=== PATIENT | male | born 1975 | race Caucasian/White ===

== ENCOUNTER 2017-07-25 11:54 | Emergency (ER) | payer MEDICARE, SELFPAY ==
[2017-07-25 11:56] VITALS: BP 111/82; PULSE 106; RESP 16; TEMP 36.5; O2SAT 95; BMI 45.1
--- NOTE | 2017-07-25 14:40 | RAD_ITS ---
STUDY: X-RAY - RIGHT SHOULDER REASON FOR EXAM: Male, 42 years old. Pain. History of recent fall. TECHNIQUE: 5 view(s) of the shoulder. COMPARISON: None. FINDINGS: Normal glenohumeral articulation. Normal acromioclavicular joint. Normal acromion. Normal humeral head and visualized proximal humerus. The soft tissue structures are unremarkable. Normal visualized pulmonary apex. RAD/Shoulder min 2 Views IMPRESSION: Normal x-ray examination of the shoulder. Electronically Signed: Parish Roberts MD at 15:10 EST Tel [phone], Service support ,
[2017-07-25] MEDS: Ibuprofen 400 MG Tablet 800 MG PO (15:19)
--- NOTE | 2017-07-25 15:28 | ED.DCSUM_ITS ---
- ER Visit Summary Date of Service: 07/25/17 Chief Complaint: Fall History of Present Illness: The patient is a [address] aiken. He is a poor informant. He reports that he fell approximately 3 weeks ago and has had left-sided lower back pain since that time. He fell again one week ago and the pain is gotten worse. He does states that as a sharp, aching pain that is 10 out of 10 with twisting and 9 out of 10 at rest. He is taking Flexeril and tramadol without relief. Patient also reports that his right shoulder pain following this fall 1 week ago. It is 6 out of 10 severity. It is increased with abduction. He denies any blow to the head, loss of consciousness, or other injuries. Physical Examination: Vitals: Stable. Afebrile. Neck: No vertebral tenderness. Full ROM without difficulty. Cleared by NEXUS criteria. Back: No vertebral tenderness. Mild tenderness palpation to the left side of his lower back just below the rib cage. General: A&O x 3. NAD. Cardiovascular exam: Regular rate and rhythm, no murmur, rub or gallop. Respiratory exam: Chest nontender. No crepitus. Clear to auscultation bilaterally. No wheezes or stridor. Abdominal exam: Soft, nontender, nondistended, normal bowel sounds. No pain in RUQ or LUQ specifically. No peritoneal signs. Extremity: He has moderate tenderness palpation of his right shoulder. However , he has good range of motion with minimal pain. He is unable to abduct past 90 ? without significant pain. There is no overlying erythema or warmth to suggest a septic joint. He has a 2+ radial pulse bilaterally. Test Results: Right shoulder x-ray is negative. Emergency Department Course and Treatment: She was treated with ibuprofen and is resting comfortably. Treatment Plan: He will be discharged on ibuprofen instructed to follow-up with Dr. aiken for further evaluation treatment. I suggested that he may require physical therapy and/or an MRI of his shoulder if it is not improving. He reports he is already scheduled for physical therapy. Disposition: To home in improved and stable condition. Impression: 1. Fall. 2. Right shoulder pain, acute. 3. Chronic back pain. This note was generated with [employer] software. It may contain incorrect words, spelling, and punctuation that were not noted in review of the chart prior to signing ED Disposition - Plan for ED Patient: Disposition: Home or Assisted Living Chief Complaint: Upper Extremity Injury Instructions: ED Neck Back Pain General, ED Shoulder Pain [facility] Prescriptions: Ibuprofen [Motrin] 800 mg PO TID PRN PRN #20 tablet PRN Reason: Pain Referrals: Kajal Aiken [Primary Care Provider] - 1 Week if not improving
[2017-07-25 15:34] VITALS: PULSE 72; RESP 22
--- NOTE | 2017-07-25 15:35 | ED.RN ---
THIS NURSE REVIEWED D/C INSTRUCTIONS WITH PT. PT VERBALIZED UNDERSTANDING OF INSTRUCTIONS. PT DENIES FURTHER NEEDS OR QUESTIONS AT THIS TIME. PT AMBULATES FROM DEPARTMENT ON OWN WITHOUT ASSISTANCE FROM STAFF
== END 2017-07-25 15:38 | disposition home or self-care (01) ==
PROVIDERS: Emergency Provider Emergency Medicine; Family Provider Family Medicine; PCP Family Medicine
DX: M25.511 Pain in right shoulder (principal); G89.29 Other chronic pain; M54.9 Dorsalgia, unspecified; F17.210 Nicotine dependence, cigarettes, uncomplicated; Z91.81 History of falling; F20.9 Schizophrenia, unspecified
CPT/HCPCS: 73030; 99283

== ENCOUNTER 2017-09-10 09:59 | Emergency (ER) | payer MEDICARE, SELFPAY ==
[2017-09-10 10:00] VITALS: BP 152/108; PULSE 75; RESP 18; TEMP 36.4; O2SAT 97; BMI 45.1
--- NOTE | 2017-09-10 10:11 | ED.DCSUM_ITS ---
- ER Visit Summary Date of Service: 09/10/17 Chief Complaint: Pain, shoulder pain History of Present Illness: The patient is a 42 M to the emergency department with multiple complaints. Patient has had pain in his right shoulder for 3 months. He was seen here about 7 weeks ago. At that time, the patient had a fall. He had negative x-rays. He was back to his primary care as he may need MRI and outpatient physical therapy. He states all they did was just give me ibuprofen. He has not had any referrals. He states he still having pain in the shoulder. It is worse when he moves. He is also having pain in his right lower jaw over the past 24 hours. He has widespread dental disease and states that he gets infections from time to time. He states that the ibuprofen was not helping. He denies any fevers or chills. He denies any trouble speaking or swallowing. Physical Examination: Is relatively unremarkable. Patient is widespread dental disease. There is minimal erythema base of tooth 30. There is no focal abscess. No Aurelio angina. Submental space soft. No trismus or stridor. Oropharynx is widely patent. Patient also has some pain with range of motion of the right shoulder, but no erythema or edema. Normal pulses. Axillary nerve is preserved. Test Results: [] Emergency Department Course and Treatment: The patient has early dental abscess. There is nothing that would benefit from incision and drainage. I did review [facility] reports which shows no prescription analgesic medication within the past 6 months. The patient will be given 1 day of analgesics, I also placed him on clindamycin. I did general counselor him that he needs to pursue more workup for his shoulder with his primary care as he may need orthopedic referral or MRI. Patient will be discharged home. Treatment Plan: [] Disposition: Discharge Impression: 1. Dental pain, periapical abscess 2. Exacerbation of chronic right shoulder pain This note was generated with [employer] dictation software. It may contain incorrect words, spelling, and punctuation that were not noted in review of the chart prior to signing ED Disposition - Plan for ED Patient: Chief Complaint: Dental Instructions: ED Abscess Dental Prescriptions: Hydrocodone Bitart/Apap 5-325 [[place] 5/325] 1 tab PO Q6H PRN PRN #5 tab PRN Reason: Pain Ibuprofen [Motrin] 800 mg PO TID PRN PRN #20 tab PRN Reason: Pain Clindamycin [Cleocin] 300 mg PO 4X/DAY #80 cap Referrals: Kajal Knutson [Primary Care Provider] -
[2017-09-10] MEDS: HYDROcodone Bitartrate/Apap 5/325 Tablet PO (10:21)
== END 2017-09-10 10:26 | disposition home or self-care (01) ==
PROVIDERS: Emergency Provider Emergency Medicine; Family Provider Family Medicine; PCP Family Medicine
DX: M25.511 Pain in right shoulder (principal); G89.29 Other chronic pain; K04.7 Periapical abscess without sinus; J44.9 Chronic obstructive pulmonary disease, unspecified; Z72.0 Tobacco use; Z79.899 Other long term (current) drug therapy
CPT/HCPCS: 99283

== ENCOUNTER 2017-12-19 11:03 | Emergency (ER) | payer MEDICARE, SELFPAY ==
[2017-12-19 11:04] VITALS: BP 143/90; PULSE 110; RESP 22; TEMP 36.7; O2SAT 96; BMI 46.9
--- NOTE | 2017-12-19 11:25 | ED.VISSUMM ---
- ER Visit Summary Date of Service: 12/19/17 Chief Complaint: [] Right upper extremity pain since July History of Present Illness: The patient is a 42 M [] schizophrenia and hypertension all those are stable he indicates in July 2017 he slipped on ice injuring his right upper extremity he has had extensive outpatient evaluation including with his own physicians x-rays physical therapy multiple times reports he still having pain he is on ibuprofen which he is allowed to take, he is also able to tolerate Toradol, he indicates he is explained his physicians is not improved he would like an MRI done and they are trying to have that approved through care source insurance he has had no change in his symptoms he presents because of the persistent problem of pain into the mid arm that has been there since he fell in July Physical Examination: [] No distress head neck chest unremarkable the upper extremity the shoulder is unremarkable he is able to forward elevate he can flex extend the elbow forearm wrist and hand are unremarkable 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 aiken as I cannot order an MRI through the emergency department given all the above, he does agree to Toradol therapy, ibuprofen as he is out of it and to follow-up with his physicians for further management of suggested he obtain a referral to orthopedics through the [facility] system since those are his physicians and he will do that and agrees this plan Treatment Plan: [] Disposition: [] Home stable Impression: [] Acute recurrent right mid humeral pain related to prior fall This note was generated with [employer] dictation software. It may contain incorrect words, spelling, and punctuation that were not noted in review of the chart prior to signing ED Disposition - Plan for ED Patient: Chief Complaint: Upper Extremity Injury Referrals: Kajal Aiken DO [Primary Care Provider] -
--- NOTE | 2017-12-19 11:28 | ED.DCSUM_ITS ---
- ER Visit Summary Date of Service: 12/19/17 Chief Complaint: [] Right upper extremity pain since July History of Present Illness: The patient is a 42 M [] schizophrenia and hypertension all those are stable he indicates in July 2017 he slipped on ice injuring his right upper extremity he has had extensive outpatient evaluation including with his own physicians x-rays physical therapy multiple times reports he still having pain he is on ibuprofen which he is allowed to take, he is also able to tolerate Toradol, he indicates he is explained his physicians is not improved he would like an MRI done and they are trying to have that approved through [employer] insurance he has had no change in his symptoms he presents because of the persistent problem of pain into the mid arm that has been there since he fell in July Physical Examination: [] No distress head neck chest unremarkable the upper extremity the shoulder is unremarkable he is able to forward elevate he can flex extend the elbow forearm wrist and hand are unremarkable 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 aiken as I cannot order an MRI through the emergency department given all the above, he does agree to Toradol therapy, ibuprofen as he is out of it and to follow-up with his physicians for further management of suggested he obtain a referral to orthopedics through the [facility] system since those are his physicians and he will do that and agrees this plan Treatment Plan: [] Disposition: [] Home stable Impression: [] Acute recurrent right mid humeral pain related to prior fall This note was generated with [employer] dictation software. It may contain incorrect words, spelling, and punctuation that were not noted in review of the chart prior to signing ED Disposition - Plan for ED Patient: Chief Complaint: Upper Extremity Injury Referrals: Kajal Aiken DO [Primary Care Provider] -
--- NOTE | 2017-12-19 11:28 | ED.DEP ---
ED Disposition - Plan for ED Patient: Chief Complaint: Upper Extremity Injury Instructions: ED Torn Rotator Cuff Prescriptions: Ibuprofen 600 mg PO TID #30 tab Referrals: Kajal Knutson DO [Primary Care Provider] -
[2017-12-19] MEDS: Ketorolac 60 MG/2 ML Vial IM (11:41)
[2017-12-19 12:03] VITALS: BP 143/84; PULSE 87; RESP 16
== END 2017-12-19 12:04 | disposition home or self-care (01) ==
PROVIDERS: Emergency Provider Emergency Medicine; Family Provider Family Medicine; PCP Family Medicine
DX: M79.621 Pain in right upper arm (principal); Z91.81 History of falling; I10 Essential (primary) hypertension
CPT/HCPCS: 99282

== ENCOUNTER 2017-12-23 12:26 | Emergency (ER) | payer MEDICARE, SELFPAY ==
[2017-12-23 12:27] VITALS: BP 149/97; PULSE 94; RESP 16; TEMP 36.6; O2SAT 98; BMI 47.0
--- NOTE | 2017-12-23 14:04 | ED.DEP ---
ED Disposition - Plan for ED Patient: Chief Complaint: Dental Instructions: ED Tooth Pain Prescriptions: Clindamycin [Cleocin] 300 mg PO 4X/DAY #80 capsule Referrals: Kajal Knutson DO [Primary Care Provider] -
--- NOTE | 2017-12-23 14:09 | ED.VISSUMM ---
- ER Visit Summary Date of Service: 12/23/17 Chief Complaint: Dental pain and right shoulder pain History of Present Illness: The patient is a 42 M presenting with dental pain and right shoulder pain. Patient states this has been ongoing for several days. He has pain in his left upper molar. He has an appointment with his dentist on January 12. He also complains of right shoulder pain which has been ongoing for several months. He is currently awaiting an MRI. He was previously taking Mobic and then started taking ibuprofen. He states this is not helping. He denies other complaints. Physical Examination: Vitals are stable. Patient is afebrile. Alert no acute distress. HEENT exam poor dentition, left upper molar tenderness, no fluctuance. No sublingual edema Neck is supple. Lungs are clear and equal bilaterally. Heart is regular rate and rhythm. Abdomen is soft nontender nondistended. Extremities right anterior shoulder tenderness, painful active full range of motion Skin is warm and dry. No focal neurologic deficit. Remainder of exam is unremarkable. Emergency Department Course and Treatment: Patient has an allergy to naproxen. He is given 1 Percocet in the emergency department. Advised to continue ibuprofen. Patient is given clindamycin. Advised to follow-up with his dentist and his primary care physician. Advised return to ED if worsening complaints. Disposition: Discharge home Impression: Odontalgia, chronic right shoulder pain This note was generated with [employer] dictation software. It may contain incorrect words, spelling, and punctuation that were not noted in review of the chart prior to signing ED Disposition - Plan for ED Patient: Chief Complaint: Dental Instructions: ED Tooth Pain Prescriptions: Clindamycin [Cleocin] 300 mg PO 4X/DAY #80 capsule Referrals: Kajal Knutson DO [Primary Care Provider] -
[2017-12-23] MEDS: oxyCODONE 5 MG Tablet PO (14:12)
[2017-12-23] MEDS: Clindamycin HCl 150 MG Capsule 300 MG PO (14:12)
[2017-12-23 14:19] VITALS: BP 138/87; PULSE 82; RESP 20; O2SAT 100
== END 2017-12-23 14:22 | disposition home or self-care (01) ==
PROVIDERS: Emergency Provider Emergency Medicine; Family Provider Family Medicine; PCP Family Medicine
DX: M25.511 Pain in right shoulder (principal); K08.89 Other specified disorders of teeth and supporting structures; G89.29 Other chronic pain; Z72.0 Tobacco use; F20.9 Schizophrenia, unspecified
CPT/HCPCS: 99283

== ENCOUNTER 2018-01-19 13:04 | Emergency (ER) | payer MEDICARE, SELFPAY ==
[2018-01-19 13:05] VITALS: BP 132/87; PULSE 108; RESP 17; TEMP 36.6; O2SAT 99; BMI 46.7
--- NOTE | 2018-01-19 13:53 | ED.VISSUMM ---
- ER Visit Summary Date of Service: 01/19/18 Chief Complaint: Dental pain and torn muscle History of Present Illness: The patient is a 42 M who presents with increasing dental pain for the past week. He states his dentist is located at [facility]. He denies fever, chills night sweats. Denies difficulty opening or closing his mouth. He denies any facial redness or swelling. He denies change in voice. He does report cold liquid makes the pain worse. There is no history rheumatic fever, murmur, SBE, IV drug use to be an immune suppressed. He states when he flexes his right elbow he complains of pain in the bicep muscle. There is no history of trauma. Physical Examination: Vital signs remarkable for an elevated blood pressure and heart rate of 132/87 and 108 respectively. Patient has marked dental caries. There is probable abscess of the left upper first bicuspid. The caries involve dentin and pulp numerous teeth. There is no fluctuance. There is no facial erythema, warmth. There may be slight swelling. Trach is midline. There is no cervical lymphadenopathy. There is no stridor. Heart is rapid and regular without murmur, gallop or rub. Lungs are clear to auscultation. Examination right upper extremity reveals pain palpation over the bicep tendon. He has full range of motion and no weakness. Axillary, median, radial and ulnar function intact. Radial pulses palpable. There is no evidence of trauma. Having him flex against resistance causes him pain. Test Results: None Emergency Department Course and Treatment: Because of his allergies he was treated with clindamycin 300 mg and one [place] tablet Treatment Plan: Follow-up at the [facility] Disposition: Prescription for clindamycin 300 mg and [place] No. 10 and outpatient follow-up Impression: 1. Dental abscess 2. Odontalgia 3. Multiple dental caries involving pulp and dentin multiple teeth 4. Bicep tendinitis This note was generated with [employer] dictation software. It may contain incorrect words, spelling, and punctuation that were not noted in review of the chart prior to signing ED Disposition - Plan for ED Patient: Disposition: Home or Assisted Living Chief Complaint: Dental Instructions: Dental Abscess, ED Cavity Dental, ED Strain Muscle Ext Prescriptions: Hydrocodone Bitart/Apap 5-325 [[place] 5MG-325MG] 1 tab PO Q6H PRN PRN 3 Days #10 tab PRN Reason: Pain Clindamycin HCl [Cleocin] 300 mg PO Q6H #28 cap Referrals: Kajal Knutson DO [Primary Care Provider] - Cecile Duran [NON-STAFF] - 5-7 Days
--- NOTE | 2018-01-19 14:00 | ED.DCSUM_ITS ---
- ER Visit Summary Date of Service: 01/19/18 Chief Complaint: Dental pain and torn muscle History of Present Illness: The patient is a 42 M who presents with increasing dental pain for the past week. He states his dentist is located at [facility]. He denies fever, chills night sweats. Denies difficulty opening or closing his mouth. He denies any facial redness or swelling. He denies change in voice. He does report cold liquid makes the pain worse. There is no history rheumatic fever, murmur, SBE, IV drug use to be an immune suppressed. He states when he flexes his right elbow he complains of pain in the bicep muscle. There is no history of trauma. Physical Examination: Vital signs remarkable for an elevated blood pressure and heart rate of 132/87 and 108 respectively. Patient has marked dental caries. There is probable abscess of the left upper first bicuspid. The caries involve dentin and pulp numerous teeth. There is no fluctuance. There is no facial erythema, warmth. There may be slight swelling. Trach is midline. There is no cervical lymphadenopathy. There is no stridor. Heart is rapid and regular without murmur, gallop or rub. Lungs are clear to auscultation. Examination right upper extremity reveals pain palpation over the bicep tendon. He has full range of motion and no weakness. Axillary, median, radial and ulnar function intact. Radial pulses palpable. There is no evidence of trauma. Having him flex against resistance causes him pain. Test Results: None Emergency Department Course and Treatment: Because of his allergies he was treated with clindamycin 300 mg and one [place] tablet Treatment Plan: Follow-up at the [facility] Disposition: Prescription for clindamycin 300 mg and [place] No. 10 and outpatient follow-up Impression: 1. Dental abscess 2. Odontalgia 3. Multiple dental caries involving pulp and dentin multiple teeth 4. Bicep tendinitis This note was generated with [employer] dictation software. It may contain incorrect words, spelling, and punctuation that were not noted in review of the chart prior to signing ED Disposition - Plan for ED Patient: Disposition: Home or Assisted Living Chief Complaint: Dental Instructions: Dental Abscess, ED Cavity Dental, ED Strain Muscle Ext Prescriptions: Hydrocodone Bitart/Apap 5-325 [[place] 5MG-325MG] 1 tab PO Q6H PRN PRN 3 Days #10 tab PRN Reason: Pain Clindamycin HCl [Cleocin] 300 mg PO Q6H #28 cap Referrals: Kajal Knutson DO [Primary Care Provider] - Cecile Duran [NON-STAFF] - 5-7 Days
[2018-01-19] MEDS: Clindamycin HCl 150 MG Capsule 300 MG PO (14:10)
[2018-01-19] MEDS: HYDROcodone Bitartrate/Apap 5/325 Tablet PO (14:11)
[2018-01-19 14:12] VITALS: BP 128/75; PULSE 82; RESP 16; O2SAT 96
== END 2018-01-19 14:14 | disposition home or self-care (01) ==
PROVIDERS: Emergency Provider Emergency Medicine; Family Provider Family Medicine; PCP Family Medicine
DX: K04.7 Periapical abscess without sinus (principal); K02.9 Dental caries, unspecified; M75.20 Bicipital tendinitis, unspecified shoulder; E66.9 Obesity, unspecified; J44.9 Chronic obstructive pulmonary disease, unspecified; J45.909 Unspecified asthma, uncomplicated; F32.9 Major depressive disorder, single episode, unspecified
CPT/HCPCS: 99283

== ENCOUNTER 2018-02-08 17:12 | Emergency (ER) | payer MEDICARE, SELFPAY ==
[2018-02-08 17:13] VITALS: BP 128/82; PULSE 96; RESP 16; TEMP 36.6; O2SAT 96; BMI 45.1
--- NOTE | 2018-02-08 17:31 | ED.DCSUM_ITS ---
- ER Visit Summary Date of Service: 02/08/18 Chief Complaint: Dental pain History of Present Illness: The patient is a 42 M presenting with dental pain ? 3 days. Patient has pain in the right lower teeth. He is scheduled to have his tooth extracted next week at [facility]. He states he is on clindamycin and [place]. He has run out of the [place] and is almost finished with clindamycin. He denies fever. He states he took ibuprofen today with no improvement. Physical Examination: Vitals are stable. Patient is afebrile. Alert no acute distress. HEENT exam right lower molar tenderness and decay, no surrounding fluctuance. No sublingual edema Lungs are clear and equal bilaterally. Heart is regular rate and rhythm. Extremities are unremarkable. Skin is warm and dry. Remainder of exam is unremarkable. Emergency Department Course and Treatment: Patient is given clindamycin, short course of [place]. Advised to follow-up with his dentist. Advised return ED if worsening complaints. Disposition: Discharge home Impression: Odontalgia This note was generated with [employer] dictation software. It may contain incorrect words, spelling, and punctuation that were not noted in review of the chart prior to signing ED Disposition - Plan for ED Patient: Chief Complaint: Dental Referrals: Kajal Knutson DO [Primary Care Provider] -
--- NOTE | 2018-02-08 17:32 | ED.DEP ---
ED Disposition - Plan for ED Patient: Chief Complaint: Dental Instructions: ED Tooth Pain Prescriptions: Hydrocodone Bitart/Apap 5-325 [[place] 5MG-325MG] 1 tablet PO Q6H PRN PRN 2 Days #8 tablet PRN Reason: Pain Clindamycin [Cleocin] 300 mg PO 4X/DAY #80 capsule Referrals: Kajal Knutson DO [Primary Care Provider] -
--- NOTE | 2018-02-08 17:33 | DCINST.ED_ITS ---
ED Disposition - Plan for ED Patient: Chief Complaint: Dental Instructions: ED Tooth Pain Prescriptions: Hydrocodone Bitart/Apap 5-325 [[place] 5MG-325MG] 1 tablet PO Q6H PRN PRN 2 Days # 8 tablet PRN Reason: Pain Clindamycin [Cleocin] 300 mg PO 4X/DAY #80 capsule Referrals: Kajal Knutson DO [Primary Care Provider] -
--- NOTE | 2018-02-08 17:46 | ED.RN ---
PT GIVEN WRITTEN AND VERBAL DISCHARGE INSTRUCTIONS. PT VERBALIZES UNDERSTANDING. EDUCATED NOT TO DRIVE WHEN TAKING [place].
== END 2018-02-08 17:47 | disposition home or self-care (01) ==
PROVIDERS: Emergency Provider Emergency Medicine; Family Provider Family Medicine; PCP Family Medicine
DX: K08.89 Other specified disorders of teeth and supporting structures (principal); Z72.0 Tobacco use
CPT/HCPCS: 99282

== ENCOUNTER 2018-02-16 13:03 | Emergency (ER) | payer MEDICARE, SELFPAY ==
[2018-02-16 13:07] VITALS: BP 155/78; PULSE 107; RESP 22; TEMP 36.4; BMI 47.7
--- NOTE | 2018-02-16 14:13 | ED.DEP ---
ED Disposition - Plan for ED Patient: Chief Complaint: Dental Instructions: ED Tooth Pain Prescriptions: Oxycodone HCl/Acetaminophen [Percocet 5/325] 1 tablet PO Q6H PRN PRN 3 Days #6 tablet PRN Reason: Pain Referrals: Kajal Knutson DO [Primary Care Provider] -
--- NOTE | 2018-02-16 14:21 | ED.DCSUM_ITS ---
- ER Visit Summary Date of Service: 02/16/18 Chief Complaint: Dental pain History of Present Illness: The patient is a 42 M presenting with dental pain. This has been ongoing for several days. He saw his dentist on and was given 2 day supply of Percocet. He states that he has now run out of this and is not able to see the dentist again until . At that time he plans to have dental extraction. He denies fever swelling or new complaints. Physical Examination: Vitals are stable. Patient is afebrile. Alert no acute distress. HEENT exam widespread dental decay, tenderness right upper molar, no surrounding fluctuance. No sublingual edema Neck is supple. Lungs are clear and equal bilaterally. Heart is regular rate and rhythm. Extremities are unremarkable. Skin is warm and dry. Remainder of exam is unremarkable. Emergency Department Course and Treatment: [facility] report was reviewed. He has allergies to NSAIDs. He was given Percocet #6. He is advised to follow-up with his dentist. Advised return to ED if worsening complaints. Disposition: Discharge home Impression: Odontalgia This note was generated with [employer] dictation software. It may contain incorrect words, spelling, and punctuation that were not noted in review of the chart prior to signing ED Disposition - Plan for ED Patient: Chief Complaint: Dental Instructions: ED Tooth Pain Prescriptions: Oxycodone HCl/Acetaminophen [Percocet 5/325] 1 tablet PO Q6H PRN PRN 3 Days #6 tablet PRN Reason: Pain Referrals: Kajal Knutson DO [Primary Care Provider] -
[2018-02-16 14:33] VITALS: PULSE 95; RESP 18; O2SAT 97
--- NOTE | 2018-02-16 14:34 | ED.RN ---
REVIEWED D/C INSTRUCTIONS, FOLLOW UP CARE, PRESCRIPTION, AND S/S THAT WOULD WARRANT A RETURN TO THE ED WITH PT. PT VERBALIZED AN UNDERSTANDING AND DENIES FURTHER QUESTIONS FOR THIS RN. PT SKIN P/W/D, RESP EVEN AND UNLABORED, PT A&O X 3, NO DISTRESS NOTED. PT AMBULATED OUT OF ED, GAIT STEADY.
== END 2018-02-16 14:37 | disposition home or self-care (01) ==
PROVIDERS: Emergency Provider Emergency Medicine; Family Provider Family Medicine; PCP Family Medicine
DX: K08.89 Other specified disorders of teeth and supporting structures (principal); K02.9 Dental caries, unspecified; F32.9 Major depressive disorder, single episode, unspecified; Z72.0 Tobacco use
CPT/HCPCS: 99282

== ENCOUNTER 2018-03-09 17:16 | Emergency (ER) | payer MEDICARE, SELFPAY ==
[2018-03-09 17:18] VITALS: BP 134/91; PULSE 98; RESP 18; TEMP 37.1; O2SAT 97; BMI 48.0
--- NOTE | 2018-03-09 17:37 | ED.VISSUMM ---
- ER Visit Summary Date of Service: 03/09/18 Chief Complaint: Dental pain History of Present Illness: The patient is a 42 M who presents with dental pain that became worse today. Patient states he had dental extractions performed days ago. Patient states the pain has been getting progressively worse. Patient states he has been unable keep his ibuprofen down. Patient denies any fevers or chills. Patient states he has been taking clindamycin. Patient states he has not vomited his clindamycin. Patient denies any chest pain or shortness of breath. Patient denies any difficulty swallowing. Physical Examination: Vital signs are stable. Patient is afebrile. Patient is in no acute distress. Oral mucosa is pink and moist. Gingiva is mildly tender over the upper gingiva. There is also some tenderness over the left lower gingiva and the area of the left lower canine. There is no fluctuance. There is no sublingual edema noted. There is no discharge or drainage noted. Oropharynx is clear. Neck is supple. Trachea is midline. There is no lymphadenopathy noted. The remaining physical exam is within normal limits. Emergency Department Course and Treatment: Patient was given a dose of meloxicam here. Patient was given a prescription for meloxicam. Patient was instructed to follow-up with his dentist in 5-7 days. Patient understood and was agreeable with the plan. All questions were answered. Disposition: Discharge home Impression: Odontalgia This note was generated with uSamp dictation software. It may contain incorrect words, spelling, and punctuation that were not noted in review of the chart prior to signing ED Disposition - Plan for ED Patient: Disposition: Home or Assisted Living Chief Complaint: Dental Diagnosis: Odontalgia Instructions: ED Tooth Pain Prescriptions: Meloxicam [Mobic] 15 mg PO DAILY #10 tab Referrals: Kajal Knutson DO [Primary Care Provider] -
[2018-03-09 18:18] VITALS: BP 121/83
[2018-03-09] MEDS: Meloxicam 15 MG Tablet PO (18:18)
== END 2018-03-09 18:20 | disposition home or self-care (01) ==
PROVIDERS: Emergency Provider Emergency Medicine; Family Provider Family Medicine; PCP Family Medicine
DX: K08.89 Other specified disorders of teeth and supporting structures (principal); Z98.818 Other dental procedure status; F17.200 Nicotine dependence, unspecified, uncomplicated
CPT/HCPCS: 99284

== ENCOUNTER 2020-03-17 02:17 | Emergency (ER) | payer MEDICARE, MEDICAID, SELFPAY ==
[2020-03-17] VITALS (9 sets, daily range): BP systolic 101–122; BP diastolic 73–100; PULSE 118–168; RESP 18–33; TEMP 37.2–37.7; O2SAT 95–96; BMI 37.3
--- NOTE | 2020-03-17 02:34 | CT_ITS ---
STUDY: CT ABDOMEN AND PELVIS WITH CONTRAST REASON FOR EXAM: Male, 44 years old. NOT FEELING WELL X 2 DAYS, KNOWN WOUND IN LEFT GROIN, PT DID NOT START ATB, HX HTN, COPD, DIAB RADIATION DOSAGE (If Supplied By Facility): CTDIvol = ( 14.28 ) mGy, DLP = ( 1394.93 ) mGycm TECHNIQUE: Transaxial images were obtained from the dome of the diaphragm to the symphysis pubis without oral contrast. IV 100mL Isovue-370 was administered. Sagittal and coronal images were reconstructed. Individualized dose optimization techniques were used for this CT. COMPARISON: None. FINDINGS: The visualized lung bases are unremarkable. The visualized portions of the heart are within normal limits. There is decreased attenuation of the liver consistent with steatosis. Normal gallbladder and extrahepatic biliary system. Normal spleen. Normal pancreas. Normal bilateral adrenal glands. Normal right kidney. Normal left kidney. Normal visualized stomach. Normal small intestine. Normal colon. The appendix is visualized and appears normal. Normal abdominal aorta. Normal inferior vena cava. Normal retroperitoneum. Normal urinary bladder. Normal abdominal wall. Normal osseous structures. Soft tissues demonstrate subcutaneous emphysema within the left inguinal region tracking along the subcutaneous soft tissues of the left anterior abdominal wall with adjacent subcutaneous fat fat stranding changes. CT/Abdomen/Pelvis W IV Cont ONLY IMPRESSION: Extensive Soft tissue emphysematous changes within the left anterior abdominal wall and inguinal region with adjacent fat stranding inflammatory changes. No organized fluid collections. 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 Hepatic steatosis. Electronically Signed: Luis Winter, at 4:40 EDT Tel , Service support ,
--- NOTE | 2020-03-17 02:34 | EKG12_ITS ---
Test Reason : AFIB RVR Blood Pressure : / mmHG Vent. Rate : 155 BPM Atrial Rate : 278 BPM P-R Int : 000 ms QRS Dur : 104 ms QT Int : 322 ms P-R-T Axes : 082 072 031 degrees QTc Int : 517 ms Atrial flutter with variable A-V block Junctional ST depression, probably normal Abnormal ECG Confirmed by EM RECINOS, NICK ([id number]), photograph editor RINKU CONNORS ([id number]) on 03/21/2020 1:29:53 PM Referred By: SUSIE Confirmed By:NICK STRICKLAND MD
--- NOTE | 2020-03-17 02:43 | ED.DCSUM_ITS ---
History of Present Illness Chief Complaint: General Illness Narrative: Patient is a 44-year-old male who presents with weakness and falls. On Saturday about 5 days ago he noticed redness pain and swelling at his left groin. He was seen at an outside emergency department and told that it was an infected hair follicle. He was prescribed antibiotics but was unable to get the pharmacy to have these filled. Over the past day and a half he has had generalized weakness and falls. A family member called EMS. He was noted to be hyperglycemic with a blood sugar greater than 500. He is not a known diabetic. He was also found to be in atrial fibrillation with RVR he does not have a history of atrial fibrillation. He also had a temperature of 100.3 Past Medical History - Allergies and Home Meds Allergies/Adverse Reactions: Allergies naproxen Allergy (Verified 02/08/18 17:15) Shortness of breath Penicillins Allergy (Verified 02/08/18 17:15) Swelling aspirin Adverse Reaction (Verified 02/08/18 17:15) HEART PALPITATIONS Primary Care Physician: Kajal Knutson DO [Primary Care Provider] - Past Medical History: - - Mental health patient is uncertain of his diagnoses. He also has a history of hyperlipidemia noncompliant with medication. He is not a known diabetic. He denies history of coronary disease. Surgical History: noncontributory Smoking Status: Current every day smoker - Family History Maternal Family History: Reports: No pertinent history Paternal Family History: Reports: No pertinent history Review of Systems All systems negative except as indicated General: Reports: Fever Eyes: Denies: Visual changes - bilaterally ENT: Denies: Bilateral ear pain Cardiovascular: Denies: Chest pain Respiratory: Denies: Dyspnea, Cough Gastrointestinal: Reports: Abdominal pain. Denies: Vomiting Musculoskeletal: Denies: Myalgias Skin: Reports: Rash Neurological: Denies: Headache Psych: Reports: Depression, Anxiety Hematologic: Denies: Easy bruising Allergy: Denies: Uticaria Physical Exam Vital Signs/Narrative: Vital Signs Temp Pulse Resp BP Pulse Ox 03/17/20 02:29 142 H 03/17/20 02:20 98.9 F 168 H 18 117/73 96 Inital Vital Signs reviewed: Yes General: Well nourished, Obese Head: Normocephalic Eyes: EOMI ENT: Moist mucous membranes Neck: Supple Cardiovascular: Irregular, Tachycardia Respiratory: Wheezing Abdomen: Soft, - - Patient does have lower abdominal tenderness he has erythema and induration beginning on the left side of the scrotum involving the groin pelvis and lower abdomen this is hot to the touch : - - There is an open wound on the left side of the scrotum with bassem purulent drainage Skin: Normal color Neurological: Alert Psychological: Normal affect Diagnostic/Tx/Re-eval Impressions Abdomen/Pelvis CT 03/17/20 02:34 IMPRESSION: Extensive Soft tissue emphysematous changes within the left anterior abdominal wall and inguinal region with adjacent fat stranding inflammatory changes. No organized fluid collections. 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 Hepatic steatosis. Electronically Signed: Luis Winter, at 4:40 EDT Tel , Service support , ADDENDUM: 03/17/20 0455 03/17/20 02:34 Abdomen/Pelvis W IV Cont ONLY [CT] Stat Laboratory Results 03/17/20 03/17/20 03/17/20 02:30 02:30 02:30 WBC 20.1 H RBC 5.11 Hgb 15.7 Hct 44.8 MCV 87.7 MCH 30.7 MCHC 35.0 RDW Std Deviation 38.8 RDW Coeff of Desiree 12.0 Plt Count 193 MPV 9.9 Immature Gran % (Auto) 1.300 H Neut % (Auto) 85.0 H Lymph % (Auto) 4.2 L [place] % (Auto) 8.4 Eos % (Auto) 0.8 Baso % (Auto) 0.3 Absolute Neuts (auto) 17.1 H Absolute Lymphs (auto) 0.85 Nucleated RBC % 0 Differential Comment SCANNED Diff Path Review May foll PT 16.0 H INR 1.3 APTT 28.4 Specimen Type VBG pH VBG pO2 VBG HCO3 VBG O2 Sat (Calc) VBG O2 Content VBG Base Excess POC Mix VBG pCO2 Pt Tmp Sodium 129 L Potassium 3.8 Chloride 93 L Carbon Dioxide 18.0 L Anion Gap 18 H BUN 19 H Creatinine 1.35 H Estim Creat Clear Calc 72.10 Est GFR (MDRD) Af Amer 74 Est GFR (MDRD) Non-Af 61 BUN/Creatinine Ratio 14.1 Glucose 470 H* Lactic Acid Calcium 8.8 Total Bilirubin 1.00 AST 7 L ALT 21 Alkaline Phosphatase 127 H Troponin I < 0.015 Total Protein 7.2 Albumin 2.7 L Globulin 4.5 H Albumin/Globulin Ratio 0.6 L Urine Color Urine Clarity Urine pH Ur Specific [place] Urine Protein Urine Glucose (UA) Urine Ketones Urine Occult Blood Urine Nitrite Urine Bilirubin Urine Urobilinogen Ur Leukocyte Esterase Urine RBC Urine WBC Ur Squamous Epith Cells Amorphous Sediment Urine Bacteria Urine Mucus Acetone Level 03/17/20 03/17/20 03/17/20 02:45 02:45 02:59 WBC RBC Hgb Hct MCV MCH MCHC RDW Std Deviation RDW Coeff of Desiree Plt Count MPV Immature Gran % (Auto) Neut % (Auto) Lymph % (Auto) [place] % (Auto) Eos % (Auto) Baso % (Auto) Absolute Neuts (auto) Absolute Lymphs (auto) Nucleated RBC % Differential Comment Diff Path Review PT INR APTT Specimen Type YESSENIA VBG pH 7.42 VBG pO2 45 H VBG HCO3 15 L VBG O2 Sat (Calc) 83 H VBG O2 Content 16 L VBG Base Excess -10 L POC Mix VBG pCO2 Pt Tmp 23.2 L Sodium Potassium Chloride Carbon Dioxide Anion Gap BUN Creatinine Estim Creat Clear Calc Est GFR (MDRD) Af Amer Est GFR (MDRD) Non-Af BUN/Creatinine Ratio Glucose Lactic Acid 2.0 Calcium Total Bilirubin AST ALT Alkaline Phosphatase Troponin I Total Protein Albumin Globulin Albumin/Globulin Ratio Urine Color Urine Clarity Urine pH Ur Specific [place] Urine Protein Urine Glucose (UA) Urine Ketones Urine Occult Blood Urine Nitrite Urine Bilirubin Urine Urobilinogen Ur Leukocyte Esterase Urine RBC Urine WBC Ur Squamous Epith Cells Amorphous Sediment Urine Bacteria Urine Mucus Acetone Level SMALL H 03/17/20 04:02 WBC RBC Hgb Hct MCV MCH MCHC RDW Std Deviation RDW Coeff of Desiree Plt Count MPV Immature Gran % (Auto) Neut % (Auto) Lymph % (Auto) [place] % (Auto) Eos % (Auto) Baso % (Auto) Absolute Neuts (auto) Absolute Lymphs (auto) Nucleated RBC % Differential Comment Diff Path Review PT INR APTT Specimen Type VBG pH VBG pO2 VBG HCO3 VBG O2 Sat (Calc) VBG O2 Content VBG Base Excess POC Mix VBG pCO2 Pt Tmp Sodium Potassium Chloride Carbon Dioxide Anion Gap BUN Creatinine Estim Creat Clear Calc Est GFR (MDRD) Af Amer Est GFR (MDRD) Non-Af BUN/Creatinine Ratio Glucose Lactic Acid Calcium Total Bilirubin AST ALT Alkaline Phosphatase Troponin I Total Protein Albumin Globulin Albumin/Globulin Ratio Urine Color Yellow Urine Clarity Clear Urine pH 5.0 Ur Specific [place] 1.015 Urine Protein 30 H Urine Glucose (UA) 1000 H Urine Ketones 150 H Urine Occult Blood 25 H Urine Nitrite Negative Urine Bilirubin Negative Urine Urobilinogen Normal Ur Leukocyte Esterase Negative Urine RBC 0-5 SEEN Urine WBC 0 SEEN Ur Squamous Epith Cells 0 SEEN Amorphous Sediment 1+ Urine Bacteria 0 SEEN Urine Mucus 0 SEEN Acetone Level - Medical Decision Making Patient was given IV fluids. For A. fib with RVR he was given an IV Cardizem bolus and started on a drip. Given that the patient does appear to have scrotal/pelvic abscess with induration erythema and pain extending to the lower abdomen I am concerned for process such as Toni's gangrene. Patient was given IV clindamycin and Cipro. Serum laboratory studies as above notable for white blood cell count of 20,000. Blood cultures were sent. CT imaging does show subcutaneous emphysema consistent with necrotizing fasciitis and Toni's gangrene. Patient remains tachycardic from 120-140 even maxed out on Cardizem drip. Given necrotizing fasciitis some degree of tachycardia is certainly expected. We will continue aggressive IV fluid resuscitation. Patient has maintained a stable blood pressure. I spoke to Dr. Kaur at [facility] who accepts the patient for transfer to the medical ICU with plan for surgical consultations as patient will require surgical intervention. He requested we also give a dose of IV vancomycin. Patient's blood sugar still greater than 400 after IV fluids and insulin. We will start an insulin infusion. - Critical Care Time Critical care time (excluding procedures): 30-74 minutes, Discussing w/Consultants, Arranging Admission or Transfer, Performing Direct Patient Care at Bedside ED Disposition - Plan for ED Patient: Disposition: [facility] Diagnosis: Fourniers gangrene, Atrial fibrillation with RVR, Hyperglycemia Referrals: Kajal Knutson DO [Primary Care Provider] -
[2020-03-17] MEDS: dilTIAZem 25 MG/5 ML Vial 20 MG IV BOLUS (02:47)
[2020-03-17] MEDS: 0.9% Normal Saline 1,000 ML 1000 ML IV (02:47)
[2020-03-17] MEDS: Ciprofloxacin 400 MG/200 ML BAG 200 MG IV (02:47)
[2020-03-17 02:57] LABS: Absolute Lymphocyte Count 0.85 X10^3/uL (0.83-4.51); Absolute Neutrophil Count 17.1 X10^3/uL (2.0-7.7); Basophil# 0.07 X10^3/uL; Basophil% 0.3 % (0-1); Eosinophil# 0.17 X10^3/uL; Eosinophils% 0.8 % (0-5); Hematocrit 44.8 % (40-54); Hemoglobin 15.7 g/dL (13.0-16.5); Lymphocyte # 0.85 X10^3/ul (4.0); Lymphocyte % 4.2 % (19-41); Mean Corpuscular Hgb 30.7 pg (27.0-32.0); Mean Corpuscular Volume 87.7 fL (80-94); Mean Platelet Vol. 9.9 fl (6.2-12.0); Monocyte# 1.69 X10^3/uL; Monocyte% 8.4 % (0-10); NRBC Flagged by Analyzer 0 % (0-5); POSITIVE DIFFERENTIAL YES; POSITIVE MORPHOLOGY YES; Platelet Count 193 K/mm3 (150-450); RBC Distribution Width SD 38.8 fl (35.1-43.9); Red Blood Count 5.11 M/mm3 (4.6-6.2); White Blood Count 20.1 K/mm3 (4.4-11.0)
[2020-03-17 03:02] LABS: Differential Indicated SCAN CRITERIA MET
[2020-03-17 03:06] LABS: Blood Gas Specimen Type VEN; VBG BASE EXCESS -10 mmol/L (-1.0-3.5); VBG Bicarbonate 15 mmol/L (22-26); VBG Oxygen Content 16 mmol/L (23-33); VBG PO2 45 mmHg (25-40); VBG SO2 83 % (50-70); VBG pCO2 23.2 mmHg (41-51); VBG pH 7.42 (7.32-7.42)
[2020-03-17 03:06] LABS: International Normalized Ratio 1.3; Partial Thromboplast Time 28.4 Seconds (24.1-36.2)
[2020-03-17 03:25] LABS: ALB/GLOB Ratio 0.6 RATIO (0.9-2.4); AST(SGOT) 7 U/L (15-37); Alanine Aminotransfer ALT/SGPT 21 U/L (16-61); Albumin, Serum 2.7 g/dL (3.2-5.0); Alkaline Phosphatase 127 U/L (45-117); Anion Gap 18 (5-15); BUN 19 mg/dL (7-18); BUN/Creat Ratio 14.1 RATIO (10-20); Calcium,Total 8.8 mg/dL (8.5-10.1); Chloride 93 mmol/L (98-107); Creatinine, Serum 1.35 mg/dL (0.70-1.30); EST Glomerular Filtration Rate 61 mL/min (>60); Est Glom Filt Rate - Afr Amer 74 mL/min (>60); Globulin 4.5 g/dL (2.2-4.2); Glucose 470 mg/dL (74-106); Potassium 3.8 mmol/L (3.5-5.1); Protein, Total 7.2 g/dL (6.4-8.2); Sodium Level 129 mmol/L (136-145)
[2020-03-17 03:42] LABS: Differential Comment SCANNED
[2020-03-17] MEDS: 0.9% Normal Saline 1,000 ML 999 ML IV ×2 (03:56→05:50)
[2020-03-17 04:06] LABS: Bacteria 0 SEEN /hpf (None Seen); Mucous, Urine 0 SEEN /hpf (<or=2+); Squamous Epithelial Cells - UA 0 SEEN /hpf (0-5); White Blood Cells 0 SEEN /hpf (0-5)
[2020-03-17 04:07] LABS: Color, Urine Yellow (Yellow); Glucose, Dipstick 1000 mg/dl (Normal); Ketone-Dipstick 150 mg/dl (Negative); Leukocyte Esterase-Dipstick Negative /ul (Negative); Nitrite-Dipstick Negative (Negative); Occult Blood-Urine 25 /ul (Negative); Protein-Dipstick 30 mg/dl (Negative); Specific Gravity, Urine 1.015 (1.002-1.030); Urine Bilirubin Dipstick Negative (Negative); Urine Clarity Clear (Clear); Urine Urobilinogen Normal (Normal)
[2020-03-17 04:12] LABS: Amorphous Sediment 1+; Red Blood Cells-Urine 0-5 SEEN /hpf (0-5)
[2020-03-17] MEDS: Insulin Lispro 100 UNIT/ML INSULN.PEN 12 UNIT SC (04:23)
[2020-03-17 05:16] LABS: Bedside Glucose 418 mg/dL (70-110)
[2020-03-17 06:50] LABS: Bedside Glucose 339 mg/dL (70-110)
[2020-03-17 06:51] LABS: Reflex Lactate? Y
[2020-03-17 12:35] LABS: Pathologist Review Reviewed
== END 2020-03-17 07:00 | disposition short-term general hospital (02) ==
PROVIDERS: Emergency Provider Emergency Medicine; PCP Family Medicine
DX: N49.3 Fournier gangrene (principal); I48.91 Unspecified atrial fibrillation; R73.9 Hyperglycemia, unspecified; E78.5 Hyperlipidemia, unspecified; F17.200 Nicotine dependence, unspecified, uncomplicated; K76.0 Fatty (change of) liver, not elsewhere classified; Z88.0 Allergy status to penicillin; Z88.6 Allergy status to analgesic agent; E66.9 Obesity, unspecified; I48.92 Unspecified atrial flutter; Z91.81 History of falling
CPT/HCPCS: 74177; 80053; 81001; 82009; 82803; 82962; 83605; 84484; 85025; 85610; 85730; 87040; 87070; 87086; 87205; 87635; 93005; 96361; 96365; 99285; C9803; J7030; J7040; J7050; Q9967; A4216; J0744; U0003

== ENCOUNTER → 2020-07-20 09:20 | Outpatient (CLI) | payer MEDICARE, MEDICAID, SELFPAY ==
[2020-03-17 02:20] VITALS: BMI 37.3
[2020-07-20 10:37] LABS: Hemoglobin A1c 6.1 % (3.8-5.6)
[2020-07-20 11:01] LABS: AST(SGOT) 15 U/L (15-37); Alanine Aminotransfer ALT/SGPT 29 U/L (16-61); Albumin, Serum 3.5 g/dL (3.2-5.0); Alkaline Phosphatase 108 U/L (45-117); Anion Gap 1 (5-15); BUN 15 mg/dL (7-18); BUN/Creat Ratio 13.5 RATIO (10-20); Calcium,Total 8.4 mg/dL (8.5-10.1); Chloride 114 mmol/L (98-107); Cholesterol 311 mg/dL (200); Creatinine, Serum 1.11 mg/dL (0.70-1.30); EST Glomerular Filtration Rate 76 mL/min (>60); Est Glom Filt Rate - Afr Amer 92 mL/min (>60); Globulin 3.5 g/dL (2.2-4.2); Glucose 119 mg/dL (74-106); High Density Lipoprotein 25 mg/dL; Potassium 4.4 mmol/L (3.5-5.1); Prolactin 9.4 ng/mL; Sodium Level 141 mmol/L (136-145); Thyroid Stim Hormone (TSH) 3.09 uIU/mL (0.358-3.74); Triglycerides 587 mg/dL
== END ==
PROVIDERS: PCP Family Medicine; Visit Provider Psychiatry & Neurology Psychiatry
DX: E11.65 Type 2 diabetes mellitus with hyperglycemia (principal); Z79.4 Long term (current) use of insulin; Z79.899 Other long term (current) drug therapy
CPT/HCPCS: 36415; 80053; 80061; 83036; 84146; 84443

== ENCOUNTER 2020-07-29 10:06 | Emergency (ER) | payer MEDICARE, MEDICAID, SELFPAY ==
[2020-03-17 02:20] VITALS: BMI 37.3
[2020-07-29 10:08] VITALS: BP 151/85; PULSE 85; RESP 17; TEMP 36.8; O2SAT 97; BMI 41.8
--- NOTE | 2020-07-29 10:18 | ED.RN ---
C/O OF PAIN AT SURGICAL SITE TO LT SIDE DOWN TO GROIN.
--- NOTE | 2020-07-29 10:26 | ED.DCSUM_ITS ---
History of Present Illness Chief Complaint: Other, Pain/Inj Informant: Patient Narrative: Patient is a 45-year-old male with a past medical history of bipolar disease who presents to the emergency department for multiple complaints. He has been complaining of right knee pain for the past 4 weeks. Denies any injury at that time. He has seen his doctor for this and had an x-ray done already. He was placed on a course of prednisone. He has been on anti-inflammatories but this has not been giving him much relief. He feels like the knee has been mildly swollen. Denies any loss of sensation going down the leg. No overlying skin changes with the knee. He does have an orthopedic surgeon he is supposed to follow-up with this for. The second complaint is left side pain. He had a history of gangrene in that area which required surgical excision. This was done in March of last year. He has had pain in that site since. No change in overlying skin of the area. Denies any change in bowel habits. No urinary symptoms. No fevers or chills. Denies any nausea or vomiting. He does not know aggravating or relieving factors for this pain. Patient's third complaint is dental pain of the left lower side. He does have poor dentition and follows with a dentist. He has been seen multiple times in the past for dental pain. He denies any issues with swallowing or sore throat. No facial swelling. Past Medical History - Allergies and Home Meds Allergies/Adverse Reactions: Allergies naproxen Allergy (Verified 07/29/20 10:08) Shortness of breath Penicillins Allergy (Verified 07/29/20 10:08) Swelling aspirin Adverse Reaction (Verified 07/29/20 10:08) HEART PALPITATIONS meloxicam [From Mobic] Adverse Reaction (Verified 07/29/20 10:08) HEADACHE Primary Care Physician: Kajal Knutson DO [Primary Care Provider] - 3-5 Days Prior records reviewed: Yes Past Medical History: - - COPD, A. fib, schizophrenia Surgical History: noncontributory Smoking Status: Current every day smoker - Family History Maternal Family History: Reports: No pertinent history Paternal Family History: Reports: No pertinent history Review of Systems All systems negative except as indicated General: Denies: Chills, Fever, Sweats Eyes: Denies: Visual changes - bilaterally, Diplopia ENT: Reports: - - Dental pain. Denies: Rhinorrhea, Sore throat Cardiovascular: Denies: Chest pain, Palpitations Respiratory: Denies: Dyspnea, Cough, Dyspnea on exertion Gastrointestinal: Reports: Abdominal pain - Left side abdominal wall. Denies: Nausea, Vomiting, Diarrhea, Melena, Hematochezia Genitourinary: Denies: Dysuria, Hematuria, Frequency Musculoskeletal: Reports: Extremity Pain - Right knee. Denies: Back pain Skin: Denies: Rash, Wounds Neurological: Denies: Headache, Weakness, Numbness Physical Exam Vital Signs/Narrative: Vital Signs Temp Pulse Resp BP Pulse Ox 07/29/20 10:08 98.2 F 85 17 151/85 H 97 Inital Vital Signs reviewed: Yes General: Well nourished, Well developed, No Acute Distress Head: Normocephalic, Atraumatic Eyes: Perrl, EOMI ENT: Moist mucous membranes, No rhinorrhea, - - Patient has poor dentition with multiple missing teeth and dental caries. No obvious appreciable abscess requiring drainage. No external facial swelling. Uvula midline. No Aurelio angina. Neck: Supple, Nontender Cardiovascular: Regular rate, Regular rhythm, No murmurs Respiratory: No distress, CTA bilaterally, Chest nontender Abdomen: Soft, Nontender, Nondistended, Normal bowel sounds, - - Previous incision of the left abdominal wall going down to the left groin is well-healed. No overlying skin changes. No pain out of proportion to exam. No crepitus. Back: Nontender, Normal Inspection Extremities: No edema, - - Tenderness to patella and inferior patella ligament. No significant swelling. No overlying skin changes. Full range of motion without significant pain. No calf swelling or leg tenderness. Skin: Normal color, No rash Neurological: Alert, Oriented x3, Cranial nerves II-XII grossly intact, Normal Strength, Normal Sensation Psychological: Normal affect, Normal Mood Diagnostic/Tx/Re-eval - Medical Decision Making Patient presents to the emergency department for multiple complaints including dental pain, left side abdominal wall pain and right knee pain. These are all subacute to chronic issues. Patient does not tolerate penicillin so we will place him on clindamycin for the dental pain. Is going to follow-up with his dentist. He already had x-rays of his knee and I do not feel that this is to be any benefit to repeat this now. He is going to follow-up with his orthopedic surgeon. Recommend symptomatic treatment in the meantime. I did have concern for septic arthritis at this time. As per the left abdominal wall pain this is likely chronic as well. I do not have concern for reinfection as he has no overlying skin changes without any significant pain around the area. Is likely all postoperative changes causing the pain. Recommend symptomatic treatment. Reviewing patient's PDMP he does get frequent narcotic prescriptions. I do not feel this is appropriate this time. Will recommend [id number] medications. Needs follow-up with his PCP for continued monitoring. Return precautions are reviewed with him including any significant swelling of the right knee or developing warmth, redness. If the abdominal pain continues to worsen or develops any overlying skin changes he needs to be reevaluated for t his as well. We will treat the dental infection with the antibiotic. He is to follow-up with his dentist. This time patient be discharged home in stable condition. All questions were answered. ED Disposition - Plan for ED Patient: Disposition: Home or Assisted Living Diagnosis: Pain, dental, Flank pain, Right knee pain Instructions: ED Chronic Pain, ED Dental Pain Prescriptions: Clindamycin [Cleocin] 450 mg PO TID 7 Days #63 cap Transmission Status: Received by [facility] Diclofenac Sodium [Voltaren] 2 gm TOPICAL DAILY 7 Days #150 gel..gram. Transmission Status: Received by [facility] Referrals: Kajal Knutson DO [Primary Care Provider] - 3-5 Days Additional Instructions: Please follow-up with your dentist and orthopedic surgeon.
[2020-07-29] MEDS: HYDROcodone Bitartrate/Apap 5/325 Tablet PO (11:08)
== END 2020-07-29 11:09 | disposition home or self-care (01) ==
PROVIDERS: Emergency Provider Emergency Medicine; PCP Family Medicine
DX: M25.561 Pain in right knee (principal); K08.89 Other specified disorders of teeth and supporting structures; R10.9 Unspecified abdominal pain; F17.200 Nicotine dependence, unspecified, uncomplicated; J44.9 Chronic obstructive pulmonary disease, unspecified; I48.91 Unspecified atrial fibrillation; F20.9 Schizophrenia, unspecified; F31.9 Bipolar disorder, unspecified; Z88.0 Allergy status to penicillin; Z88.6 Allergy status to analgesic agent; Z88.8 Allergy status to other drugs, medicaments and biological substances
CPT/HCPCS: 99284

== ENCOUNTER 2020-12-17 00:18 | Emergency (ER) | payer MEDICARE, MEDICAID, SELFPAY ==
[2020-12-17 00:19] VITALS: BP 104/71; PULSE 91; RESP 18; TEMP 37.1; O2SAT 100; BMI 45.6
--- NOTE | 2020-12-17 00:45 | EKG12_ITS ---
Test Reason : CHEST PAIN Blood Pressure : / mmHG Vent. Rate : 086 BPM Atrial Rate : 086 BPM P-R Int : 184 ms QRS Dur : 094 ms QT Int : 376 ms P-R-T Axes : 055 049 047 degrees QTc Int : 449 ms Normal sinus rhythm Normal ECG Confirmed by LEFTY RECINOS, NAHID ([id number]), editor publications RINKU CONNORS ([id number]) on 12/19/2020 11:09:53 A M Referred By: ZEESHAN Confirmed By:AYDEN OLEA MD
[2020-12-17 00:55] LABS: Bacteria 0 SEEN /hpf (None Seen); Mucous, Urine 0 SEEN /hpf (<or=2+); Red Blood Cells-Urine 0 SEEN /hpf (0-5); Squamous Epithelial Cells - UA 0 SEEN /hpf (0-5); White Blood Cells 0 SEEN /hpf (0-5)
[2020-12-17 00:55] LABS: Absolute Lymphocyte Count 5.12 X10^3/uL (0.83-4.51); Absolute Neutrophil Count 7.2 X10^3/uL (2.0-7.7); Basophil# 0.09 X10^3/uL; Basophil% 0.6 % (0-1); Eosinophil# 0.38 X10^3/uL; Eosinophils% 2.7 % (0-5); Hematocrit 45.2 % (40-54); Hemoglobin 15.9 g/dL (13.0-16.5); Lymphocyte # 5.12 X10^3/ul (0.83-4.51); Lymphocyte % 36.8 % (19-41); Mean Corp Hgb Conc 35.2 g/dL (32-36); Mean Corpuscular Hgb 30.6 pg (27.0-32.0); Mean Corpuscular Volume 86.9 fL (80-94); Mean Platelet Vol. 10.1 fl (6.2-12.0); Monocyte# 1.02 X10^3/uL; Monocyte% 7.3 % (0-10); NRBC Flagged by Analyzer 0 % (0-5); Neutrophil # 7.22 X10^3/uL (2.7-7.7); POSITIVE DIFFERENTIAL YES; POSITIVE MORPHOLOGY YES; Platelet Count 235 K/mm3 (150-450); RBC Distribution Width CV 12.6 % (11.6-14.6); RBC Distribution Width SD 39.5 fl (35.1-43.9); White Blood Count 13.9 K/mm3 (4.4-11.0)
[2020-12-17] MEDS: 0.9% Normal Saline 1,000 ML 1000 ML IV (00:55)
[2020-12-17 00:57] LABS: Glucose, Dipstick 1000 mg/dl (Normal); Ketone-Dipstick Negative (Negative); Leukocyte Esterase-Dipstick Negative /ul (Negative); Nitrite-Dipstick Negative (Negative); Occult Blood-Urine 10 /ul (Negative); Protein-Dipstick Negative (Negative); Specific Gravity, Urine 1.015 (1.002-1.030); Urine Bilirubin Dipstick Negative (Negative); Urine Urobilinogen Normal (Normal)
[2020-12-17 00:59] LABS: Differential Indicated SCAN CRITERIA MET
[2020-12-17 01:01] LABS: Color, Urine Yellow (Yellow); Urine Clarity Clear (Clear)
[2020-12-17 01:33] LABS: AST(SGOT) 28 U/L (15-37); Alanine Aminotransfer ALT/SGPT 45 U/L (16-61); Albumin, Serum 3.1 g/dL (3.2-5.0); Alkaline Phosphatase 182 U/L (45-117); Anion Gap 10 (5-15); BUN 17 mg/dL (7-18); Calcium,Total 8.5 mg/dL (8.5-10.1); Chloride 93 mmol/L (98-107); Creatinine, Serum 1.21 mg/dL (0.70-1.30); EST Glomerular Filtration Rate 69 mL/min (>60); Est Glom Filt Rate - Afr Amer 83 mL/min (>60); Estimated Creatinine Clearance 74.59 ml/min; Glucose 613 mg/dL (74-106); Lipase 860 U/L (73-393); Potassium 4.5 mmol/L (3.5-5.1); Protein, Total 6.1 g/dL (6.4-8.2); Sodium Level 129 mmol/L (136-145)
--- NOTE | 2020-12-17 01:39 | CT_ITS ---
STUDY: CTA CHEST REASON FOR EXAM: Male, 45 years old. chest and abdominal pain RADIATION DOSAGE (If Supplied By Facility): CTDIvol = ( 24.08 ) mGy, DLP = ( 1891.19 ) mGycm TECHNIQUE: The examination was performed with the intravenous administration of IV 100mL Isovue-370. Post-processing of the angiographic images was performed, with multiplanar reformation . Individualized dose optimization techniques were used for this CT. COMPARISON: None. FINDINGS: Normal enhancement of the main pulmonary artery and right and left pulmonary arteries. Normal enhancement of the bilateral peripheral pulmonary arteries. There is no demonstrated pulmonary embolism. Normal thoracic aorta and visualized great vessels. There is no demonstrated aortic dissection. Normal heart and pericardium. Normal mediastinum. Normal hilar regions. Normal visualized trachea and bronchi. The lungs are well expanded. Minimal left posterior dependent atelectasis otherwise normal pulmonary parenchyma. Normal pleura. Normal chest wall structures. Sequela of old fractures involving the right fourth rib. Nonspecific degenerative disease of the spine. Otherwise Osseous structures. Upper abdomen is described indeterminate comparison CT of the abdomen and pelvis report. IMPRESSION: Negative CTA chest examination, without a demonstrated pulmonary embolism or arterial dissection. Mild left posterior dependent atelectasis otherwise no acute cardiopulmonary disease STUDY: CTA OF THE ABDOMEN REASON FOR EXAM: Male, 45 years old. chest and abdominal pain RADIATION DOSAGE (If Supplied By Facility): CTDIvol = ( 24.08 ) mGy, DLP = ( 1891.19 ) mGycm TECHNIQUE: Axial CT angiography multi-detector data acquisition was obtained from the hemidiaphragm to the pubic symphysis following intravenous administration of IV 100mL Isovue-370. Axial images and MIP images were reconstructed from the axial data set. Post-processing of the angiographic images was performed, with multiplanar reformation and 3D reconstruction. Individualized dose optimization techniques were used for this CT. TECHNICAL QUALITY: Good COMPARISON: None. Descriptors of Narrowing: None (0%) Mild (< 50%) Moderate (50-70%) Severe (70-90%) Subtotal/Total Occlusion (90-100%) Non-Evaluable (technically non-diagnostic FINDINGS: Abdominal aorta: No demonstrated narrowing. Celiac and superior mesenteric arteries: No demonstrated narrowing. Inferior mesenteric artery: No demonstrated narrowing. Right renal artery(arteries): No demonstrated narrowing. Left renal artery(arteries): No demonstrated narrowing. Right common iliac artery: No demonstrated narrowing. Right external iliac artery: No demonstrated narrowing. Right internal iliac artery: No demonstrated narrowing. Left common iliac artery: No demonstrated narrowing. Left external iliac artery: No demonstrated narrowing. Left internal iliac artery: No demonstrated narrowing. RIGHT LOWER EXTREMITY Right common femoral artery: No demonstrated narrowing. Right profundus femoris: No demonstrated narrowing. Right proximal superficial femoral: No demonstrated narrowing. LEFT LOWER EXTREMITY Left common femoral artery: No demonstrated narrowing. Left profundus femoris: No demonstrated narrowing. Left proximal superficial femoral: No demonstrated narrowing. STUDY: CT ABDOMEN AND PELVIS WITH CONTRAST Diffuse fatty liver. The gallbladder is contracted. Normal spleen. Normal pancreas. Normal bilateral adrenal glands. Small right mid upper renal pole low attenuation structure measuring 1.5 x 1.0 cm with [place] units consistent with a simple cyst. Otherwise normal right kidney. Normal left kidney. Normal visualized stomach. Normal small intestine. Mild diverticulosis with no signs of diverticulitis. The appendix is visualized and appears normal. Normal abdominal aorta. Normal inferior vena cava. Normal retroperitoneum. Normal abdominal wall. Unremarkable lumbar spine. 2 adjacent tiny stones within the posterior aspect of the urinary bladder which may indicate previously passed stones, each measuring approximately 1.6 mm . Normal size of prostate gland. Questionable thickening of the skin through the left scrotum, with possible mild scarring, nonspecific. CT/CTA Chst, Abd, Pel W and/or WO IMPRESSION: Normal aorta with no dissection, aneurysm or stenosis. Questionable previously passed stone with tiny bladder calculi as described above. Diffuse fatty liver, remainder of abdominal viscera are unremarkable. No acute appendicitis or bowel obstruction. Electronically Signed: Britt Wilkes MD at 2:45 EDT , Service support ,
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
[2020-12-17 02:19] VITALS: BP 109/69; PULSE 83; RESP 16; O2SAT 98
[2020-12-17] MEDS: Ondansetron 4 MG/2 ML Vial IV (02:20)
[2020-12-17] MEDS: fentaNYL 100 MCG/2 ML Ampul 25 MCG IV (02:21)
[2020-12-17] MEDS: Insulin Lispro 100 UNIT/ML INSULN.PEN 20 UNIT SC (02:25)
--- NOTE | 2020-12-17 02:52 | US_ITS ---
STUDY: ABDOMINAL ULTRASOUND - RIGHT UPPER QUADRANT REASON FOR VISIT: Male, 45 years old RUQ pain TECHNIQUE: Ultrasound evaluation of the right upper quadrant was performed with real-time and static monroy-scale imaging. TECHNICAL QUALITY: Adequate. COMPARISON: CTA abdomen from 12/17/2020. FINDINGS: Liver: The liver measures 18.7 cm. There is increased echogenicity consistent with fatty infiltration. The bile ducts are within normal limits. There is hepatic color flow. The direction of portal flow is hepatopetal. There is no demonstrated mass lesion. Gallbladder: Normal distended gallbladder. The gallbladder wall measures 3 mm. There is a positive sonographic Mcrae''s sign. There is no pericholecystic fluid. There is a solitary echogenic gallstone within the gallbladder. Common Bile Duct (C.B.D.): The common bile duct measures 4.7 mm. Pancreas: Normal size of the head, body and tail of the pancreas. There is normal echogenicity of the pancreas. There is no demonstrated pancreatic mass or cyst. Right Kidney: Normal size of the right kidney. The right kidney measures 12.9 x 7.7 x 6.3 cm. Normal renal cortex. The right cortex measures 2.1 cm. There is no demonstrated renal mass or cyst. There is no right hydronephrosis. US/Liver IMPRESSION: Cholelithiasis with reported positive sonographic Mcrae''s sign however no gallbladder wall thickening or pericholecystic fluid to suggest cholecystitis. If clinical concern persists further evaluation with HIDA scan may be of value. Hepatic steatosis. Electronically Signed: Luis Winter MD at 5:18 EDT Tel , Service support ,
[2020-12-17 04:30] VITALS: PULSE 65; RESP 16; O2SAT 98
[2020-12-17 04:50] LABS: Bedside Glucose > 500 mg/dL (70-110)
[2020-12-17 06:15] VITALS: BP 119/68; PULSE 57; RESP 18; O2SAT 96
[2020-12-17] MEDS: oxyCODONE 5 MG Tablet PO (06:17)
[2020-12-17 06:20] VITALS: BP 119/68; PULSE 57; RESP 18; O2SAT 97
== END 2020-12-17 06:21 | disposition left against medical advice (07) ==
PROVIDERS: Emergency Provider Student in an Organized Health Care Education/Training Program; PCP Family Medicine
DX: R10.9 Unspecified abdominal pain (principal); K76.0 Fatty (change of) liver, not elsewhere classified; K80.20 Calculus of gallbladder without cholecystitis without obstruction; R73.9 Hyperglycemia, unspecified; R07.9 Chest pain, unspecified; I95.9 Hypotension, unspecified; E66.9 Obesity, unspecified; F17.210 Nicotine dependence, cigarettes, uncomplicated; J44.9 Chronic obstructive pulmonary disease, unspecified; F32.9 Major depressive disorder, single episode, unspecified; F20.9 Schizophrenia, unspecified; Z79.1 Long term (current) use of non-steroidal anti-inflammatories (NSAID); Z79.82 Long term (current) use of aspirin; Z87.442 Personal history of urinary calculi
CPT/HCPCS: 71275; 74174; 76705; 80053; 81001; 82962; 83690; 84484; 85025; 93005; 96361; 96374; 96375; 99285; Q9967; J2405

== ENCOUNTER 2020-12-19 12:34 | Inpatient (IN) | payer MEDICARE, MEDICAID, SELFPAY ==
[2020-12-19] VITALS (7 sets, daily range): BP systolic 114–139; BP diastolic 83–93; PULSE 78–109; RESP 16–18; TEMP 36.4–37; O2SAT 94–97; BMI 42.3; BMI 44.9
[2020-12-19 12:47] LABS: Bacteria 0 SEEN /hpf (None Seen); Mucous, Urine 0 SEEN /hpf (<or=2+); Red Blood Cells-Urine 0 SEEN /hpf (0-5); White Blood Cells 0 SEEN /hpf (0-5)
[2020-12-19 12:49] LABS: Color, Urine Yellow (Yellow); Glucose, Dipstick 1000 mg/dl (Normal); Ketone-Dipstick Negative (Negative); Leukocyte Esterase-Dipstick Negative /ul (Negative); Nitrite-Dipstick Negative (Negative); Occult Blood-Urine Negative /ul (Negative); Protein-Dipstick Negative (Negative); Specific Gravity, Urine 1.005 (1.002-1.030); Urine Bilirubin Dipstick Negative (Negative); Urine Clarity Sl. Cloudy (Clear); Urine Urobilinogen Normal (Normal)
[2020-12-19 13:06] LABS: Squamous Epithelial Cells - UA 0-5 SEEN /hpf (0-5)
[2020-12-19] MEDS: Morphine 4 MG/ML Syringe IV ×2 (15:01→17:27)
[2020-12-19] MEDS: Ondansetron 4 MG/2 ML Vial IV (15:01)
[2020-12-19] MEDS: 0.9% Normal Saline 1,000 ML 125 ML IV (15:02)
[2020-12-19 15:04] LABS: Absolute Lymphocyte Count 2.89 X10^3/uL (0.83-4.51); Basophil# 0.07 X10^3/uL; Basophil% 0.5 % (0-1); Eosinophil# 0.16 X10^3/uL; Eosinophils% 1.2 % (0-5); Hematocrit 47.3 % (40-54); Hemoglobin 16.8 g/dL (13.0-16.5); Lymphocyte # 2.89 X10^3/ul (0.83-4.51); Lymphocyte % 22.2 % (19-41); Mean Corp Hgb Conc 35.5 g/dL (32-36); Mean Corpuscular Hgb 30.7 pg (27.0-32.0); Mean Corpuscular Volume 86.5 fL (80-94); Mean Platelet Vol. 9.5 fl (6.2-12.0); Monocyte# 0.77 X10^3/uL; Monocyte% 5.9 % (0-10); NRBC Flagged by Analyzer 0 % (0-5); Neutrophil # 9.04 X10^3/uL (2.7-7.7); Neutrophil % 69.7 % (47-70); Platelet Count 224 K/mm3 (150-450); RBC Distribution Width CV 12.2 % (11.6-14.6); RBC Distribution Width SD 38.6 fl (35.1-43.9); Red Blood Count 5.47 M/mm3 (4.6-6.2)
--- NOTE | 2020-12-19 15:14 | ED.VIS.GI ---
HPI HPI - GI History of Present Illness Chief Complaint: Flank Pain Informant: patient Abdominal Pain/Flank Pain Onset: Days (2) Narrative Narrative: Persistent right upper quadrant abdominal pain for 2 days. Denies nausea vomiting diarrhea. Denies fevers. History of kidney stones. History of diabetes. Reports was seen in the ED 2 days ago diagnosed with gallstones. He states he went home with persistent pain. He is returning due to continued pain and promising his daughter that he would return. Reviewing his records, patient was found to have gallstones with a positive Mcrae sign on ultrasound. There is no thickening of the gallbladder or pericholecystic fluid. Common bile duct was 4 mm. He had a CTA chest abdomen pelvis that was negative. From records ED physician spoke with on-call surgeon Dr. Moulton who recommended a HIDA scan. This was ordered however the patient decided to go home at that time. He also had a lipase of 860. ALP elevated in the 100s. PFSH PFS Medical History Asthma COPD (chronic obstructive pulmonary disease) Depression Gangrene Schizophrenia Home Medications citalopram 40 mg PO DAILY 10/19/15 [History Last Taken 03/06/17 08:00] fluphenazine HCl 1 mg PO TID 10/19/15 [History Last Taken 03/06/17 08:00] oxcarbazepine [Trileptal] 1 tab PO BID 03/06/17 [History Last Taken 03/06/17 08:00] albuterol sulfate [Ventolin HFA] 1 puff INHALATION Q4H PRN PRN #1 inhaler 03/08/17 [Rx Last Taken Unknown] quetiapine [Seroquel] 25 mg PO QHS 09/10/17 [History Last Taken Unknown] hydroxyzine pamoate [Vistaril] 50 mg PO TID PRN PRN 12/19/17 [History Last Taken Unknown] oxycodone-acetaminophen 1 tab PO Q6H PRN PRN 3 Days #6 tablet 02/16/18 [Rx Last Taken Unknown] Allergy/AdvReac Type Severity Reaction Status Date / Time naproxen Allergy Shortness Verified 12/17/20 00:19 of breath Penicillins Allergy Swelling Verified 12/17/20 00:19 aspirin AdvReac HEART Verified 12/17/20 00:19 PALPITATIONS meloxicam [From Mobic] AdvReac HEADACHE Verified 12/17/20 00:19 Social History Smoking Status: Current every day smoker tobacco type: cigarettes Tobacco: How many years used: 30 second hand exposure: Yes alcohol intake: never substance use type: does not use caffeine: Yes (3/day) what type of physical activity do you participate in: none ROS ROS ED Constitutional Constitutional ED: Denies chills, fever(s) or sweats Eyes Eyes: Denies change in vision ENT ENT ED: Denies dysphagia or sore throat Cardiovascular Cardiovascular: Denies chest pain, leg edema, palpitations or racing heartbeat Respiratory/Chest Respiratory/Chest: Denies cough, dyspnea or dyspnea on exertion Gastrointestinal Gastrointestinal: Reports abdominal pain; Denies diarrhea, nausea or vomiting Genitourinary Genitourinary ED: Denies dysuria, hematuria or urinary frequency Musculoskeletal Musculoskeletal: Denies back pain, extremity pain or neck pain Integumentary Denies rash or wounds Neurologic Neurologic: Denies headache(s), paresthesias or weakness EXAM Physical Exam Const Vital Signs: 12/19/20 12:35 12/19/20 15:06 12/19/20 15:08 Temperature 97.5 F L 98.4 F Temperature Source Temporal Oral Pulse Rate 109 H 101 H Respiratory Rate 18 16 Respiratory Effort Normal Respiratory Pattern Normal Blood Pressure 139/85 H 114/93 H Blood Pressure Mean 103 100 Pulse Ox 94 96 Oxygen Delivery Method Room Air Room Air Positive well nourished and well developed General Appearance ED: well developed and NAD HEENT Reports moist mucous membranes normocephalic and atraumatic Eyes PERRL, EOMs intact bilaterally and conjunctivae normal General Eye ED: Yes normal appearance of both eyes Neck no lymphadenopathy and supple General: Negative for tenderness Chest Wall Chest: Negative for tenderness Resp normal respiratory effort and normal air movement Effort and Inspection: symmetric chest movement; Negative for respiratory distress Cardio regular rate, regular rhythm and no murmurs Peripheral Pulses: pulses 2+ throughout GI normal to inspection, nondistended, normoactive bowel sounds Inspection: other Other Details: Significant tenderness right upper quadrant, no rash Palpation: soft and guarding; Negative for rebound tenderness present Back/Spine no CVA tenderness and no thoracic nor lumbar tenderness Extremity normal to inspection General Extremety ED: Negative for edema or tenderness General Extremity: Negative for edema Neuro oriented x3 and no sensory deficits noted Sensorium / Orientation: awake and alert Skin no rashes or lesions noted and no wounds MDM MDM MDM Narrative Medical decision making narrative: Patient pretty tender right upper quadrant, repeat lab orders due to findings of gallstones with a normal common bile duct. Attempted to get a HIDA scan from the ED secondary to recommendations 2 days by surgery however they are currently not present at 3 PM. Labs returned white count of 13 down from 13.9, lipase 114 down from 860, ALP 169 down from 180. Urine negative for infection. He received couple doses of morphine for pain control. Continued on IV fluids. I discussed with on-call surgeon Dr. Zuñiga who evaluated the patient in the ED. Requested admit to medicine with his consult for HIDA scan in the morning. Patient updated and agrees with plan. I spoke with hospitalist Dr. Massey for admission. Lab Data Attestation: I reviewed the patient's lab results. Labs: Laboratory Results - last 24 hr 12/19/20 12/19/20 12/19/20 12:39 14:46 14:46 WBC 13.0 H RBC 5.47 Hgb 16.8 H Hct 47.3 MCV 86.5 MCH 30.7 MCHC 35.5 RDW Std Deviation 38.6 RDW Coeff of Desiree 12.2 Plt Count 224 MPV 9.5 Immature Gran % (Auto) 0.500 Neut % (Auto) 69.7 Lymph % (Auto) 22.2 [place] % (Auto) 5.9 Eos % (Auto) 1.2 Baso % (Auto) 0.5 Absolute Neuts (auto) 9.0 H Absolute Lymphs (auto) 2.89 Nucleated RBC % 0 Sodium Cancelled Potassium Cancelled Chloride Cancelled Carbon Dioxide Cancelled Anion Gap Cancelled BUN Cancelled Creatinine Cancelled Estim Creat Clear Calc Cancelled Est GFR (MDRD) Af Amer Cancelled Est GFR (MDRD) Non-Af Cancelled BUN/Creatinine Ratio Cancelled Glucose Cancelled Calcium Cancelled Total Bilirubin Cancelled Direct Bilirubin Cancelled AST Cancelled ALT Cancelled Alkaline Phosphatase Cancelled Total Protein Cancelled Albumin Cancelled Globulin Cancelled Lipase Cancelled Urine Color Yellow Urine Clarity Sl. Cloudy Urine pH 7.0 Ur Specific [place] 1.005 Urine Protein Negative Urine Glucose (UA) 1000 H Urine Ketones Negative Urine Occult Blood Negative Urine Nitrite Negative Urine Bilirubin Negative Urine Urobilinogen Normal Ur Leukocyte Esterase Negative Urine RBC 0 SEEN Urine WBC 0 SEEN Ur Squamous Epith Cells 0-5 SEEN Urine Bacteria 0 SEEN Urine Mucus 0 SEEN 12/19/20 15:39 WBC RBC Hgb Hct MCV MCH MCHC RDW Std Deviation RDW Coeff of Desiree Plt Count MPV Immature Gran % (Auto) Neut % (Auto) Lymph % (Auto) [place] % (Auto) Eos % (Auto) Baso % (Auto) Absolute Neuts (auto) Absolute Lymphs (auto) Nucleated RBC % Sodium 135 L Potassium 4.2 Chloride 98 Carbon Dioxide 25.0 Anion Gap 12 BUN 14 Creatinine 1.13 Estim Creat Clear Calc 85.24 Est GFR (MDRD) Af Amer 90 Est GFR (MDRD) Non-Af 74 BUN/Creatinine Ratio 12.4 Glucose 455 H* Calcium 8.8 Total Bilirubin 0.40 Direct Bilirubin 0.14 AST 16 ALT 46 Alkaline Phosphatase 169 H Total Protein 6.9 Albumin 3.4 Globulin 3.5 Lipase 114 Urine Color Urine Clarity Urine pH Ur Specific [place] Urine Protein Urine Glucose (UA) Urine Ketones Urine Occult Blood Urine Nitrite Urine Bilirubin Urine Urobilinogen Ur Leukocyte Esterase Urine RBC Urine WBC Ur Squamous Epith Cells Urine Bacteria Urine Mucus Discharge Plan Triage Chief Complaint: Flank Pain ED Provider: Chapin Mei Dx/Rx/DC Orders Clinical Impression: Abdominal pain, RUQ, Biliary colic, Cholelithiasis, Hyperglycemia Prescriptions: No Action citalopram 40 MG tablet 40 mg PO DAILY RF: 0 fluphenazine HCl 1 MG tablet 1 mg PO TID RF: 0 oxcarbazepine [Trileptal] 600 mg tablet 1 tab PO BID RF: 0 albuterol sulfate [Ventolin HFA] 1 INHALER inhaler 1 puff inhalation Q4H PRN PRN (Reason: Sob &/Or Wheezing) Qty: 1 RF: 0 quetiapine [Seroquel] 25 MG tablet 25 mg PO QHS RF: 0 hydroxyzine pamoate [Vistaril] 50 MG capsule 50 mg PO TID PRN PRN (Reason: Anxiety) RF: 0 oxycodone-acetaminophen 1 TABLET tablet 1 tab PO Q6H PRN PRN (Reason: Pain) 3 Days Qty: 6 RF: 0 Primary Care Provider: Kajal Knutson Referrals: Kajal Knutson DO [Primary Care Provider] - Disposition Disposition: Acute Care Hospital [facility]
[2020-12-19 16:10] LABS: AST(SGOT) 16 U/L (15-37); Alanine Aminotransfer ALT/SGPT 46 U/L (16-61); Albumin, Serum 3.4 g/dL (3.2-5.0); Alkaline Phosphatase 169 U/L (45-117); Anion Gap 12 (5-15); BUN 14 mg/dL (7-18); BUN/Creat Ratio 12.4 RATIO (10-20); Bilirubin, Direct 0.14 mg/dL (0.00-0.30); Calcium,Total 8.8 mg/dL (8.5-10.1); Chloride 98 mmol/L (98-107); Creatinine, Serum 1.13 mg/dL (0.70-1.30); EST Glomerular Filtration Rate 74 mL/min (>60); Est Glom Filt Rate - Afr Amer 90 mL/min (>60); Estimated Creatinine Clearance 85.24 ml/min; Globulin 3.5 g/dL (2.2-4.2); Glucose 455 mg/dL (74-106); Lipase 114 U/L (73-393); Potassium 4.2 mmol/L (3.5-5.1); Protein, Total 6.9 g/dL (6.4-8.2); Sodium Level 135 mmol/L (136-145)
--- NOTE | 2020-12-19 16:52 | EX.PCM.CON.S ---
Assessment & Plan Assessment/Plan (1) Cholelithiasis and cholecystitis without obstruction: QUALIFIERS: Cholelithiasis location: gallbladder Cholecystitis acuity: acute and chronic Qualified Code(s): K80.12 - Calculus of gallbladder with acute and chronic cholecystitis without obstruction (2) Abdominal pain, RUQ: PLAN: This point the patient is going to be admitted and obtain a HIDA scan in the morning. His pain appears to be musculoskeletal when I palpate along his costal margin and along down the right flank area. He has no bruising. This could be an atypical presentation with acute cholecystitis but it also may be just musculoskeletal in nature. The fact that he has had it for so long. HPI Consult Data Date of Consult: 12/19/20 HPI Narrative HPI Narrative: YVES STILL, is a 45 M who presents Persistent right upper quadrant abdominal pain for 2 days. Denies nausea vomiting diarrhea. Denies fevers. History of kidney stones. History of diabetes. Reports was seen in the ED 2 days ago diagnosed with gallstones. He states he went home with persistent pain. He is returning due to continued pain and promising his daughter that he would return. Reviewing his records, patient was found to have gallstones with a positive Mcrae sign on ultrasound. There is no thickening of the gallbladder or pericholecystic fluid. Common bile duct was 4 mm. He had a CTA chest abdomen pelvis that was negative. From records ED physician spoke with on-call surgeon Dr. Moulton who recommended a HIDA scan. This was ordered however the patient decided to go home at that time. He also had a lipase of 860. ALP elevated in the 100s. [facility] Medical History Asthma COPD (chronic obstructive pulmonary disease) Depression Gangrene Schizophrenia Home Medications citalopram 40 mg PO DAILY 10/19/15 [History Last Taken 03/06/17 08:00] fluphenazine HCl 1 mg PO TID 10/19/15 [History Last Taken 03/06/17 08:00] oxcarbazepine [Trileptal] 1 tab PO BID 03/06/17 [History Last Taken 03/06/17 08:00] albuterol sulfate [Ventolin HFA] 1 puff INHALATION Q4H PRN PRN #1 inhaler 03/08/17 [Rx Last Taken Unknown] quetiapine [Seroquel] 25 mg PO QHS 09/10/17 [History Last Taken Unknown] hydroxyzine pamoate [Vistaril] 50 mg PO TID PRN PRN 12/19/17 [History Last Taken Unknown] oxycodone-acetaminophen 1 tab PO Q6H PRN PRN 3 Days #6 tablet 02/16/18 [Rx Last Taken Unknown] Allergy/AdvReac Type Severity Reaction Status Date / Time naproxen Allergy Shortness Verified 12/17/20 00:19 of breath Penicillins Allergy Swelling Verified 12/17/20 00:19 aspirin AdvReac HEART Verified 12/17/20 00:19 PALPITATIONS meloxicam [From Mobic] AdvReac HEADACHE Verified 12/17/20 00:19 Social History Smoking Status: Current every day smoker tobacco type: cigarettes Tobacco: How many years used: 30 second hand exposure: Yes alcohol intake: never substance use type: does not use caffeine: Yes (3/day) what type of physical activity do you participate in: none ROS Cardiovascular Cardiovascular: Reports chest pain and chest pain with activity Respiratory/Chest Respiratory/Chest: Denies cough or dyspnea Gastrointestinal Gastrointestinal: Reports abdominal pain, coffee ground emesis, diarrhea, melena and rectal bleeding Physical Exam Const alert, oriented x3 and no apparent distress General Appearance: cooperative Eyes PERRL and EOMs intact bilaterally Resp normal respiratory effort and clear to auscultation bilaterally Cardio Rate: regular rate Rhythm: regular rhythm GI soft to palpation Auscultation: normoactive bowel sounds Palpation: tender RUQ; Negative for guarding Lab / Micro Data Result Diagrams: 12/19/20 14:46 12/19/20 15:39 Labs: Laboratory Results - last 24 hr 12/19/20 12/19/20 12/19/20 12:39 14:46 14:46 WBC 13.0 H RBC 5.47 Hgb 16.8 H Hct 47.3 MCV 86.5 MCH 30.7 MCHC 35.5 RDW Std Deviation 38.6 RDW Coeff of Desiree 12.2 Plt Count 224 MPV 9.5 Immature Gran % (Auto) 0.500 Neut % (Auto) 69.7 Lymph % (Auto) 22.2 [place] % (Auto) 5.9 Eos % (Auto) 1.2 Baso % (Auto) 0.5 Absolute Neuts (auto) 9.0 H Absolute Lymphs (auto) 2.89 Nucleated RBC % 0 Sodium Cancelled Potassium Cancelled Chloride Cancelled Carbon Dioxide Cancelled Anion Gap Cancelled BUN Cancelled Creatinine Cancelled Estim Creat Clear Calc Cancelled Est GFR (MDRD) Af Amer Cancelled Est GFR (MDRD) Non-Af Cancelled BUN/Creatinine Ratio Cancelled Glucose Cancelled Calcium Cancelled Total Bilirubin Cancelled Direct Bilirubin Cancelled AST Cancelled ALT Cancelled Alkaline Phosphatase Cancelled Total Protein Cancelled Albumin Cancelled Globulin Cancelled Lipase Cancelled Urine Color Yellow Urine Clarity Sl. Cloudy Urine pH 7.0 Ur Specific [place] 1.005 Urine Protein Negative Urine Glucose (UA) 1000 H Urine Ketones Negative Urine Occult Blood Negative Urine Nitrite Negative Urine Bilirubin Negative Urine Urobilinogen Normal Ur Leukocyte Esterase Negative Urine RBC 0 SEEN Urine WBC 0 SEEN Ur Squamous Epith Cells 0-5 SEEN Urine Bacteria 0 SEEN Urine Mucus 0 SEEN 12/19/20 15:39 WBC RBC Hgb Hct MCV MCH MCHC RDW Std Deviation RDW Coeff of Desiree Plt Count MPV Immature Gran % (Auto) Neut % (Auto) Lymph % (Auto) [place] % (Auto) Eos % (Auto) Baso % (Auto) Absolute Neuts (auto) Absolute Lymphs (auto) Nucleated RBC % Sodium 135 L Potassium 4.2 Chloride 98 Carbon Dioxide 25.0 Anion Gap 12 BUN 14 Creatinine 1.13 Estim Creat Clear Calc 85.24 Est GFR (MDRD) Af Amer 90 Est GFR (MDRD) Non-Af 74 BUN/Creatinine Ratio 12.4 Glucose 455 H* Calcium 8.8 Total Bilirubin 0.40 Direct Bilirubin 0.14 AST 16 ALT 46 Alkaline Phosphatase 169 H Total Protein 6.9 Albumin 3.4 Globulin 3.5 Lipase 114 Urine Color Urine Clarity Urine pH Ur Specific [place] Urine Protein Urine Glucose (UA) Urine Ketones Urine Occult Blood Urine Nitrite Urine Bilirubin Urine Urobilinogen Ur Leukocyte Esterase Urine RBC Urine WBC Ur Squamous Epith Cells Urine Bacteria Urine Mucus
--- NOTE | 2020-12-19 17:27 | HP.PCM.HOS_ITS ---
Documented by User: Fina Weiss NP, [facility] CHIEF-C 12/19/20 17:52 HPI - General General Date of Admission: 12/19/20 Chief Complaint: Right sided abdominal pain. HPI Narrative YVES STILL, is a 45 M who presents to the emergency room due to right- sided abdominal pain. Patient states this has been ongoing for the past few months. He states his right upper quadrant/right side area is tender to touch. He denies aggravating or alleviating factors. He denies worsening of pain following meals. Denies nausea, vomiting. Denies diarrhea, constipation. Denies urinary symptoms. Patient was seen in the emergency room 2 days ago and reported right flank pain and was concerned he had a kidney stone. CT of abdomen pelvis at that time was negative for acute findings with the exception of cholelithiasis, contracted gallbladder. Right upper quadrant ultrasound positive Mcrae sign, no dilation of common bile duct or wall thickening, pericholecystic fluid. Recommended HIDA scan at that time however patient refused and wanted to go home. He has a past medical history of type 2 diabetes mellitus, COPD, tobacco dependence, schizophrenia, anxiety, depression, hyperlipidemia. [facility] Medical History (Updated 12/19/20 @ 17:34 by Fina Weiss [facility]ORAT[facility] CHIEF, [facility] CHIEF-C) Asthma COPD (chronic obstructive pulmonary disease) Depression Schizophrenia Home Medications citalopram 40 mg PO DAILY 10/19/15 [History Last Taken 12/19/20] fluphenazine HCl 2 mg PO BID 10/19/15 [History Last Taken 12/19/20] oxcarbazepine [Trileptal] 1 tab PO BID 03/06/17 [History Last Taken 12/19/20] albuterol sulfate [Ventolin HFA] 1 puff INHALATION Q4H PRN PRN #1 inhaler 03/08/17 [Rx Last Taken 12/18/20] quetiapine [Seroquel] 25 mg PO QHS 09/10/17 [History Last Taken 12/18/20] hydroxyzine pamoate [Vistaril] 50 mg PO TID PRN PRN 12/19/17 [History Last Taken 12/19/20] oxycodone-acetaminophen 1 tab PO Q6H PRN PRN 3 Days #6 tablet 02/16/18 [Rx Last Taken 12/16/20] insulin glargine [Lantus Solostar U-100 Insulin] 28 unit SUBCUT DAILY 12/19/20 [History Last Taken 12/19/20] insulin lispro [Humalog KwikPen Insulin] 14 unit SUBCUT TID 12/19/20 [History Last Taken 12/19/20] mirtazapine 30 mg PO QHS 12/19/20 [History Last Taken 12/15/20] simvastatin 80 mg PO QHS 12/19/20 [History Last Taken 12/18/20] tizanidine 4 mg PO TID PRN PRN 12/19/20 [History Last Taken 12/18/20] Allergy/AdvReac Type Severity Reaction Status Date / Time naproxen Allergy Shortness Verified 12/17/20 00:19 of breath Penicillins Allergy Swelling Verified 12/17/20 00:19 aspirin AdvReac HEART Verified 12/17/20 00:19 PALPITATIONS meloxicam [From Mobic] AdvReac HEADACHE Verified 12/17/20 00:19 other (Patient denies known maternal or paternal medical history including cardiac history.) Surgical History (Updated 12/19/20 @ 17:34 by Fina Weiss [facility] [facility] CHIEF, [facility] [facility] CHIEF-C) Gangrene Social History Smoking Status: Current every day smoker tobacco type: cigarettes Tobacco: How many years used: 30 second hand exposure: Yes alcohol intake: never substance use type: does not use caffeine: Yes (3/day) what type of physical activity do you participate in: none ROS Constitutional Constitutional: Denies change in weight, chills, fatigue, fever(s) or weakness Cardiovascular Cardiovascular: Denies chest pain, edema, lightheadedness, palpitations or syncope Respiratory/Chest Respiratory/Chest: Denies cough, dyspnea, productive cough, shortness of breath at rest, shortness of breath with exertion or wheezing Gastrointestinal Gastrointestinal: Reports abdominal pain; Denies constipation, diarrhea, nausea or vomiting Genitourinary Genitourinary: Denies burning urination, difficulty urinating, dysuria, hematuria, urinary frequency, urinary incontinence or urinary urgency Musculoskeletal Musculoskeletal: Denies back pain, joint pain or muscle weakness Integumentary Integumentary: Denies erythema, lesions, rash or wounds Neurologic Neurologic: Denies abnormal speech, confusion, dizziness, focal weakness, numbness, paresthesias, seizure-like activity or syncope Psychiatric Psychiatric: Denies anxiety or depression Hematologic/Lymphatic Hematologic/Lymphatic: Denies anemia, easy bleeding or easy bruising Allergic/Immunologic Allergic/Immunologic: Denies hives or asthma Vital Signs Vital Signs Vital Signs: 12/19/20 12:35 12/19/20 15:06 12/19/20 15:08 Temperature 97.5 F L 98.4 F Temperature Source Temporal Oral Pulse Rate 109 H 101 H Respiratory Rate 18 16 Respiratory Effort Normal Respiratory Pattern Normal Blood Pressure 139/85 H 114/93 H Blood Pressure Mean 103 100 Pulse Ox 94 96 Oxygen Delivery Method Room Air Room Air Weight Weight: 294 lb 8.601 oz Body Mass Index (BMI) 42.3 Physical Exam Const alert, oriented x3 and no apparent distress Orientation / Consciousness: awake, oriented to person, oriented to place and oriented to time HEENT normocephalic and moist oral mucous membranes Eyes PERRL, EOMs intact bilaterally and conjunctivae normal Neck no lymphadenopathy Resp normal respiratory effort and clear to auscultation bilaterally Cardio regular rate, regular rhythm and no murmurs Peripheral Pulses: pulses 2+ throughout GI normal to inspection, nondistended, normoactive bowel sounds and non-distended Palpation: tender RUQ Extremity normal to inspection Skin no rashes or lesions noted Lesions: no lesions Rashes: no rashes Trauma: no lacerations or abrasions Neuro CN's II-XII intact bilaterally, no focal motor deficits, no sensory deficits noted and deep tendon reflexes 2+ bilaterally Psych mental status grossly normal and affect normal Results Lab / Micro Data Result Diagrams: 12/19/20 14:46 12/19/20 15:39 Labs: Laboratory Results - last 24 hr 12/19/20 12/19/20 12/19/20 12:39 14:46 14:46 WBC 13.0 H RBC 5.47 Hgb 16.8 H Hct 47.3 MCV 86.5 MCH 30.7 MCHC 35.5 RDW Std Deviation 38.6 RDW Coeff of Desiree 12.2 Plt Count 224 MPV 9.5 Immature Gran % (Auto) 0.500 Neut % (Auto) 69.7 Lymph % (Auto) 22.2 [place] % (Auto) 5.9 Eos % (Auto) 1.2 Baso % (Auto) 0.5 Absolute Neuts (auto) 9.0 H Absolute Lymphs (auto) 2.89 Nucleated RBC % 0 Sodium Cancelled Potassium Cancelled Chloride Cancelled Carbon Dioxide Cancelled Anion Gap Cancelled BUN Cancelled Creatinine Cancelled Estim Creat Clear Calc Cancelled Est GFR (MDRD) Af Amer Cancelled Est GFR (MDRD) Non-Af Cancelled BUN/Creatinine Ratio Cancelled Glucose Cancelled Calcium Cancelled Total Bilirubin Cancelled Direct Bilirubin Cancelled AST Cancelled ALT Cancelled Alkaline Phosphatase Cancelled Total Protein Cancelled Albumin Cancelled Globulin Cancelled Lipase Cancelled Urine Color Yellow Urine Clarity Sl. Cloudy Urine pH 7.0 Ur Specific [place] 1.005 Urine Protein Negative Urine Glucose (UA) 1000 H Urine Ketones Negative Urine Occult Blood Negative Urine Nitrite Negative Urine Bilirubin Negative Urine Urobilinogen Normal Ur Leukocyte Esterase Negative Urine RBC 0 SEEN Urine WBC 0 SEEN Ur Squamous Epith Cells 0-5 SEEN Urine Bacteria 0 SEEN Urine Mucus 0 SEEN 12/19/20 15:39 WBC RBC Hgb Hct MCV MCH MCHC RDW Std Deviation RDW Coeff of Desiree Plt Count MPV Immature Gran % (Auto) Neut % (Auto) Lymph % (Auto) [place] % (Auto) Eos % (Auto) Baso % (Auto) Absolute Neuts (auto) Absolute Lymphs (auto) Nucleated RBC % Sodium 135 L Potassium 4.2 Chloride 98 Carbon Dioxide 25.0 Anion Gap 12 BUN 14 Creatinine 1.13 Estim Creat Clear Calc 85.24 Est GFR (MDRD) Af Amer 90 Est GFR (MDRD) Non-Af 74 BUN/Creatinine Ratio 12.4 Glucose 455 H* Calcium 8.8 Total Bilirubin 0.40 Direct Bilirubin 0.14 AST 16 ALT 46 Alkaline Phosphatase 169 H Total Protein 6.9 Albumin 3.4 Globulin 3.5 Lipase 114 Urine Color Urine Clarity Urine pH Ur Specific [place] Urine Protein Urine Glucose (UA) Urine Ketones Urine Occult Blood Urine Nitrite Urine Bilirubin Urine Urobilinogen Ur Leukocyte Esterase Urine RBC Urine WBC Ur Squamous Epith Cells Urine Bacteria Urine Mucus Assessment & Plan Assessment/Plan (1) Cholelithiasis: (2) Biliary colic: PLAN: 1. Biliary colic, cholelithiasis- general surgery consult. HIDA scan. NPO. Fluids. PRN pain regimen. 2. Hyperglycemia in the context of type 2 diabetes [id number] with sliding scale insulin. Continue home insulin regimen. HA1c 07/20/20 6.1%. Repeat pending. 3. Chronic COPD-as needed albuterol aerosol. 4. Tobacco dependence-encouraged cessation. Nicotine replacement patch. 5. Schizophrenia/anxiety/depression- continue citalopram, fluphenazine, mirtazapine, seroquel. 6. Hyperlipidemia-on high-dose statin. DVT prophylaxis- SCDs This patient was seen by Fina Weiss NP-C under the supervision of Dr. Massey. Documented by User: Dr. Jayla Massey MD 12/19/20 18:00 HPI - General General Date of Admission: 12/19/20 [facility] Medical History (Updated 12/19/20 @ 17:34 by Fina Weiss NP, [facility] CHIEF-C) Asthma COPD (chronic obstructive pulmonary disease) Depression Schizophrenia Home Medications citalopram 40 mg PO DAILY 10/19/15 [History Last Taken 12/19/20] fluphenazine HCl 2 mg PO BID 10/19/15 [History Last Taken 12/19/20] oxcarbazepine [Trileptal] 1 tab PO BID 03/06/17 [History Last Taken 12/19/20] albuterol sulfate [Ventolin HFA] 1 puff INHALATION Q4H PRN PRN #1 inhaler 03/08/17 [Rx Last Taken 12/18/20] quetiapine [Seroquel] 25 mg PO QHS 09/10/17 [History Last Taken 12/18/20] hydroxyzine pamoate [Vistaril] 50 mg PO TID PRN PRN 12/19/17 [History Last Taken 12/19/20] oxycodone-acetaminophen 1 tab PO Q6H PRN PRN 3 Days #6 tablet 02/16/18 [Rx Last Taken 12/16/20] insulin glargine [Lantus Solostar U-100 Insulin] 28 unit SUBCUT DAILY 12/19/20 [History Last Taken 12/19/20] insulin lispro [Humalog KwikPen Insulin] 14 unit SUBCUT TID 12/19/20 [History Last Taken 12/19/20] mirtazapine 30 mg PO QHS 12/19/20 [History Last Taken 12/15/20] simvastatin 80 mg PO QHS 12/19/20 [History Last Taken 12/18/20] tizanidine 4 mg PO TID PRN PRN 12/19/20 [History Last Taken 12/18/20] Allergy/AdvReac Type Severity Reaction Status Date / Time naproxen Allergy Shortness Verified 12/17/20 00:19 of breath Penicillins Allergy Swelling Verified 12/17/20 00:19 aspirin AdvReac HEART Verified 12/17/20 00:19 PALPITATIONS meloxicam [From Mobic] AdvReac HEADACHE Verified 12/17/20 00:19 Surgical History (Updated 12/19/20 @ 17:34 by Fina Weiss [facility]ET[employer] LABORATORY CHIEF, CL[facility] LABORATORY CHIEF-C) Gangrene Social History (Reviewed 12/19/20 @ 17:34 by Fina Weiss CL[employer] GENETICS LABORATORY CHIEF, CL[facility]ETICS LABORATORY CHIEF-C) Smoking Status: Current every day smoker tobacco type: cigarettes Tobacco: How many years used: 30 second hand exposure: Yes alcohol intake: never substance use type: does not use caffeine: Yes (3/day) what type of physical activity do you participate in: none Results Lab / Micro Data Result Diagrams: 12/19/20 14:46 12/19/20 15:39 Charges/Coding Addendum Addendum: Hospitalist note: I am seeing this patient in conjunction with Fina Weiss. I independently seen and examined the patient. History and physical, laboratory data and imaging studies reviewed and I concur with the above admission and work-up plan. Patient presented to the emergency room because of right-sided abdominal pain, has been going on for several weeks, it is in the right upper quadrant and extends to the right flank region, constant pain, no associated symptoms and no aggravating or relieving factors. He denied urinary symptoms. He denied fever or chills. He came to the ER 2 days ago, he had CTA of the chest, abdomen and pelvis and he was advised to be admitted for further work-up but he left the hospital in his medical advice. He came back to the emergency room today because of persistent pain without improvement. In the emergency department, he was afebrile, slightly tachycardic, blood pressure stable, pulse ox was 96% on room air. Routine blood work was remarkable for mild leukocytosis, otherwise normal. LFT was unremarkable. Lipase was normal. Liver ultrasound that was done 2 days ago revealed cholelithiasis with positive Mcrae sign, no gal lbladder wall thickening or pericholecystic fluid. CTA of the chest was unremarkable. CTA of the abdomen pelvis revealed questionable previously passed stone with tiny bladder calculi, no other acute pathology identified. Patient was found to have blood glucose of 455, no evidence of DKA. Is being admitted for right upper quadrant/right flank pain could be due to biliary colic versus cholecystitis and hyperglycemia without DKA. - Physical Exam General: Alert, Oriented x3, Cooperative, No apparent distress. HEENT: Atraumatic, PERRLA, EOMI. Neck: Supple, No JVD, Negative Carotid Bruits, Trachea Midline, Thyroid Normal. Lungs: Clear to auscultation, Normal air movement, No rhonchi, No wheeze, No rales. Cardiovascular: Regular rate, Regular Rhythm, Normal S1, Normal S2, PMI Normal. Abdomen: Bowel Sounds Present, Soft, right upper pelvic tenderness, Non- Distended, No Hepato-splenomegaly, obese. Extremities: No clubbing, No cyanosis, No edema Skin: No rashes, No breakdown Neurological: Cranial nerves are intact, neuro grossly intact Vital Signs are stable. Assessment and plan: #1 right upper quadrant/right flank pain/biliary colic/questionable cholecystitis: CTA of the abdomen pelvis that was done 2 days ago reviewed as well as liver ultrasound. LFT was unremarkable. Lipase is back to normal. Possibly that patient may have a stone passed down to his small intestine. CBD diameter is normal on ultrasound liver. Plan: Admit to MedSurg floor, clear liquids, IV fluids, IV morphine as needed, IV antiemetics as needed, IV Pepcid twice daily, general surgery consult, HIDA scan, repeat CBC and CMP tomorrow morning. #2 hyperglycemia: With history of type 2 diabetes mellitus, no evidence of DKA. Plan: Accu-Cheks every 6 hours, sliding scale, continue home doses of Lantus and Humalog, check hemoglobin A1c. #3 other chronic medical problems: Stable, continue current medications as above. This note was generated with [email or web address] dictation software. It may contain incorrect words, spelling, and punctuation that were not noted in checking the note before signing. Visit Charges Inpatient E&M: 68947 Init Hosp L2
--- NOTE | 2020-12-19 18:08 | NM_ITS ---
CLINICAL: 45-year-old male with reported history of right upper quadrant abdominal pain and radiographically defined (ultrasound) cholelithiasis. RADIONUCLIDE HEPATOBILIARY SCINTIGRAPHY COMPARISON: Abdominal ultrasound report 12/17/2020 FINDINGS: Following the intravenous administration of 6.1 mCi of 99m Tc Mebrofenin, hepatobiliary images obtained for a total of 31 minutes reveal: 1. Relatively prompt and homogeneous radiopharmaceutical concentration is noted by a normal sized liver. No parenchymal defects are identified. 2. Gallbladder activity is identified at approximately 17 minutes post radiopharmaceutical administration. 3. Small intestinal tract is observed at 9 minutes post radiopharmaceutical administration. 4. Washout of the radiopharmaceutical by the hepatic parenchyma is not accurately assessed secondary to < 60 minutes of image acquisition. NM/Hepatobilliary Imaging IMPRESSION: 1. Visualization of the gallbladder within 60 minutes post radiopharmaceutical administration excludes acute cholecystitis with 97% certitude. (Telma et al, Nucl Med Ellie Melonie Press pg. 35, 1980). Electronically Signed: Franco Kinsey DO at 9:49 EDT Tel , Service support ,
[2020-12-19 18:12] LABS: Hemoglobin A1c 10.4 % (3.8-5.6)
[2020-12-19] MEDS: 0.9% Normal Saline 1,000 ML 100 ML IV (18:46)
[2020-12-19] MEDS: Insulin Lispro 100 UNIT/ML INSULN.PEN SC ×2 (18:57→23:38)
[2020-12-19] MEDS: Morphine 2 MG/ML Syringe IV ×2 (20:25→23:38)
[2020-12-19] MEDS: FLUPHENAZINE HCL 10 MG TABLET 5 MG PO (22:25)
[2020-12-19] MEDS: Mirtazapine 30 MG Tablet PO (22:26)
[2020-12-19] MEDS: Atorvastatin Calcium 40 MG Tablet PO (22:26)
[2020-12-19] MEDS: QUEtiapine 25 MG Tablet PO (22:26)
[2020-12-19] MEDS: Famotidine 200 MG/20 ML MDV 20 MG in 0.9% Normal Saline (Pres. free 8 ML 300 MG IV (22:27)
[2020-12-19] MEDS: OXcarbazepine 600 MG Tablet PO (22:27)
[2020-12-20 02:20] VITALS: BP 134/68; PULSE 67; RESP 16; TEMP 36.6; O2SAT 94
[2020-12-20 03:47] VITALS: PULSE 70
[2020-12-20] MEDS: 0.9% Normal Saline 1,000 ML 100 ML IV (04:25)
[2020-12-20] MEDS: Insulin Lispro 100 UNIT/ML INSULN.PEN SC ×2 (05:52→12:22)
[2020-12-20 06:14] LABS: Absolute Lymphocyte Count 3.48 X10^3/uL (0.83-4.51); Absolute Neutrophil Count 5.4 X10^3/uL (2.0-7.7); Basophil# 0.07 X10^3/uL; Basophil% 0.7 % (0-1); Eosinophil# 0.29 X10^3/uL; Eosinophils% 2.9 % (0-5); Hematocrit 43.7 % (40-54); Hemoglobin 15.2 g/dL (13.0-16.5); Lymphocyte # 3.48 X10^3/ul (0.83-4.51); Lymphocyte % 34.6 % (19-41); Mean Corp Hgb Conc 34.8 g/dL (32-36); Mean Corpuscular Hgb 30.8 pg (27.0-32.0); Mean Corpuscular Volume 88.5 fL (80-94); NRBC Flagged by Analyzer 0 % (0-5); Neutrophil # 5.36 X10^3/uL (2.7-7.7); Neutrophil % 53.2 % (47-70); Platelet Count 163 K/mm3 (150-450); RBC Distribution Width CV 12.3 % (11.6-14.6); Red Blood Count 4.94 M/mm3 (4.6-6.2); White Blood Count 10.1 K/mm3 (4.4-11.0)
[2020-12-20 06:41] LABS: AST(SGOT) 16 U/L (15-37); Alanine Aminotransfer ALT/SGPT 33 U/L (16-61); Alkaline Phosphatase 124 U/L (45-117); Anion Gap 6 (5-15); BUN 10 mg/dL (7-18); BUN/Creat Ratio 12.6 RATIO (10-20); Calcium,Total 7.9 mg/dL (8.5-10.1); Chloride 107 mmol/L (98-107); EST Glomerular Filtration Rate 112 mL/min (>60); Est Glom Filt Rate - Afr Amer 135 mL/min (>60); Estimated Creatinine Clearance 112.81 ml/min; Globulin 2.9 g/dL (2.2-4.2); Glucose 218 mg/dL (74-106); Potassium 3.9 mmol/L (3.5-5.1); Protein, Total 5.9 g/dL (6.4-8.2); Sodium Level 138 mmol/L (136-145)
[2020-12-20 07:44] VITALS: PULSE 76
[2020-12-20 08:20] VITALS: BP 123/83; PULSE 78; RESP 18; TEMP 36.4; O2SAT 96
[2020-12-20 08:38] LABS: Bedside Glucose 383 mg/dL (70-110)
[2020-12-20 08:38] LABS: Bedside Glucose 282 mg/dL (70-110)
[2020-12-20 08:38] LABS: Bedside Glucose 254 mg/dL (70-110)
[2020-12-20] MEDS: 0.9% Saline Lock 10 ML Syringe IV (09:07)
[2020-12-20] MEDS: Morphine 2 MG/ML Syringe IV (09:07)
[2020-12-20 09:14] VITALS: O2SAT 96
--- NOTE | 2020-12-20 09:29 | CASEMGMT ---
XAVIER WALDROP Assessment: Face to Face with pt for initial transition planning/care coordination assessment. XAVIER WALDROP introduced self and role at [facility], pt voices understanding and consents to assessment. Pt is A/O x4 and answers all questions appropriately at this time. Pt lying in bed in no distress. Care providers, pharmacy, and demographics verified/updated. Admitting Dx: RUQ Abdominal pain, biliary colic, gallstone PCP: [facility] Specialists: Pt denies specialists. Preferred Pharmacy: [facility] Retail Insurance: [employer], [employer] Prescription Benefit: yes LW/HPOA: Pt denies having LW/DPOA. LNOK: Belinda Lema, sig other; Dk Shah, brother in law; Alexa Suarez, dtr Living Arrangements: Pt lives in a ground level apartment with 3 steps to enter with rail with sig other and dtr. Pt reports being I in ADL's. Pt denies concerns at home. Transportation: Pt does not drive. He uses transportation through his insurance and denies issues with transportation. DME/HHC/SNF: Pt has a cane at home that he uses when in pain to ambulate. He has had previous HHC through [facility] and denies SNF stays. Pt states no concerns with going home at time of dc. Pt states no further concerns/needs. CM to follow. Advised pt to ask CM if any further question/concerns/needs arise, voices understanding. Pt Goal: Home Plan: Home with family support.
[2020-12-20] MEDS: Famotidine 200 MG/20 ML MDV 20 MG in 0.9% Normal Saline (Pres. free 8 ML 300 MG IV (10:13)
[2020-12-20] MEDS: OXcarbazepine 600 MG Tablet PO (10:16)
[2020-12-20 12:03] VITALS: BP 122/91; PULSE 78; RESP 16; TEMP 36.9; O2SAT 97
--- NOTE | 2020-12-20 12:18 | PCM.DC ---
Discharge Instructions Follow Up Care Test Results: Test results from this visit will be discussed in further detail at your follow-up appointment, if applicable. Discharge Plan Admission Admit Date/Time: 12/19/20 17:20 Primary Reason for Your Visit: Musculoskeletal pain Attending Provider: Charles Meredith Primary Care Provider: Kajal Knutson Consulting Providers: Keith Zuñiga Additional Instructions / Restrictions: You may use [id number] pain medicine of choice for right-sided musculoskeletal pain. Discharge Orders/Prescriptions Prescriptions: Continued citalopram 40 MG tablet 40 mg PO DAILY RF: 0 fluphenazine HCl 1 MG tablet 2 mg PO BID RF: 0 oxcarbazepine [Trileptal] 600 mg tablet 1 tab PO BID RF: 0 albuterol sulfate [Ventolin HFA] 1 INHALER inhaler 1 puff inhalation Q4H PRN PRN (Reason: Sob &/Or Wheezing) Qty: 1 RF: 0 quetiapine [Seroquel] 25 MG tablet 25 mg PO QHS RF: 0 hydroxyzine pamoate [Vistaril] 50 MG capsule 50 mg PO TID PRN PRN (Reason: Anxiety) RF: 0 oxycodone-acetaminophen 1 TABLET tablet 1 tab PO Q6H PRN PRN (Reason: Pain) 3 Days Qty: 6 RF: 0 tizanidine 4 mg tablet 4 mg PO TID PRN PRN (Reason: Spasms) RF: 0 simvastatin 80 mg tablet 80 mg PO QHS RF: 0 mirtazapine 30 mg tablet 30 mg PO QHS RF: 0 insulin lispro [Humalog KwikPen Insulin] 100 unit/mL insulin pen 14 unit SUBCUT TID RF: 0 Lantus Solostar U-100 Insulin 100 unit/mL (3 mL) insulin pen 28 unit SUBCUT DAILY RF: 0 Referrals / Follow Up: Kajal Knutson DO [Primary Care Provider] - In 1 Week Disposition Disposition (needs filled in before D/C Order can be placed): Home, Self Care
--- NOTE | 2020-12-20 12:23 | PCM.DC.SUM ---
Documented by User: Fina Weiss NP, [employer] ANALYST-C 12/20/20 13:49 Providers Date of Admission: 12/19/20 Date of Discharge: 12/20/20 Primary Care Physician: Dr. Kajal Knutson, Consultations 12/19/20 18:08 Consult: General Surgery Routine Consulting Provider: Keith Zuñiga Reason for Consult: Right upper quadrant pain, cholelithiasis EMERGENT Consult: No MD Notified: Yes Date Notified: 12/19/20 Time Notified: 17:26 Method of Notification: Text Comments:: notified in ED Reason For Visit: RUQ ABDOMINAL PAIN, BILIARY COLIC, GALLSTONE Diagnosis Discharge Diagnosis (1) Cholelithiasis: Status: Acute Code(s): K80.20 - Calculus of gallbladder without cholecystitis without obstruction (2) Biliary colic: Status: Acute Code(s): K80.50 - Calculus of bile duct without cholangitis or cholecystitis without obstruction Medications at Discharge Home Medications citalopram 40 mg PO DAILY 10/19/15 fluphenazine HCl 2 mg PO BID 10/19/15 oxcarbazepine [Trileptal] 1 tab PO BID 03/06/17 albuterol sulfate [Ventolin HFA] 1 puff INHALATION Q4H PRN PRN #1 inhaler 03/08/17 quetiapine [Seroquel] 25 mg PO QHS 09/10/17 hydroxyzine pamoate [Vistaril] 50 mg PO TID PRN PRN 12/19/17 oxycodone-acetaminophen 1 tab PO Q6H PRN PRN 3 Days #6 tablet 02/16/18 Lantus Solostar U-100 Insulin 28 unit SUBCUT DAILY 12/19/20 insulin lispro [Humalog KwikPen Insulin] 14 unit SUBCUT TID 12/19/20 mirtazapine 30 mg PO QHS 12/19/20 simvastatin 80 mg PO QHS 12/19/20 tizanidine 4 mg PO TID PRN PRN 12/19/20 Hospital Course Operations None Procedures - (HIDA scan) Summary of Care Provided Minutes Spent on Discharge: 35 Hospital Course: Patient is a 45-year-old male admitted 12/19/2020 due to right-sided abdominal pain. 1. Cholelithiasis, no acute cholecystitis- general surgery consulted during admission. HIDA scan excluded cholecystitis. Pain in the right side/rib area with palpation, suspect musculoskeletal in nature. Patient reports this has been ongoing for months. Patient appears to be resting comfortably in bed however states his pain is constantly 9/10. Requesting pain medication at discharge multiple times. Patient was given 30-day supply of Percocet 11/24/2020 by primary care provider. He may follow-up with PCP for further assessment regarding refill. Advised he may take [id number] pain medication for musculoskeletal pain. Follow-up with PCP within 1 week. 2. Hyperglycemia in the context of type 2 diabetes mellitus- Continue home insulin regimen. HA1c 07/20/20 6.1%. Repeat hemoglobin A1c 10.4%. Will need further outpatient follow-up for monitoring and medication adjustment. 3. Chronic COPD-as needed albuterol aerosol. 4. Tobacco dependence-encouraged cessation. 5. Schizophrenia/anxiety/depression- continue citalopram, fluphenazine, mirtazapine, seroquel. 6. Hyperlipidemia-on high-dose statin. Physical Exam Const alert, oriented x3 and no apparent distress Orientation / Consciousness: awake, oriented to person, oriented to place and oriented to time HEENT normocephalic and moist oral mucous membranes Eyes PERRL, EOMs intact bilaterally and conjunctivae normal Neck no lymphadenopathy Resp normal respiratory effort and clear to auscultation bilaterally Cardio regular rate, regular rhythm and no murmurs Peripheral Pulses: pulses 2+ throughout GI normal to inspection, nondistended, normoactive bowel sounds and non-distended Palpation: tender RUQ Extremity normal to inspection Skin no rashes or lesions noted Lesions: no lesions Rashes: no rashes Trauma: no lacerations or abrasions Neuro CN's II-XII intact bilaterally, no focal motor deficits, no sensory deficits noted and deep tendon reflexes 2+ bilaterally Psych mental status grossly normal and affect normal Patient seen and examined prior to discharge. Physical assessment as noted above. Patient is stable for discharge with follow up recommendations as noted above. This patient was seen by DIANNA Prince under the supervision of Dr. Meredith. Weight / BMI Weight Weight: 295 lb 10.238 oz Body Mass Index (BMI) 44.9 ABG / Lab / Microbiology Data Result Diagrams: 12/20/20 05:44 12/20/20 05:44 Laboratory: Laboratory Results - last 24 hr 12/19/20 12/19/20 12/19/20 12:39 14:46 14:46 WBC 13.0 H RBC 5.47 Hgb 16.8 H Hct 47.3 MCV 86.5 MCH 30.7 MCHC 35.5 RDW Std Deviation 38.6 RDW Coeff of Desiree 12.2 Plt Count 224 MPV 9.5 Immature Gran % (Auto) 0.500 Neut % (Auto) 69.7 Lymph % (Auto) 22.2 [place] % (Auto) 5.9 Eos % (Auto) 1.2 Baso % (Auto) 0.5 Absolute Neuts (auto) 9.0 H Absolute Lymphs (auto) 2.89 Nucleated RBC % 0 Sodium Cancelled Potassium Cancelled Chloride Cancelled Carbon Dioxide Cancelled Anion Gap Cancelled BUN Cancelled Creatinine Cancelled Estim Creat Clear Calc Cancelled Est GFR (MDRD) Af Amer Cancelled Est GFR (MDRD) Non-Af Cancelled BUN/Creatinine Ratio Cancelled Glucose Cancelled Hemoglobin A1c Calcium Cancelled Total Bilirubin Cancelled Direct Bilirubin Cancelled AST Cancelled ALT Cancelled Alkaline Phosphatase Cancelled Total Protein Cancelled Albumin Cancelled Globulin Cancelled Albumin/Globulin Ratio Lipase Cancelled Urine Color Yellow Urine Clarity Sl. Cloudy Urine pH 7.0 Ur Specific [place] 1.005 Urine Protein Negative Urine Glucose (UA) 1000 H Urine Ketones Negative Urine Occult Blood Negative Urine Nitrite Negative Urine Bilirubin Negative Urine Urobilinogen Normal Ur Leukocyte Esterase Negative Urine RBC 0 SEEN Urine WBC 0 SEEN Ur Squamous Epith Cells 0-5 SEEN Urine Bacteria 0 SEEN Urine Mucus 0 SEEN POC Glucose 12/19/20 12/19/20 12/19/20 14:46 15:39 18:50 WBC RBC Hgb Hct MCV MCH MCHC RDW Std Deviation RDW Coeff of Desiree Plt Count MPV Immature Gran % (Auto) Neut % (Auto) Lymph % (Auto) [place] % (Auto) Eos % (Auto) Baso % (Auto) Absolute Neuts (auto) Absolute Lymphs (auto) Nucleated RBC % Sodium 135 L Potassium 4.2 Chloride 98 Carbon Dioxide 25.0 Anion Gap 12 BUN 14 Creatinine 1.13 Estim Creat Clear Calc 85.24 Est GFR (MDRD) Af Amer 90 Est GFR (MDRD) Non-Af 74 BUN/Creatinine Ratio 12.4 Glucose 455 H* Hemoglobin A1c 10.4 H Calcium 8.8 Total Bilirubin 0.40 Direct Bilirubin 0.14 AST 16 ALT 46 Alkaline Phosphatase 169 H Total Protein 6.9 Albumin 3.4 Globulin 3.5 Albumin/Globulin Ratio Lipase 114 Urine Color Urine Clarity Urine pH Ur Specific [place] Urine Protein Urine Glucose (UA) Urine Ketones Urine Occult Blood Urine Nitrite Urine Bilirubin Urine Urobilinogen Ur Leukocyte Esterase Urine RBC Urine WBC Ur Squamous Epith Cells Urine Bacteria Urine Mucus POC Glucose 383 H 12/19/20 12/20/20 12/20/20 23:37 05:44 05:44 WBC 10.1 RBC 4.94 Hgb 15.2 Hct 43.7 MCV 88.5 MCH 30.8 MCHC 34.8 RDW Std Deviation 40.0 RDW Coeff of Desiree 12.3 Plt Count 163 MPV 9.0 Immature Gran % (Auto) 0.600 Neut % (Auto) 53.2 Lymph % (Auto) 34.6 [place] % (Auto) 8.0 Eos % (Auto) 2.9 Baso % (Auto) 0.7 Absolute Neuts (auto) 5.4 Absolute Lymphs (auto) 3.48 Nucleated RBC % 0 Sodium 138 Potassium 3.9 Chloride 107 Carbon Dioxide 25.0 Anion Gap 6 BUN 10 Creatinine 0.80 Estim Creat Clear Calc 112.81 Est GFR (MDRD) Af Amer 135 Est GFR (MDRD) Non-Af 112 BUN/Creatinine Ratio 12.6 Glucose 218 H Hemoglobin A1c Calcium 7.9 L Total Bilirubin 0.30 Direct Bilirubin AST 16 ALT 33 Alkaline Phosphatase 124 H Total Protein 5.9 L Albumin 3.0 L Globulin 2.9 Albumin/Globulin Ratio 1.0 Lipase Urine Color Urine Clarity Urine pH Ur Specific [place] Urine Protein Urine Glucose (UA) Urine Ketones Urine Occult Blood Urine Nitrite Urine Bilirubin Urine Urobilinogen Ur Leukocyte Esterase Urine RBC Urine WBC Ur Squamous Epith Cells Urine Bacteria Urine Mucus POC Glucose 282 H 12/20/20 05:51 WBC RBC Hgb Hct MCV MCH MCHC RDW Std Deviation RDW Coeff of Desiree Plt Count MPV Immature Gran % (Auto) Neut % (Auto) Lymph % (Auto) [place] % (Auto) Eos % (Auto) Baso % (Auto) Absolute Neuts (auto) Absolute Lymphs (auto) Nucleated RBC % Sodium Potassium Chloride Carbon Dioxide Anion Gap BUN Creatinine Estim Creat Clear Calc Est GFR (MDRD) Af Amer Est GFR (MDRD) Non-Af BUN/Creatinine Ratio Glucose Hemoglobin A1c Calcium Total Bilirubin Direct Bilirubin AST ALT Alkaline Phosphatase Total Protein Albumin Globulin Albumin/Globulin Ratio Lipase Urine Color Urine Clarity Urine pH Ur Specific [place] Urine Protein Urine Glucose (UA) Urine Ketones Urine Occult Blood Urine Nitrite Urine Bilirubin Urine Urobilinogen Ur Leukocyte Esterase Urine RBC Urine WBC Ur Squamous Epith Cells Urine Bacteria Urine Mucus POC Glucose 254 H Radiography Diagnostic Testing: Radiology Impression Hepatobiliary Scan Nuclear Medicine 12/19/20 18:08 IMPRESSION: 1. Visualization of the gallbladder within 60 minutes post radiopharmaceutical administration excludes acute cholecystitis with 97% certitude. (Telma et al, Nucl Med Ellie Melonie Press pg. 35, 1980). Electronically Signed: Franco Kinsey DO at 9:49 EDT Tel , Service support , Meaningful Use Info Meaningful Use Diagnoses (Choose all that apply): None applicable Discharge Plan Admission Admit Date/Time: 12/19/20 17:20 Primary Reason for Your Visit: Musculoskeletal pain Attending Provider: Charles Meredith Primary Care Provider: Kajal Knutson Consulting Providers: Keith Zuñiga Instructions Additional Instructions / Restrictions: You may use [id number] pain medicine of choice for right-sided musculoskeletal pain. Discharge Orders/Prescriptions Prescriptions: Continued citalopram 40 MG tablet 40 mg PO DAILY RF: 0 fluphenazine HCl 1 MG tablet 2 mg PO BID RF: 0 oxcarbazepine [Trileptal] 600 mg tablet 1 tab PO BID RF: 0 albuterol sulfate [Ventolin HFA] 1 INHALER inhaler 1 puff inhalation Q4H PRN PRN (Reason: Sob &/Or Wheezing) Qty: 1 RF: 0 quetiapine [Seroquel] 25 MG tablet 25 mg PO QHS RF: 0 hydroxyzine pamoate [Vistaril] 50 MG capsule 50 mg PO TID PRN PRN (Reason: Anxiety) RF: 0 oxycodone-acetaminophen 1 TABLET tablet 1 tab PO Q6H PRN PRN (Reason: Pain) 3 Days Qty: 6 RF: 0 tizanidine 4 mg tablet 4 mg PO TID PRN PRN (Reason: Spasms) RF: 0 simvastatin 80 mg tablet 80 mg PO QHS RF: 0 mirtazapine 30 mg tablet 30 mg PO QHS RF: 0 insulin lispro [Humalog KwikPen Insulin] 100 unit/mL insulin pen 14 unit SUBCUT TID RF: 0 Lantus Solostar U-100 Insulin 100 unit/mL (3 mL) insulin pen 28 unit SUBCUT DAILY RF: 0 Referrals / Follow Up: Kajal Knutson DO [Primary Care Provider] - In 1 Week Disposition Disposition (needs filled in before D/C Order can be placed): Home, Self Care Documented by User: Dr. Charles Meredith MD 12/20/20 17:27 Providers Date of Admission: 12/19/20 Reason For Visit: RUQ ABDOMINAL PAIN, BILIARY COLIC, GALLSTONE Medications at Discharge Home Medications citalopram 40 mg PO DAILY 10/19/15 fluphenazine HCl 2 mg PO BID 10/19/15 oxcarbazepine [Trileptal] 1 tab PO BID 03/06/17 albuterol sulfate [Ventolin HFA] 1 puff INHALATION Q4H PRN PRN #1 inhaler 03/08/17 quetiapine [Seroquel] 25 mg PO QHS 09/10/17 hydroxyzine pamoate [Vistaril] 50 mg PO TID PRN PRN 12/19/17 oxycodone-acetaminophen 1 tab PO Q6H PRN PRN 3 Days #6 tablet 02/16/18 Lantus Solostar U-100 Insulin 28 unit SUBCUT DAILY 12/19/20 insulin lispro [Humalog KwikPen Insulin] 14 unit SUBCUT TID 12/19/20 mirtazapine 30 mg PO QHS 12/19/20 simvastatin 80 mg PO QHS 12/19/20 tizanidine 4 mg PO TID PRN PRN 12/19/20 ABG / Lab / Microbiology Data Result Diagrams: 12/20/20 05:44 12/20/20 05:44 Discharge Plan Admission Admit Date/Time: 12/19/20 17:20 Primary Reason for Your Visit: Musculoskeletal pain Attending Provider: Charles Meredith Primary Care Provider: Kajal Knutson Consulting Providers: Keith Zuñiga Instructions Additional Instructions / Restrictions: You may use [id number] pain medicine of choice for right-sided musculoskeletal pain. Discharge Orders/Prescriptions Prescriptions: Continued citalopram 40 MG tablet 40 mg PO DAILY RF: 0 fluphenazine HCl 1 MG tablet 2 mg PO BID RF: 0 oxcarbazepine [Trileptal] 600 mg tablet 1 tab PO BID RF: 0 albuterol sulfate [Ventolin HFA] 1 INHALER inhaler 1 puff inhalation Q4H PRN PRN (Reason: Sob &/Or Wheezing) Qty: 1 RF: 0 quetiapine [Seroquel] 25 MG tablet 25 mg PO QHS RF: 0 hydroxyzine pamoate [Vistaril] 50 MG capsule 50 mg PO TID PRN PRN (Reason: Anxiety) RF: 0 oxycodone-acetaminophen 1 TABLET tablet 1 tab PO Q6H PRN PRN (Reason: Pain) 3 Days Qty: 6 RF: 0 tizanidine 4 mg tablet 4 mg PO TID PRN PRN (Reason: Spasms) RF: 0 simvastatin 80 mg tablet 80 mg PO QHS RF: 0 mirtazapine 30 mg tablet 30 mg PO QHS RF: 0 insulin lispro [Humalog KwikPen Insulin] 100 unit/mL insulin pen 14 unit SUBCUT TID RF: 0 Lantus Solostar U-100 Insulin 100 unit/mL (3 mL) insulin pen 28 unit SUBCUT DAILY RF: 0 Referrals / Follow Up: Kajal Knutson DO [Primary Care Provider] - In 1 Week Disposition Disposition (needs filled in before D/C Order can be placed): Home, Self Care Charges/Coding Addendum Addendum: Dr. Meredith: I personally reviewed the chart and examined the patient, and agree with the above findings. 45-year-old male presents to the hospital with abdominal pain. On exam it appeared to be more on his rib cage consistent with musculoskeletal pain. He says that he has been coughing a lot. There was concern for possible gallbladder source secondary to his leukocytosis to 13.9 which resolved today, as it is hyperglycemia to 613. His alk phos improved and his direct bilirubin was unremarkable as was his total bilirubin. Right upper quadrant ultrasound was negative for any wall thickening or common bile duct dilatation, there was a solitary gallstone. HIDA scan was unremarkable. He was discharged home today as he was tolerating a diet and felt better he did request narcotics however on evaluation of the PDMP it appeared that he had been given a month long prescription on 11/24/2020 therefore he was advised to follow-up with his PCP for further refills. Visit Charges Inpatient E&M: [id number] Disch Hosp
[2020-12-20] MEDS: Citalopram 40 MG TABLET PO (12:24)
--- NOTE | 2020-12-20 15:12 | CASEMGMT ---
Pt screened with [facility] Palliative Care Screening Tool due to strata 3, pt did not meet criteria.
[2020-12-20 21:40] LABS: Bedside Glucose 267 mg/dL (70-110)
--- NOTE | 2020-12-21 13:18 | CASEMGMT ---
XAVIER [facility]DR[facility] Discharge Follow-Up Phone Call. [place]: 11 Strata: 3 Discharge Date: 12/20/20 Adm Dx: RUQ abd pain, biliary colic, gallstone Call to pt to inquire about how he has been doing since being discharged from the hospital. Pt's daughter answered the phone. She stated pt is not there, stating, He went off somewhere. She was provided w/this RN PALMA's name/phone number for him to call back if he has any questions/concerns/needs. Rhonda AKINS RN, CM
== END 2020-12-20 13:18 | disposition home or self-care (01) | DRG 445 ==
LOC: ED 17:16 → MS3 17:29
PROVIDERS: Nurse Practitioner Family; Admitting Provider Hospitalist; Emergency Provider Emergency Medicine; PCP Family Medicine; Visit Provider Family Medicine
DX: K80.20 Calculus of gallbladder without cholecystitis without obstruction (principal); Z68.42 Body mass index [BMI] 45.0-49.9, adult; E11.65 Type 2 diabetes mellitus with hyperglycemia; J44.9 Chronic obstructive pulmonary disease, unspecified; E78.5 Hyperlipidemia, unspecified; F41.9 Anxiety disorder, unspecified; F20.9 Schizophrenia, unspecified; F32.9 Major depressive disorder, single episode, unspecified; E66.01 Morbid (severe) obesity due to excess calories; F17.210 Nicotine dependence, cigarettes, uncomplicated; Z79.4 Long term (current) use of insulin; Z87.442 Personal history of urinary calculi; Z88.0 Allergy status to penicillin; Z88.6 Allergy status to analgesic agent
CPT/HCPCS: 36415; 71275; 74174; 76705; 78226; 80048; 80053; 80076; 81001; 82962; 83036; 83690; 84484; 85025; 93005; 96361; 96374; 96375; 99283; 99285; 99406; A9537; J7030; Q9967; A4216; J2405; J3490

== ENCOUNTER 2021-05-20 15:48 | Emergency (ER) | payer MEDICARE, MEDICAID, SELFPAY ==
[2021-05-20] VITALS (7 sets, daily range): BP systolic 109–139; BP diastolic 82–95; PULSE 74–83; RESP 16–18; TEMP 36.6; O2SAT 97–98; BMI 42.0
--- NOTE | 2021-05-20 16:15 | EKG12_ITS ---
Test Reason : CP Blood Pressure : / mmHG Vent. Rate : 079 BPM Atrial Rate : 079 BPM P-R Int : 170 ms QRS Dur : 096 ms QT Int : 398 ms P-R-T Axes : 065 063 066 degrees QTc Int : 456 ms Sinus rhythm with occasional Premature ventricular complexes Otherwise normal ECG Confirmed by EM RECINOS, NICK ([id number]), society editor RINKU CONNOSR ([id number]) on 05/22/2021 1:25:13 PM Referred By: MARCOS Confirmed By:NICK STRICKLAND MD
--- NOTE | 2021-05-20 16:16 | EDS_ITS ---
HPI History of Present Illness Chief Complaint: Chest Pain Detail of Chief Complaint: Chest pain that started around 7 AM Informant: patient Onset/Context/Timing Maximum Severity: 10/08 Narrative Narrative: Patient presents to the emergency department complaint of chest pain is started around 7 AM this morning. Patient states he was up for about half an hour prior to the the pain starting. Patient describes a squeezing sensation in the center of his chest. He denies nausea or vomiting with it. Patient states it feels like his panic attacks with a twist and that the squeezing is getting harder and harder. Patient took Vistaril but did not get relief with that. Patient states the pain comes and goes and typically last about a half an hour or so. Patient presents via EMS. He denies recent travel or surgery. No history of PE or DVT. He has no heart history. Patient has history of diabetes and COPD. Patient continues to smoke. Patient states the pain really does not seem to radiate anywhere. He describes mild shortnes Of breath. No diaphoresis or nausea or vomiting. Prior Similar Symptoms: Yes PFSH PFS Medical History (Updated 05/20/21 @ 17:[address] Billy Reese, DO) Asthma COPD (chronic obstructive pulmonary disease) Depression Schizophrenia Home Medications citalopram 40 mg PO DAILY 10/19/15 [History Last Taken 12/19/20] fluphenazine HCl 2 mg PO BID 10/19/15 [History Last Taken 12/19/20] oxcarbazepine [Trileptal] 1 tab PO BID 03/06/17 [History Last Taken 12/19/20] albuterol sulfate [Ventolin HFA] 1 puff INHALATION Q4H PRN PRN #1 inhaler 03/08/17 [Rx Last Taken 12/18/20] quetiapine [Seroquel] 25 mg PO QHS 09/10/17 [History Last Taken 12/18/20] hydroxyzine pamoate [Vistaril] 50 mg PO TID PRN PRN 12/19/17 [History Last Taken 12/19/20] oxycodone-acetaminophen 1 tab PO Q6H PRN PRN 3 Days #6 tablet 02/16/18 [Rx Last Taken 12/16/20] Lantus Solostar U-100 Insulin 28 unit SUBCUT DAILY 12/19/20 [History Last Taken 12/19/20] insulin lispro [Humalog KwikPen Insulin] 14 unit SUBCUT TID 12/19/20 [History Last Taken 12/19/20] mirtazapine 30 mg PO QHS 12/19/20 [History Last Taken 12/15/20] simvastatin 80 mg PO QHS 12/19/20 [History Last Taken 12/18/20] tizanidine 4 mg PO TID PRN PRN 12/19/20 [History Last Taken 12/18/20] Allergy/AdvReac Type Severity Reaction Status Date / Time naproxen Allergy Shortness Verified 05/20/21 15:55 of breath Penicillins Allergy Swelling Verified 05/20/21 15:55 aspirin AdvReac HEART Verified 05/20/21 15:55 PALPITATIONS meloxicam [From Mobic] AdvReac HEADACHE Verified 05/20/21 15:55 Surgical History Gangrene Social History (Reviewed 12/19/20 @ 17:34 by Fina Weiss ELECTROPHYSIOLOGY NURSE PRACTITIONER, ELECTROPHYSIOLOGY NURSE PRACTITIONER-C) Smoking Status: Current every day smoker tobacco type: cigarettes Tobacco: How many years used: 30 second hand exposure: Yes alcohol intake: never substance use type: does not use caffeine: Yes (3/day) what type of physical activity do you participate in: none ROS ROS ED Review of Systems ROS Unobtainable: other Constitutional Constitutional ED: Reports lethargy; Denies chills, fever(s), sweats or weight loss Eyes Eyes: Denies blurry vision, change in vision or diplopia ENT ENT ED: Denies rhinorrhea or sore throat Cardiovascular Cardiovascular: Reports chest pain and racing heartbeat; Denies orthopnea Respiratory/Chest Respiratory/Chest: Reports dyspnea and dyspnea on exertion; Denies cough, orthopnea or sputum Gastrointestinal Gastrointestinal: Denies abdominal pain, diarrhea, nausea or vomiting Genitourinary Genitourinary ED: Denies dysuria, hematuria or urinary frequency Musculoskeletal Musculoskeletal: Denies arthralgias, back pain, myalgias or neck pain Integumentary Denies abscess, Abrasions or rash Neurologic Neurologic: Denies headache(s) or weakness Psychiatric Psychiatric: Denies anxiety, depression or suicidal thoughts Endocrine Endocrinology: Denies polydipsia, polyphagia or polyuria Hematologic/Lymphatic Hematologic/Lymphatic: Denies easy bleeding, easy bruising or lymphadenopathy Allergic/Immunologic Allergic/Immunologic ED: Denies mouth swelling, tongue swelling or urticaria EXAM Physical Exam Const Vital Signs: 05/20/21 15:49 05/20/21 15:55 05/20/21 16:47 Temperature 97.9 F 97.9 F Temperature Source Temporal Temporal Pulse Rate 83 83 81 Respiratory Rate 18 18 Blood Pressure 139/95 H 139/95 H 130/92 H Blood Pressure Mean 109 109 Pulse Ox 98 98 Oxygen Delivery Method Room Air Room Air 05/20/21 16:58 05/20/21 17:06 05/20/21 17:23 Temperature Temperature Source Pulse Rate 76 74 Respiratory Rate Blood Pressure 136/89 H 109/84 H Blood Pressure Mean Pulse Ox 97 Oxygen Delivery Method Room Air Positive well nourished and well developed General Appearance ED: well developed and NAD HEENT Reports TM's clear and moist mucous membranes normocephalic and atraumatic; Negative for trauma or tenderness Tympanic Membrane ED: Yes TM's clear Eyes PERRL and EOMs intact bilaterally General Eye ED: Negative for pale conjunctiva or scleral icterus Neck no lymphadenopathy, supple and no JVD General: Negative for tenderness Chest Wall inspection of chest normal and palpation of chest normal Chest: Negative for tenderness Resp normal respiratory effort and clear to auscultation bilaterally Effort and Inspection: Negative for respiratory distress or pain with movement Auscultation: Negative for rhonchi, wheezes or diminished lung sounds Cardio regular rate, regular rhythm, S1 normal heart sound, S2 normal heart sound and no murmurs Peripheral Pulses: pulses 2+ throughout GI normal to inspection, nondistended, normoactive bowel sounds, soft to palpation, non-tender, non-distended and no masses Back/Spine no CVA tenderness and no thoracic nor lumbar tenderness Extremity normal to inspection General Extremety ED: Negative for edema General Extremity: Negative for edema Neuro oriented x3, CN's II-XII intact bilaterally, no sensory deficits noted and gait normal Sensorium / Orientation: awake, alert, oriented to person, oriented to place and oriented to time Motor Exam: strength 5/5 throughout and strength abnormal Psych mental status grossly normal Skin no rashes or lesions noted and no wounds Heart Score History: Slightly/Non-Suspicious ECG: Normal Age: </= 45 years Risk Factors: 1 or 2 Risk Factors Troponin: </= Normal Limit Score: 1 MDM MDM MDM Narrative Medical decision making narrative: IV line established on arrival. Patient placed on a patient monitor. He was given a dose of Plavix. He was given sublingual nitro which did seem to mostly resolve his pain. His lab work-up is unremarkable and his high-sensitivity troponin is normal. His EKG was unremarkable. Patient has a heart score of 1. I feel patient is likely low risk. We discussed admission for stress testing versus outpatient stress testing and patient does not want to be admitted as he understands he would have to wait till Saturday as they do not do stress test on Saturday. Patient states that if his symptoms return or worsen he will return to the emergency department. Lab Data Attestation: I reviewed the patient's lab results. Labs: Laboratory Results - last 24 hr 05/20/21 05/20/21 17:01 17:01 WBC 11.7 H RBC 5.02 Hgb 15.1 Hct 43.5 MCV 86.7 MCH 30.1 MCHC 34.7 RDW Std Deviation 39.8 RDW Coeff of Desiree 12.7 Plt Count 214 MPV 9.3 Immature Gran % (Auto) 0.500 Neut % (Auto) 63.1 Lymph % (Auto) 28.3 [place] % (Auto) 5.6 Eos % (Auto) 1.9 Baso % (Auto) 0.6 Absolute Neuts (auto) 7.4 Absolute Lymphs (auto) 3.32 Nucleated RBC % 0 Sodium 133 L Potassium 4.1 Chloride 99 Carbon Dioxide 26.0 Anion Gap 8 BUN 11 Creatinine 1.04 Estim Creat Clear Calc 89.70 Est GFR (MDRD) Af Amer 99 Est GFR (MDRD) Non-Af 82 BUN/Creatinine Ratio 10.6 Glucose 413 H Calcium 9.0 Troponin I High Sens 12 Radiography Chest X-Ray - ED: 1 View Diagnostic Testing: Clinical Impression(s) from Imaging Studies Chest X-Ray 05/20/21 16:46 IMPRESSION: Nonacute portable x-ray examination of the chest. Electronically Signed: Jose Santana MD ([place]) at 17:10 EST , Service support , 1 view chest x-ray obtained showed no acute disease process as interpreted by myself. Radiology in agreement. EKG Initial EKG: Attestation: I personally reviewed and interpreted this EKG as follows: Comments: Sinus rhythm with a ventricular rate of 79 bpm with no acute ST segment changes. Occasional PVC noted. Discharge Plan Triage Chief Complaint: Chest Pain ED Provider: Billy Reese Dx/Rx/DC Orders Clinical Impression: Chest pain Instructions: ED Chest Pain, Uncertain Cause Prescriptions: No Action citalopram 40 MG tablet 40 mg PO DAILY RF: 0 fluphenazine HCl 1 MG tablet 2 mg PO BID RF: 0 oxcarbazepine [Trileptal] 600 mg tablet 1 tab PO BID RF: 0 albuterol sulfate [Ventolin HFA] 1 INHALER inhaler 1 puff inhalation Q4H PRN PRN (Reason: Sob &/Or Wheezing) Qty: 1 RF: 0 quetiapine [Seroquel] 25 MG tablet 25 mg PO QHS RF: 0 hydroxyzine pamoate [Vistaril] 50 MG capsule 50 mg PO TID PRN PRN (Reason: Anxiety) RF: 0 oxycodone-acetaminophen 1 TABLET tablet 1 tab PO Q6H PRN PRN (Reason: Pain) 3 Days Qty: 6 RF: 0 tizanidine 4 mg tablet 4 mg PO TID PRN PRN (Reason: Spasms) RF: 0 simvastatin 80 mg tablet 80 mg PO QHS RF: 0 mirtazapine 30 mg tablet 30 mg PO QHS RF: 0 insulin lispro [Humalog KwikPen Insulin] 100 unit/mL insulin pen 14 unit SUBCUT TID RF: 0 Lantus Solostar U-100 Insulin 100 unit/mL (3 mL) insulin pen 28 unit SUBCUT DAILY RF: 0 Primary Care Provider: Kajal Knutson Referrals: Kajal Knutson, [Primary Care Provider] - As soon as possible Disposition Disposition: Home, Self Care
--- NOTE | 2021-05-20 16:46 | RAD_ITS ---
STUDY: X-RAY CHEST REASON FOR EXAM: Male, 45 years old. chest pain TECHNIQUE: AP COMPARISON: None. FINDINGS: EKG leads project over the chest. The lungs are clear and expanded. There is no demonstrated pleural abnormality. Normal size heart. Normal mediastinum and nan. Normal visualized pulmonary arteries. Normal visualized aortic arch and descending thoracic aorta. Normal visualized thoracic spine. Normal visualized ribs, clavicles, and shoulders. There is no demonstrated abnormality of the visualized soft tissue structures of the upper abdomen. RAD/Chest 1 View (Portable) IMPRESSION: Nonacute portable x-ray examination of the chest. Electronically Signed: Jose Santana MD ([place]) at 17:10 EST , Service support ,
[2021-05-20] MEDS: Nitroglycerin SL (ED/IMG/CATH) 0.4 MG TABLET SL ×3 (16:47→17:23)
[2021-05-20] MEDS: 0.9% Normal Saline 1,000 ML 150 ML IV (16:52)
[2021-05-20 17:08] LABS: Absolute Lymphocyte Count 3.32 X10^3/uL (0.83-4.51); Absolute Neutrophil Count 7.4 X10^3/uL (2.0-7.7); Basophil# 0.07 X10^3/uL; Basophil% 0.6 % (0-1); Eosinophil# 0.22 X10^3/uL; Eosinophils% 1.9 % (0-5); Hematocrit 43.5 % (40-54); Hemoglobin 15.1 g/dL (13.0-16.5); Lymphocyte # 3.32 X10^3/ul (0.83-4.51); Lymphocyte % 28.3 % (19-41); Mean Corp Hgb Conc 34.7 g/dL (32-36); Mean Corpuscular Hgb 30.1 pg (27.0-32.0); Mean Corpuscular Volume 86.7 fL (80-94); Mean Platelet Vol. 9.3 fl (6.2-12.0); Monocyte# 0.66 X10^3/uL; Monocyte% 5.6 % (0-10); NRBC Flagged by Analyzer 0 % (0-5); Neutrophil % 63.1 % (47-70); Platelet Count 214 K/mm3 (150-450); RBC Distribution Width CV 12.7 % (11.6-14.6); RBC Distribution Width SD 39.8 fl (35.1-43.9); Red Blood Count 5.02 M/mm3 (4.6-6.2); White Blood Count 11.7 K/mm3 (4.4-11.0)
[2021-05-20 17:25] LABS: Anion Gap 8 (5-15); BUN 11 mg/dL (7-18); BUN/Creat Ratio 10.6 RATIO (10-20); Chloride 99 mmol/L (98-107); Creatinine, Serum 1.04 mg/dL (0.70-1.30); EST Glomerular Filtration Rate 82 mL/min (>60); Est Glom Filt Rate - Afr Amer 99 mL/min (>60); Glucose 413 mg/dL (74-106); Potassium 4.1 mmol/L (3.5-5.1); Sodium Level 133 mmol/L (136-145); Troponin-I HS 12 pg/mL (3.0-78.0)
[2021-05-20] MEDS: Clopidogrel Bisulfate 300 MG Tablet 75 MG PO (17:58)
== END 2021-05-20 18:11 | disposition home or self-care (01) ==
LOC: ED 17:58
PROVIDERS: Emergency Provider Emergency Medicine; PCP Family Medicine
DX: R07.9 Chest pain, unspecified (principal); E11.9 Type 2 diabetes mellitus without complications; J44.9 Chronic obstructive pulmonary disease, unspecified; F20.9 Schizophrenia, unspecified; F32.A Depression, unspecified; F17.210 Nicotine dependence, cigarettes, uncomplicated; Z79.1 Long term (current) use of non-steroidal anti-inflammatories (NSAID); Z79.4 Long term (current) use of insulin; Z79.82 Long term (current) use of aspirin
CPT/HCPCS: 71045; 80048; 84484; 85025; 93005; 99285

== ENCOUNTER 2021-11-27 18:32 | Emergency (ER) | payer MEDICARE, MEDICAID, SELFPAY ==
[2021-11-27 18:33] VITALS: BP 116/75; PULSE 89; RESP 16; TEMP 36.2; O2SAT 98; BMI 40.6
--- NOTE | 2021-11-27 18:48 | EDS_ITS ---
HPI History of Present Illness Chief Complaint: Upper Extremity Injury Informant: patient Occured/Mechanism Comment: Denies injury Onset/Context/Timing Onset: Days (4) Context: - (Awoke with symptoms while he was in the hospital after his VT, [facility]) Timing: Continuous Quality of Pain: Aching Location: Top of left shoulder/trapezius Current Severity: Severe Maximum Severity: Severe Worsened by: Turning head to the left Relieved by: Remaining still Associated Symptoms Associated Symptoms: Negative for Parasthesia, Weakness and Loss of Funtion Narrative Narrative: Patient complaining of pain just posterior to the left clavicle and his trapezius, not in the shoulder, hand, neck, he states he recently was discharged in the hospital [facility] after having chest pain and an MRI, and this pain started while he was there, he woke up with it. Is been there for 4 days. He has Percocet at home that he takes for other painful conditions and he has been taking that, it was helping, today it only helped very little and he is still in a lot of discomfort despite taking that, cyclobenzaprine, and Zanaflex. States he had this before years ago and he states it is just extremely uncomfortable. No radicular symptoms down the left upper extremity, no chest pain like he had with his angina, no shortness of breath, headache, near syncope, neurologic symptoms. [facility] Medical History (Updated 11/27/21 @ 18:[address] Alexandre Carey MD) Asthma CAD (coronary artery disease) COPD (chronic obstructive pulmonary disease) Depression Schizophrenia Home Medications citalopram 40 mg PO DAILY 10/19/15 [History Last Taken 12/19/20] fluphenazine HCl 2 mg PO BID 10/19/15 [History Last Taken 12/19/20] oxcarbazepine [Trileptal] 1 tab PO BID 03/06/17 [History Last Taken 12/19/20] albuterol sulfate [Ventolin HFA] 1 puff INHALATION Q4H PRN PRN #1 inhaler 03/08/17 [Rx Last Taken 12/18/20] quetiapine [Seroquel] 25 mg PO QHS 09/10/17 [History Last Taken 12/18/20] hydroxyzine pamoate [Vistaril] 50 mg PO TID PRN PRN 12/19/17 [History Last Taken 12/19/20] oxycodone-acetaminophen 1 tab PO Q6H PRN PRN 3 Days #6 tablet 02/16/18 [Rx Last Taken 12/16/20] Lantus Solostar U-100 Insulin 28 unit SUBCUT DAILY 12/19/20 [History Last Taken 12/19/20] insulin lispro [Humalog KwikPen Insulin] 14 unit SUBCUT TID 12/19/20 [History Last Taken 12/19/20] mirtazapine 30 mg PO QHS 12/19/20 [History Last Taken 12/15/20] simvastatin 80 mg PO QHS 12/19/20 [History Last Taken 12/18/20] tizanidine 4 mg PO TID PRN PRN 12/19/20 [History Last Taken 12/18/20] Allergy/AdvReac Type Severity Reaction Status Date / Time naproxen Allergy Shortness Verified 11/27/21 18:33 of breath Penicillins Allergy Swelling Verified 11/27/21 18:33 aspirin AdvReac HEART Verified 11/27/21 18:33 PALPITATIONS meloxicam [From Mobic] AdvReac HEADACHE Verified 11/27/21 18:33 Surgical History Gangrene Social History Smoking Status: Current every day smoker tobacco type: cigarettes Tobacco: How many years used: 30 second hand exposure: Yes alcohol intake: never substance use type: does not use caffeine: Yes (3/day) what type of physical activity do you participate in: none ROS ROS ED Constitutional Constitutional ED: Denies chills or fever(s) Musculoskeletal Musculoskeletal: Reports as per HPI and neck pain; Denies extremity pain Integumentary Denies Abrasions, rash or wounds Neurologic Neurologic: Denies paresthesias or weakness EXAM Physical Exam Const Vital Signs: 11/27/21 18:33 Temperature 97.2 F L Temperature Source Temporal Pulse Rate 89 Respiratory Rate 16 Blood Pressure 116/75 Blood Pressure Mean 88 Pulse Ox 98 Oxygen Delivery Method Room Air Positive well nourished and well developed General Appearance ED: well developed and NAD Neck full ROM and supple Chest Wall inspection of chest normal and palpation of chest normal Chest: Negative for tenderness Resp normal respiratory effort, normal air movement and clear to auscultation bilaterally Cardio regular rate, regular rhythm and no murmurs Rate: Negative for tachycardic Back/Spine normal ROM and normal to inspection Extremity normal to inspection, full ROM and no pedal edema Extremity Narrative: Tender in the right trapezius, just posterior and not including the bony clavicle. No acromioclavicular tenderness, no acromion tenderness, no cervical bony or soft tissue tenderness. Can abduct at the shoulder without any difficulty, however he limits himself when he turns his head ipsilaterally to the left, complaining of reproducing his pain. I am reproducing his pain by palpating the affected area. Neuro oriented x3, no focal motor deficits and no sensory deficits noted Sensorium / Orientation: alert Psych mental status grossly normal and thought process normal Skin no wounds Rashes: no rashes MDM MDM MDM Narrative Medical decision making narrative: Patient states he just ran out of his Percocet today, he was given a 30-day prescription on 10/30. Therefore I am not able to write him for another 1, he is amenable to getting injections of morphine and Norflex and being discharged home with his ride here today. I do not think this is cardiac, it clearly is musculoskeletal. Discharge Plan Triage Chief Complaint: Upper Extremity Injury ED Provider: Alexandre Carey Dx/Rx/DC Orders Clinical Impression: Strain of left trapezius muscle Instructions: ED Neck Sprain or Strain Prescriptions: No Action citalopram 40 MG tablet 40 mg PO DAILY RF: 0 fluphenazine HCl 1 MG tablet 2 mg PO BID RF: 0 oxcarbazepine [Trileptal] 600 mg tablet 1 tab PO BID RF: 0 albuterol sulfate [Ventolin HFA] 1 INHALER inhaler 1 puff inhalation Q4H PRN PRN (Reason: Sob &/Or Wheezing) Qty: 1 RF: 0 quetiapine [Seroquel] 25 MG tablet 25 mg PO QHS RF: 0 hydroxyzine pamoate [Vistaril] 50 MG capsule 50 mg PO TID PRN PRN (Reason: Anxiety) RF: 0 oxycodone-acetaminophen 1 TABLET tablet 1 tab PO Q6H PRN PRN (Reason: Pain) 3 Days Qty: 6 RF: 0 tizanidine 4 mg tablet 4 mg PO TID PRN PRN (Reason: Spasms) RF: 0 simvastatin 80 mg tablet 80 mg PO QHS RF: 0 mirtazapine 30 mg tablet 30 mg PO QHS RF: 0 insulin lispro [Humalog KwikPen Insulin] 100 unit/mL insulin pen 14 unit SUBCUT TID RF: 0 Lantus Solostar U-100 Insulin 100 unit/mL (3 mL) insulin pen 28 unit SUBCUT DAILY RF: 0 Primary Care Provider: Kajal Knutson Referrals: Kajal Knutson DO [Primary Care Provider] - 10-14 Days if not better Disposition Disposition: Home, Self Care
[2021-11-27] MEDS: Orphenadrine 60 MG/2 ML Ampul IM (18:57)
[2021-11-27] MEDS: Morphine 4 MG/ML Syringe IM (18:57)
== END 2021-11-27 19:00 | disposition home or self-care (01) ==
LOC: ED 18:56
PROVIDERS: Emergency Provider Emergency Medicine; PCP Family Medicine; Visit Provider Emergency Medicine
DX: S29.012A Strain of muscle and tendon of back wall of thorax, initial encounter (principal); F20.9 Schizophrenia, unspecified; J44.9 Chronic obstructive pulmonary disease, unspecified; I25.2 Old myocardial infarction; F17.210 Nicotine dependence, cigarettes, uncomplicated; S46.812A Strain of other muscles, fascia and tendons at shoulder and upper arm level, left arm, initial encounter; I25.10 Atherosclerotic heart disease of native coronary artery without angina pectoris; X58.XXXA Exposure to other specified factors, initial encounter
CPT/HCPCS: 96372; 99282

== ENCOUNTER 2022-01-11 16:46 | Emergency (ER) | payer MEDICARE, MEDICAID, SELFPAY ==
[2022-01-11 16:47] VITALS: BP 126/99; PULSE 91; RESP 18; TEMP 36.1; BMI 42.3
--- NOTE | 2022-01-11 17:38 | CT_ITS ---
EXAM: CT ABDOMEN AND PELVIS WITHOUT INTRAVENOUS CONTRAST CLINICAL INDICATION: right flank pain TECHNIQUE: Helically acquired images were obtained of the abdomen and pelvis without intravenous contrast. This CT exam was performed using one or more of the following dose reduction techniques: automated exposure control, adjustment of the mA and/or kV according to patient size, and/or use of iterative reconstruction technique. This report was created using [employer] report generation technology. RADIATION DOSE: CTDIvol = 21.32 mGy, DLP = 1204.13 mGy-cm. COMPARISON: 08/03/2014. FINDINGS: LOWER THORAX: Unremarkable. Lung bases are clear. No cardiomegaly. No significant pericardial effusion. ABDOMEN: LIVER: There is diffuse low-attenuation of the liver. GALLBLADDER AND BILE DUCTS: Unremarkable. No calcified gallstones. No gallbladder distention or wall edema. No intra- or extrahepatic biliary ductal dilation. PANCREAS: Unremarkable. No focal cystic mass. SPLEEN: Unremarkable. Normal size without focal cystic or solid mass. ADRENALS: Unremarkable. No nodules. KIDNEYS AND URETERS: Unremarkable. Normal renal size and position. No hydronephrosis. STOMACH AND BOWEL: Scattered diverticula without diverticulitis. No stomach or bowel distention. PELVIS: APPENDIX: Normal appendix. BLADDER: Stone measuring 4 mm in the central dependent portion of the urinary bladder. REPRODUCTIVE: Unremarkable as visualized. No mass. ABDOMEN and PELVIS: INTRAPERITONEAL SPACE: Unremarkable. No ascites or other fluid collection. No free air. BONES/JOINTS: Unremarkable. No suspicious lytic or blastic abnormality. SOFT TISSUES: Unremarkable. No discrete abdominal or pelvic wall hernia. VASCULATURE: Unremarkable. Abdominal aorta is non-dilated. LYMPH NODES: Unremarkable. No enlarged lymph nodes. CT/Abdomen/Pelvis without Cont IMPRESSION: 1. Fatty liver. 2. Scattered diverticula without diverticulitis. 3. Stone measuring 4 mm in the central dependent portion of the urinary bladder. No hydronephrosis or hydroureter at the present time. Electronically Signed: Storm Soares MD at 18:14 EDT ,
[2022-01-11] MEDS: 0.9% Normal Saline 1,000 ML 1000 ML IV (17:46)
[2022-01-11] MEDS: Ondansetron 4 MG/2 ML Vial IV (17:46)
[2022-01-11] MEDS: morphine 8 MG/ML Syringe IV (17:46)
--- NOTE | 2022-01-11 17:47 | EDS_ITS ---
HPI History of Present Illness Chief Complaint: Flank Pain Informant: patient Narrative Narrative: Patient is a 46-year-old male with history of remote alcohol abuse, schizophrenia, COPD, diabetes mellitus and depression presenting with right- sided flank pain. Patient does have a history of kidney stones. He states he is been having flank pain for the past few months but has been worsening to the point that he had to come to the emergency room today. He denies any radiation of pain. States is worse with movement. Had previously been receiving pain medication as primary care doctor but earlier this year tested positive for THC. Patient admits to using delta 10. He was taken off pain medications and told that he cannot even be seen to get back on pain medicine until January, next month. Patient notes that for the past few weeks he has been having numbness in his left foot which is new. He is also complained of some left shoulder pain. No other complaints at this time. Denies any urinary symptoms. Denies any nausea, vomiting or change in bowel habits. [facility] Medical History Asthma CAD (coronary artery disease) COPD (chronic obstructive pulmonary disease) Depression Schizophrenia Home Medications citalopram 40 mg tablet 40 mg PO DAILY DEPRESSION 10/19/15 [History Last Taken 12/19/20] fluphenazine HCl 1 mg tablet 2 mg PO BID ANTIPSYHCOTIC 10/19/15 [History Last Taken 12/19/20] oxcarbazepine 600 mg tablet (Trileptal) 1 tab PO BID SEIZURE 03/06/17 [History Last Taken 12/19/20] albuterol sulfate 90 mcg/actuation aerosol inhaler (Ventolin HFA) 1 puff inhalation Q4H PRN PRN Sob &/Or Wheezing ##1 03/08/17 [Rx Last Taken 12/18/20] quetiapine 25 mg tablet (Seroquel) 25 mg PO QHS MOOD 09/10/17 [History Last Taken 12/18/20] hydroxyzine pamoate 50 mg capsule (Vistaril) 50 mg PO TID PRN PRN Anxiety 12/19/17 [History Last Taken 12/19/20] oxycodone-acetaminophen 5 mg-325 mg tablet 1 tab PO Q6H PRN PRN Pain 3 days ##6 02/16/18 [Rx Last Taken 12/16/20] insulin glargine 100 unit/mL (3 mL) subcutaneous pen (Lantus Solostar U-100 Insulin) 28 unit subcut DAILY DM 12/19/20 [History Last Taken 12/19/20] insulin lispro 100 unit/mL subcutaneous pen (Humalog KwikPen (U-100) Insulin) 14 unit subcut TID DM 12/19/20 [History Last Taken 12/19/20] mirtazapine 30 mg tablet 30 mg PO QHS INSOMNIA 12/19/20 [History Last Taken 12/15/20] simvastatin 80 mg tablet 80 mg PO QHS CHOLESTEROL 12/19/20 [History Last Taken 12/18/20] tizanidine 4 mg tablet 4 mg PO TID PRN PRN Spasms 12/19/20 [History Last Taken 12/18/20] Allergy/AdvReac Type Severity Reaction Status Date / Time naproxen Allergy Shortness Verified 01/11/22 16:49 of breath Penicillins Allergy Swelling Verified 01/11/22 16:49 aspirin AdvReac HEART Verified 01/11/22 16:49 PALPITATIONS meloxicam [From Mobic] AdvReac HEADACHE Verified 01/11/22 16:49 Surgical History Gangrene Social History Smoking Status: Current every day smoker tobacco type: cigarettes Tobacco: How many years used: 30 second hand exposure: Yes alcohol intake: never substance use type: does not use caffeine: Yes (3/day) what type of physical activity do you participate in: none ROS ROS ED Constitutional Constitutional ED: Denies chills or fever(s) Eyes Eyes: Denies blurry vision ENT ENT ED: Denies sore throat Cardiovascular Cardiovascular: Denies chest pain Respiratory/Chest Respiratory/Chest: Denies cough Gastrointestinal Gastrointestinal: Reports abdominal pain; Denies diarrhea, nausea or vomiting Genitourinary Genitourinary ED: Denies dysuria or hematuria Musculoskeletal Musculoskeletal: Reports back pain and neck pain Integumentary Denies rash Neurologic Neurologic: Reports paresthesias; Denies headache(s) Psychiatric Psychiatric: Denies anxiety EXAM Physical Exam Const Vital Signs: 01/11/22 16:47 01/11/22 18:46 Temperature 97 F L Temperature Source Temporal Pulse Rate 91 Respiratory Rate 18 16 Blood Pressure 126/99 H Blood Pressure Mean 108 Oxygen Delivery Method Room Air Positive well nourished, well developed and obese General Appearance ED: well developed and NAD Nutritional Appearance: obese HEENT Reports moist mucous membranes Eyes PERRL Neck supple and no JVD Neck Narrative: No midline tenderness Resp normal respiratory effort Cardio regular rate, regular rhythm and no murmurs GI normal to inspection, nondistended, normoactive bowel sounds and no masses GI Narrative: Protuberant abdomen, right flank pain on palpation Back/Spine no CVA tenderness Neuro oriented x3 and no sensory deficits noted Motor Exam: strength 5/5 throughout; Negative for general weakness Psych mental status grossly normal Skin no wounds MDM MDM MDM Narrative Medical decision making narrative: Patient evaluated for months of continued right flank pain. He does feel he gets worsening. He does report a history of kidney stones sided given a dose of IV pain medication and obtain kidney stone work-up. Patient does have a mild leukocytosis of 14.2 with no obvious source.BMP shows a mild hyperglycemia with a normal anion gap. His bilirubin, AST and alkaline phosphatase are normal. ALT is mildly elevated which is nonspecific. Urinalysis does not show any blood and not consistent with infection. CT of the abdomen pelvis without contrast shows a stone in the dependent portion of the bladder however patient has had a stone of this area before. Given the longevity of his symptoms I I do not suspect that he just passed a stone. Patient is given a dose of IV morphine with improvement of his symptoms. Patient is given an additional dose of [place] but we will not be sent home with any pain medication as he does not have an acute verifiable cause of his pain and does have a chronic nature to his pain. Chart review shows that he has had of concern for biliary colic in the past however he had a negative HIDA scan last year. In addition his pain does seem to be more muscle skeletal. It is reproducible with direct palpation. Patient has a follow-up appointment with urology in January and will also follow-up with his primary care doctor. He is counseled return precautions. He is agreeable with this plan of care. Lab Data Attestation: I reviewed the patient's lab results. Labs: Laboratory Results - last 24 hr 07/01/11/22 01/11/22 17:22 17:22 17:45 WBC 14.2 H RBC 5.12 Hgb 16.1 Hct 45.5 MCV 88.9 MCH 31.4 MCHC 35.4 RDW Std Deviation 41.8 RDW Coeff of Desiree 12.8 Plt Count 267 MPV 8.9 Immature Gran % (Auto) 0.700 Neut % (Auto) 63.0 Lymph % (Auto) 26.8 Lares % (Auto) 7.3 Eos % (Auto) 1.7 Baso % (Auto) 0.5 Absolute Neuts (auto) 8.9 H Absolute Lymphs (auto) 3.80 Nucleated RBC % 0 Sodium 137 Potassium 4.5 Chloride 105 Carbon Dioxide 27.0 Anion Gap 5 BUN 19 H Creatinine 1.02 Estim Creat Clear Calc 90.49 Est GFR (MDRD) Af Amer 101 Est GFR (MDRD) Non-Af 83 BUN/Creatinine Ratio 18.6 Glucose 173 H Calcium 9.2 Total Bilirubin 0.40 AST 29 ALT 74 H Alkaline Phosphatase 98 Total Protein 7.0 Albumin 4.0 Globulin 3.0 Albumin/Globulin Ratio 1.3 Urine Color Yellow Urine Clarity Clear Urine pH 6.0 Ur Specific [place] 1.020 Urine Protein 15 H Urine Glucose (UA) 250 H Urine Ketones Negative Urine Occult Blood Negative Urine Nitrite Negative Urine Bilirubin Negative Urine Urobilinogen Normal Ur Leukocyte Esterase 25 H Urine RBC 0-5 SEEN Urine WBC 0-5 SEEN Ur Squamous Epith Cells 0-5 SEEN Urine Bacteria RARE Urine Mucus 0 SEEN Radiography Diagnostic Testing: Clinical Impression(s) from Imaging Studies Abdomen/Pelvis CT 01/11/22 17:38 IMPRESSION: 1. Fatty liver. 2. Scattered diverticula without diverticulitis. 3. Stone measuring 4 mm in the central dependent portion of the urinary bladder. No hydronephrosis or hydroureter at the present time. Electronically Signed: Storm Soares MD at 18:14 EDT , Discharge Plan Triage Chief Complaint: Flank Pain ED Provider: Kaycee Garcia Dx/Rx/DC Orders Clinical Impression: Right flank pain, Bladder calculi Instructions: ED Flank Pain, Uncertain Cause Prescriptions: No Action citalopram 40 MG tablet 40 mg PO DAILY Label Comments: depression fluphenazine HCl 1 MG tablet 2 mg PO BID Label Comments: mood oxcarbazepine [Trileptal] 600 mg tablet 1 tab PO BID Label Comments: Take 1 tablet by mouth twice a day after meals albuterol sulfate [Ventolin HFA] 1 INHALER inhaler 1 puff inhalation Q4H PRN PRN (Reason: Sob &/Or Wheezing) Qty: 1 0RF quetiapine [Seroquel] 25 MG tablet 25 mg PO QHS hydroxyzine pamoate [Vistaril] 50 MG capsule 50 mg PO TID PRN PRN (Reason: Anxiety) oxycodone-acetaminophen 1 TABLET tablet 1 tab PO Q6H PRN PRN (Reason: Pain) 3 Days Qty: 6 0RF tizanidine 4 mg tablet 4 mg PO TID PRN PRN (Reason: Spasms) simvastatin 80 mg tablet 80 mg PO QHS mirtazapine 30 mg tablet 30 mg PO QHS insulin lispro [Humalog KwikPen Insulin] 100 unit/mL insulin pen 14 unit SUBCUT TID Lantus Solostar U-100 Insulin 100 unit/mL (3 mL) insulin pen 28 unit SUBCUT DAILY Primary Care Provider: Kajal Knutson Referrals: Kajal Knutson DO [Primary Care Provider] - Activity Restrictions/Additional Instructions: No signs of a recently passed kidney stone. You continue to have a stone in your bladder. Follow-up with urology as previously scheduled. Your gallbladder was normal today. The exact cause of your symptoms is not clear however I think you are safe to continue outpatient follow-up. Disposition Disposition: Home, Self Care
[2022-01-11 17:52] LABS: Mucous, Urine 0 SEEN /hpf (<or=2+)
[2022-01-11 17:55] LABS: Color, Urine Yellow (Yellow); Glucose, Dipstick 250 mg/dl (Normal); Ketone-Dipstick Negative (Negative); Leukocyte Esterase-Dipstick 25 /ul (Negative); Nitrite-Dipstick Negative (Negative); Occult Blood-Urine Negative /ul (Negative); Protein-Dipstick 15 mg/dl (Negative); Urine Bilirubin Dipstick Negative (Negative); Urine Clarity Clear (Clear); Urine Urobilinogen Normal (Normal)
[2022-01-11 17:56] LABS: Absolute Neutrophil Count 8.9 X10^3/uL (2.0-7.7); Basophil# 0.07 X10^3/uL; Basophil% 0.5 % (0-1); Eosinophil# 0.24 X10^3/uL; Eosinophils% 1.7 % (0-5); Hematocrit 45.5 % (40-54); Hemoglobin 16.1 g/dL (13.0-16.5); Lymphocyte % 26.8 % (19-41); Mean Corp Hgb Conc 35.4 g/dL (32-36); Mean Corpuscular Hgb 31.4 pg (27.0-32.0); Mean Corpuscular Volume 88.9 fL (80-94); Mean Platelet Vol. 8.9 fl (6.2-12.0); Monocyte# 1.04 X10^3/uL; Monocyte% 7.3 % (0-10); NRBC Flagged by Analyzer 0 % (0-5); Neutrophil # 8.91 X10^3/uL (2.7-7.7); Platelet Count 267 K/mm3 (150-450); RBC Distribution Width CV 12.8 % (11.6-14.6); RBC Distribution Width SD 41.8 fl (35.1-43.9); Red Blood Count 5.12 M/mm3 (4.6-6.2); White Blood Count 14.2 K/mm3 (4.4-11.0)
[2022-01-11 18:14] LABS: Bacteria RARE /hpf (None Seen); Red Blood Cells-Urine 0-5 SEEN /hpf (0-5); Squamous Epithelial Cells - UA 0-5 SEEN /hpf (0-5); White Blood Cells 0-5 SEEN /hpf (0-5)
[2022-01-11 18:46] VITALS: RESP 16
[2022-01-11 18:57] LABS: ALB/GLOB Ratio 1.3 RATIO (0.9-2.4); AST(SGOT) 29 U/L (15-37); Alanine Aminotransfer ALT/SGPT 74 U/L (16-61); Alkaline Phosphatase 98 U/L (45-117); Anion Gap 5 (5-15); BUN 19 mg/dL (7-18); BUN/Creat Ratio 18.6 RATIO (10-20); Calcium,Total 9.2 mg/dL (8.5-10.1); Chloride 105 mmol/L (98-107); Creatinine, Serum 1.02 mg/dL (0.70-1.30); EST Glomerular Filtration Rate 83 mL/min (>60); Est Glom Filt Rate - Afr Amer 101 mL/min (>60); Estimated Creatinine Clearance 90.49 ml/min; Glucose 173 mg/dL (74-106); Potassium 4.5 mmol/L (3.5-5.1); Sodium Level 137 mmol/L (136-145)
[2022-01-11] MEDS: HYDROcodone Bitartrate/Apap 5/325 Tablet PO (20:03)
[2022-01-11 20:05] VITALS: BP 122/90; PULSE 74; RESP 15; TEMP 36.7
== END 2022-01-11 20:06 | disposition home or self-care (01) ==
PROVIDERS: Emergency Provider Emergency Medicine; PCP Family Medicine; Visit Provider Emergency Medicine
DX: R10.9 Unspecified abdominal pain (principal); F20.9 Schizophrenia, unspecified; J44.9 Chronic obstructive pulmonary disease, unspecified; E11.9 Type 2 diabetes mellitus without complications; I25.10 Atherosclerotic heart disease of native coronary artery without angina pectoris; F17.210 Nicotine dependence, cigarettes, uncomplicated; M25.512 Pain in left shoulder; N21.0 Calculus in bladder; Z87.442 Personal history of urinary calculi
CPT/HCPCS: 74176; 80053; 81001; 85025; 96361; 96374; 96375; 99284; J7030; A4216; J2405

== ENCOUNTER 2022-03-02 17:18 | Emergency (ER) | payer MEDICARE, MEDICAID, SELFPAY ==
[2022-03-02 17:19] VITALS: BP 130/95; PULSE 92; RESP 18; TEMP 36.7; O2SAT 97; BMI 41.8
[2022-03-02] MEDS: Morphine 4 MG/ML Syringe IM ×2 (18:26→19:59)
[2022-03-02] MEDS: Diphth,Pertuss(Acell),Tet Vac 0.5 ML Vial IM (18:27)
--- NOTE | 2022-03-02 18:34 | EDS_ITS ---
HPI History of Present Illness Chief Complaint: Laceration Detail of Chief Complaint: Puncture wound right foot Informant: patient Onset/Context/Timing Onset: Today Narrative Narrative: Patient states he was walking in his yard barefoot when he stepped on a nail. He has a puncture wound to the heel of his right foot. He is unsure of his last tetanus update. [facility] Medical History Asthma CAD (coronary artery disease) COPD (chronic obstructive pulmonary disease) Depression Diabetes Schizophrenia Home Medications citalopram 40 mg tablet 40 mg PO DAILY DEPRESSION 10/19/15 [History Last Taken 12/19/20] fluphenazine HCl 1 mg tablet 2 mg PO BID ANTIPSYHCOTIC 10/19/15 [History Last Taken 12/19/20] oxcarbazepine 600 mg tablet (Trileptal) 1 tab PO BID SEIZURE 03/06/17 [History Last Taken 12/19/20] albuterol sulfate 90 mcg/actuation aerosol inhaler (Ventolin HFA) 1 puff inhalation Q4H PRN PRN Sob &/Or Wheezing ##1 03/08/17 [Rx Last Taken 12/18/20] quetiapine 25 mg tablet (Seroquel) 25 mg PO QHS MOOD 09/10/17 [History Last Taken 12/18/20] hydroxyzine pamoate 50 mg capsule (Vistaril) 50 mg PO TID PRN PRN Anxiety 12/19/17 [History Last Taken 12/19/20] oxycodone-acetaminophen 5 mg-325 mg tablet 1 tab PO Q6H PRN PRN Pain 3 days ##6 02/16/18 [Rx Last Taken 12/16/20] insulin glargine 100 unit/mL (3 mL) subcutaneous pen (Lantus Solostar U-100 Insulin) 28 unit subcut DAILY DM 12/19/20 [History Last Taken 12/19/20] insulin lispro 100 unit/mL subcutaneous pen (Humalog KwikPen (U-100) Insulin) 14 unit subcut TID DM 12/19/20 [History Last Taken 12/19/20] mirtazapine 30 mg tablet 30 mg PO QHS INSOMNIA 12/19/20 [History Last Taken 12/15/20] simvastatin 80 mg tablet 80 mg PO QHS CHOLESTEROL 12/19/20 [History Last Taken 12/18/20] tizanidine 4 mg tablet 4 mg PO TID PRN PRN Spasms 12/19/20 [History Last Taken 12/18/20] sulfamethoxazole 800 mg-trimethoprim 160 mg tablet (Bactrim DS) 1 tab PO BID #20 tabs 03/02/22 [Rx Last Taken Unknown] Allergy/AdvReac Type Severity Reaction Status Date / Time naproxen Allergy Shortness Verified 01/11/22 16:49 of breath Penicillins Allergy Swelling Verified 01/11/22 16:49 aspirin AdvReac HEART Verified 01/11/22 16:49 PALPITATIONS meloxicam [From Mobic] AdvReac HEADACHE Verified 01/11/22 16:49 Surgical History Gangrene Social History Smoking Status: Current every day smoker tobacco type: cigarettes Tobacco: How many years used: 30 second hand exposure: Yes alcohol intake: never substance use type: does not use caffeine: Yes (3/day) what type of physical activity do you participate in: none ROS ROS ED Constitutional Constitutional ED: Denies chills or fever(s) Eyes Eyes: Denies change in vision or discharge from eye(s) ENT ENT ED: Denies discharge from eye(s), rhinorrhea or sore throat Cardiovascular Cardiovascular: Denies chest pain or palpitations Respiratory/Chest Respiratory/Chest: Denies cough or dyspnea Gastrointestinal Gastrointestinal: Denies abdominal pain, diarrhea, nausea or vomiting Genitourinary Genitourinary ED: Denies difficulty urinating or dysuria Musculoskeletal Musculoskeletal: Reports extremity pain; Denies back pain Integumentary Reports other Details: Puncture wound ; Denies Abrasions or rash Neurologic Neurologic: Denies headache(s) or weakness Psychiatric Psychiatric: Denies anxiety or depression Allergic/Immunologic Allergic/Immunologic ED: Denies lip swelling or urticaria EXAM Physical Exam Const Vital Signs: 03/02/22 17:19 Temperature 98.1 F Temperature Source Oral Pulse Rate 92 Respiratory Rate 18 Blood Pressure 130/95 H Blood Pressure Mean 106 Pulse Ox 97 Oxygen Delivery Method Room Air Positive well nourished and well developed General Appearance ED: well developed HEENT Reports normocephalic and head/scalp atraumatic Eyes PERRL and EOMs intact bilaterally Neck supple Chest Wall inspection of chest normal and palpation of chest normal Resp normal respiratory effort and clear to auscultation bilaterally Cardio regular rate and regular rhythm GI normal to inspection, nondistended, normoactive bowel sounds Palpation: soft Extremity Extremity Narrative: Small puncture wound to the calcaneus of the right foot. Mild surrounding tenderness. No drainage. Neuro oriented x3 and no sensory deficits noted Sensorium / Orientation: alert Motor Exam: strength 5/5 throughout Psych mental status grossly normal Skin Skin Narrative: Puncture wound as noted above. MDM MDM MDM Narrative Medical decision making narrative: Patient given IM morphine for pain along with a tetanus update. Right foot x- rays obtained. Radiography Diagnostic Testing: Clinical Impression(s) from Imaging Studies Foot X-Ray 03/02/22 18:38 IMPRESSION: Normal x-ray examination of the foot. Electronically Signed: Franco Carranza MD at 19:00 EDT , Treatment and Re-Evaluation Narrative: Right foot x-ray per my interpretation shows no acute abnormalities. Radiology interpretation is reviewed and agrees. Patient be given Bactrim to help prevent infection. Wound to be cleansed and dressed. Discharge Plan Triage Chief Complaint: Laceration ED Provider: Tanisha Mallory Dx/Rx/DC Orders Clinical Impression: Puncture wound Instructions: ED Puncture Wound (Foot) Prescriptions: New sulfamethoxazole-trimethoprim [Bactrim DS] 800-160 mg tablet 1 tab PO BID Qty: 20 0RF No Action citalopram 40 MG tablet 40 mg PO DAILY Label Comments: depression fluphenazine HCl 1 MG tablet 2 mg PO BID Label Comments: mood oxcarbazepine [Trileptal] 600 mg tablet 1 tab PO BID Label Comments: Take 1 tablet by mouth twice a day after meals albuterol sulfate [Ventolin HFA] 1 INHALER inhaler 1 puff inhalation Q4H PRN PRN (Reason: Sob &/Or Wheezing) Qty: 1 0RF quetiapine [Seroquel] 25 MG tablet 25 mg PO QHS hydroxyzine pamoate [Vistaril] 50 MG capsule 50 mg PO TID PRN PRN (Reason: Anxiety) oxycodone-acetaminophen 1 TABLET tablet 1 tab PO Q6H PRN PRN (Reason: Pain) 3 Days Qty: 6 0RF tizanidine 4 mg tablet 4 mg PO TID PRN PRN (Reason: Spasms) simvastatin 80 mg tablet 80 mg PO QHS mirtazapine 30 mg tablet 30 mg PO QHS insulin lispro [Humalog KwikPen Insulin] 100 unit/mL insulin pen 14 unit SUBCUT TID insulin glargine [Lantus Solostar U-100 Insulin] 100 unit/mL (3 mL) insulin pen 28 unit SUBCUT DAILY Primary Care Provider: Kajal Knutson Referrals: Kajal Knutson DO [Primary Care Provider] - 1-2 Weeks Disposition Disposition: Home, Self Care
--- NOTE | 2022-03-02 18:38 | RAD_ITS ---
STUDY: X-RAY - RIGHT FOOT CLINICAL: Male, 46 years old. injury TECHNIQUE: 3 view(s) of the foot. COMPARISON: None. FINDINGS: Normal talus, calcaneus, and tarsal bones. Normal visualized subtalar, talonavicular, calcaneocuboid, tarsal and tarsometatarsal articulations. Normal metatarsi. Normal metatarsophalangeal joint of the great toe. Normal tibial and fibular sesamoid bones. Normal interphalangeal joint of the great toe. Normal phalanges of the great toe. Normal second through fifth metatarsophalangeal joints. Normal interphalangeal joints and phalanges of the lesser toes. The soft tissue structures are unremarkable. RAD/Foot min 3 Views IMPRESSION: Normal x-ray examination of the foot. Electronically Signed: Franco Carranza MD at 19:00 EDT ,
[2022-03-02] MEDS: Smz/Tmp Ds Tablet 1 TABLET PO (19:58)
[2022-03-02 20:04] VITALS: BP 116/83; PULSE 94; RESP 18; O2SAT 97
== END 2022-03-02 20:15 | disposition home or self-care (01) ==
PROVIDERS: Emergency Provider Emergency Medicine; PCP Family Medicine; Visit Provider Emergency Medicine
DX: S91.331A Puncture wound without foreign body, right foot, initial encounter (principal); F20.9 Schizophrenia, unspecified; J44.9 Chronic obstructive pulmonary disease, unspecified; E11.9 Type 2 diabetes mellitus without complications; I25.10 Atherosclerotic heart disease of native coronary artery without angina pectoris; F17.210 Nicotine dependence, cigarettes, uncomplicated; W22.8XXA Striking against or struck by other objects, initial encounter
CPT/HCPCS: 73630; 90715; 99284

== ENCOUNTER 2022-04-15 12:25 | Emergency (ER) | payer MEDICARE, MEDICAID, SELFPAY ==
[2022-04-15 12:26] VITALS: BP 149/96; PULSE 77; RESP 24; TEMP 36.6; O2SAT 98; BMI 39.9
--- NOTE | 2022-04-15 12:52 | EDS_ITS ---
HPI History of Present Illness Chief Complaint: Back Narrative Narrative: Patient presenting with multiple complaints that have been going on for between 1 and 2 weeks depending on the complaint. Some of them are chronic, such as painful numbness in his left foot more so than the right, he is a diabetic. He states he felt like he has had a cold with some occasional yellow sputum production for the past 2 weeks, has been flaring up his COPD so using his rescue inhaler more which has been helping with his breathing and wheezing temporarily and partially. No fevers or chills. No myalgias. He is having bilateral flank abdominal pain and low back pain. He attributes the abdominal symptoms to his bladder stones, he states he has been on monthly oxycodone for that which we verified via oarrs. He states the back pain hurts him from time to time, worse with movement, does not radiate down his legs. The painful numbness in his feet has been present whether he has back pain or not. He is requesting something for the pain but not a prescription, as well as something for his chest. Chest feels like tightness. Nonpleuritic. Does hurt worse to move and cough. [facility] Medical History Asthma CAD (coronary artery disease) COPD (chronic obstructive pulmonary disease) Depression Diabetes Schizophrenia Home Medications citalopram 40 mg tablet 40 mg PO DAILY DEPRESSION 10/19/15 [History Last Taken 12/19/20] fluphenazine HCl 1 mg tablet 2 mg PO BID ANTIPSYHCOTIC 10/19/15 [History Last Ta jose antonio 12/19/20] oxcarbazepine 600 mg tablet (Trileptal) 1 tab PO BID SEIZURE 03/06/17 [History Last Taken 12/19/20] albuterol sulfate 90 mcg/actuation aerosol inhaler (Ventolin HFA) 1 puff inhalation Q4H PRN PRN Sob &/Or Wheezing ##1 03/08/17 [Rx Last Taken 12/18/20] quetiapine 25 mg tablet (Seroquel) 25 mg PO QHS MOOD 09/10/17 [History Last Taken 12/18/20] hydroxyzine pamoate 50 mg capsule (Vistaril) 50 mg PO TID PRN PRN Anxiety 06/21/18 [History Last Taken 12/19/20] oxycodone-acetaminophen 5 mg-325 mg tablet 1 tab PO Q6H PRN PRN Pain 3 days ##6 02/16/18 [Rx Last Taken 12/16/20] insulin glargine 100 unit/mL (3 mL) subcutaneous pen (Lantus Solostar U-100 Insulin) 26 unit subcut DAILY DM 12/19/20 [History Last Taken 12/19/20] mirtazapine 30 mg tablet 30 mg PO QHS INSOMNIA 12/19/20 [History Last Taken 12/15/20] simvastatin 80 mg tablet 80 mg PO QHS CHOLESTEROL 12/19/20 [History Last Taken 12/18/20] tizanidine 4 mg tablet 4 mg PO TID PRN PRN Spasms 12/19/20 [History Last Taken 12/18/20] sulfamethoxazole 800 mg-trimethoprim 160 mg tablet (Bactrim DS) 1 tab PO BID #20 tabs 03/02/22 [Rx Last Taken Unknown] doxycycline monohydrate 100 mg capsule 100 mg PO BID #20 CAPSULES 04/15/22 [Rx Last Taken Unknown] metformin 1,000 mg tablet 2,000 mg PO DAILY 04/15/22 [History Last Taken Unknown] prednisone 10 mg tablet 10 mg PO UD #33 tabs 04/15/22 [Rx Last Taken Unknown] Allergy/AdvReac Type Severity Reaction Status Date / Time naproxen Allergy Shortness Verified 04/15/22 12:26 of breath Penicillins Allergy Swelling Verified 04/15/22 12:26 meloxicam [From Mobic] AdvReac HEADACHE Verified 04/15/22 12:26 Surgical History Gangrene Social History Smoking Status: Current every day smoker tobacco type: cigarettes Tobacco: How many years used: 30 second hand exposure: Yes alcohol intake: never substance use type: does not use caffeine: Yes (3/day) what type of physical activity do you participate in: none ROS ROS ED Constitutional Constitutional ED: Denies chills or fever(s) Eyes Eyes: Denies change in vision or diplopia ENT ENT ED: Reports nasal congestion; Denies sore throat Cardiovascular Cardiovascular: Denies leg edema or palpitations Respiratory/Chest Respiratory/Chest: Reports cough, dyspnea, sputum and wheezing Gastrointestinal Gastrointestinal: Reports as per HPI and abdominal pain; Denies constipation, fecal incontinence, nausea or vomiting Genitourinary Genitourinary ED: Reports abdominal discomfort and other Details: no urinary retention ; Denies urinary incontinence Musculoskeletal Musculoskeletal: Reports as per HPI, back pain and extremity pain; Denies neck pain Integumentary Denies rash or wounds Neurologic Neurologic: Reports paresthesias; Denies headache(s) or weakness Psychiatric Psychiatric: Denies anxiety or suicidal thoughts EXAM Physical Exam Const Vital Signs: 04/15/22 12:26 04/15/22 12:29 04/15/22 13:54 Temperature 97.9 F Temperature Source Oral Pulse Rate 77 89 Respiratory Rate 24 H 16 Respiratory Effort Non-Labored Respiratory Pattern Tachypnea Blood Pressure 149/96 H 138/64 H Blood Pressure Mean 113 Pulse Ox 98 96 Oxygen Delivery Method Room Air 04/15/22 14:00 04/15/22 14:00 Temperature Temperature Source Pulse Rate 75 Respiratory Rate 18 Respiratory Effort Respiratory Pattern Blood Pressure Blood Pressure Mean Pulse Ox 99 Oxygen Delivery Method Room Air Positive well nourished and well developed General Appearance ED: well developed and NAD HEENT Reports moist mucous membranes Negative for trauma or tenderness Eyes PERRL and EOMs intact bilaterally Neck full ROM and supple Chest Wall inspection of chest normal Chest Narrative: Mild diffuse chest tenderness without crepitance, flail, subcutaneous emphysema. Resp normal respiratory effort Resp Narrative: Diffuse expiratory wheezes, symmetric bilaterally. Prolonged expiratory phase. No distress. Effort and Inspection: able to speak in complete sentences Auscultation: wheezes; Negative for crackles, rales or rhonchi Cardio regular rate, regular rhythm and no murmurs GI normal to inspection, nondistended, normoactive bowel sounds and soft to palpation GI Narrative: Mildly tender suprapubic area otherwise abdomen benign. Auscultation: normoactive bowel sounds Palpation: soft Back/Spine normal to inspection; Negative for no CVA tenderness General Back: other FROM, with some pain in low back where he is diffusely tender Lumbar Spine / Lower Back: paraspinal muscle tenderness and straight leg raise negative bilaterally Extremity normal to inspection, full ROM and no pedal edema General Extremety ED: Negative for edema, pulses abnormal or tenderness General Extremity: Negative for edema or pulses abnormal Neuro oriented x3 Neuro Narrative: Subjective decrease sensation left foot without complete sensory loss Sensorium / Orientation: alert Motor Exam: strength 5/5 throughout and clonus absent Deep Tendon Reflexes: Rt Patellar (L4): 2+, Lt Patellar (L4): 2+, Rt Ankle (S1): 2+ and Lt Ankle (S1): 2+ Deep Tendon Reflexes Back: Rt Patellar (L4): 2+, Lt Patellar (L4): 2+, Rt Ankle (S1): 2+ and Lt Ankle (S1): 2+ Plantar Reflex: Downgoing: bilateral Psych mental status grossly normal and thought process normal Skin no rashes or lesions noted and no wounds MDM MDM MDM Narrative Medical decision making narrative: 2 view chest x-ray my interpretation shows no acute infiltrates, radiology in agreement. He was given nebulizer treatment which helped, nurses place an IV on so we gave him morphine and Norflex in the IV for his chronic symptoms. He was asking for more pain medication, he has oxycodone at home, this pain is chronic and I do not think we need to treat him until he is pain-free here. He will be started on steroids and antibiotics for his COPD exacerbation, since he has been ill for over a week I do not think we need to do COVID and influenza swabs which he has not done since the beginning of this illness, given appropriate discharge instructions for follow-up. At discharge, he was able to get out of bed and walk to the exit without any apparent difficulty. Radiography Diagnostic Testing: Clinical Impression(s) from Imaging Studies Chest X-Ray 04/15/22 12:57 IMPRESSION: Hyperinflation suggesting emphysema. Electronically Signed: Long Maddox MD at 13:34 EDT , Discharge Plan Triage Chief Complaint: Back Other Complaint: Abd Pain Cold Sx ED Provider: Alexandre Carey Dx/Rx/DC Orders Clinical Impression: Acute exacerbation of chronic obstructive pulmonary disease, Acute bronchitis, Acute exacerbation of chronic low back pain, Chronic bilateral lower abdominal pain, Diabetic autonomic neuropathy Instructions: ED Chronic Pain, ED COPD Flare Prescriptions: New prednisone 10 MG tablet 10 mg PO UD Qty: 33 0RF Rx Instructions: Take 4 tablets daily for 3 days, then 3 daily for 3 days, then 2 daily for 3 days, then 1 a day for 3 days then 1 QOD for 3 doses. doxycycline monohydrate 100 MG capsule 100 mg PO BID Qty: 20 0RF No Action citalopram 40 MG tablet 40 mg PO DAILY Label Comments: depression fluphenazine HCl 1 MG tablet 2 mg PO BID Label Comments: mood oxcarbazepine [Trileptal] 600 mg tablet 1 tab PO BID Label Comments: Take 1 tablet by mouth twice a day after meals albuterol sulfate [Ventolin HFA] 1 INHALER inhaler 1 puff inhalation Q4H PRN PRN (Reason: Sob &/Or Wheezing) Qty: 1 0RF quetiapine [Seroquel] 25 MG tablet 25 mg PO QHS hydroxyzine pamoate [Vistaril] 50 MG capsule 50 mg PO TID PRN PRN (Reason: Anxiety) oxycodone-acetaminophen 1 TABLET tablet 1 tab PO Q6H PRN PRN (Reason: Pain) 3 Days Qty: 6 0RF tizanidine 4 mg tablet 4 mg PO TID PRN PRN (Reason: Spasms) simvastatin 80 mg tablet 80 mg PO QHS mirtazapine 30 mg tablet 30 mg PO QHS insulin glargine [Lantus Solostar U-100 Insulin] 100 unit/mL (3 mL) insulin pen 26 unit SUBCUT DAILY sulfamethoxazole-trimethoprim [Bactrim DS] 800-160 mg tablet 1 tab PO BID Qty: 20 0RF metformin 1,000 mg tablet 2,000 mg PO DAILY Label Comments: TAKE 1 TABLET BY MOUTH TWICE A DAY WITH MEALS Primary Care Provider: Kajal Knutson Referrals: Kajal Knutson DO [Primary Care Provider] - 3-5 Days if not improving Disposition Disposition: Home, Self Care Discharge Date/Time: 04/15/22 13:55
--- NOTE | 2022-04-15 12:57 | RAD_ITS ---
EXAM: XR CHEST, 2 VIEWS CLINICAL INDICATION: cough, sob, copd TECHNIQUE: Frontal and lateral views of the chest. This report was created using [employer] report generation technology. COMPARISON: XR Chest dated 05/20/2021 FINDINGS: LUNGS AND PLEURAL SPACES: Hyperinflation suggesting emphysema. No pneumothorax. No effusion. HEART: Normal heart size. MEDIASTINUM: No mediastinal or hilar mass. BONES/JOINTS: No acute abnormality. SOFT TISSUES: Normal. RAD/Chest PA and Lateral IMPRESSION: Hyperinflation suggesting emphysema. Electronically Signed: Long Maddox MD at 13:34 EDT ,
[2022-04-15] MEDS: MethylPREDNISolone 125 MG/2 ML Vial IV (13:04)
[2022-04-15] MEDS: Orphenadrine 60 MG/2 ML Ampul IV (13:04)
[2022-04-15] MEDS: Morphine 4 MG/ML Syringe IV (13:04)
[2022-04-15] MEDS: Albuterol 2.5 MG/3 ML VIAL.NEB. INHALATION (13:10)
[2022-04-15] MEDS: Ipratropium/Albuterol Sulfate 3 ML AMPUL.NEB INHALATION (13:10)
--- NOTE | 2022-04-15 13:40 | ED.RN ---
PATIENT REQUESTING MORE PAIN MEDICATION AT 1330, DR. HAM AWARE.
[2022-04-15 13:54] VITALS: BP 138/64; PULSE 89; RESP 16; O2SAT 96
[2022-04-15 14:00] VITALS: PULSE 75; RESP 18; O2SAT 99
== END 2022-04-15 13:55 | disposition home or self-care (01) ==
PROVIDERS: Emergency Provider Emergency Medicine; PCP Family Medicine; Visit Provider Emergency Medicine
DX: J20.9 Acute bronchitis, unspecified (principal); F20.9 Schizophrenia, unspecified; J44.1 Chronic obstructive pulmonary disease with (acute) exacerbation; E11.9 Type 2 diabetes mellitus without complications; R10.31 Right lower quadrant pain; M54.50 Low back pain, unspecified; F17.210 Nicotine dependence, cigarettes, uncomplicated; I25.10 Atherosclerotic heart disease of native coronary artery without angina pectoris; G89.29 Other chronic pain; G90.9 Disorder of the autonomic nervous system, unspecified; F32.A Depression, unspecified
CPT/HCPCS: 71046; 94640; 96374; 96375; 99285; A4216

== ENCOUNTER 2022-05-26 14:52 | Emergency (ER) | payer MEDICARE, MEDICAID, SELFPAY ==
[2022-05-26 14:53] VITALS: BP 124/77; PULSE 84; RESP 17; TEMP 37.1; O2SAT 100; BMI 40.7
--- NOTE | 2022-05-26 15:42 | EKG12_ITS ---
Test Reason : CP Blood Pressure : / mmHG Vent. Rate : 083 BPM Atrial Rate : 083 BPM P-R Int : 180 ms QRS Dur : 088 ms QT Int : 392 ms P-R-T Axes : 056 062 051 degrees QTc Int : 460 ms Normal sinus rhythm Low voltage QRS Cannot rule out Anteroseptal infarct , age undetermined Abnormal ECG Confirmed by EM RECINOS, NICK ([id number]), film and video editor RINKU CONNORS ([id number]) on 05/28/2022 11:59:28 AM Referred By: RENO/ABEL Confirmed By:NICK STRICKLAND MD
--- NOTE | 2022-05-26 15:50 | RAD_ITS ---
EXAM: XR CHEST, 1 VIEW CLINICAL INDICATION: chest pain TECHNIQUE: Frontal view of the chest. This report was created using [employer] report generation technology. COMPARISON: XR Chest dated 04/15/2022 FINDINGS: LUNGS AND PLEURAL SPACES: Normal. No consolidation or edema. No pneumothorax. No effusion. HEART: Normal heart size. MEDIASTINUM: No mediastinal or hilar mass. BONES/JOINTS: No acute abnormality. SOFT TISSUES: Normal. RAD/Chest 1 View (Portable) IMPRESSION: No acute cardiopulmonary abnormality. No interval change Electronically Signed: Long Maddox MD at 16:01 EST ,
[2022-05-26 15:52] LABS: Absolute Lymphocyte Count 3.72 X10^3/uL (0.83-4.51); Absolute Neutrophil Count 9.4 X10^3/uL (2.0-7.7); Basophil# 0.09 X10^3/uL; Basophil% 0.6 % (0-1); Eosinophil# 0.18 X10^3/uL; Eosinophils% 1.3 % (0-5); Hematocrit 46.6 % (40-54); Hemoglobin 16.4 g/dL (13.0-16.5); Lymphocyte # 3.72 X10^3/ul (0.83-4.51); Lymphocyte % 26.1 % (19-41); Mean Corp Hgb Conc 35.2 g/dL (32-36); Mean Corpuscular Hgb 31.4 pg (27.0-32.0); Mean Corpuscular Volume 89.3 fL (80-94); Monocyte# 0.73 X10^3/uL; Monocyte% 5.1 % (0-10); NRBC Flagged by Analyzer 0 % (0-5); Neutrophil # 9.44 X10^3/uL (2.7-7.7); Neutrophil % 66.2 % (47-70); Platelet Count 286 K/mm3 (150-450); RBC Distribution Width CV 12.5 % (11.6-14.6); RBC Distribution Width SD 40.8 fl (35.1-43.9); Red Blood Count 5.22 M/mm3 (4.6-6.2); White Blood Count 14.3 K/mm3 (4.4-11.0)
[2022-05-26 16:00] LABS: International Normalized Ratio 1.2; Prothrombin Time (Protime)PT. 14.7 SECONDS (11.7-14.9)
[2022-05-26 16:10] LABS: Anion Gap 7 (5-15); BUN 14 mg/dL (7-18); BUN/Creat Ratio 14.6 RATIO (10-20); Chloride 101 mmol/L (98-107); Creatinine, Serum 0.96 mg/dL (0.70-1.30); EST Glomerular Filtration Rate 89 mL/min (>60); Est Glom Filt Rate - Afr Amer 108 mL/min (>60); Estimated Creatinine Clearance 98.22 ml/min; Glucose 294 mg/dL (74-106); Potassium 3.9 mmol/L (3.5-5.1); Sodium Level 134 mmol/L (136-145); Troponin-I HS 7 pg/mL (3.0-78.0)
[2022-05-26 16:27] VITALS: BP 110/74; PULSE 77; RESP 13; O2SAT 99
--- NOTE | 2022-05-26 16:27 | CT_ITS ---
INDICATION: Bilateral flank pain EXAMINATION: CT ABDOMEN AND PELVIS WITHOUT CONTRAST - CT Abdomen And Pelvis w/o contrast injection. TECHNIQUE: Helically acquired images were obtained of the abdomen and pelvis without oral or IV contrast. A radiation dose optimization technique was used for this scan. IV Contrast dosage and agent: None. Oral contrast: None. COMPARISON: CT of the abdomen and pelvis dated January 11, 2022. FINDINGS: LOWER CHEST: Lung bases are clear. No cardiomegaly or pericardial effusion. There is decreased attenuation of the liver consistent with steatosis. The liver is enlarged measuring approximately 25.8 cm in greatest dimension. The gallbladder is contracted. Normal spleen. Normal pancreas. Normal bilateral adrenal glands. There is a small exophytic cyst arising from the upper pole of the right kidney that measures approximately 2.2 cm in greatest dimension. This appears similar to previous CT. There is no evidence for hydronephrosis, hydroureter or radiopaque ureteral calculus. Normal left kidney. Normal visualized stomach. There is no obvious dilated bowel, ascites or pneumoperitoneum. There is some fluid filled proximal small bowel suggesting possible sequelae of acute infectious or inflammatory enteritis. Small bowel has a grossly normal appearance, otherwise. There is stool visible throughout most of the colon with scattered diverticula. The appendix is visualized and appears normal. Normal abdominal aorta. Normal inferior vena cava. Normal retroperitoneum. There is a left-sided inguinal hernia containing adipose tissue. There are diffuse degenerative changes of the visualized spine. The bladder has multiple calcifications within it. There is no thickening of the urinary bladder wall which measures approximately 10 mm in thickness possibly secondary to chronic cystitis. There is no pelvic fluid. There is no pelvic lymphadenopathy or mass lesion. There are prostatic calcifications. There is mild atherosclerotic calcification of the pelvic arteries. Normal abdominal wall. Normal osseous structures. CT/Abdomen/Pelvis without Cont IMPRESSION: 1. Hepatomegaly and hepatic steatosis. 2. Findings suggest possible acute infectious or inflammatory enteritis. 3. Urinary bladder calculi may be secondary to recently passed ureteral calculi. Electronically Signed: Gema Austin MD at 17:15 EST Reading Location ID and State: [facility] / [place] , Service support ,
--- NOTE | 2022-05-26 16:28 | ED.VIS.CHEST ---
HPI History of Present Illness Chief Complaint: Chest Pain Informant: patient Onset/Context/Timing Onset: Today Activity at onset: sudden Timing: Continuous Quality: Positive for Sharp Location: Right Chest and - (Right flank) Worsened By: Movement of Torso Relieved By: Nothing Associated Symptoms: Negative for Nausea, Vomiting, Diaphoresis, Dyspnea, Cough, Fever, Lightheadedness, Acid Reflux or Palpitations Narrative Narrative: Patient presents with right-sided chest pain and flank pain that began today. Patient states it began suddenly. Patient states it started around 5 AM today. Patient states it has been constant. Patient states it is sharp. Patient states it is over the right side of his chest and right flank area. Patient states it radiates across to his left flank area. Patient states it is worse with movement of his torso. Patient denies any nausea or vomiting. Patient denies any shortness of breath or cough. Patient denies any diaphoresis. Patient denies any dysuria or hematuria. CVD Risk Factors: Positive for Diabetes and Smoking; Negative for Hypertension, Hypercholesterolemia or Family History 1' </=55 PE Risk Factors: Negative for Recent Travel/Surgery, Recent Immobilization, Prior DVT or PE, Cancer or OCP + Smoking + >/=35 PFSH PFSH Medical History Asthma CAD (coronary artery disease) COPD (chronic obstructive pulmonary disease) Depression Diabetes Schizophrenia Home Medications citalopram 40 mg tablet 40 mg PO DAILY DEPRESSION 10/19/15 [History Last Taken 12/19/20] fluphenazine HCl 1 mg tablet 2 mg PO BID ANTIPSYHCOTIC 10/19/15 [History Last Taken 12/19/20] oxcarbazepine 600 mg tablet (Trileptal) 1 tab PO BID SEIZURE 03/06/17 [History Last Taken 12/19/20] albuterol sulfate 90 mcg/actuation aerosol inhaler (Ventolin HFA) 1 puff inhalation Q4H PRN PRN Sob &/Or Wheezing ##1 03/08/17 [Rx Last Taken 12/18/20] quetiapine 25 mg tablet (Seroquel) 25 mg PO QHS MOOD 09/10/17 [History Last Taken 12/18/20] hydroxyzine pamoate 50 mg capsule (Vistaril) 50 mg PO TID PRN PRN Anxiety 12/19/17 [History Last Taken 12/19/20] oxycodone-acetaminophen 5 mg-325 mg tablet 1 tab PO Q6H PRN PRN Pain 3 days ##6 02/16/18 [Rx Last Taken 12/16/20] insulin glargine 100 unit/mL (3 mL) subcutaneous pen (Lantus Solostar U-100 Insulin) 26 unit subcut DAILY DM 12/19/20 [History Last Taken 12/19/20] mirtazapine 30 mg tablet 30 mg PO QHS INSOMNIA 12/19/20 [History Last Taken 12/15/20] simvastatin 80 mg tablet 80 mg PO QHS CHOLESTEROL 12/19/20 [History Last Taken 12/18/20] tizanidine 4 mg tablet 4 mg PO TID PRN PRN Spasms 12/19/20 [History Last Taken 12/18/20] sulfamethoxazole 800 mg-trimethoprim 160 mg tablet (Bactrim DS) 1 tab PO BID #20 tabs 03/02/22 [Rx Last Taken Unknown] doxycycline monohydrate 100 mg capsule 100 mg PO BID #20 CAPSULES 04/15/22 [Rx Last Taken Unknown] metformin 1,000 mg tablet 2,000 mg PO DAILY 04/15/22 [History Last Taken Unknown] prednisone 10 mg tablet 10 mg PO UD #33 tabs 04/15/22 [Rx Last Taken Unknown] famotidine 20 mg tablet 20 mg PO BID #28 TABLETS 05/26/22 [Rx Last Taken Unknown] Allergy/AdvReac Type Severity Reaction Status Date / Time naproxen Allergy Shortness Verified 05/26/22 14:52 of breath Penicillins Allergy Swelling Verified 05/26/22 14:52 meloxicam [From Mob] AdvReac HEADACHE Verified 05/26/22 14:52 Surgical History Gangrene Social History Smoking Status: Current every day smoker tobacco type: cigarettes Tobacco: How many years used: 30 second hand exposure: Yes alcohol intake: never substance use type: does not use caffeine: Yes (3/day) what type of physical activity do you participate in: none ROS ROS ED Constitutional Constitutional ED: Denies chills or fever(s) Eyes Eyes: Denies blurry vision or change in vision ENT ENT ED: Denies rhinorrhea or sore throat Cardiovascular Cardiovascular: Reports chest pain; Denies palpitations Respiratory/Chest Respiratory/Chest: Denies cough or dyspnea Gastrointestinal Gastrointestinal: Denies abdominal pain, nausea or vomiting Genitourinary Genitourinary ED: Denies dysuria or hematuria Musculoskeletal Musculoskeletal: Reports back pain; Denies neck pain Integumentary Denies abscess or rash Neurologic Neurologic: Denies headache(s) or weakness Allergic/Immunologic Allergic/Immunologic ED: Denies mouth swelling or urticaria EXAM Physical Exam Const Vital Signs: 05/26/22 14:53 05/26/22 16:27 05/26/22 16:27 Temperature 98.7 F Temperature Source Temporal Pulse Rate 84 77 Respiratory Rate 17 13 Respiratory Effort Blood Pressure 124/77 H 110/74 Blood Pressure Mean 92 86 Pulse Ox 100 99 Oxygen Delivery Method Room Air Room Air Room Air 05/26/22 16:27 05/26/22 17:08 05/26/22 18:01 Temperature Temperature Source Pulse Rate 74 81 Respiratory Rate 10 L 15 Respiratory Effort Normal Blood Pressure 102/80 111/81 H Blood Pressure Mean 87 91 Pulse Ox 98 98 Oxygen Delivery Method Room Air Room Air Positive well nourished, well developed and obese General Appearance ED: well developed and NAD Nutritional Appearance: obese HEENT normocephalic and atraumatic Eyes PERRL and EOMs intact bilaterally Neck supple and no JVD Chest Wall palpation of chest normal Resp normal respiratory effort and clear to auscultation bilaterally Effort and Inspection: Negative for respiratory distress Cardio regular rate, regular rhythm and no murmurs GI normal to inspection, nondistended, normoactive bowel sounds, soft to palpation, non-tender and non-distended Back/Spine General Back: CVA tenderness right Extremity normal to inspection General Extremety ED: Negative for edema or tenderness General Extremity: Negative for edema Neuro oriented x3, CN's II-XII intact bilaterally and no sensory deficits noted Sensorium / Orientation: awake and alert Motor Exam: strength 5/5 throughout Psych mental status grossly normal Heart Score History: Slightly/Non-Suspicious ECG: Nonspecific Repolarization Age: >45 - <65 years Risk Factors: 1 or 2 Risk Factors Troponin: </= Normal Limit Score: 3 MDM MDM MDM Narrative Medical decision making narrative: EKG was obtained. On my interpretation, it showed a normal sinus rhythm with a rate of 83. IA interval, QRS interval, and QTc intervals were all normal. [place] was normal. There are no acute ST or T wave changes. Portable 1 view chest x-ray was obtained. On my interpretation, lung [place] are clear. There is normal cardiac silhouette. Bony thorax is normal. There is no acute process noted. Radiologist also interpreted the x-ray and agrees. CBC shows a mild leukocytosis of 14.3. PT was INR were within normal limits. Basic metabolic profile was within normal limits. High-sensitivity troponin was normal. Because of the flank pain, CT scan of the abdomen pelvis was obtained. There are calculi noted in the bladder. There is no hydronephrosis or hydroureter. There are findings that are suspicious for acute enteritis in the proximal small bowel. There is no evidence of bowel obstruction. This was interpreted by the radiologist and reviewed by myself. Patient was advised of his findings. Patient was given a prescription for omeprazole. Patient has a HEART score of 3. Patient was advised that this is low risk for acute cardiac event. Patient was instructed to follow-up with his primary care physician in 5 to 7 days. Patient understood and was agreeable with the plan. All questions were answered. Lab Data Attestation: I reviewed the patient's lab results. Labs: Laboratory Results - last 24 hr 05/26/22 05/26/22 05/26/22 15:42 15:42 15:42 WBC 14.3 H RBC 5.22 Hgb 16.4 Hct 46.6 MCV 89.3 MCH 31.4 MCHC 35.2 RDW Std Deviation 40.8 RDW Coeff of Desiree 12.5 Plt Count 286 MPV 9.0 Immature Gran % (Auto) 0.700 Neut % (Auto) 66.2 Lymph % (Auto) 26.1 [place] % (Auto) 5.1 Eos % (Auto) 1.3 Baso % (Auto) 0.6 Absolute Neuts (auto) 9.4 H Absolute Lymphs (auto) 3.72 Nucleated RBC % 0 PT 14.7 INR 1.2 Sodium 134 L Potassium 3.9 Chloride 101 Carbon Dioxide 26.0 Anion Gap 7 BUN 14 Creatinine 0.96 Estim Creat Clear Calc 98.22 Est GFR (MDRD) Af Amer 108 Est GFR (MDRD) Non-Af 89 BUN/Creatinine Ratio 14.6 Glucose 294 H Calcium 9.0 Troponin I High Sens 7 Radiography Diagnostic Testing: Clinical Impression(s) from Imaging Studies Chest X-Ray 05/26/22 15:50 IMPRESSION: No acute cardiopulmonary abnormality. No interval change Electronically Signed: Long Maddox MD at 16:01 EST , Abdomen/Pelvis CT 05/26/22 16:27 IMPRESSION: 1. Hepatomegaly and hepatic steatosis. 2. Findings suggest possible acute infectious or inflammatory enteritis. 3. Urinary bladder calculi may be secondary to recently passed ureteral calculi. Electronically Signed: Gema Austin MD at 17:15 EST , EKG Initial EKG: Attestation: I personally reviewed and interpreted this EKG as follows: Interpretation: Sinus Rhythm (83) and No Acute Injury Pattern Prior EKG tracings: available for review Prior: Unchanged (05/20/2021) Discharge Plan Triage Chief Complaint: Chest Pain ED Provider: Aníbal Michelle Dx/Rx/DC Orders Clinical Impression: Abdominal pain, RUQ, Right-sided chest pain Instructions: ED Chest Pain, Uncertain Cause, ED Pain, Acute, Uncertain Cause Prescriptions: New famotidine [famotidine] 20 MG tablet 20 mg PO BID Qty: 28 0RF No Action citalopram 40 MG tablet 40 mg PO DAILY Label Comments: depression fluphenazine HCl 1 MG tablet 2 mg PO BID Label Comments: mood oxcarbazepine [Trileptal] 600 mg tablet 1 tab PO BID Label Comments: Take 1 tablet by mouth twice a day after meals albuterol sulfate [Ventolin HFA] 1 INHALER inhaler 1 puff inhalation Q4H PRN PRN (Reason: Sob &/Or Wheezing) Qty: 1 0RF quetiapine [Seroquel] 25 MG tablet 25 mg PO QHS hydroxyzine pamoate [Vistaril] 50 MG capsule 50 mg PO TID PRN PRN (Reason: Anxiety) oxycodone-acetaminophen 1 TABLET tablet 1 tab PO Q6H PRN PRN (Reason: Pain) 3 Days Qty: 6 0RF tizanidine 4 mg tablet 4 mg PO TID PRN PRN (Reason: Spasms) simvastatin 80 mg tablet 80 mg PO QHS mirtazapine 30 mg tablet 30 mg PO QHS insulin glargine [Lantus Solostar U-100 Insulin] 100 unit/mL (3 mL) insulin pen 26 unit SUBCUT DAILY sulfamethoxazole-trimethoprim [Bactrim DS] 800-160 mg tablet 1 tab PO BID Qty: 20 0RF metformin 1,000 mg tablet 2,000 mg PO DAILY Label Comments: TAKE 1 TABLET BY MOUTH TWICE A DAY WITH MEALS prednisone 10 MG tablet 10 mg PO UD Qty: 33 0RF Rx Instructions: Take 4 tablets daily for 3 days, then 3 daily for 3 days, then 2 daily for 3 days, then 1 a day for 3 days then 1 QOD for 3 doses. doxycycline monohydrate 100 MG capsule 100 mg PO BID Qty: 20 0RF Primary Care Provider: Kajal Knutson Referrals: Kajal Knuston DO [Primary Care Provider] - 3-5 Days Disposition Disposition: Home, Self Care
[2022-05-26] MEDS: Morphine 4 MG/ML Syringe IV ×2 (16:42→17:58)
[2022-05-26 17:08] VITALS: BP 102/80; PULSE 74; RESP 10; O2SAT 98
[2022-05-26 18:01] VITALS: BP 111/81; PULSE 81; RESP 15; O2SAT 98
[2022-05-26 18:48] VITALS: BP 103/73; PULSE 76; RESP 15; O2SAT 98
== END 2022-05-26 18:49 | disposition home or self-care (01) ==
PROVIDERS: Emergency Provider Emergency Medicine; PCP Family Medicine; Visit Provider Emergency Medicine
DX: R10.11 Right upper quadrant pain (principal); R07.9 Chest pain, unspecified; I25.10 Atherosclerotic heart disease of native coronary artery without angina pectoris; F17.210 Nicotine dependence, cigarettes, uncomplicated; E66.9 Obesity, unspecified
CPT/HCPCS: 71045; 74176; 80048; 84484; 85025; 85610; 93005; 96374; 96376; 99285; A4216

== ENCOUNTER 2022-06-16 20:54 | Emergency (ER) | payer MEDICARE, MEDICAID, SELFPAY ==
[2022-06-16 21:16] VITALS: BP 116/79; PULSE 81; RESP 16; TEMP 36.3; O2SAT 99; BMI 38.7
[2022-06-16 21:20] VITALS: BP 116/79; PULSE 81; RESP 16; TEMP 36.3; O2SAT 99
--- NOTE | 2022-06-16 22:29 | CT_ITS ---
INDICATION: abd pain, concern for kidney stones EXAMINATION: CT Abdomen And Pelvis W/O Contrast Injection TECHNIQUE: Helically acquired images were obtained of the abdomen and pelvis without the use of IV contrast. A radiation dose optimization technique was used for this scan. Oral contrast: None. COMPARISON: None FINDINGS: Evaluation of the solid organs and vascular structures is limited without intravenous contrast. Visualized lung bases: Unremarkable Liver: Unremarkable Gallbladder: Unremarkable Spleen: Unremarkable Pancreas: Unremarkable Adrenal Glands: Unremarkable Kidneys: Scattered too small to characterize subcentimeter hypodensities bilaterally. Vasculature: Mild scattered aortoiliac atherosclerotic calcifications. GI Tract: Scattered diverticula throughout the colon without evidence of inflammation. Lymphadenopathy: None Peritoneum: No ascites. Bladder: Few small stones in the dependent portion of the bladder. Reproductive organs: Unremarkable Bones/Soft tissues: No suspicious osseous or soft tissue lesions CT/Abdomen/Pelvis without Cont IMPRESSION: No hydronephrosis or evidence of obstructing renal/ureteral stone. Few small dependent bladder stones. Electronically Signed: Luis Cohen MD at 23:56 EST ,
[2022-06-16] MEDS: Morphine 4 MG/ML Syringe IV (23:02)
[2022-06-16] MEDS: Ondansetron 4 MG/2 ML Vial IV (23:02)
[2022-06-16] MEDS: 0.9% Normal Saline 1,000 ML 1000 ML IV (23:03)
[2022-06-16 23:24] LABS: Absolute Lymphocyte Count 4.94 X10^3/uL (0.83-4.51); Basophil# 0.11 X10^3/uL; Basophil% 0.8 % (0-1); Eosinophil# 0.37 X10^3/uL; Eosinophils% 2.7 % (0-5); Hematocrit 46.8 % (40-54); Hemoglobin 16.3 g/dL (13.0-16.5); Lymphocyte # 4.94 X10^3/ul (0.83-4.51); Lymphocyte % 36.6 % (19-41); Mean Corp Hgb Conc 34.8 g/dL (32-36); Mean Corpuscular Hgb 31.8 pg (27.0-32.0); Mean Corpuscular Volume 91.2 fL (80-94); Mean Platelet Vol. 9.5 fl (6.2-12.0); Monocyte# 0.86 X10^3/uL; Monocyte% 6.4 % (0-10); NRBC Flagged by Analyzer 0.3 % (0-5); Neutrophil % 51.9 % (47-70); POSITIVE MORPHOLOGY YES; Platelet Count 262 K/mm3 (150-450); RBC Distribution Width CV 12.8 % (11.6-14.6); RBC Distribution Width SD 43.2 fl (35.1-43.9); Red Blood Count 5.13 M/mm3 (4.6-6.2); White Blood Count 13.5 K/mm3 (4.4-11.0)
[2022-06-16 23:34] LABS: ALB/GLOB Ratio 1.1 RATIO (0.9-2.4); AST(SGOT) 8 U/L (15-37); Alanine Aminotransfer ALT/SGPT 43 U/L (16-61); Albumin, Serum 3.8 g/dL (3.2-5.0); Alkaline Phosphatase 117 U/L (45-117); Anion Gap 9 (5-15); BUN 13 mg/dL (7-18); BUN/Creat Ratio 12.7 RATIO (10-20); Calcium,Total 9.4 mg/dL (8.5-10.1); Chloride 97 mmol/L (98-107); Creatinine, Serum 1.02 mg/dL (0.70-1.30); EST Glomerular Filtration Rate 83 mL/min (>60); Est Glom Filt Rate - Afr Amer 101 mL/min (>60); Estimated Creatinine Clearance 92.44 ml/min; Globulin 3.6 g/dL (2.2-4.2); Glucose 277 mg/dL (74-106); Lipase 125 U/L (73-393); Potassium 4.1 mmol/L (3.5-5.1); Protein, Total 7.4 g/dL (6.4-8.2); Sodium Level 133 mmol/L (136-145)
[2022-06-16 23:38] LABS: Differential Indicated SCAN CRITERIA MET
[2022-06-17 00:09] VITALS: BP 126/74; PULSE 81; RESP 15; O2SAT 98
[2022-06-17 00:16] LABS: Differential Comment SCANNED
--- NOTE | 2022-06-17 01:01 | EX.ED.DYSGE1 ---
HPI History of Present Illness Chief Complaint: Abd Pain Informant: patient Narrative Narrative: 47-year-old male presenting with abdominal pain. Patient states this has been going on for awhile. Patient states that this started at least 2 months ago. He is scheduled to see urology at the end of the month due to history of kidney stones. He complains of diffuse lower abdominal pain. Denies testicular pain. Denies urinary complaints. Denies vomiting or diarrhea. Prior similar symptoms: Yes Recent Illness/Hospitalization: No PFSH PFSH Medical History Asthma CAD (coronary artery disease) COPD (chronic obstructive pulmonary disease) Depression Diabetes Schizophrenia Home Medications citalopram 40 mg tablet 40 mg PO DAILY DEPRESSION 10/19/15 [History Last Taken 12/19/20] fluphenazine HCl 1 mg tablet 2 mg PO BID ANTIPSYHCOTIC 10/19/15 [History Last Taken 12/19/20] oxcarbazepine 600 mg tablet (Trileptal) 1 tab PO BID SEIZURE 03/06/17 [History Last Taken 12/19/20] albuterol sulfate 90 mcg/actuation aerosol inhaler (Ventolin HFA) 1 puff inhalation Q4H PRN PRN Sob &/Or Wheezing ##1 03/08/17 [Rx Last Taken 12/18/20] quetiapine 25 mg tablet (Seroquel) 25 mg PO QHS MOOD 09/10/17 [History Last Taken 12/18/20] hydroxyzine pamoate 50 mg capsule (Vistaril) 50 mg PO TID PRN PRN Anxiety 12/19/17 [History Last Taken 12/19/20] oxycodone-acetaminophen 5 mg-325 mg tablet 1 tab PO Q6H PRN PRN Pain 3 days ##6 02/16/18 [Rx Last Taken 12/16/20] insulin glargine 100 unit/mL (3 mL) subcutaneous pen (Lantus Solostar U-100 Insulin) 26 unit subcut DAILY DM 12/19/20 [History Last Taken 12/19/20] mirtazapine 30 mg tablet 30 mg PO QHS INSOMNIA 12/19/20 [History Last Taken 12/15/20] simvastatin 80 mg tablet 80 mg PO QHS CHOLESTEROL 12/19/20 [History Last Taken 12/18/20] tizanidine 4 mg tablet 4 mg PO TID PRN PRN Spasms 12/19/20 [History Last Taken 12/18/20] sulfamethoxazole 800 mg-trimethoprim 160 mg tablet (Bactrim DS) 1 tab PO BID #20 tabs 03/02/22 [Rx Last Taken Unknown] doxycycline monohydrate 100 mg capsule 100 mg PO BID #20 CAPSULES 04/15/22 [Rx Last Taken Unknown] metformin 1,000 mg tablet 2,000 mg PO DAILY 04/15/22 [History Last Taken Unknown] prednisone 10 mg tablet 10 mg PO UD #33 tabs 04/15/22 [Rx Last Taken Unknown] famotidine 20 mg tablet 20 mg PO BID #28 TABLETS 05/26/22 [Rx Last Taken Unknown] sulfamethoxazole 800 mg-trimethoprim 160 mg tablet (Bactrim DS) 1 tab PO BID 7 days #14 tabs 06/17/22 [Rx Last Taken Unknown] Allergy/AdvReac Type Severity Reaction Status Date / Time naproxen Allergy Shortness Verified 05/26/22 14:52 of breath Penicillins Allergy Swelling Verified 05/26/22 14:52 meloxicam [From Mobic] AdvReac HEADACHE Verified 05/26/22 14:52 Surgical History Gangrene Social History Smoking Status: Current every day smoker tobacco type: cigarettes Tobacco: How many years used: 30 second hand exposure: Yes alcohol intake: never substance use type: does not use caffeine: Yes (3/day) what type of physical activity do you participate in: none ROS ROS ED Constitutional Constitutional ED: Denies fever(s) Eyes Eyes: Denies change in vision ENT ENT ED: Denies rhinorrhea or sore throat Cardiovascular Cardiovascular: Denies chest pain or palpitations Respiratory/Chest Respiratory/Chest: Denies cough or dyspnea Gastrointestinal Gastrointestinal: Reports abdominal pain; Denies diarrhea, nausea or vomiting Genitourinary Genitourinary ED: Denies dysuria Musculoskeletal Musculoskeletal: Denies myalgias Integumentary Denies rash Neurologic Neurologic: Denies headache(s) Psychiatric Psychiatric: Denies suicidal thoughts EXAM Physical Exam Const Vital Signs: 06/16/22 21:16 06/16/22 21:20 06/17/22 00:09 Temperature 97.3 F L 97.3 F L Temperature Source Temporal Temporal Pulse Rate 81 81 81 Respiratory Rate 16 16 15 Blood Pressure 116/79 116/79 126/74 H Blood Pressure Mean 91 91 91 Pulse Ox 99 99 98 Oxygen Delivery Method Room Air Room Air Room Air Positive well nourished and well developed General Appearance ED: well developed HEENT Reports normocephalic and head/scalp atraumatic Eyes PERRL and EOMs intact bilaterally Neck supple General: Negative for tenderness Chest Wall inspection of chest normal Resp normal respiratory effort and clear to auscultation bilaterally Cardio regular rate and regular rhythm GI non-distended GI Narrative: Mild diffuse tenderness with no rebound or guarding. Palpation: soft and tender; Negative for guarding or rebound tenderness present no CVA tenderness Narrative: exam is unremarkable. No testicular tenderness. Extremity normal to inspection Neuro oriented x3 Sensorium / Orientation: alert Psych mental status grossly normal MDM MDM MDM Narrative Medical decision making narrative: Patient is given morphine, Zofran, IV fluids. CBC shows white count 13.5. Chemistries unremarkable other than sodium 133, glucose 277. Liver enzymes are normal. Lipase is normal. CT abdomen pelvis shows no hydronephrosis or evidence of obstructing renal/ureteral stone. Few small dependent bladder stones. Urinalysis shows 50-100 white blood cells, 5-10 red blood cells, 1+ bacteria. Patient will be started on Bactrim. Urine culture was sent. Patient is resting comfortably on evaluation. Advised follow-up as scheduled. Advised return to ED for worsening complaints. Lab Data Attestation: I reviewed the patient's lab results. Labs: Laboratory Results - last 24 hr 06/16/22 06/16/22 06/17/22 23:05 23:05 01:02 WBC 13.5 H RBC 5.13 Hgb 16.3 Hct 46.8 MCV 91.2 MCH 31.8 MCHC 34.8 RDW Std Deviation 43.2 RDW Coeff of Desiree 12.8 Plt Count 262 MPV 9.5 Immature Gran % (Auto) 1.600 H Neut % (Auto) 51.9 Lymph % (Auto) 36.6 [place] % (Auto) 6.4 Eos % (Auto) 2.7 Baso % (Auto) 0.8 Absolute Neuts (auto) 7.0 Absolute Lymphs (auto) 4.94 H Nucleated RBC % 0.3 Differential Comment SCANNED Sodium 133 L Potassium 4.1 Chloride 97 L Carbon Dioxide 27.0 Anion Gap 9 BUN 13 Creatinine 1.02 Estim Creat Clear Calc 92.44 Est GFR (MDRD) Af Amer 101 Est GFR (MDRD) Non-Af 83 BUN/Creatinine Ratio 12.7 Glucose 277 H Calcium 9.4 Total Bilirubin 0.30 AST 8 L ALT 43 Alkaline Phosphatase 117 Total Protein 7.4 Albumin 3.8 Globulin 3.6 Albumin/Globulin Ratio 1.1 Lipase 125 Urine Color Yellow Urine Clarity Sl. Cloudy Urine pH 5.0 Ur Specific [place] 1.025 Urine Protein 30 H Urine Glucose (UA) 1000 H Urine Ketones 5 H Urine Occult Blood 10 H Urine Nitrite Negative Urine Bilirubin Negative Urine Urobilinogen 1 H Ur Leukocyte Esterase 500 H Urine RBC 5-10 SEEN Urine WBC 50-100 SEEN Ur Squamous Epith Cells 0-5 SEEN Urine Bacteria 1+ Urine Mucus 0 SEEN Radiography Diagnostic Testing: Clinical Impression(s) from Imaging Studies Abdomen/Pelvis CT 06/16/22 22:29 IMPRESSION: No hydronephrosis or evidence of obstructing renal/ureteral stone. Few small dependent bladder stones. Electronically Signed: Luis Cohen MD at 23:56 EST , Discharge Plan Triage Chief Complaint: Abd Pain ED Provider: Angie Casiano Dx/Rx/DC Orders Clinical Impression: Abdominal pain, UTI (urinary tract infection) Instructions: Abdominal Pain Prescriptions: New sulfamethoxazole-trimethoprim [Bactrim DS] 800-160 mg tablet 1 tab PO BID 7 Days Qty: 14 0RF No Action citalopram 40 MG tablet 40 mg PO DAILY Label Comments: depression fluphenazine HCl 1 MG tablet 2 mg PO BID Label Comments: mood oxcarbazepine [Trileptal] 600 mg tablet 1 tab PO BID Label Comments: Take 1 tablet by mouth twice a day after meals albuterol sulfate [Ventolin HFA] 1 INHALER inhaler 1 puff inhalation Q4H PRN PRN (Reason: Sob &/Or Wheezing) Qty: 1 0RF quetiapine [Seroquel] 25 MG tablet 25 mg PO QHS hydroxyzine pamoate [Vistaril] 50 MG capsule 50 mg PO TID PRN PRN (Reason: Anxiety) oxycodone-acetaminophen 1 TABLET tablet 1 tab PO Q6H PRN PRN (Reason: Pain) 3 Days Qty: 6 0RF tizanidine 4 mg tablet 4 mg PO TID PRN PRN (Reason: Spasms) simvastatin 80 mg tablet 80 mg PO QHS mirtazapine 30 mg tablet 30 mg PO QHS insulin glargine [Lantus Solostar U-100 Insulin] 100 unit/mL (3 mL) insulin pen 26 unit SUBCUT DAILY sulfamethoxazole-trimethoprim [Bactrim DS] 800-160 mg tablet 1 tab PO BID Qty: 20 0RF metformin 1,000 mg tablet 2,000 mg PO DAILY Label Comments: TAKE 1 TABLET BY MOUTH TWICE A DAY WITH MEALS prednisone 10 MG tablet 10 mg PO UD Qty: 33 0RF Rx Instructions: Take 4 tablets daily for 3 days, then 3 daily for 3 days, then 2 daily for 3 days, then 1 a day for 3 days then 1 QOD for 3 doses. doxycycline monohydrate 100 MG capsule 100 mg PO BID Qty: 20 0RF famotidine [famotidine] 20 MG tablet 20 mg PO BID Qty: 28 0RF Primary Care Provider: Kajal Knutson Referrals: Kajal Knutson DO [Primary Care Provider] - Disposition Disposition: Home, Self Care
[2022-06-17 01:14] LABS: Mucous, Urine 0 SEEN /hpf (<or=2+)
[2022-06-17 01:15] LABS: Color, Urine Yellow (Yellow); Glucose, Dipstick 1000 mg/dl (Normal); Ketone-Dipstick 5 mg/dl (Negative); Leukocyte Esterase-Dipstick 500 /ul (Negative); Nitrite-Dipstick Negative (Negative); Occult Blood-Urine 10 /ul (Negative); Protein-Dipstick 30 mg/dl (Negative); Specific Gravity, Urine 1.025 (1.002-1.030); Urine Bilirubin Dipstick Negative (Negative); Urine Clarity Sl. Cloudy (Clear); Urine Urobilinogen 1 mg/dl (Normal)
[2022-06-17] MEDS: Morphine 4 MG/ML Syringe IV (01:18)
[2022-06-17 01:21] LABS: Bacteria 1+ /hpf (None Seen); Red Blood Cells-Urine 5-10 SEEN /hpf (0-5); Squamous Epithelial Cells - UA 0-5 SEEN /hpf (0-5); White Blood Cells 50-100 SEEN /hpf (0-5)
[2022-06-17] MEDS: Smz/Tmp Ds Tablet 1 TABLET PO (01:36)
== END 2022-06-17 01:44 | disposition home or self-care (01) ==
PROVIDERS: Emergency Provider Emergency Medicine; PCP Family Medicine; Visit Provider Emergency Medicine
DX: R10.30 Lower abdominal pain, unspecified (principal); N39.0 Urinary tract infection, site not specified; F20.9 Schizophrenia, unspecified; J44.9 Chronic obstructive pulmonary disease, unspecified; E11.9 Type 2 diabetes mellitus without complications; I25.10 Atherosclerotic heart disease of native coronary artery without angina pectoris; F32.A Depression, unspecified; F17.210 Nicotine dependence, cigarettes, uncomplicated; Z79.4 Long term (current) use of insulin; Z79.899 Other long term (current) drug therapy; Z87.442 Personal history of urinary calculi
CPT/HCPCS: 74176; 80053; 81001; 83690; 85025; 87077; 87086; 87088; 87186; 99285; J7030; A4216; J2405

== ENCOUNTER 2022-09-11 12:22 | Emergency (ER) | payer MEDICARE, MEDICAID, SELFPAY ==
[2022-09-11 12:22] VITALS: BP 152/91; PULSE 68; RESP 16; TEMP 36.6; O2SAT 98; BMI 42.9
[2022-09-11 14:56] VITALS: BP 130/87; PULSE 76; RESP 18; O2SAT 96
[2022-09-11 15:33] VITALS: BP 123/99
--- NOTE | 2022-09-11 15:35 | ED.VIS.BACK ---
HPI History of Present Illness Chief Complaint: Back Onset/Context/Timing Onset: Days (4) Context: Gradual Onset Timing: Continuous Quality: - (Stabbing) Location: Thoracic and Lumbar Worsened by: improves with Nothing Relieved by: Nothing Associated Symptoms Associated Symptoms: Radiation to Right Leg; Negative for Numbness, Tingling, Radiation to Left Leg, Fever, Abdominal Pain, Dysuria, Unable to Ambulate, Unable to Transfer, Urinary Retention, Urinary Incontinence, Constipation or Fecal Incontinence Narrative Narrative: Patient presents with back pain that has been getting progressively worse over the past 4 days. Patient states the pain is over his thoracic area. Patient states the pain radiates into his lumbar area and down into his right lower extremity. Patient states nothing makes it better nothing makes it worse. Patient describes his pain as stabbing. Patient denies any paresthesias or weakness. Patient denies any abdominal pain. Patient denies any bowel or bladder changes. Patient denies any saddle anesthesia. Patient states he was taking Percocet at home with no improvement of his pain. [facility] Medical History Asthma CAD (coronary artery disease) COPD (chronic obstructive pulmonary disease) Depression Diabetes Schizophrenia Home Medications citalopram 40 mg tablet 40 mg PO DAILY DEPRESSION 10/19/15 [History Last Taken 12/19/20] fluphenazine HCl 1 mg tablet 2 mg PO BID ANTIPSYHCOTIC 10/19/15 [History Last Taken 12/19/20] oxcarbazepine 600 mg tablet (Trileptal) 1 tab PO BID SEIZURE 03/06/17 [History Last Taken 12/19/20] albuterol sulfate 90 mcg/actuation aerosol inhaler (Ventolin HFA) 1 puff inhalation Q4H PRN PRN Sob &/Or Wheezing ##1 03/08/17 [Rx Last Taken 12/18/20] quetiapine 25 mg tablet (Seroquel) 25 mg PO QHS MOOD 09/10/17 [History Last Taken 12/18/20] hydroxyzine pamoate 50 mg capsule (Vistaril) 50 mg PO TID PRN PRN Anxiety 12/19/17 [History Last Taken 12/19/20] oxycodone-acetaminophen 5 mg-325 mg tablet 1 tab PO Q6H PRN PRN Pain 3 days ##6 08/19/18 [Rx Last Taken 12/16/20] insulin glargine 100 unit/mL (3 mL) subcutaneous pen (Lantus Solostar U-100 Insulin) 26 unit subcut DAILY DM 12/19/20 [History Last Taken 12/19/20] mirtazapine 30 mg tablet 30 mg PO QHS INSOMNIA 12/19/20 [History Last Taken 12/15/20] simvastatin 80 mg tablet 80 mg PO QHS CHOLESTEROL 12/19/20 [History Last Taken 12/18/20] tizanidine 4 mg tablet 4 mg PO TID PRN PRN Spasms 12/19/20 [History Last Taken 12/18/20] sulfamethoxazole 800 mg-trimethoprim 160 mg tablet (Bactrim DS) 1 tab PO BID #20 tabs 03/02/22 [Rx Last Taken Unknown] doxycycline monohydrate 100 mg capsule 100 mg PO BID #20 CAPSULES 04/15/22 [Rx Last Taken Unknown] metformin 1,000 mg tablet 2,000 mg PO DAILY 04/15/22 [History Last Taken Unknown] prednisone 10 mg tablet 10 mg PO UD #33 tabs 04/15/22 [Rx Last Taken Unknown] famotidine 20 mg tablet 20 mg PO BID #28 TABLETS 05/26/22 [Rx Last Taken Unknown] sulfamethoxazole 800 mg-trimethoprim 160 mg tablet (Bactrim DS) 1 tab PO BID 7 days #14 tabs 06/17/22 [Rx Last Taken Unknown] Allergy/AdvReac Type Severity Reaction Status Date / Time naproxen Allergy Shortness Verified 09/11/22 12:25 of breath Penicillins Allergy Swelling Verified 09/11/22 12:25 meloxicam [From Mobic] AdvReac HEADACHE Verified 09/11/22 12:25 Surgical History Gangrene Social History Smoking Status: Current every day smoker tobacco type: cigarettes Tobacco: How many years used: 30 second hand exposure: Yes alcohol intake: never substance use type: does not use caffeine: Yes (3/day) what type of physical activity do you participate in: none ROS ROS ED Constitutional Constitutional ED: Denies chills or fever(s) Eyes Eyes: Denies blurry vision or change in vision ENT ENT ED: Denies rhinorrhea or sore throat Cardiovascular Cardiovascular: Denies chest pain or palpitations Respiratory/Chest Respiratory/Chest: Denies cough or dyspnea Gastrointestinal Gastrointestinal: Denies nausea or vomiting Genitourinary Genitourinary ED: Denies dysuria or hematuria Musculoskeletal Musculoskeletal: Reports back pain; Denies neck pain Integumentary Denies abscess or rash Neurologic Neurologic: Denies headache(s) or weakness Allergic/Immunologic Allergic/Immunologic ED: Denies mouth swelling or urticaria EXAM Physical Exam Const Vital Signs: 09/11/22 12:22 09/11/22 14:56 09/11/22 15:33 Temperature 97.8 F Temperature Source Temporal Pulse Rate 68 76 Respiratory Rate 16 18 Blood Pressure 152/91 H 130/87 H 123/99 H Blood Pressure Mean 111 101 107 Pulse Ox 98 96 Oxygen Delivery Method Room Air Room Air Positive well nourished, well developed and obese General Appearance ED: well developed and NAD Nutritional Appearance: obese HEENT Reports moist mucous membranes Neck supple and no JVD Resp normal respiratory effort and clear to auscultation bilaterally Cardio regular rate, regular rhythm and no murmurs GI normal to inspection, nondistended, normoactive bowel sounds and non-tender Palpation: soft Extremity normal to inspection General Extremety ED: Negative for edema or tenderness General Extremity: Negative for edema Neuro oriented x3, CN's II-XII intact bilaterally and no sensory deficits noted Sensorium / Orientation: alert Motor Exam: strength 5/5 throughout Deep Tendon Reflexes: Rt Patellar (L4): 2+, Lt Patellar (L4): 2+, Rt Ankle (S1): 2+ and Lt Ankle (S1): 2+ Deep Tendon Reflexes Back: Rt Patellar (L4): 2+, Lt Patellar (L4): 2+, Rt Ankle (S1): 2+ and Lt Ankle (S1): 2+ Psych mental status grossly normal Skin no rashes or lesions noted MDM MDM MDM Narrative Medical decision making narrative: Differential diagnosis includes muscular strain, aortic dissection, pneumonia, and pneumothorax. Patient is also concerned that this could be from his heart. EKG will be obtained to assess for dysrhythmia and cardiac ischemia. CBC will be obtained to assess for leukocytosis and anemia. Basic metabolic profile will be obtained to assess for renal function and electrolyte abnormality. High-sensitivity troponin will be obtained to assess for cardiac ischemia. CTA of the chest will be obtained to rule out aortic dissection. Lab Data Attestation: I reviewed the patient's lab results. Lab results narrative: CBC was reviewed and shows a slight leukocytosis of 12.8. The remainder was within normal limits. Basic metabolic profile was reviewed and was within normal limits with the exception of an elevated glucose of 268. High-sensitivity troponin was reviewed and was normal at 8. Labs: Laboratory Results - last 24 hr 09/11/22 09/11/22 15:52 15:52 WBC 12.8 H RBC 5.01 Hgb 16.0 Hct 45.6 MCV 91.0 MCH 31.9 MCHC 35.1 RDW Std Deviation 43.1 RDW Coeff of Desiree 13.0 Plt Count 257 MPV 9.1 Immature Gran % (Auto) 0.500 Neut % (Auto) 65.2 Lymph % (Auto) 24.6 [place] % (Auto) 7.0 Eos % (Auto) 2.1 Baso % (Auto) 0.6 Absolute Neuts (auto) 8.3 H Absolute Lymphs (auto) 3.14 Nucleated RBC % 0 Sodium 138 Potassium 3.9 Chloride 102 Carbon Dioxide 28.0 Anion Gap 8 BUN 19 H Creatinine 1.03 Estim Creat Clear Calc 88.66 Est GFR (MDRD) Af Amer 99 Est GFR (MDRD) Non-Af 82 BUN/Creatinine Ratio 18.4 Glucose 268 H Calcium 8.8 Troponin I High Sens 8 Radiography Diagnostic Testing: Clinical Impression(s) from Imaging Studies Chest CTA 09/11/22 15:39 IMPRESSION: Coronary artery disease.. No acute cardiopulmonary pathology. No evidence for pulmonary embolus, aortic aneurysm periaortic leak or dissection Electronically Signed: Amauri Silver MD at 17:21 EDT , CTA of the chest was obtained. There is no evidence of pulmonary embolism or aortic dissection. This was interpreted by the radiologist and was also independently reviewed by myself. EKG Initial EKG: Attestation: I personally reviewed and interpreted this EKG as follows: Interpretation: Sinus Rhythm (74) and No Acute Injury Pattern Comments: EKG was obtained. On my independent interpretation, it showed a normal sinus rhythm with a rate of 74. HI interval, QRS interval, and QTc intervals were all normal. [place] was normal. There are no acute ST or T wave changes. Prior EKG tracings: available for review Prior: Unchanged (05/26/2022) Treatment and Re-Evaluation Narrative: Patient was advised of his findings. Patient was advised that this is most likely a muscular strain. Patient was instructed to continue his pain medication as previously prescribed. Patient was instructed use ice to the area. Patient was instructed to take ibuprofen for additional pain control. Patient was instructed return if worse in any way. Patient understood and was agreeable with the plan. All questions were answered. Discharge Plan Triage Chief Complaint: Back ED Provider: Aníbal Michelle Dx/Rx/DC Orders Clinical Impression: Acute thoracic myofascial strain, Acute lumbosacral myofascial strain Instructions: ED Back Sprain/Strain Prescriptions: No Action citalopram 40 MG tablet 40 mg PO DAILY Label Comments: depression fluphenazine HCl 1 MG tablet 2 mg PO BID Label Comments: mood oxcarbazepine [Trileptal] 600 mg tablet 1 tab PO BID Label Comments: Take 1 tablet by mouth twice a day after meals albuterol sulfate [Ventolin HFA] 1 INHALER inhaler 1 puff inhalation Q4H PRN PRN (Reason: Sob &/Or Wheezing) Qty: 1 0RF quetiapine [Seroquel] 25 MG tablet 25 mg PO QHS hydroxyzine pamoate [Vistaril] 50 MG capsule 50 mg PO TID PRN PRN (Reason: Anxiety) oxycodone-acetaminophen 1 TABLET tablet 1 tab PO Q6H PRN PRN (Reason: Pain) 3 Days Qty: 6 0RF tizanidine 4 mg tablet 4 mg PO TID PRN PRN (Reason: Spasms) simvastatin 80 mg tablet 80 mg PO QHS mirtazapine 30 mg tablet 30 mg PO QHS insulin glargine [Lantus Solostar U-100 Insulin] 100 unit/mL (3 mL) insulin pen 26 unit SUBCUT DAILY sulfamethoxazole-trimethoprim [Bactrim DS] 800-160 mg tablet 1 tab PO BID Qty: 20 0RF metformin 1,000 mg tablet 2,000 mg PO DAILY Label Comments: TAKE 1 TABLET BY MOUTH TWICE A DAY WITH MEALS prednisone 10 MG tablet 10 mg PO UD Qty: 33 0RF Rx Instructions: Take 4 tablets daily for 3 days, then 3 daily for 3 days, then 2 daily for 3 days, then 1 a day for 3 days then 1 QOD for 3 doses. doxycycline monohydrate 100 MG capsule 100 mg PO BID Qty: 20 0RF famotidine [famotidine] 20 MG tablet 20 mg PO BID Qty: 28 0RF sulfamethoxazole-trimethoprim [Bactrim DS] 800-160 mg tablet 1 tab PO BID 7 Days Qty: 14 0RF Primary Care Provider: Kajal Knutson Referrals: Kajal Knutson DO [Primary Care Provider] - 5-7 Days Disposition Disposition: Home, Self Care
--- NOTE | 2022-09-11 15:39 | CT_ITS ---
STUDY: CTA CHEST REASON FOR EXAM: Male, 47 years old. Aortic dissection RADIATION DOSAGE (If Supplied By Facility): CTDIvol = ( 15.64 ) mGy, DLP = ( 504.47 ) mGycm TECHNIQUE: The examination was performed with the intravenous administration of IV 100mL Isovue-370. Post-processing of the angiographic images was performed, with multiplanar reformation and 3D reconstruction. Individualized dose optimization techniques were used for this CT. COMPARISON: December 17, 2009 1 report only FINDINGS: Normal enhancement of the main pulmonary artery and right and left pulmonary arteries. Normal enhancement of the bilateral peripheral pulmonary arteries. There is no demonstrated pulmonary embolism. Normal thoracic aorta and visualized great vessels. There is no demonstrated aortic dissection. Heart size is normal. There is a coronary artery stent present.. Normal mediastinum. Normal hilar regions. Normal visualized trachea and bronchi. The lungs are well expanded. Normal pulmonary parenchyma. Normal pleura. Normal chest wall structures. Dorsal spine demonstrates degenerative changes. Old right fourth rib fracture Nonspecific fatty infiltration of the liver.. CT/CTA Chest W/WO Contrast IMPRESSION: Coronary artery disease.. No acute cardiopulmonary pathology. No evidence for pulmonary embolus, aortic aneurysm periaortic leak or dissection Electronically Signed: Amauri Silver MD at 17:21 EDT ,
[2022-09-11] MEDS: Morphine 4 MG/ML Syringe IV (15:54)
[2022-09-11 16:19] LABS: Absolute Lymphocyte Count 3.14 X10^3/uL (0.83-4.51); Absolute Neutrophil Count 8.3 X10^3/uL (2.0-7.7); Basophil# 0.08 X10^3/uL; Basophil% 0.6 % (0-1); Eosinophil# 0.27 X10^3/uL; Eosinophils% 2.1 % (0-5); Hematocrit 45.6 % (40-54); Lymphocyte # 3.14 X10^3/ul (0.83-4.51); Lymphocyte % 24.6 % (19-41); Mean Corp Hgb Conc 35.1 g/dL (32-36); Mean Corpuscular Hgb 31.9 pg (27.0-32.0); Mean Platelet Vol. 9.1 fl (6.2-12.0); Monocyte# 0.89 X10^3/uL; NRBC Flagged by Analyzer 0 % (0-5); Neutrophil # 8.34 X10^3/uL (2.7-7.7); Neutrophil % 65.2 % (47-70); Platelet Count 257 K/mm3 (150-450); RBC Distribution Width SD 43.1 fl (35.1-43.9); Red Blood Count 5.01 M/mm3 (4.6-6.2); White Blood Count 12.8 K/mm3 (4.4-11.0)
[2022-09-11 16:25] LABS: Anion Gap 8 (5-15); BUN 19 mg/dL (7-18); BUN/Creat Ratio 18.4 RATIO (10-20); Calcium,Total 8.8 mg/dL (8.5-10.1); Chloride 102 mmol/L (98-107); Creatinine, Serum 1.03 mg/dL (0.70-1.30); EST Glomerular Filtration Rate 82 mL/min (>60); Est Glom Filt Rate - Afr Amer 99 mL/min (>60); Estimated Creatinine Clearance 88.66 ml/min; Glucose 268 mg/dL (74-106); Potassium 3.9 mmol/L (3.5-5.1); Sodium Level 138 mmol/L (136-145); Troponin-I HS 8 pg/mL (3.0-78.0)
--- NOTE | 2022-09-11 17:03 | EKG12_ITS ---
Test Reason : BACK PAIN Blood Pressure : / mmHG Vent. Rate : 074 BPM Atrial Rate : 074 BPM P-R Int : 200 ms QRS Dur : 088 ms QT Int : 418 ms P-R-T Axes : 066 060 073 degrees QTc Int : 463 ms Normal sinus rhythm Low voltage QRS Septal infarct , age undetermined, cannot be excluded Abnormal ECG Confirmed by BIBIANA RECINOS, EEMLINA ([id number]), editor managing director RINKU CONNORS ([id number]) on 09/13/2022 9:31:49 AM Referred By: Confirmed By:EMELINA MCCARTY MD
[2022-09-11] MEDS: Morphine 2 MG/ML Syringe IV (17:46)
== END 2022-09-11 17:55 | disposition home or self-care (01) ==
PROVIDERS: Emergency Provider Emergency Medicine; PCP Family Medicine; Visit Provider Emergency Medicine
DX: S39.012A Strain of muscle, fascia and tendon of lower back, initial encounter (principal); F20.9 Schizophrenia, unspecified; J44.9 Chronic obstructive pulmonary disease, unspecified; E11.9 Type 2 diabetes mellitus without complications; S29.019A Strain of muscle and tendon of unspecified wall of thorax, initial encounter; I25.10 Atherosclerotic heart disease of native coronary artery without angina pectoris; F17.210 Nicotine dependence, cigarettes, uncomplicated; F32.A Depression, unspecified
CPT/HCPCS: 71275; 80048; 84484; 85025; 93005; 96374; 96375; 99285; J7030; Q9967; A4216

== ENCOUNTER 2022-10-08 17:50 | Emergency (ER) | payer MEDICARE, MEDICAID, SELFPAY ==
[2022-10-08] VITALS (7 sets, daily range): BP systolic 115–156; BP diastolic 84–102; PULSE 70–79; RESP 16–22; TEMP 37; O2SAT 96–99; BMI 39.5
--- NOTE | 2022-10-08 18:30 | RAD_ITS ---
INDICATION: Chest pain EXAMINATION/TECHNIQUE: X-RAY - XR Chest 1 View COMPARISON: 05/26/2022 FINDINGS: LINES/DEVICES: None. LUNGS: No consolidation, edema or effusion. No pneumothorax. MEDIASTINUM AND CARDIOVASCULAR STRUCTURES: Cardiac silhouette not enlarged. Central airways and mediastinal contour are unremarkable. RAD/Chest 1 View (Portable) IMPRESSION: No radiographic evidence of acute cardiopulmonary disease. Electronically Signed: Etienne Victor MD at 18:58 EDT ,
[2022-10-08 18:33] LABS: Absolute Lymphocyte Count 3.21 X10^3/uL (0.83-4.51); Absolute Neutrophil Count 4.1 X10^3/uL (2.0-7.7); Basophil# 0.09 X10^3/uL; Eosinophil# 0.31 X10^3/uL; Eosinophils% 3.5 % (0-5); Hemoglobin 15.3 g/dL (13.0-16.5); Lymphocyte # 3.21 X10^3/ul (0.83-4.51); Lymphocyte % 36.4 % (19-41); Mean Corp Hgb Conc 34.8 g/dL (32-36); Mean Corpuscular Hgb 31.6 pg (27.0-32.0); Mean Corpuscular Volume 90.9 fL (80-94); Mean Platelet Vol. 8.7 fl (6.2-12.0); Monocyte# 1.06 X10^3/uL; NRBC Flagged by Analyzer 0 % (0-5); Neutrophil % 46.5 % (47-70); Platelet Count 217 K/mm3 (150-450); RBC Distribution Width CV 12.4 % (11.6-14.6); RBC Distribution Width SD 41.1 fl (35.1-43.9); Red Blood Count 4.84 M/mm3 (4.6-6.2); White Blood Count 8.8 K/mm3 (4.4-11.0)
[2022-10-08 18:51] LABS: Anion Gap 1 (5-15); BUN 11 mg/dL (7-18); Calcium,Total 9.1 mg/dL (8.5-10.1); Chloride 102 mmol/L (98-107); EST Glomerular Filtration Rate 85 mL/min (>60); Est Glom Filt Rate - Afr Amer 103 mL/min (>60); Glucose 160 mg/dL (74-106); Potassium 3.8 mmol/L (3.5-5.1); Sodium Level 134 mmol/L (136-145); Troponin-I HS (w/2H Reflex) 6 pg/mL (3.0-78.0)
--- NOTE | 2022-10-08 19:49 | EDS_ITS ---
HPI History of Present Illness Chief Complaint: Chest Pain Narrative Narrative: 47-year-old male presenting with chest pain. He states it goes across his entire chest and radiates into his arms. He states this is a chronic issue when he had it for over a year. His primary care physician gives him Percocet 5 mg p.o. twice daily. He states he took it today and it did not help. Patient states he recently had a cold. He has some cough and congestion. No fever currently but states he had a fever 3 days ago. He did measure a temperature. No nausea or vomiting. [facility] Medical History Asthma CAD (coronary artery disease) COPD (chronic obstructive pulmonary disease) Depression Diabetes Schizophrenia Home Medications citalopram 40 mg tablet 40 mg PO DAILY DEPRESSION 10/19/15 [History Last Taken 12/19/20] fluphenazine HCl 1 mg tablet 2 mg PO BID ANTIPSYHCOTIC 10/19/15 [History Last Taken 12/19/20] oxcarbazepine 600 mg tablet (Trileptal) 1 tab PO BID SEIZURE 03/06/17 [History Last Taken 12/19/20] albuterol sulfate 90 mcg/actuation aerosol inhaler (Ventolin HFA) 1 puff inhalation Q4H PRN PRN Sob &/Or Wheezing ##1 03/08/17 [Rx Last Taken 12/18/20] quetiapine 25 mg tablet (Seroquel) 25 mg PO QHS MOOD 09/10/17 [History Last Taken 12/18/20] hydroxyzine pamoate 50 mg capsule (Vistaril) 50 mg PO TID PRN PRN Anxiety 12/19/17 [History Last Taken 12/19/20] oxycodone-acetaminophen 5 mg-325 mg tablet 1 tab PO Q6H PRN PRN Pain 3 days ##6 02/16/18 [Rx Last Taken 12/16/20] insulin glargine 100 unit/mL (3 mL) subcutaneous pen (Lantus Solostar U-100 Insulin) 26 unit subcut DAILY DM 12/19/20 [History Last Taken 12/19/20] mirtazapine 30 mg tablet 30 mg PO QHS INSOMNIA 12/19/20 [History Last Taken 12/15/20] simvastatin 80 mg tablet 80 mg PO QHS CHOLESTEROL 12/19/20 [History Last Taken 12/18/20] tizanidine 4 mg tablet 4 mg PO TID PRN PRN Spasms 12/19/20 [History Last Taken 12/18/20] sulfamethoxazole 800 mg-trimethoprim 160 mg tablet (Bactrim DS) 1 tab PO BID #20 tabs 03/02/22 [Rx Last Taken Unknown] doxycycline monohydrate 100 mg capsule 100 mg PO BID #20 CAPSULES 04/15/22 [Rx Last Taken Unknown] metformin 1,000 mg tablet 2,000 mg PO DAILY 04/15/22 [History Last Taken Unknown] prednisone 10 mg tablet 10 mg PO UD #33 tabs 04/15/22 [Rx Last Taken Unknown] famotidine 20 mg tablet 20 mg PO BID #28 TABLETS 05/26/22 [Rx Last Taken Unknown] sulfamethoxazole 800 mg-trimethoprim 160 mg tablet (Bactrim DS) 1 tab PO BID 7 days #14 tabs 06/17/22 [Rx Last Taken Unknown] prednisone 50 mg tablet 50 mg PO QODAY 5 days #3 tabs 10/08/22 [Rx Last Taken Unknown] Allergy/AdvReac Type Severity Reaction Status Date / Time naproxen Allergy Shortness Verified 10/08/22 17:52 of breath Penicillins Allergy Swelling Verified 10/08/22 17:52 ibuprofen AdvReac Other Verified 10/08/22 17:52 meloxicam [From Mobic] AdvReac HEADACHE Verified 10/08/22 17:52 Surgical History Gangrene Social History Smoking Status: Current every day smoker tobacco type: cigarettes Tobacco: How many years used: 30 second hand exposure: Yes alcohol intake: never substance use type: does not use caffeine: Yes (3/day) what type of physical activity do you participate in: none ROS ROS ED Constitutional Constitutional ED: Reports fever(s); Denies sweats Eyes Eyes: Denies blurry vision or change in vision ENT ENT ED: Denies ear pain or sore throat Cardiovascular Cardiovascular: Reports chest pain; Denies palpitations or racing heartbeat Respiratory/Chest Respiratory/Chest: Reports cough; Denies dyspnea or sputum Gastrointestinal Gastrointestinal: Denies abdominal pain, constipation, diarrhea, nausea or vomiting Genitourinary Genitourinary ED: Denies dysuria, hematuria or urinary frequency Musculoskeletal Musculoskeletal: Denies arthralgias, myalgias or neck pain Integumentary Denies abscess, Abrasions or rash Neurologic Neurologic: Denies headache(s), paresthesias or weakness Psychiatric Psychiatric: Denies anxiety, depression, suicidal ideation or suicidal thoughts Endocrine Endocrinology: Denies polydipsia or polyuria EXAM Physical Exam Const Vital Signs: 10/08/22 17:50 10/08/22 18:40 10/08/22 18:41 Temperature 98.6 F Temperature Source Temporal Pulse Rate 74 79 Respiratory Rate 18 20 H Blood Pressure 131/85 H 156/102 H Blood Pressure Mean 100 120 Pulse Ox 97 99 99 Oxygen Delivery Method Room Air Room Air Room Air 10/08/22 19:08 10/08/22 20:06 10/08/22 20:15 Temperature Temperature Source Pulse Rate 70 71 72 Respiratory Rate 19 H 16 22 H Blood Pressure 144/98 H 144/98 H Blood Pressure Mean 113 113 Pulse Ox 97 96 Oxygen Delivery Method Room Air Room Air 10/08/22 21:33 10/08/22 21:33 Temperature Temperature Source Pulse Rate Respiratory Rate Blood Pressure 115/84 H 115/84 H Blood Pressure Mean 94 Pulse Ox Oxygen Delivery Method Positive well nourished General Appearance ED: NAD HEENT Reports moist mucous membranes normocephalic Chest Wall inspection of chest normal Resp normal respiratory effort Auscultation: wheezes scattered wheezes Cardio regular rate Rhythm: abnormal rhythm Neuro oriented x3 and CN's II-XII intact bilaterally Sensorium / Orientation: awake and alert Motor Exam: strength 5/5 throughout Psych mental status grossly normal Skin no rashes or lesions noted Heart Score History: Slightly/Non-Suspicious ECG: Normal Age: >45 - <65 years Risk Factors: >/= 3 Risk Factors or History of CAD Troponin: </= Normal Limit Score: 3 MDM MDM MDM Narrative Medical decision making narrative: Patient presenting with chest pain which has had all day. He does also tell me now that he is short of breath and feels like he is wheezing and has a history of COPD. He was wheezing on exam. He was given breathing treatments and Solu- Medrol 125 differential includes but is not limited to ACS, PE,pneumonia, pneumothorax, muscle strain, costochondritis, COPD exacerbation he also states that it is chronic and he has received pain medication for this. He states today it was not working. Denies any new injury. He does state there is nothing new about his chest pain. EKG was obtained which shows a sinus rhythm with a ventricular of 68 bpm without sign of ischemic change or dysrhythmia. Chest x-ray on my interpretation is no acute cardiopulmonary process. Radiologist services and agrees. CBC and BMP unremarkable. High-sensitivity troponin 6 after pain chronically as well as all day. No believe this is cardiac in nature. He is PERC negative. He feels better after breathing treatments and Solu-Medrol. I will give him a prednisone burst for home. Given patient's normal work-up I think he stable for discharge home. He is counseled to follow-up with his PCP. I did guidance counselor him I cannot manage his chronic pain. Patient amenable to safe discharge home in stable condition. Impression: 1. Chest pain 2. COPD exacerbation Lab Data Labs: Laboratory Results - last 24 hr 10/08/22 10/08/22 18:20 18:20 WBC 8.8 RBC 4.84 Hgb 15.3 Hct 44.0 MCV 90.9 MCH 31.6 MCHC 34.8 RDW Std Deviation 41.1 RDW Coeff of Desiree 12.4 Plt Count 217 MPV 8.7 Immature Gran % (Auto) 0.600 Neut % (Auto) 46.5 L Lymph % (Auto) 36.4 [place] % (Auto) 12.0 H Eos % (Auto) 3.5 Baso % (Auto) 1.0 Absolute Neuts (auto) 4.1 Absolute Lymphs (auto) 3.21 Nucleated RBC % 0 Sodium 134 L Potassium 3.8 Chloride 102 Carbon Dioxide 31.0 Anion Gap 1 L BUN 11 Creatinine 1.00 Est GFR (MDRD) Af Amer 103 Est GFR (MDRD) Non-Af 85 BUN/Creatinine Ratio 11.0 Glucose 160 H Calcium 9.1 Troponin I High Sens 6 Radiography Diagnostic Testing: Clinical Impression(s) from Imaging Studies Chest X-Ray 10/08/22 18:30 IMPRESSION: No radiographic evidence of acute cardiopulmonary disease. Electronically Signed: Etienne Victor MD at 18:58 EDT , Discharge Plan Triage Chief Complaint: Chest Pain ED Provider: Mykel Nicholas Dx/Rx/DC Orders Instructions: ED Chest Pain, Noncardiac, ED COPD Flare Prescriptions: New prednisone 50 mg tablet 50 mg PO QODAY 5 Days Qty: 3 0RF No Action citalopram 40 MG tablet 40 mg PO DAILY Label Comments: depression fluphenazine HCl 1 MG tablet 2 mg PO BID Label Comments: mood oxcarbazepine [Trileptal] 600 mg tablet 1 tab PO BID Label Comments: Take 1 tablet by mouth twice a day after meals albuterol sulfate [Ventolin HFA] 1 INHALER inhaler 1 puff inhalation Q4H PRN PRN (Reason: Sob &/Or Wheezing) Qty: 1 0RF quetiapine [Seroquel] 25 MG tablet 25 mg PO QHS hydroxyzine pamoate [Vistaril] 50 MG capsule 50 mg PO TID PRN PRN (Reason: Anxiety) oxycodone-acetaminophen 1 TABLET tablet 1 tab PO Q6H PRN PRN (Reason: Pain) 3 Days Qty: 6 0RF tizanidine 4 mg tablet 4 mg PO TID PRN PRN (Reason: Spasms) simvastatin 80 mg tablet 80 mg PO QHS mirtazapine 30 mg tablet 30 mg PO QHS insulin glargine [Lantus Solostar U-100 Insulin] 100 unit/mL (3 mL) insulin pen 26 unit SUBCUT DAILY sulfamethoxazole-trimethoprim [Bactrim DS] 800-160 mg tablet 1 tab PO BID Qty: 20 0RF metformin 1,000 mg tablet 2,000 mg PO DAILY Label Comments: TAKE 1 TABLET BY MOUTH TWICE A DAY WITH MEALS prednisone 10 MG tablet 10 mg PO UD Qty: 33 0RF Rx Instructions: Take 4 tablets daily for 3 days, then 3 daily for 3 days, then 2 daily for 3 days, then 1 a day for 3 days then 1 QOD for 3 doses. doxycycline monohydrate 100 MG capsule 100 mg PO BID Qty: 20 0RF famotidine [famotidine] 20 MG tablet 20 mg PO BID Qty: 28 0RF sulfamethoxazole-trimethoprim [Bactrim DS] 800-160 mg tablet 1 tab PO BID 7 Days Qty: 14 0RF Primary Care Provider: Kajal Knutson Referrals: Kajal Knutson DO [Primary Care Provider] - Disposition Disposition: Home, Self Care Discharge Date/Time: 10/08/22 21:34
[2022-10-08] MEDS: MethylPREDNISolone 125 MG/2 ML Vial IV (20:03)
[2022-10-08] MEDS: Ondansetron 4 MG/2 ML Vial IV (20:03)
[2022-10-08] MEDS: Morphine 4 MG/ML Syringe IV (20:03)
[2022-10-08] MEDS: Ipratropium/Albuterol Sulfate 3 ML AMPUL.NEB INHALATION (20:16)
== END 2022-10-08 21:34 | disposition home or self-care (01) ==
PROVIDERS: Emergency Provider Student in an Organized Health Care Education/Training Program; PCP Family Medicine; Visit Provider Student in an Organized Health Care Education/Training Program
DX: R07.9 Chest pain, unspecified (principal); F20.9 Schizophrenia, unspecified; J44.1 Chronic obstructive pulmonary disease with (acute) exacerbation; E11.9 Type 2 diabetes mellitus without complications; Z79.4 Long term (current) use of insulin; F17.210 Nicotine dependence, cigarettes, uncomplicated; I25.10 Atherosclerotic heart disease of native coronary artery without angina pectoris
CPT/HCPCS: 71045; 80048; 84484; 85025; 93005; 94640; 96374; 96375; 99285; A4216; J2405

== ENCOUNTER 2023-01-17 14:45 | Emergency (ER) | payer MEDICARE, MEDICAID, SELFPAY ==
[2023-01-17 14:45] VITALS: BP 141/93; PULSE 74; RESP 16; TEMP 36.7; O2SAT 98; BMI 39.9
--- NOTE | 2023-01-17 15:15 | EDS_ITS ---
HPI History of Present Illness Chief Complaint: Back Narrative Narrative: Patient is here with back pain. He has chronic recurrent back pain, he was helping push his girlfriend around in the wheelchair and was doing a lot of yard work yesterday and developed back spasms. He has a history of back pain, he used to be on Percocets although he has not had any since September. He has no fevers chills cough or congestion he has no radicular symptoms weakness bowel or bladder compromise or urinary retention symptoms. [facility] Medical History Asthma CAD (coronary artery disease) COPD (chronic obstructive pulmonary disease) Depression Diabetes Schizophrenia Home Medications citalopram 40 mg tablet 40 mg PO DAILY DEPRESSION 10/19/15 [History Last Taken 12/19/20] fluphenazine HCl 1 mg tablet 2 mg PO BID ANTIPSYHCOTIC 10/19/15 [History Last Taken 12/19/20] oxcarbazepine 600 mg tablet (Trileptal) 1 tab PO BID SEIZURE 03/06/17 [History Last Taken 12/19/20] albuterol sulfate 90 mcg/actuation aerosol inhaler (Ventolin HFA) 1 puff inhalation Q4H PRN PRN Sob &/Or Wheezing ##1 03/08/17 [Rx Last Taken 12/18/20] quetiapine 25 mg tablet (Seroquel) 25 mg PO QHS MOOD 09/10/17 [History Last Taken 12/18/20] hydroxyzine pamoate 50 mg capsule (Vistaril) 50 mg PO TID PRN PRN Anxiety 12/19/17 [History Last Taken 12/19/20] oxycodone-acetaminophen 5 mg-325 mg tablet 1 tab PO Q6H PRN PRN Pain 3 days ##6 02/16/18 [Rx Last Taken 12/16/20] insulin glargine 100 unit/mL (3 mL) subcutaneous pen (Lantus Solostar U-100 Insulin) 26 unit subcut DAILY DM 12/19/20 [History Last Taken 12/19/20] mirtazapine 30 mg tablet 30 mg PO QHS INSOMNIA 12/19/20 [History Last Taken 12/15/20] simvastatin 80 mg tablet 80 mg PO QHS CHOLESTEROL 12/19/20 [History Last Taken 12/18/20] tizanidine 4 mg tablet 4 mg PO TID PRN PRN Spasms 12/19/20 [History Last Taken 12/18/20] sulfamethoxazole 800 mg-trimethoprim 160 mg tablet (Bactrim DS) 1 tab PO BID #20 tabs 03/02/22 [Rx Last Taken Unknown] doxycycline monohydrate 100 mg capsule 100 mg PO BID #20 CAPSULES 04/15/22 [Rx Last Taken Unknown] metformin 1,000 mg tablet 2,000 mg PO DAILY 04/15/22 [History Last Taken Unknown] prednisone 10 mg tablet 10 mg PO UD #33 tabs 04/15/22 [Rx Last Taken Unknown] famotidine 20 mg tablet 20 mg PO BID #28 TABLETS 05/26/22 [Rx Last Taken Unknown] sulfamethoxazole 800 mg-trimethoprim 160 mg tablet (Bactrim DS) 1 tab PO BID 7 days #14 tabs 06/17/22 [Rx Last Taken Unknown] prednisone 50 mg tablet 50 mg PO QODAY 5 days #3 tabs 10/08/22 [Rx Last Taken Unknown] oxycodone-acetaminophen 5 mg-325 mg tablet (Percocet) 1 tab PO TID PRN pain 3 days #7 tabs 01/17/23 [Rx Last Taken Unknown] tizanidine 4 mg tablet 4 mg PO Q8H PRN muscle spasticity #14 tabs 01/17/23 [Rx Last Taken Unknown] Allergy/AdvReac Type Severity Reaction Status Date / Time naproxen Allergy Shortness Verified 01/17/23 14:47 of breath Penicillins Allergy Swelling Verified 01/17/23 14:47 ibuprofen AdvReac Other Verified 01/17/23 14:47 meloxicam [From Mobic] AdvReac HEADACHE Verified 01/17/23 14:47 Surgical History Gangrene Social History Smoking Status: Current every day smoker tobacco type: cigarettes Tobacco: How many years used: 30 second hand exposure: Yes alcohol intake: never substance use type: does not use caffeine: Yes (3/day) what type of physical activity do you participate in: none ROS ROS ED ROS Narrative Past medical history: Reviewed Medications: Reviewed Social history: Noncontributory Review of systems: General: No fever Eyes: No visual changes ENT: No upper airway congestion, normal voice Neck: No neck pain Cardiovascular: No chest pain Respiratory: No shortness of breath or cough Gastrointestinal: No abdominal pain, nausea vomiting or diarrhea Genitourinary: No dysuria Musculoskeletal: Back pain as in HPI Skin: No rash EXAM Physical Exam Narrative Exam Narrative: Vitals reviewed General: Patient appears in some discomfort HEENT: Moist mucous membranes Neck: Nontender Cardiovascular normal heart rate Respiratory: No respiratory difficulty speaking in full sentences Abdomen: Soft and nontender, there is no suprapubic mass or pain Back: There is some tenderness over the lumbar region, pain is spinal and paraspinal both. Extremities: Moves all extremities without joint pain or signs of trauma Neurological: There is normal plantar flexion and dorsiflexion of both feet and great toes. Patellar and Achilles reflexes are normal. Normal strength and sensation. Negative straight leg test. Skin: No rash Psychiatric: Slightly anxious. Const Vital Signs: 01/17/23 14:45 Temperature 98.0 F Temperature Source Temporal Pulse Rate 74 Respiratory Rate 16 Blood Pressure 141/93 H Blood Pressure Mean 109 Pulse Ox 98 Oxygen Delivery Method Room Air MDM MDM MDM Narrative Medical decision making narrative: Patient has chronic recurrent back pain, this is likely due to a strain he had yesterday he has no radicular symptoms or any signs of cauda equina. He has normal temperature and no history of a fever and not suspicious of a spinal epidural abscess or discitis. He has no neurological symptoms to indicate any other nerve impingement. He appears well. I do not believe he meets criteria for stat MRI. He has no trauma therefore x-ray or CT are not warranted. Blood work is not warranted. He appears well. I will discharge him in stable condition with analgesia. He used to have monthly prescription of Percocet however that stopped and he has not had any since September, he is having acute exacerbation of pain therefore I believe just a few Percocets are probably reasonable at this time along with muscle relaxants especially that he is in quite a bit of pain. Otherwise I will discharge in stable condition Discharge Plan Triage Chief Complaint: Back ED Provider: Etienne Schneider Dx/Rx/DC Orders Clinical Impression: Back pain, Acute lumbar myofascial strain Instructions: Back Basics: A Healthy Spine Prescriptions: New tizanidine 4 mg tablet 4 mg PO Q8H PRN (Reason: muscle spasticity) Qty: 14 0RF oxycodone-acetaminophen [Percocet] 5-325 mg tablet 1 tab PO TID PRN (Reason: pain) 3 Days Qty: 7 0RF No Action citalopram 40 MG tablet 40 mg PO DAILY Patient Comments: depression fluphenazine HCl 1 MG tablet 2 mg PO BID Patient Comments: mood oxcarbazepine [Trileptal] 600 mg tablet 1 tab PO BID Patient Comments: Take 1 tablet by mouth twice a day after meals albuterol sulfate [Ventolin HFA] 1 INHALER inhaler 1 puff inhalation Q4H PRN PRN (Reason: Sob &/Or Wheezing) Qty: 1 0RF quetiapine [Seroquel] 25 MG tablet 25 mg PO QHS hydroxyzine pamoate [Vistaril] 50 MG capsule 50 mg PO TID PRN PRN (Reason: Anxiety) oxycodone-acetaminophen 1 TABLET tablet 1 tab PO Q6H PRN PRN (Reason: Pain) 3 Days Qty: 6 0RF tizanidine 4 mg tablet 4 mg PO TID PRN PRN (Reason: Spasms) simvastatin 80 mg tablet 80 mg PO QHS mirtazapine 30 mg tablet 30 mg PO QHS insulin glargine [Lantus Solostar U-100 Insulin] 100 unit/mL (3 mL) insulin pen 26 unit SUBCUT DAILY sulfamethoxazole-trimethoprim [Bactrim DS] 800-160 mg tablet 1 tab PO BID Qty: 20 0RF metformin 1,000 mg tablet 2,000 mg PO DAILY Patient Comments: TAKE 1 TABLET BY MOUTH TWICE A DAY WITH MEALS prednisone 10 MG tablet 10 mg PO UD Qty: 33 0RF Rx Instructions: Take 4 tablets daily for 3 days, then 3 daily for 3 days, then 2 daily for 3 days, then 1 a day for 3 days then 1 QOD for 3 doses. doxycycline monohydrate 100 MG capsule 100 mg PO BID Qty: 20 0RF famotidine [famotidine] 20 MG tablet 20 mg PO BID Qty: 28 0RF sulfamethoxazole-trimethoprim [Bactrim DS] 800-160 mg tablet 1 tab PO BID 7 Days Qty: 14 0RF prednisone 50 mg tablet 50 mg PO QODAY 5 Days Qty: 3 0RF Primary Care Provider: Kajal Knutson Referrals: Kajal Knutson DO [Primary Care Provider] - 3-5 Days Disposition Disposition: Home, Self Care
[2023-01-17] MEDS: morphine 10 MG/ML Syringe IM (15:19)
[2023-01-17] MEDS: Orphenadrine 60 MG/2 ML Ampul IM (15:19)
[2023-01-17 15:44] VITALS: BP 152/94; PULSE 78; RESP 16; O2SAT 98
== END 2023-01-17 15:44 | disposition home or self-care (01) ==
PROVIDERS: Emergency Provider Emergency Medicine; PCP Family Medicine; Visit Provider Emergency Medicine
DX: S39.012A Strain of muscle, fascia and tendon of lower back, initial encounter (principal); F20.9 Schizophrenia, unspecified; J44.9 Chronic obstructive pulmonary disease, unspecified; E11.9 Type 2 diabetes mellitus without complications; I25.10 Atherosclerotic heart disease of native coronary artery without angina pectoris; F17.210 Nicotine dependence, cigarettes, uncomplicated; J45.909 Unspecified asthma, uncomplicated; X50.0XXA Overexertion from strenuous movement or load, initial encounter
CPT/HCPCS: 96372; 99283

== ENCOUNTER 2023-01-20 19:22 | Emergency (ER) | payer MEDICARE, MEDICAID, SELFPAY ==
[2023-01-20 19:23] VITALS: BP 156/110; PULSE 78; RESP 16; TEMP 36.8; O2SAT 98; BMI 37.7
--- NOTE | 2023-01-20 19:37 | ED.VIS.BACK ---
HPI <EMORY Hernandez - Last Filed: 01/20/23 20:54> History of Present Illness Chief Complaint: Back Narrative Narrative: Patient presenting with lower back pain that he has had for the past several days. He reports a history of chronic lower back pain that has been exacerbated because he has been rearranging the furniture in his house to make it wheelchair accessible as his girlfriend is getting home from the hospital soon. He was here on for similar symptoms and was given pain control for home which did seem to help his symptoms but then today he was rearranging furniture again and seems to have re-aggravated the pain. He denies any fever, chills, bowel/bladder incontinence, saddle paresthesia, urinary symptoms. PFSH <EMORY Hernandez - Last Filed: 01/20/23 20:54> [facility] Medical History Asthma CAD (coronary artery disease) COPD (chronic obstructive pulmonary disease) Depression Diabetes Schizophrenia Home Medications citalopram 40 mg tablet 40 mg PO DAILY DEPRESSION 10/19/15 [History Last Taken 12/19/20] fluphenazine HCl 1 mg tablet 2 mg PO BID ANTIPSYHCOTIC 10/19/15 [History Last Taken 12/19/20] oxcarbazepine 600 mg tablet (Trileptal) 1 tab PO BID SEIZURE 03/06/17 [History Last Taken 12/19/20] albuterol sulfate 90 mcg/actuation aerosol inhaler (Ventolin HFA) 1 puff inhalation Q4H PRN PRN Sob &/Or Wheezing ##1 03/08/17 [Rx Last Taken 12/18/20] quetiapine 25 mg tablet (Seroquel) 25 mg PO QHS MOOD 09/10/17 [History Last Taken 12/18/20] hydroxyzine pamoate 50 mg capsule (Vistaril) 50 mg PO TID PRN PRN Anxiety 12/19/17 [History Last Taken 12/19/20] oxycodone-acetaminophen 5 mg-325 mg tablet 1 tab PO Q6H PRN PRN Pain 3 days ##6 02/16/18 [Rx Last Taken 12/16/20] insulin glargine 100 unit/mL (3 mL) subcutaneous pen (Lantus Solostar U-100 Insulin) 26 unit subcut DAILY DM 12/19/20 [History Last Taken 12/19/20] mirtazapine 30 mg tablet 30 mg PO QHS INSOMNIA 12/19/20 [History Last Taken 12/15/20] simvastatin 80 mg tablet 80 mg PO QHS CHOLESTEROL 12/19/20 [History Last Taken 12/18/20] tizanidine 4 mg tablet 4 mg PO TID PRN PRN Spasms 12/19/20 [History Last Taken 12/18/20] sulfamethoxazole 800 mg-trimethoprim 160 mg tablet (Bactrim DS) 1 tab PO BID #20 tabs 03/02/22 [Rx Last Taken Unknown] doxycycline monohydrate 100 mg capsule 100 mg PO BID #20 CAPSULES 04/15/22 [Rx Last Taken Unknown] metformin 1,000 mg tablet 2,000 mg PO DAILY 04/15/22 [History Last Taken Unknown] prednisone 10 mg tablet 10 mg PO UD #33 tabs 04/15/22 [Rx Last Taken Unknown] famotidine 20 mg tablet 20 mg PO BID #28 TABLETS 05/26/22 [Rx Last Taken Unknown] sulfamethoxazole 800 mg-trimethoprim 160 mg tablet (Bactrim DS) 1 tab PO BID 7 days #14 tabs 06/17/22 [Rx Last Taken Unknown] prednisone 50 mg tablet 50 mg PO QODAY 5 days #3 tabs 10/08/22 [Rx Last Taken Unknown] oxycodone-acetaminophen 5 mg-325 mg tablet (Percocet) 1 tab PO TID PRN pain 3 days #7 tabs 01/17/23 [Rx Last Taken Unknown] tizanidine 4 mg tablet 4 mg PO Q8H PRN muscle spasticity #14 tabs 01/17/23 [Rx Last Taken Unknown] Allergy/AdvReac Type Severity Reaction Status Date / Time naproxen Allergy Shortness Verified 01/20/23 19:23 of breath Penicillins Allergy Swelling Verified 01/20/23 19:23 ibuprofen AdvReac Other Verified 01/20/23 19:23 meloxicam [From Mobic] AdvReac HEADACHE Verified 01/20/23 19:23 Surgical History Gangrene Social History Smoking Status: Current every day smoker tobacco type: cigarettes Tobacco: How many years used: 30 second hand exposure: Yes alcohol intake: never substance use type: does not use caffeine: Yes (3/day) what type of physical activity do you participate in: none ROS <EMORY Hernandez - Last Filed: 01/20/23 20:54> ROS ED Constitutional Constitutional ED: Denies chills or fever(s) Cardiovascular Cardiovascular: Denies chest pain Respiratory/Chest Respiratory/Chest: Denies cough or dyspnea Gastrointestinal Gastrointestinal: Denies abdominal pain, nausea or vomiting Genitourinary Genitourinary ED: Denies dysuria, hematuria or urinary urgency Musculoskeletal Musculoskeletal: Reports back pain Integumentary Denies rash Neurologic Neurologic: Denies paresthesias or weakness EXAM <EMORY Hernandez - Last Filed: 01/20/23 20:54> Physical Exam Const Vital Signs: 01/20/23 19:23 Temperature 98.2 F Temperature Source Temporal Pulse Rate 78 Respiratory Rate 16 Blood Pressure 156/110 H Blood Pressure Mean 125 Pulse Ox 98 Positive well nourished, well developed and no apparent distress General Appearance ED: well developed HEENT Reports normocephalic and head/scalp atraumatic Mouth ED: Yes moist mucous membranes normal Eyes PERRL and EOMs intact bilaterally Neck full ROM and supple Chest Wall inspection of chest normal Resp normal respiratory effort and clear to auscultation bilaterally Cardio regular rate and regular rhythm GI soft to palpation, non-tender, non-distended and no masses Back/Spine normal ROM and normal to inspection Back/Spine Narrative: Right and left paraspinal tenderness to the thoracic and lumbar spine. Minimal midline tenderness. Extremity normal to inspection and full ROM Neuro oriented x3, CN's II-XII intact bilaterally, moves all extremities, no focal motor deficits and no sensory deficits noted Sensorium / Orientation: awake and alert Motor Exam: strength 5/5 throughout Psych mental status grossly normal and thought process normal Skin no rashes or lesions noted and no wounds <Dr. James Ramon MD - Last Filed: 01/20/23 20:01> Physical Exam Const Vital Signs: 01/20/23 19:23 Temperature 98.2 F Temperature Source Temporal Pulse Rate 78 Respiratory Rate 16 Blood Pressure 156/110 H Blood Pressure Mean 125 Pulse Ox 98 MDM <EMORY Hernandez - Last Filed: 01/20/23 20:54> [facility] Narrative Medical decision making narrative: Patient presenting today due to lower back pain that he has had for the past few days due to rearranging furniture in his home. He was seen here on and was given Percocet and tizanidine and is requesting additional pain medications. He has had several times, I am not drug-seeking. EMS did report that he told them that he wanted to come to the emergency department for good pain killers and to be quickly discharged home. He has asked the nurse 3 times when he is going to be getting pain medicine. I do have some concerns for drug-seeking behavior. I do not think that narcotics are indicated for his back pain. He was given Tylenol here for pain and is to take Tylenol at home. He should have muscle relaxers left over from his previous visit. I do not feel that any imaging is indicated. No concerning signs or symptoms for cauda equina syndrome or spinal abscess. He will be discharged home in stable condition and is comfortable with plan. I have personally performed a face to face assessment of the patient and have reviewed the ERIK Note. I performed a substantive portion of the visit including all aspects of the following. My patiño findings include: History is 47-year-old male with acute on chronic back pain. Seen the other day and treated with narcotic pain meds and muscle relaxant. Requesting more pain meds. Denies any fall or injury. No fever. Has never had back surgery. Exam is 47-year-old well-appearing middle-aged male. Vital signs stable afebrile. He does not look septic or toxic is in no distress. He is lying upright in bed. He is repeatedly asked the nurses for pain medication. H EENT exam unremarkable. Neck nontender. Lungs clear to auscultation. Heart regular rhythm no murmur. Chest were nontender. Abdomen soft nontender. Moving all 4 extremities. Neurovascular intact. Normal dorsi plantarflexion. No cauda equina. No radiculopathy. Back he really does not have any reproducible tenderness. No signs of trauma. No redness or warmth. Exam benign. No focal motor or sensory deficits.] Medical Decision Making [middle-aged male with acute on chronic musculoskeletal back pain. I am concerned that he is displaying drug-seeking behavior he would not be given narcotics. He should have plenty of muscle relaxers left from his prior visit. He will be offered Tylenol for pain and discharge. He does not need any labs or imaging.] Other additions or changes: [None] <Dr. James Ramon MD - Last Filed: 01/20/23 20:01> [facility] Narrative Medical decision making narrative: I have personally performed a face to face assessment of the patient and have reviewed the ERIK Note. I performed a substantive portion of the visit including all aspects of the following. My patiño findings include: History is 47-year-old male with acute on chronic back pain. Seen the other day and treated with narcotic pain meds and muscle relaxant. Requesting more pain meds. Denies any fall or injury. No fever. Has never had back surgery. Exam is 47-year-old well-appearing middle-aged male. Vital signs stable afebrile. He does not look septic or toxic is in no distress. He is lying upright in bed. He is repeatedly asked the nurses for pain medication. H EENT exam unremarkable. Neck nontender. Lungs clear to auscultation. Heart regular rhythm no murmur. Chest were nontender. Abdomen soft nontender. Moving all 4 extremities. Neurovascular intact. Normal dorsi plantarflexion. No cauda equina. No radiculopathy. Back he really does not have any reproducible tenderness. No signs of trauma. No redness or warmth. Exam benign. No focal motor or sensory deficits.] Medical Decision Making [middle-aged male with acute on chronic musculoskeletal back pain. I am concerned that he is displaying drug-seeking behavior he would not be given narcotics. He should have plenty of muscle relaxers left from his prior visit. He will be offered Tylenol for pain and discharge. He does not need any labs or imaging.] Other additions or changes: [None] Discharge Plan Triage Chief Complaint: Back ED Midlevel Provider: Sophia Martinez ED Provider: James Ramon Dx/Rx/DC Orders Clinical Impression: Back pain Instructions: ED Back Care Tips Prescriptions: No Action citalopram 40 MG tablet 40 mg PO DAILY Patient Comments: depression fluphenazine HCl 1 MG tablet 2 mg PO BID Patient Comments: mood oxcarbazepine [Trileptal] 600 mg tablet 1 tab PO BID Patient Comments: Take 1 tablet by mouth twice a day after meals albuterol sulfate [Ventolin HFA] 1 INHALER inhaler 1 puff inhalation Q4H PRN PRN (Reason: Sob &/Or Wheezing) Qty: 1 0RF quetiapine [Seroquel] 25 MG tablet 25 mg PO QHS hydroxyzine pamoate [Vistaril] 50 MG capsule 50 mg PO TID PRN PRN (Reason: Anxiety) oxycodone-acetaminophen 1 TABLET tablet 1 tab PO Q6H PRN PRN (Reason: Pain) 3 Days Qty: 6 0RF tizanidine 4 mg tablet 4 mg PO TID PRN PRN (Reason: Spasms) simvastatin 80 mg tablet 80 mg PO QHS mirtazapine 30 mg tablet 30 mg PO QHS insulin glargine [Lantus Solostar U-100 Insulin] 100 unit/mL (3 mL) insulin pen 26 unit SUBCUT DAILY sulfamethoxazole-trimethoprim [Bactrim DS] 800-160 mg tablet 1 tab PO BID Qty: 20 0RF metformin 1,000 mg tablet 2,000 mg PO DAILY Patient Comments: TAKE 1 TABLET BY MOUTH TWICE A DAY WITH MEALS prednisone 10 MG tablet 10 mg PO UD Qty: 33 0RF Rx Instructions: Take 4 tablets daily for 3 days, then 3 daily for 3 days, then 2 daily for 3 days, then 1 a day for 3 days then 1 QOD for 3 doses. doxycycline monohydrate 100 MG capsule 100 mg PO BID Qty: 20 0RF famotidine [famotidine] 20 MG tablet 20 mg PO BID Qty: 28 0RF sulfamethoxazole-trimethoprim [Bactrim DS] 800-160 mg tablet 1 tab PO BID 7 Days Qty: 14 0RF prednisone 50 mg tablet 50 mg PO QODAY 5 Days Qty: 3 0RF tizanidine 4 mg tablet 4 mg PO Q8H PRN (Reason: muscle spasticity) Qty: 14 0RF oxycodone-acetaminophen [Percocet] 5-325 mg tablet 1 tab PO TID PRN (Reason: pain) 3 Days Qty: 7 0RF Primary Care Provider: Kajal Knutson Referrals: Kajal Knutson DO [Primary Care Provider] - 3-5 Days Activity Restrictions/Additional Instructions: You can take Tylenol for your back pain, please follow-up with your PCP. Disposition Disposition: Home, Self Care Discharge Date/Time: 01/20/23 20:09
[2023-01-20] MEDS: Acetaminophen 325 MG Tablet 650 MG PO (20:07)
== END 2023-01-20 20:09 | disposition home or self-care (01) ==
PROVIDERS: Emergency Provider Emergency Medicine; PCP Family Medicine; Visit Provider Emergency Medicine
DX: M54.9 Dorsalgia, unspecified (principal); F20.9 Schizophrenia, unspecified; J44.9 Chronic obstructive pulmonary disease, unspecified; E11.9 Type 2 diabetes mellitus without complications; Z79.4 Long term (current) use of insulin; F17.210 Nicotine dependence, cigarettes, uncomplicated; I25.10 Atherosclerotic heart disease of native coronary artery without angina pectoris; F32.A Depression, unspecified; J45.909 Unspecified asthma, uncomplicated; Z79.899 Other long term (current) drug therapy; Z79.84 Long term (current) use of oral hypoglycemic drugs

== ENCOUNTER 2023-01-20 21:29 | Emergency (ER) | payer MEDICARE, MEDICAID, SELFPAY ==
[2023-01-20 21:30] VITALS: BP 150/90; PULSE 70; RESP 16; TEMP 36.1; O2SAT 99; BMI 37.7
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
[2023-01-20] MEDS: Ketorolac 60 MG/2 ML Vial IM (22:06)
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
[2023-01-20 23:20] VITALS: BP 156/98; PULSE 87; RESP 18; O2SAT 96
== END 2023-01-20 23:21 | disposition home or self-care (01) ==
PROVIDERS: Emergency Provider Emergency Medicine; PCP Family Medicine; Visit Provider Emergency Medicine
DX: S39.012A Strain of muscle, fascia and tendon of lower back, initial encounter (principal); F20.9 Schizophrenia, unspecified; J44.9 Chronic obstructive pulmonary disease, unspecified; E11.9 Type 2 diabetes mellitus without complications; Z79.4 Long term (current) use of insulin; S16.1XXA Strain of muscle, fascia and tendon at neck level, initial encounter; Y92.410 Unspecified street and highway as the place of occurrence of the external cause; I25.10 Atherosclerotic heart disease of native coronary artery without angina pectoris; F17.210 Nicotine dependence, cigarettes, uncomplicated; F32.A Depression, unspecified; Z79.899 Other long term (current) drug therapy; Z79.84 Long term (current) use of oral hypoglycemic drugs; V48.1XXA Car passenger injured in noncollision transport accident in nontraffic accident, initial encounter; S80.811A Abrasion, right lower leg, initial encounter
CPT/HCPCS: 72040; 72072; 72100; 72170; 73110; 73552; 73590; 73630; 96372; 99284

== ENCOUNTER 2023-02-09 13:59 | Emergency (ER) | payer MEDICARE, MEDICAID, SELFPAY ==
[2023-02-09 14:00] VITALS: BP 116/97; PULSE 81; RESP 14; TEMP 36.4; O2SAT 96; BMI 39.2
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
[2023-02-09] MEDS: Orphenadrine 60 MG/2 ML Ampul IM (14:16)
[2023-02-09] MEDS: Ketorolac 60 MG/2 ML Vial IM (14:16)
== END 2023-02-09 14:35 | disposition home or self-care (01) ==
LOC: ED 14:31
PROVIDERS: Emergency Provider Emergency Medicine; PCP Family Medicine; Visit Provider Emergency Medicine
DX: G89.29 Other chronic pain (principal); F20.9 Schizophrenia, unspecified; J44.9 Chronic obstructive pulmonary disease, unspecified; E11.9 Type 2 diabetes mellitus without complications; Z79.4 Long term (current) use of insulin; M54.50 Low back pain, unspecified; I25.10 Atherosclerotic heart disease of native coronary artery without angina pectoris; F17.210 Nicotine dependence, cigarettes, uncomplicated; F32.A Depression, unspecified; J45.909 Unspecified asthma, uncomplicated; Z79.899 Other long term (current) drug therapy; Z79.84 Long term (current) use of oral hypoglycemic drugs
CPT/HCPCS: 96372; 99284

== ENCOUNTER 2023-03-11 19:41 | Emergency (ER) | payer MEDICARE, MEDICAID, SELFPAY ==
[2023-03-11 19:42] VITALS: BP 149/101; PULSE 56; RESP 14; TEMP 36.3; O2SAT 98; BMI 40.4
--- NOTE | 2023-03-11 19:54 | EKG12_ITS ---
Test Reason : CP Blood Pressure : / mmHG Vent. Rate : 058 BPM Atrial Rate : 058 BPM P-R Int : 182 ms QRS Dur : 086 ms QT Int : 464 ms P-R-T Axes : 068 039 074 degrees QTc Int : 455 ms Sinus bradycardia Possible Left atrial enlargement Low voltage QRS Borderline ECG Confirmed by EM RECINOS, NICK ([id number]), field map editor ROSALEE COHN ([id number]) on 03/14/2023 1:58:48 PM Referred By: Confirmed By:NICK STRICKLAND MD
--- NOTE | 2023-03-11 19:55 | ED.VIS.CHEST ---
HPI History of Present Illness Chief Complaint: Chest Pain Informant: patient Onset/Context/Timing Onset: Today Narrative Narrative: Patient presents secondary to chest pain as well as back pain and leg pain. He states the pain has been ongoing all day. He describes his chest pain as squeezing. He reportedly did take Zanaflex, Tylenol, and aspirin prior to arrival without any improvement. He states he is been trying to get his house cleaned up as his significant other is coming home from the [facility]. He thinks his been doing more activity than normal. [facility] Medical History Asthma CAD (coronary artery disease) COPD (chronic obstructive pulmonary disease) Depression Diabetes Schizophrenia Home Medications citalopram 40 mg tablet 40 mg PO DAILY DEPRESSION 10/19/15 [History Last Taken 12/19/20] fluphenazine HCl 1 mg tablet 2 mg PO BID ANTIPSYHCOTIC 10/19/15 [History Last Taken 12/19/20] oxcarbazepine 600 mg tablet (Trileptal) 1 tab PO BID SEIZURE 03/06/17 [History Last Taken 12/19/20] albuterol sulfate 90 mcg/actuation aerosol inhaler (Ventolin HFA) 1 puff inhalation Q4H PRN PRN Sob &/Or Wheezing ##1 03/08/17 [Rx Last Taken 12/18/20] quetiapine 25 mg tablet (Seroquel) 25 mg PO QHS MOOD 09/10/17 [History Last Taken 12/18/20] hydroxyzine pamoate 50 mg capsule (Vistaril) 50 mg PO TID PRN PRN Anxiety 12/19/17 [History Last Taken 12/19/20] oxycodone-acetaminophen 5 mg-325 mg tablet 1 tab PO Q6H PRN PRN Pain 3 days ##6 02/16/18 [Rx Last Taken 12/16/20] insulin glargine 100 unit/mL (3 mL) subcutaneous pen (Lantus Solostar U-100 Insulin) 36 unit subcut DAILY DM 12/19/20 [History Last Taken 03/11/23] mirtazapine 30 mg tablet 30 mg PO QHS INSOMNIA 12/19/20 [History Last Taken 12/15/20] simvastatin 80 mg tablet 80 mg PO QHS CHOLESTEROL 12/19/20 [History Last Taken 12/18/20] tizanidine 4 mg tablet 4 mg PO TID PRN PRN Spasms 12/19/20 [History Last Taken 12/18/20] sulfamethoxazole 800 mg-trimethoprim 160 mg tablet (Bactrim DS) 1 tab PO BID #20 tabs 03/02/22 [Rx Last Taken Unknown] doxycycline monohydrate 100 mg capsule 100 mg PO BID #20 CAPSULES 04/15/22 [Rx Last Taken Unknown] metformin 1,000 mg tablet 2,000 mg PO DAILY 04/15/22 [History Last Taken Unknown] prednisone 10 mg tablet 10 mg PO UD #33 tabs 04/15/22 [Rx Last Taken Unknown] famotidine 20 mg tablet 20 mg PO BID #28 TABLETS 05/26/22 [Rx Last Taken Unknown] sulfamethoxazole 800 mg-trimethoprim 160 mg tablet (Bactrim DS) 1 tab PO BID 7 days #14 tabs 06/17/22 [Rx Last Taken Unknown] prednisone 50 mg tablet 50 mg PO QODAY 5 days #3 tabs 10/08/22 [Rx Last Taken Unknown] oxycodone-acetaminophen 5 mg-325 mg tablet (Percocet) 1 tab PO TID PRN pain 3 days #7 tabs 01/17/23 [Rx Last Taken Unknown] tizanidine 4 mg tablet 4 mg PO Q8H PRN muscle spasticity #14 tabs 01/17/23 [Rx Last Taken Unknown] Allergy/AdvReac Type Severity Reaction Status Date / Time naproxen Allergy Shortness Verified 01/20/23 21:30 of breath Penicillins Allergy Swelling Verified 01/20/23 21:30 ibuprofen AdvReac Other Verified 01/20/23 21:30 meloxicam [From Mobic] AdvReac HEADACHE Verified 01/20/23 21:30 Surgical History Gangrene Social History Smoking Status: Current every day smoker tobacco type: cigarettes Tobacco: How many years used: 30 second hand exposure: Yes alcohol intake: never substance use type: does not use caffeine: Yes (3/day) what type of physical activity do you participate in: none ROS ROS ED Constitutional Constitutional ED: Denies chills or fever(s) Eyes Eyes: Denies discharge from eye(s) ENT ENT ED: Denies discharge from eye(s), rhinorrhea or sore throat Cardiovascular Cardiovascular: Reports chest pain; Denies palpitations Respiratory/Chest Respiratory/Chest: Denies cough or dyspnea Gastrointestinal Gastrointestinal: Denies abdominal pain, diarrhea, nausea or vomiting Genitourinary Genitourinary ED: Denies dysuria Musculoskeletal Musculoskeletal: Reports back pain, extremity pain and myalgias Integumentary Denies Abrasions or rash Neurologic Neurologic: Denies headache(s) or weakness Psychiatric Psychiatric: Reports anxiety; Denies depression Allergic/Immunologic Allergic/Immunologic ED: Denies lip swelling or urticaria EXAM Physical Exam Const Vital Signs: 03/11/23 19:42 03/11/23 19:45 03/11/23 20:42 Temperature 97.3 F L Temperature Source Temporal Pulse Rate 56 L 52 L Respiratory Rate 14 14 Respiratory Effort Normal Non-Labored Blood Pressure 149/101 H 148/89 H Blood Pressure Mean 117 108 Pulse Ox 98 98 Oxygen Delivery Method Room Air Room Air Positive well nourished, well developed and obese General Appearance ED: well developed Nutritional Appearance: obese HEENT Reports moist mucous membranes Eyes EOMs intact bilaterally Chest Wall inspection of chest normal and palpation of chest normal Resp normal respiratory effort and clear to auscultation bilaterally Cardio regular rhythm Rate: bradycardia GI normal to inspection, nondistended, normoactive bowel sounds Extremity normal to inspection Extremity Narrative: No focal muscular tenderness on palpation. No significant edema. Neuro oriented x3 and no sensory deficits noted Motor Exam: strength 5/5 throughout Psych Mood & Affect: anxious Skin no rashes or lesions noted Heart Score History: Slightly/Non-Suspicious ECG: Normal Age: >45 - <65 years Risk Factors: >/= 3 Risk Factors or History of CAD Troponin: </= Normal Limit Score: 3 MDM MDM MDM Narrative Medical decision making narrative: Patient is placed on property assessment monitor. EKG obtained to evaluate for cardiac arrhythmia/ischemia. Chest x-ray obtained to evaluate for acute lung pathology, cardiac size, or mediastinal abnormality. Labwork obtained to evaluate for leukocytosis, anemia, and electrolyte derangement. Patient be given a single dose of morphine, Zofran, and Valium here for muscular pain while undergoing work-up. History & Record Review Discussion w/independent historian: EMS personnel and Patient Additional record(s) reviewed:: Prior ED visit and Prior labs Lab Data Attestation: I reviewed the patient's lab results. Labs: Laboratory Results - last 24 hr 03/11/23 19:45 WBC 12.7 H RBC 4.67 Hgb 14.7 Hct 42.7 MCV 91.4 MCH 31.5 MCHC 34.4 RDW Std Deviation 42.5 RDW Coeff of Desiree 12.9 Plt Count 242 MPV 9.2 Immature Gran % (Auto) 0.500 Neut % (Auto) 50.0 Lymph % (Auto) 39.1 [place] % (Auto) 6.9 Eos % (Auto) 2.8 Baso % (Auto) 0.7 Absolute Neuts (auto) 6.3 Absolute Lymphs (auto) 4.95 H Nucleated RBC % 0 Sodium 140 Potassium 3.8 Chloride 106 Carbon Dioxide 26.0 Anion Gap 8 BUN 13 Creatinine 1.09 Estim Creat Clear Calc 83.78 Est GFR (MDRD) Af Amer 93 Est GFR (MDRD) Non-Af 77 BUN/Creatinine Ratio 11.9 Glucose 145 H Calcium 8.8 Total Creatine Kinase 70 Troponin I High Sens 8 Radiography Chest X-Ray - ED: 1 View, Read by ED Physician, Chronic Changes and No Infiltrates Diagnostic Testing: Clinical Impression(s) from Imaging Studies Chest X-Ray 03/11/23 20:20 IMPRESSION: No radiographic evidence of acute cardiopulmonary disease. Electronically Signed: Edin Hastings MD at 20:48 EDT , EKG Initial EKG: Attestation: I personally reviewed and interpreted this EKG as follows: Interpretation: Sinus Bradycardia (Sinus bradycardia 58 bpm. No acute ischemia.) Treatment and Re-Evaluation :: CBC was a white count of 12.7 with hemoglobin of 14.7. Differential is unremarkable. Chemistry studies are unremarkable. CK is normal at 70 and troponin is normal at 8. Patient reports having pain all day. Portable chest x-ray per my interpretation reveals no acute changes with chronic findings noted. Radiology interpretation reviewed and agrees. EKG is sinus bradycardia with no acute ischemia. On repeat evaluation patient is continuing to complain of pain. I advised him I would give him a one-time dose of oxycodone here for pain but would not send him home with narcotics. Discharge Plan Triage Chief Complaint: Chest Pain ED Provider: Tanisha Mallory Dx/Rx/DC Orders Clinical Impression: Myalgia, Chest pain Instructions: ED Chest Pain, Uncertain Cause, ED Myalgias Prescriptions: No Action citalopram 40 MG tablet 40 mg PO DAILY Patient Comments: depression fluphenazine HCl 1 MG tablet 2 mg PO BID Patient Comments: mood oxcarbazepine [Trileptal] 600 mg tablet 1 tab PO BID Patient Comments: Take 1 tablet by mouth twice a day after meals albuterol sulfate [Ventolin HFA] 1 INHALER inhaler 1 puff inhalation Q4H PRN PRN (Reason: Sob &/Or Wheezing) Qty: 1 0RF quetiapine [Seroquel] 25 MG tablet 25 mg PO QHS hydroxyzine pamoate [Vistaril] 50 MG capsule 50 mg PO TID PRN PRN (Reason: Anxiety) oxycodone-acetaminophen 1 TABLET tablet 1 tab PO Q6H PRN PRN (Reason: Pain) 3 Days Qty: 6 0RF tizanidine 4 mg tablet 4 mg PO TID PRN PRN (Reason: Spasms) simvastatin 80 mg tablet 80 mg PO QHS mirtazapine 30 mg tablet 30 mg PO QHS insulin glargine [Lantus Solostar U-100 Insulin] 100 unit/mL (3 mL) insulin pen 36 unit SUBCUT DAILY sulfamethoxazole-trimethoprim [Bactrim DS] 800-160 mg tablet 1 tab PO BID Qty: 20 0RF metformin 1,000 mg tablet 2,000 mg PO DAILY Patient Comments: TAKE 1 TABLET BY MOUTH TWICE A DAY WITH MEALS prednisone 10 MG tablet 10 mg PO UD Qty: 33 0RF Rx Instructions: Take 4 tablets daily for 3 days, then 3 daily for 3 days, then 2 daily for 3 days, then 1 a day for 3 days then 1 QOD for 3 doses. doxycycline monohydrate 100 MG capsule 100 mg PO BID Qty: 20 0RF famotidine [famotidine] 20 MG tablet 20 mg PO BID Qty: 28 0RF sulfamethoxazole-trimethoprim [Bactrim DS] 800-160 mg tablet 1 tab PO BID 7 Days Qty: 14 0RF prednisone 50 mg tablet 50 mg PO QODAY 5 Days Qty: 3 0RF tizanidine 4 mg tablet 4 mg PO Q8H PRN (Reason: muscle spasticity) Qty: 14 0RF oxycodone-acetaminophen [Percocet] 5-325 mg tablet 1 tab PO TID PRN (Reason: pain) 3 Days Qty: 7 0RF Primary Care Provider: Kajal Knutson Referrals: Kajal Knutson DO [Primary Care Provider] - 1 Week if not improving Disposition Disposition: Home, Self Care
[2023-03-11] MEDS: Morphine 4 MG/ML Syringe IV (20:09)
[2023-03-11] MEDS: Ondansetron 4 MG/2 ML Vial IV (20:09)
[2023-03-11] MEDS: diazePAM 5 MG Tablet 2.5 MG PO (20:09)
[2023-03-11 20:14] LABS: Absolute Lymphocyte Count 4.95 X10^3/uL (0.83-4.51); Absolute Neutrophil Count 6.3 X10^3/uL (2.0-7.7); Basophil# 0.09 X10^3/uL; Basophil% 0.7 % (0-1); Eosinophil# 0.36 X10^3/uL; Eosinophils% 2.8 % (0-5); Hematocrit 42.7 % (40-54); Hemoglobin 14.7 g/dL (13.0-16.5); Lymphocyte # 4.95 X10^3/ul (0.83-4.51); Lymphocyte % 39.1 % (19-41); Mean Corp Hgb Conc 34.4 g/dL (32-36); Mean Corpuscular Hgb 31.5 pg (27.0-32.0); Mean Corpuscular Volume 91.4 fL (80-94); Mean Platelet Vol. 9.2 fl (6.2-12.0); Monocyte# 0.87 X10^3/uL; Monocyte% 6.9 % (0-10); NRBC Flagged by Analyzer 0 % (0-5); Neutrophil # 6.34 X10^3/uL (2.7-7.7); Platelet Count 242 K/mm3 (150-450); RBC Distribution Width CV 12.9 % (11.6-14.6); RBC Distribution Width SD 42.5 fl (35.1-43.9); Red Blood Count 4.67 M/mm3 (4.6-6.2); White Blood Count 12.7 K/mm3 (4.4-11.0)
[2023-03-11] MEDS: 0.9% Normal Saline (1000mL) 1,000 ML 1000 ML IV (20:15)
--- NOTE | 2023-03-11 20:20 | RAD_ITS ---
EXAM: XR CHEST, 1 VIEW CLINICAL INDICATION: cp TECHNIQUE: Frontal view of the chest. COMPARISON: 10/08/2022 FINDINGS: LUNGS AND PLEURAL SPACES: Unremarkable. No consolidation or edema. No pneumothorax. No effusion. HEART: Unremarkable. Cardiac silhouette not enlarged. MEDIASTINUM: Central airways and mediastinal contour are unremarkable. BONES/JOINTS: Unremarkable. SOFT TISSUES: Unremarkable. RAD/Chest 1 View (Portable) IMPRESSION: No radiographic evidence of acute cardiopulmonary disease. Electronically Signed: Edin Hastings MD at 20:48 EDT ,
[2023-03-11 20:34] LABS: Anion Gap 8 (5-15); BUN 13 mg/dL (7-18); BUN/Creat Ratio 11.9 RATIO (10-20); CPK Total, Creatine Kinase 70 U/L (39-308); Calcium,Total 8.8 mg/dL (8.5-10.1); Chloride 106 mmol/L (98-107); Creatinine, Serum 1.09 mg/dL (0.70-1.30); EST Glomerular Filtration Rate 77 mL/min (>60); Est Glom Filt Rate - Afr Amer 93 mL/min (>60); Estimated Creatinine Clearance 83.78 ml/min; Glucose 145 mg/dL (74-106); Potassium 3.8 mmol/L (3.5-5.1); Sodium Level 140 mmol/L (136-145); Troponin-I HS 8 pg/mL (3.0-78.0)
[2023-03-11 20:42] VITALS: BP 148/89; PULSE 52; RESP 14; O2SAT 98
[2023-03-11 21:00] VITALS: PULSE 58; RESP 18; O2SAT 96
[2023-03-11 21:53] VITALS: BP 126/86; PULSE 54; RESP 18; O2SAT 98
[2023-03-11] MEDS: oxyCODONE 5 MG Tablet PO (22:07)
== END 2023-03-11 22:14 | disposition home or self-care (01) ==
PROVIDERS: Emergency Provider Emergency Medicine; PCP Family Medicine; Visit Provider Emergency Medicine
DX: R07.9 Chest pain, unspecified (principal); F20.9 Schizophrenia, unspecified; J44.9 Chronic obstructive pulmonary disease, unspecified; E11.9 Type 2 diabetes mellitus without complications; Z79.4 Long term (current) use of insulin; I25.10 Atherosclerotic heart disease of native coronary artery without angina pectoris; F17.210 Nicotine dependence, cigarettes, uncomplicated; M79.10 Myalgia, unspecified site; F32.A Depression, unspecified; J45.909 Unspecified asthma, uncomplicated; Z79.84 Long term (current) use of oral hypoglycemic drugs
CPT/HCPCS: 71045; 80048; 82550; 84484; 85025; 93005; 96361; 96374; 96375; 99285; A4216; J2405

== ENCOUNTER 2023-03-17 15:11 | Emergency (ER) | payer MEDICARE, MEDICAID, SELFPAY ==
[2023-03-17 15:12] VITALS: BP 87/56; PULSE 55; RESP 16; TEMP 36.6; O2SAT 100; BMI 40.1
[2023-03-17 16:06] VITALS: BP 139/85; PULSE 57; RESP 16; O2SAT 100
--- NOTE | 2023-03-17 16:15 | CT_ITS ---
STUDY: CT LUMBAR SPINE WITHOUT CONTRAST REASON FOR EXAM: Male, 47 years old. pain RADIATION DOSAGE (If Supplied By Facility): CTDIvol = ( 48.85 ) mGy, DLP = ( 1260.75 ) mGycm TECHNIQUE: The patient was scanned in a multi detector CT scanner. High resolution transaxial imaging was performed. Images were obtained from T12 to S1. Sagittal and coronal images were reconstructed. Individualized dose optimization techniques were used for this CT. COMPARISON: None FINDINGS: Normal lumbar lordosis. Mild levoscoliosis centered at L3. Normal vertebrae of the lumbar spine. Sacralization of the left side of L5. L1-2: Normal endplates. Normal disc height and morphology. Normal bilateral facet joints. Normal central canal and bilateral lateral recesses. Normal bilateral intervertebral neural foramina. L2-3: Normal endplates. Normal disc height and morphology. Normal bilateral facet joints. Normal central canal and bilateral lateral recesses. Normal bilateral intervertebral neural foramina. L3-4: Mild bilateral facet hypertrophy and ligament flavum hypertrophy. Mild broad disc protrusion produces mild spinal stenosis and mild bilateral neural foraminal stenosis. L4-5: Mild broad disc protrusion produces mild spinal stenosis and mild bilateral neural foraminal stenosis. L5-S1: Mild peripherally calcified broad disc protrusion produces mild spinal stenosis but no neural foraminal stenosis. Normal visualized paraspinous soft tissue structures. CT/Spine Lumbar without Contrast IMPRESSION: Multilevel degenerative changes, as described above. Electronically Signed: Franco Carranza MD at 17:18 EDT ,
--- NOTE | 2023-03-17 16:17 | EDS_ITS ---
HPI History of Present Illness Chief Complaint: Back Narrative Narrative: 47-year-old male presents with exacerbation of his chronic back pain. He presents via EMS. He relates history that his girlfriend is coming home from the [facility] either tomorrow or Saturday and he has been trying to clean up. He has been bending and lifting various objects because he states no one would help him. He took 2 muscle relaxers today without relief of his symptoms. He states when he comes to the emergency department he usually gets a shot for pain which helps relieve his symptoms. He is currently on the waiting list to get into pain management with Dr. Acosta. He denies any fevers or chills. No nausea or vomiting, no saddle anesthesia, no loss of bowel or bladder, no red l flag symptoms for cauda equina. This is exacerbation of his chronic pain. [facility] Medical History Asthma CAD (coronary artery disease) COPD (chronic obstructive pulmonary disease) Depression Diabetes Schizophrenia Home Medications citalopram 40 mg tablet 40 mg PO DAILY DEPRESSION 10/19/15 [History Last Taken 12/19/20] fluphenazine HCl 1 mg tablet 2 mg PO BID ANTIPSYHCOTIC 10/19/15 [History Last Taken 12/19/20] oxcarbazepine 600 mg tablet (Trileptal) 1 tab PO BID SEIZURE 03/06/17 [History Last Taken 12/19/20] albuterol sulfate 90 mcg/actuation aerosol inhaler (Ventolin HFA) 1 puff inhalation Q4H PRN PRN Sob &/Or Wheezing ##1 03/08/17 [Rx Last Taken 12/18/20] quetiapine 25 mg tablet (Seroquel) 25 mg PO QHS MOOD 09/10/17 [History Last Taken 12/18/20] hydroxyzine pamoate 50 mg capsule (Vistaril) 50 mg PO TID PRN PRN Anxiety 12/19/17 [History Last Taken 12/19/20] oxycodone-acetaminophen 5 mg-325 mg tablet 1 tab PO Q6H PRN PRN Pain 3 days ##6 02/16/18 [Rx Last Taken 12/16/20] insulin glargine 100 unit/mL (3 mL) subcutaneous pen (Lantus Solostar U-100 Insulin) 36 unit subcut DAILY DM 12/19/20 [History Last Taken 03/11/23] mirtazapine 30 mg tablet 30 mg PO QHS INSOMNIA 12/19/20 [History Last Taken 12/15/20] simvastatin 80 mg tablet 80 mg PO QHS CHOLESTEROL 12/19/20 [History Last Taken 12/18/20] tizanidine 4 mg tablet 4 mg PO TID PRN PRN Spasms 12/19/20 [History Last Taken 12/18/20] sulfamethoxazole 800 mg-trimethoprim 160 mg tablet (Bactrim DS) 1 tab PO BID #20 tabs 03/02/22 [Rx Last Taken Unknown] doxycycline monohydrate 100 mg capsule 100 mg PO BID #20 CAPSULES 04/15/22 [Rx Last Taken Unknown] metformin 1,000 mg tablet 2,000 mg PO DAILY 04/15/22 [History Last Taken Unknown] prednisone 10 mg tablet 10 mg PO UD #33 tabs 04/15/22 [Rx Last Taken Unknown] famotidine 20 mg tablet 20 mg PO BID #28 TABLETS 05/26/22 [Rx Last Taken Unknown] sulfamethoxazole 800 mg-trimethoprim 160 mg tablet (Bactrim DS) 1 tab PO BID 7 days #14 tabs 06/17/22 [Rx Last Taken Unknown] prednisone 50 mg tablet 50 mg PO QODAY 5 days #3 tabs 10/08/22 [Rx Last Taken Unknown] oxycodone-acetaminophen 5 mg-325 mg tablet (Percocet) 1 tab PO TID PRN pain 3 days #7 tabs 01/17/23 [Rx Last Taken Unknown] tizanidine 4 mg tablet 4 mg PO Q8H PRN muscle spasticity #14 tabs 01/17/23 [Rx Last Taken Unknown] Allergy/AdvReac Type Severity Reaction Status Date / Time naproxen Allergy Shortness Verified 03/17/23 15:16 of breath Penicillins Allergy Swelling Verified 03/17/23 15:16 ibuprofen AdvReac Other Verified 03/17/23 15:16 meloxicam [From Mobic] AdvReac HEADACHE Verified 03/17/23 15:16 Surgical History Gangrene Social History Smoking Status: Current every day smoker tobacco type: cigarettes Tobacco: How many years used: 30 second hand exposure: Yes alcohol intake: never substance use type: does not use caffeine: Yes (3/day) what type of physical activity do you participate in: none ROS ROS ED ROS Narrative Constitutional: No fever, no chills. HEENT: No sore throat. No neck pain. No loss of vision. No rhinorrhea. Cardiovascular: No chest pain. No palpitations. No pedal edema. Respiratory: No cough, no shortness of breath. Abdominal: No abdominal pain. No nausea. No vomiting. Genitourinary: No dysuria. No hematuria. Musculoskeletal: No myalgias. No arthralgias. Midline to diffuse low back pain. Neurologic: No headaches. No dizziness. No lightheadedness. Saddle anesthesia. No loss of bowel or bladder. Skin: No rash. No change in color. Psychiatric: No depression. No anxiety. EXAM Physical Exam Narrative Exam Narrative: Afebrile. Vital signs noted. HEENT: Normocephalic. Atraumatic. PERRL, EOMI. Neck soft and supple. No point tenderness or step off. Cardiovascular: Regular rate and rhythm. No murmurs, rubs, or gallops appreciated. Respiratory: No tachypnea. Lungs clear to auscultation bilaterally. Gastrointestinal: Abdomen soft, nontender, with normoactive bowel sounds. No rebound or guarding. Neurological: Awake. Alert. Nonfocal, nonlateralizing. Flexion and extension of hip and knees bilaterally intact. EHL intact bilaterally. Skin: No rash. Normal color. No pallor. Musculoskeletal: No pedal edema. Full range of motion extremities. Const Vital Signs: 03/17/23 15:12 03/17/23 16:06 Temperature 97.8 F Temperature Source Temporal Pulse Rate 55 L 57 L Respiratory Rate 16 16 Blood Pressure 87/56 L 139/85 H Blood Pressure Mean 66 103 Pulse Ox 100 100 Oxygen Delivery Method Room Air Room Air MDM MDM MDM Narrative Medical decision making narrative: I reviewed the patient's prior records. He was seen last week, 6 days ago for chest pain and mention back pain, in the same history that he is trying to clean up his apartment for his girlfriend's return. He had been given oxycodone at that time. On his visit last month, it was exacerbation of his chronic back pain, once again no red flag signs, but he was given Toradol and Norflex as it was stated that he had problems with opiate addiction in the past. As he has not had recent imaging, will obtain CT of the lumbar spine to rule out any traumatic fracture or compression fracture. There are no signs of cauda equina and I do not feel emergent MRI is indicated. May be more exacerbation of his chronic pain. As I reviewed his medications in the past although he has allergies to ibuprofen and naproxen and Mobic, he did tolerate intramuscular Toradol injection. He will be given 1 oxycodone tablet here in the emergency department, but I do not feel comfortable writing him prescription for narcotic pain medication. I do not feel that laboratory testing is indicated. His hypotension was transient. I reviewed the CT report on his lumbar spine, and he has multilevel degenerative changes but no evidence of an acute fracture. He was told once again that he would not be receiving a prescription for narcotic pain medication and that it should come from pain management or his primary care provider. He had asked for a couple pills. When he was refused this, he proceeded to ask for another dose of oxycodone. I do not feel this is indicated. At this point in time, I feel he can be discharged safely home with follow-up. Disposition is discharged home in stable condition. History & Record Review Discussion w/independent historian: Patient Additional record(s) reviewed:: Prior ED visit and Prior labs Radiography Diagnostic Testing: Clinical Impression(s) from Imaging Studies Lumbar Spine CT 03/17/23 16:15 IMPRESSION: Multilevel degenerative changes, as described above. Electronically Signed: Franco Carranza MD at 17:18 EDT , Discharge Plan Triage Chief Complaint: Back ED Provider: Oscar Layton Dx/Rx/DC Orders Clinical Impression: Schizophrenia, Chronic back pain Instructions: ED Back Pain (Acute or Chronic), ED Chronic Pain Prescriptions: No Action citalopram 40 MG tablet 40 mg PO DAILY Patient Comments: depression fluphenazine HCl 1 MG tablet 2 mg PO BID Patient Comments: mood oxcarbazepine [Trileptal] 600 mg tablet 1 tab PO BID Patient Comments: Take 1 tablet by mouth twice a day after meals albuterol sulfate [Ventolin HFA] 1 INHALER inhaler 1 puff inhalation Q4H PRN PRN (Reason: Sob &/Or Wheezing) Qty: 1 0RF quetiapine [Seroquel] 25 MG tablet 25 mg PO QHS hydroxyzine pamoate [Vistaril] 50 MG capsule 50 mg PO TID PRN PRN (Reason: Anxiety) oxycodone-acetaminophen 1 TABLET tablet 1 tab PO Q6H PRN PRN (Reason: Pain) 3 Days Qty: 6 0RF tizanidine 4 mg tablet 4 mg PO TID PRN PRN (Reason: Spasms) simvastatin 80 mg tablet 80 mg PO QHS mirtazapine 30 mg tablet 30 mg PO QHS insulin glargine [Lantus Solostar U-100 Insulin] 100 unit/mL (3 mL) insulin pen 36 unit SUBCUT DAILY sulfamethoxazole-trimethoprim [Bactrim DS] 800-160 mg tablet 1 tab PO BID Qty: 20 0RF metformin 1,000 mg tablet 2,000 mg PO DAILY Patient Comments: TAKE 1 TABLET BY MOUTH TWICE A DAY WITH MEALS prednisone 10 MG tablet 10 mg PO UD Qty: 33 0RF Rx Instructions: Take 4 tablets daily for 3 days, then 3 daily for 3 days, then 2 daily for 3 days, then 1 a day for 3 days then 1 QOD for 3 doses. doxycycline monohydrate 100 MG capsule 100 mg PO BID Qty: 20 0RF famotidine [famotidine] 20 MG tablet 20 mg PO BID Qty: 28 0RF sulfamethoxazole-trimethoprim [Bactrim DS] 800-160 mg tablet 1 tab PO BID 7 Days Qty: 14 0RF prednisone 50 mg tablet 50 mg PO QODAY 5 Days Qty: 3 0RF tizanidine 4 mg tablet 4 mg PO Q8H PRN (Reason: muscle spasticity) Qty: 14 0RF oxycodone-acetaminophen [Percocet] 5-325 mg tablet 1 tab PO TID PRN (Reason: pain) 3 Days Qty: 7 0RF Primary Care Provider: Kajal Knutson Referrals: Kajal Knutson, [Primary Care Provider] - 1 Day
[2023-03-17] MEDS: oxyCODONE 5 MG Tablet PO (16:25)
[2023-03-17] MEDS: Ketorolac 60 MG/2 ML Vial IM (16:25)
== END 2023-03-17 17:45 | disposition home or self-care (01) ==
PROVIDERS: Emergency Provider Emergency Medicine; PCP Family Medicine; Visit Provider Emergency Medicine
DX: M54.9 Dorsalgia, unspecified (principal); F20.9 Schizophrenia, unspecified; J44.9 Chronic obstructive pulmonary disease, unspecified; E11.9 Type 2 diabetes mellitus without complications; M47.819 Spondylosis without myelopathy or radiculopathy, site unspecified; F17.210 Nicotine dependence, cigarettes, uncomplicated; I25.10 Atherosclerotic heart disease of native coronary artery without angina pectoris; R07.9 Chest pain, unspecified; R03.1 Nonspecific low blood-pressure reading; G89.29 Other chronic pain; J45.909 Unspecified asthma, uncomplicated
CPT/HCPCS: 72131; 96372; 99284

== ENCOUNTER 2023-03-25 15:37 | Emergency (ER) | payer MEDICARE, MEDICAID, SELFPAY ==
[2023-03-25 15:38] VITALS: BP 137/89; PULSE 63; RESP 18; TEMP 36.4; O2SAT 99; BMI 37.2
--- NOTE | 2023-03-25 17:31 | ED.RN ---
VIVIAN STOVER LEAVES ROOM. IMMEDIATELY PT. CALLS OUT ASKING WHEN WOULD BE AROUND BECAUSE HE WANTS PAIN MEDS.
--- NOTE | 2023-03-25 17:32 | EX.ED.DYSGE1 ---
HPI <EMORY Hernandez - Last Filed: 03/25/23 19:32> History of Present Illness Chief Complaint: Back Narrative Narrative: Patient presenting due to an exacerbation of his chronic back pain. He presents via EMS. He reports that his girlfriend is coming home from the correction soon and he has been trying to rearrange furniture in his home to get ready for her. He has been taking muscle relaxers and Tylenol without any relief of his symptoms. He reports that he is on the waiting list to get in with pain management, Dr. Powers. He denies any fever, chills, bowel/bladder incontinence, saddle paresthesia, and urinary symptoms. He denies any injury to his back. PFS <EMORY Hernandez - Last Filed: 03/25/23 19:32> [facility] Medical History Asthma CAD (coronary artery disease) COPD (chronic obstructive pulmonary disease) Depression Diabetes Schizophrenia Home Medications citalopram 40 mg tablet 40 mg PO DAILY DEPRESSION 10/19/15 [History Last Taken 12/19/20] fluphenazine HCl 1 mg tablet 2 mg PO BID ANTIPSYHCOTIC 10/19/15 [History Last Taken 12/19/20] oxcarbazepine 600 mg tablet (Trileptal) 1 tab PO BID SEIZURE 03/06/17 [History Last Taken 12/19/20] albuterol sulfate 90 mcg/actuation aerosol inhaler (Ventolin HFA) 1 puff inhalation Q4H PRN PRN Sob &/Or Wheezing ##1 03/08/17 [Rx Last Taken 12/18/20] quetiapine 25 mg tablet (Seroquel) 25 mg PO QHS MOOD 09/10/17 [History Last Taken 12/18/20] hydroxyzine pamoate 50 mg capsule (Vistaril) 50 mg PO TID PRN PRN Anxiety 12/19/17 [History Last Taken 12/19/20] oxycodone-acetaminophen 5 mg-325 mg tablet 1 tab PO Q6H PRN PRN Pain 3 days ##6 02/16/18 [Rx Last Taken 12/16/20] insulin glargine 100 unit/mL (3 mL) subcutaneous pen (Lantus Solostar U-100 Insulin) 36 unit subcut DAILY DM 12/19/20 [History Last Taken 03/11/23] mirtazapine 30 mg tablet 30 mg PO QHS INSOMNIA 12/19/20 [History Last Taken 12/15/20] simvastatin 80 mg tablet 80 mg PO QHS CHOLESTEROL 12/19/20 [History Last Taken 12/18/20] tizanidine 4 mg tablet 4 mg PO TID PRN PRN Spasms 12/19/20 [History Last Taken 12/18/20] sulfamethoxazole 800 mg-trimethoprim 160 mg tablet (Bactrim DS) 1 tab PO BID #20 tabs 03/02/22 [Rx Last Taken Unknown] doxycycline monohydrate 100 mg capsule 100 mg PO BID #20 CAPSULES 04/15/22 [Rx Last Taken Unknown] metformin 1,000 mg tablet 2,000 mg PO DAILY 04/15/22 [History Last Taken Unknown] prednisone 10 mg tablet 10 mg PO UD #33 tabs 04/15/22 [Rx Last Taken Unknown] famotidine 20 mg tablet 20 mg PO BID #28 TABLETS 05/26/22 [Rx Last Taken Unknown] sulfamethoxazole 800 mg-trimethoprim 160 mg tablet (Bactrim DS) 1 tab PO BID 7 days #14 tabs 06/17/22 [Rx Last Taken Unknown] prednisone 50 mg tablet 50 mg PO QODAY 5 days #3 tabs 10/08/22 [Rx Last Taken Unknown] oxycodone-acetaminophen 5 mg-325 mg tablet (Percocet) 1 tab PO TID PRN pain 3 days #7 tabs 01/17/23 [Rx Last Taken Unknown] tizanidine 4 mg tablet 4 mg PO Q8H PRN muscle spasticity #14 tabs 01/17/23 [Rx Last Taken Unknown] Allergy/AdvReac Type Severity Reaction Status Date / Time naproxen Allergy Shortness Verified 03/25/23 15:38 of breath Penicillins Allergy Swelling Verified 03/25/23 15:38 ibuprofen AdvReac Other Verified 03/25/23 15:38 meloxicam [From Mobic] AdvReac HEADACHE Verified 03/25/23 15:38 Surgical History Gangrene Social History Smoking Status: Current every day smoker tobacco type: cigarettes Tobacco: How many years used: 30 second hand exposure: Yes alcohol intake: never substance use type: does not use caffeine: Yes (3/day) what type of physical activity do you participate in: none ROS <EMORY Hernandez - Last Filed: 03/25/23 19:32> ROS ED Constitutional Constitutional ED: Denies chills or fever(s) Cardiovascular Cardiovascular: Denies chest pain Respiratory/Chest Respiratory/Chest: Denies cough or dyspnea Gastrointestinal Gastrointestinal: Denies abdominal pain, constipation or vomiting Genitourinary Genitourinary ED: Denies dysuria, hematuria or urinary urgency Musculoskeletal Musculoskeletal: Reports back pain Neurologic Neurologic: Denies paresthesias or weakness EXAM <EMORY Hernandez - Last Filed: 03/25/23 19:32> Physical Exam Const Vital Signs: 03/25/23 15:38 Temperature 97.6 F L Temperature Source Temporal Pulse Rate 63 Respiratory Rate 18 Blood Pressure 137/89 H Blood Pressure Mean 105 Pulse Ox 99 Oxygen Delivery Method Room Air Positive well nourished, well developed and no apparent distress General Appearance ED: well developed HEENT Reports normocephalic and head/scalp atraumatic Mouth ED: Yes moist mucous membranes normal Eyes PERRL and EOMs intact bilaterally Neck full ROM and supple Chest Wall inspection of chest normal Resp normal respiratory effort and clear to auscultation bilaterally Cardio regular rate and regular rhythm GI soft to palpation, non-tender, non-distended and no masses Back/Spine normal ROM and normal to inspection Back/Spine Narrative: Right-sided paraspinal tenderness to the thoracic and lumbar spine. No step-offs, no midline tenderness. Cervical Spine: Negative for cervical spine tenderness Thoracic Spine / Upper Back: Negative for thoracic spinal tenderness Lumbar Spine / Lower Back: Negative for lumbar spinal tenderness Extremity normal to inspection and full ROM Neuro oriented x3, CN's II-XII intact bilaterally, moves all extremities, no focal motor deficits and no sensory deficits noted Sensorium / Orientation: awake and alert Motor Exam: strength 5/5 throughout Psych mental status grossly normal and thought process normal Skin no rashes or lesions noted and no wounds <Dr. Will Gonzalez DO - Last Filed: 03/26/23 00:05> Physical Exam Const Vital Signs: 03/25/23 15:38 Temperature 97.6 F L Temperature Source Temporal Pulse Rate 63 Respiratory Rate 18 Blood Pressure 137/89 H Blood Pressure Mean 105 Pulse Ox 99 Oxygen Delivery Method Room Air [facility] <EMORY Hernandez - Last Filed: 03/25/23 19:32> [facility] Narrative Medical decision making narrative: Patient presenting due to right-sided lower back pain. He has been seen here multiple times in the ED since December due to chronic back pain. He is nontoxic-appearing, vitals are unremarkable. Neuro examination is unremarkable, all of his pain is paraspinal, he does not have any midline tenderness. During his last visit he did have a lumbar CT performed that did not show any evidence of fracture. He does have a referral for pain management he is just waiting to get into see them. Examination is not concerning for cauda equina syndrome or spinal abscess. I did review previous notes that reports that patient has displayed drug-seeking behavior. He asked the attending if he would give him a prescription for narcotic pain medication to go home with, I do not feel that that is appropriate at this time. He has muscle relaxers at home that he can use. He was given a dose of Toradol here as he tolerated it in the past. He was given Ativan for a muscle relaxer. <Dr. Will Gonzalez, - Last Filed: 03/26/23 00:05> [facility] Treatment and Re-Evaluation :: ED attending note: I evaluated the patient in conjunction with the ERIK. I agree with his/her statements and above findings. I have personally performed a face to face assessment of the patient and have reviewed the ERIK Note. I performed a substantive portion of the visit including all aspects of the following. I personally saw the patient performed chart review, physical exam, reviewed labs, imaging (if obtained), and formulated a treatment and management plan. Brief history: 47-year-old male here with right latissimus dorsi pain. States has been working on the house more has had exacerbation of chronic pain. Patient denies any saddle anesthesia, urinary retension, bowel or bladder incontinence, lower extremity weakness, fever or IV drug use, no recent spinal manipulation or surgery, no recent urinary catheterization. Exam: TTP over right latissimus dorsi. No midline step-offs deformities. Intact 5/5 strength with ok sign (median), intact finger abduction (ulnar) intact wrist extension (radial n). Intact sensation in the radial, ulnar, and median nerve distributions. Intact pulses. No rashes. Nursing triage notes reviewed, Vital signs reviewed MDM/plan: Chief Complaint: Back pain External records reviewed: Frequent ED utilizer, imaging reviewed: CT scan of the lumbar spine from 03/17/2023 shows multilevel degenerative change Factors affecting care: Chronic back pain, schizophrenia, type 2 diabetes Social determinants of health: History of mental health disorder History obtained from others: EMS MDM narrative: Patient was hemodynamically stable, afebrile, nontoxic-appearing. No focal neurologic deficits noted on my exam. No bony step-offs or deformities noted. TTP and hypertonicity noted over latissimus dorsi muscle. I considered the following differential diagnosis: Fracture dislocation, muscle skeletal injury I considered bony injury of the spine however patient no midline tenderness and no reported trauma to suggest a fracture dislocation. I suspect he is having latissimus dorsi strain. Did give a small dose of Ativan here for muscle relaxation. Do not give narcotics to go home with. Gave pain management follow-up. Consults: None Shared decision making: I will have a discussion with the patient and or visitors regarding risk/benefits of further testing or admission. They will be made aware of of the risk/benefits inherent in this decision they will be given the opportunity to voice understanding. Discharge Plan Triage Chief Complaint: Back ED Midlevel Provider: Sophia Martinez ED Provider: Will Gonzalez Dx/Rx/DC Orders Clinical Impression: Chronic back pain Instructions: ED Back Care Tips Prescriptions: No Action citalopram 40 MG tablet 40 mg PO DAILY Patient Comments: depression fluphenazine HCl 1 MG tablet 2 mg PO BID Patient Comments: mood oxcarbazepine [Trileptal] 600 mg tablet 1 tab PO BID Patient Comments: Take 1 tablet by mouth twice a day after meals albuterol sulfate [Ventolin HFA] 1 INHALER inhaler 1 puff inhalation Q4H PRN PRN (Reason: Sob &/Or Wheezing) Qty: 1 0RF quetiapine [Seroquel] 25 MG tablet 25 mg PO QHS hydroxyzine pamoate [Vistaril] 50 MG capsule 50 mg PO TID PRN PRN (Reason: Anxiety) oxycodone-acetaminophen 1 TABLET tablet 1 tab PO Q6H PRN PRN (Reason: Pain) 3 Days Qty: 6 0RF tizanidine 4 mg tablet 4 mg PO TID PRN PRN (Reason: Spasms) simvastatin 80 mg tablet 80 mg PO QHS mirtazapine 30 mg tablet 30 mg PO QHS insulin glargine [Lantus Solostar U-100 Insulin] 100 unit/mL (3 mL) insulin pen 36 unit SUBCUT DAILY sulfamethoxazole-trimethoprim [Bactrim DS] 800-160 mg tablet 1 tab PO BID Qty: 20 0RF metformin 1,000 mg tablet 2,000 mg PO DAILY Patient Comments: TAKE 1 TABLET BY MOUTH TWICE A DAY WITH MEALS prednisone 10 MG tablet 10 mg PO UD Qty: 33 0RF Rx Instructions: Take 4 tablets daily for 3 days, then 3 daily for 3 days, then 2 daily for 3 days, then 1 a day for 3 days then 1 QOD for 3 doses. doxycycline monohydrate 100 MG capsule 100 mg PO BID Qty: 20 0RF famotidine [famotidine] 20 MG tablet 20 mg PO BID Qty: 28 0RF sulfamethoxazole-trimethoprim [Bactrim DS] 800-160 mg tablet 1 tab PO BID 7 Days Qty: 14 0RF prednisone 50 mg tablet 50 mg PO QODAY 5 Days Qty: 3 0RF tizanidine 4 mg tablet 4 mg PO Q8H PRN (Reason: muscle spasticity) Qty: 14 0RF oxycodone-acetaminophen [Percocet] 5-325 mg tablet 1 tab PO TID PRN (Reason: pain) 3 Days Qty: 7 0RF Primary Care Provider: Kajal Knutson Referrals: Kajal Knutson DO [Primary Care Provider] - 3-5 Days Activity Restrictions/Additional Instructions: Follow-up with your PCP and pain management. Disposition Disposition: Home, Self Care Discharge Date/Time: 03/25/23 18:26
[2023-03-25] MEDS: Ketorolac 15 MG/ML Vial IM (17:58)
== END 2023-03-25 18:26 | disposition home or self-care (01) ==
PROVIDERS: Emergency Provider Emergency Medicine; PCP Family Medicine; Visit Provider Emergency Medicine
DX: G89.29 Other chronic pain (principal); F20.9 Schizophrenia, unspecified; J44.9 Chronic obstructive pulmonary disease, unspecified; E11.9 Type 2 diabetes mellitus without complications; Z79.4 Long term (current) use of insulin; M54.9 Dorsalgia, unspecified; F17.210 Nicotine dependence, cigarettes, uncomplicated; I25.10 Atherosclerotic heart disease of native coronary artery without angina pectoris; F32.A Depression, unspecified; J45.909 Unspecified asthma, uncomplicated; Z79.899 Other long term (current) drug therapy; Z79.84 Long term (current) use of oral hypoglycemic drugs
CPT/HCPCS: 96372; 99284

== ENCOUNTER 2023-04-09 12:47 | Emergency (ER) | payer MEDICARE, MEDICAID, SELFPAY ==
[2023-04-09 12:48] VITALS: BP 153/89; PULSE 62; RESP 18; TEMP 35.9; O2SAT 99; BMI 39.4
--- NOTE | 2023-04-09 14:30 | ED.VIS.BACK ---
HPI History of Present Illness Chief Complaint: Back Informant: patient Narrative Narrative: Presents with worsened chronic back pain. He denies any new injury to his back but states he has been trying to get his house cleaned up. He complains of pain from his neck down through the lower back. He does have some radiation of pain to both legs. No fever or chills. Patient's recent visits were reviewed. He did recently have imaging that revealed chronic changes only. [facility] Medical History Asthma CAD (coronary artery disease) COPD (chronic obstructive pulmonary disease) Depression Diabetes Schizophrenia Home Medications citalopram 40 mg tablet 40 mg PO DAILY DEPRESSION 10/19/15 [History Last Taken 12/19/20] fluphenazine HCl 1 mg tablet 2 mg PO BID ANTIPSYHCOTIC 10/19/15 [History Last Taken 12/19/20] oxcarbazepine 600 mg tablet (Trileptal) 1 tab PO BID SEIZURE 03/06/17 [History Last Taken 12/19/20] albuterol sulfate 90 mcg/actuation aerosol inhaler (Ventolin HFA) 1 puff inhalation Q4H PRN PRN Sob &/Or Wheezing ##1 03/08/17 [Rx Last Taken 12/18/20] quetiapine 25 mg tablet (Seroquel) 25 mg PO QHS MOOD 09/10/17 [History Last Taken 12/18/20] hydroxyzine pamoate 50 mg capsule (Vistaril) 50 mg PO TID PRN PRN Anxiety 12/19/17 [History Last Taken 12/19/20] oxycodone-acetaminophen 5 mg-325 mg tablet 1 tab PO Q6H PRN PRN Pain 3 days ##6 02/16/18 [Rx Last Taken 12/16/20] insulin glargine 100 unit/mL (3 mL) subcutaneous pen (Lantus Solostar U-100 Insulin) 36 unit subcut DAILY DM 12/19/20 [History Last Taken 03/11/23] mirtazapine 30 mg tablet 30 mg PO QHS INSOMNIA 12/19/20 [History Last Taken 12/15/20] simvastatin 80 mg tablet 80 mg PO QHS CHOLESTEROL 12/19/20 [History Last Taken 12/18/20] tizanidine 4 mg tablet 4 mg PO TID PRN PRN Spasms 12/19/20 [History Last Taken 12/18/20] sulfamethoxazole 800 mg-trimethoprim 160 mg tablet (Bactrim DS) 1 tab PO BID #20 tabs 03/02/22 [Rx Last Taken Unknown] doxycycline monohydrate 100 mg capsule 100 mg PO BID #20 CAPSULES 04/15/22 [Rx Last Taken Unknown] metformin 1,000 mg tablet 2,000 mg PO DAILY 04/15/22 [History Last Taken Unknown] prednisone 10 mg tablet 10 mg PO UD #33 tabs 04/15/22 [Rx Last Taken Unknown] famotidine 20 mg tablet 20 mg PO BID #28 TABLETS 05/26/22 [Rx Last Taken Unknown] sulfamethoxazole 800 mg-trimethoprim 160 mg tablet (Bactrim DS) 1 tab PO BID 7 days #14 tabs 06/17/22 [Rx Last Taken Unknown] prednisone 50 mg tablet 50 mg PO QODAY 5 days #3 tabs 10/08/22 [Rx Last Taken Unknown] oxycodone-acetaminophen 5 mg-325 mg tablet (Percocet) 1 tab PO TID PRN pain 3 days #7 tabs 01/17/23 [Rx Last Taken Unknown] tizanidine 4 mg tablet 4 mg PO Q8H PRN muscle spasticity #14 tabs 01/17/23 [Rx Last Taken Unknown] Allergy/AdvReac Type Severity Reaction Status Date / Time naproxen Allergy Shortness Verified 04/09/23 12:48 of breath Penicillins Allergy Swelling Verified 04/09/23 12:48 ibuprofen AdvReac Other Verified 04/09/23 12:48 meloxicam [From Mobic] AdvReac HEADACHE Verified 04/09/23 12:48 Surgical History Gangrene Social History Smoking Status: Current every day smoker tobacco type: cigarettes Tobacco: How many years used: 30 second hand exposure: Yes alcohol intake: never substance use type: does not use caffeine: Yes (3/day) what type of physical activity do you participate in: none ROS ROS ED Constitutional Constitutional ED: Denies chills or fever(s) Eyes Eyes: Denies change in vision or discharge from eye(s) ENT ENT ED: Denies discharge from eye(s), rhinorrhea or sore throat Cardiovascular Cardiovascular: Denies chest pain Respiratory/Chest Respiratory/Chest: Denies cough or dyspnea Gastrointestinal Gastrointestinal: Denies abdominal pain, nausea or vomiting Musculoskeletal Musculoskeletal: Reports back pain; Denies extremity pain Integumentary Denies Abrasions or rash Neurologic Neurologic: Denies headache(s) or weakness Psychiatric Psychiatric: Denies anxiety or depression Allergic/Immunologic Allergic/Immunologic ED: Denies lip swelling or urticaria EXAM Physical Exam Const Vital Signs: 04/09/23 12:48 Temperature 96.6 F L Temperature Source Temporal Pulse Rate 62 Respiratory Rate 18 Blood Pressure 153/89 H Blood Pressure Mean 110 Pulse Ox 99 Oxygen Delivery Method Room Air Positive well nourished and well developed General Appearance ED: well developed HEENT Reports normocephalic and head/scalp atraumatic Eyes PERRL and EOMs intact bilaterally Neck supple Chest Wall inspection of chest normal and palpation of chest normal Resp normal respiratory effort and clear to auscultation bilaterally Cardio regular rate and regular rhythm GI soft to palpation Back/Spine Back/Spine Narrative: Paraspinal muscular tenderness throughout the thoracic and lumbar spine. No midline tenderness. Extremity normal to inspection Neuro oriented x3 Neuro Narrative: No focal neurologic deficits. Sensorium / Orientation: alert Psych mental status grossly normal Skin no rashes or lesions noted MDM MDM MDM Narrative Medical decision making narrative: Patient will be given an IM dose of Toradol here as he has tolerated this well in the past. He will also be given a 5 mg dose of p.o. oxycodone. He was advised that I would not write him a prescription for narcotics given that this is a chronic pain issue. He is given the information for pain management again. Discharge Plan Triage Chief Complaint: Back ED Provider: Tanisha Mallory Dx/Rx/DC Orders Clinical Impression: Chronic back pain Instructions: ED Back Pain (Acute or Chronic) Prescriptions: No Action citalopram 40 MG tablet 40 mg PO DAILY Patient Comments: depression fluphenazine HCl 1 MG tablet 2 mg PO BID Patient Comments: mood oxcarbazepine [Trileptal] 600 mg tablet 1 tab PO BID Patient Comments: Take 1 tablet by mouth twice a day after meals albuterol sulfate [Ventolin HFA] 1 INHALER inhaler 1 puff inhalation Q4H PRN PRN (Reason: Sob &/Or Wheezing) Qty: 1 0RF quetiapine [Seroquel] 25 MG tablet 25 mg PO QHS hydroxyzine pamoate [Vistaril] 50 MG capsule 50 mg PO TID PRN PRN (Reason: Anxiety) oxycodone-acetaminophen 1 TABLET tablet 1 tab PO Q6H PRN PRN (Reason: Pain) 3 Days Qty: 6 0RF tizanidine 4 mg tablet 4 mg PO TID PRN PRN (Reason: Spasms) simvastatin 80 mg tablet 80 mg PO QHS mirtazapine 30 mg tablet 30 mg PO QHS insulin glargine [Lantus Solostar U-100 Insulin] 100 unit/mL (3 mL) insulin pen 36 unit SUBCUT DAILY sulfamethoxazole-trimethoprim [Bactrim DS] 800-160 mg tablet 1 tab PO BID Qty: 20 0RF metformin 1,000 mg tablet 2,000 mg PO DAILY Patient Comments: TAKE 1 TABLET BY MOUTH TWICE A DAY WITH MEALS prednisone 10 MG tablet 10 mg PO UD Qty: 33 0RF Rx Instructions: Take 4 tablets daily for 3 days, then 3 daily for 3 days, then 2 daily for 3 days, then 1 a day for 3 days then 1 QOD for 3 doses. doxycycline monohydrate 100 MG capsule 100 mg PO BID Qty: 20 0RF famotidine [famotidine] 20 MG tablet 20 mg PO BID Qty: 28 0RF sulfamethoxazole-trimethoprim [Bactrim DS] 800-160 mg tablet 1 tab PO BID 7 Days Qty: 14 0RF prednisone 50 mg tablet 50 mg PO QODAY 5 Days Qty: 3 0RF tizanidine 4 mg tablet 4 mg PO Q8H PRN (Reason: muscle spasticity) Qty: 14 0RF oxycodone-acetaminophen [Percocet] 5-325 mg tablet 1 tab PO TID PRN (Reason: pain) 3 Days Qty: 7 0RF Primary Care Provider: Kajal Knutson Referrals: Katey Powers MD [Med Staff - Active Staff] - As soon as possible Kajal Knutson DO [Primary Care Provider] - Disposition Disposition: Home, Self Care
[2023-04-09] MEDS: oxyCODONE 5 MG Tablet PO (14:45)
[2023-04-09] MEDS: Ketorolac 15 MG/ML Vial IM (14:46)
== END 2023-04-09 14:55 | disposition home or self-care (01) ==
PROVIDERS: Emergency Provider Emergency Medicine; PCP Family Medicine; Visit Provider Emergency Medicine
DX: G89.29 Other chronic pain (principal); F20.9 Schizophrenia, unspecified; J44.9 Chronic obstructive pulmonary disease, unspecified; E11.9 Type 2 diabetes mellitus without complications; Z79.4 Long term (current) use of insulin; M54.9 Dorsalgia, unspecified; I25.10 Atherosclerotic heart disease of native coronary artery without angina pectoris; F17.210 Nicotine dependence, cigarettes, uncomplicated; F32.A Depression, unspecified; J45.909 Unspecified asthma, uncomplicated; Z79.899 Other long term (current) drug therapy; Z79.84 Long term (current) use of oral hypoglycemic drugs
CPT/HCPCS: 96372; 99282

== ENCOUNTER 2023-04-20 13:40 | Emergency (ER) | payer MEDICARE, MEDICAID, SELFPAY ==
[2023-04-20 13:48] VITALS: BP 160/97; PULSE 88; RESP 16; TEMP 36.6; O2SAT 99
--- NOTE | 2023-04-20 14:01 | ED.VIS.BACK ---
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 His pain got worse today he was at [employer] helping in a soup kitchen he is also rearranging his apartment so his girlfriend can move then after she leaves the detention. Patient has no red flags or radicular symptoms he has no fevers or chills. No new trauma. No fall. [facility] Medical History Asthma CAD (coronary artery disease) COPD (chronic obstructive pulmonary disease) Depression Diabetes Schizophrenia Home Medications citalopram 40 mg tablet 40 mg PO DAILY DEPRESSION 10/19/15 [History Last Taken 12/19/20] fluphenazine HCl 1 mg tablet 2 mg PO BID ANTIPSYHCOTIC 10/19/15 [History Last Taken 12/19/20] oxcarbazepine 600 mg tablet (Trileptal) 1 tab PO BID SEIZURE 03/06/17 [History Last Taken 12/19/20] albuterol sulfate 90 mcg/actuation aerosol inhaler (Ventolin HFA) 1 puff inhalation Q4H PRN PRN Sob &/Or Wheezing ##1 03/08/17 [Rx Last Taken 12/18/20] quetiapine 25 mg tablet (Seroquel) 25 mg PO QHS MOOD 09/10/17 [History Last Taken 12/18/20] hydroxyzine pamoate 50 mg capsule (Vistaril) 50 mg PO TID PRN PRN Anxiety 12/19/17 [History Last Taken 12/19/20] oxycodone-acetaminophen 5 mg-325 mg tablet 1 tab PO Q6H PRN PRN Pain 3 days ##6 02/16/18 [Rx Last Taken 12/16/20] insulin glargine 100 unit/mL (3 mL) subcutaneous pen (Lantus Solostar U-100 Insulin) 36 unit subcut DAILY DM 12/19/20 [History Last Taken 03/11/23] mirtazapine 30 mg tablet 30 mg PO QHS INSOMNIA 12/19/20 [History Last Taken 12/15/20] simvastatin 80 mg tablet 80 mg PO QHS CHOLESTEROL 12/19/20 [History Last Taken 12/18/20] tizanidine 4 mg tablet 4 mg PO TID PRN PRN Spasms 12/19/20 [History Last Taken 12/18/20] sulfamethoxazole 800 mg-trimethoprim 160 mg tablet (Bactrim DS) 1 tab PO BID #20 tabs 03/02/22 [Rx Last Taken Unknown] doxycycline monohydrate 100 mg capsule 100 mg PO BID #20 CAPSULES 04/15/22 [Rx Last Taken Unknown] metformin 1,000 mg tablet 2,000 mg PO DAILY 04/15/22 [History Last Taken Unknown] prednisone 10 mg tablet 10 mg PO UD #33 tabs 04/15/22 [Rx Last Taken Unknown] famotidine 20 mg tablet 20 mg PO BID #28 TABLETS 05/26/22 [Rx Last Taken Unknown] sulfamethoxazole 800 mg-trimethoprim 160 mg tablet (Bactrim DS) 1 tab PO BID 7 days #14 tabs 06/17/22 [Rx Last Taken Unknown] prednisone 50 mg tablet 50 mg PO QODAY 5 days #3 tabs 10/08/22 [Rx Last Taken Unknown] oxycodone-acetaminophen 5 mg-325 mg tablet (Percocet) 1 tab PO TID PRN pain 3 days #7 tabs 01/17/23 [Rx Last Taken Unknown] tizanidine 4 mg tablet 4 mg PO Q8H PRN muscle spasticity #14 tabs 01/17/23 [Rx Last Taken Unknown] cyclobenzaprine 10 mg tablet 10 mg PO TID PRN Muscle Spasm #20 TABLETS 04/20/23 [Rx Last Taken Unknown] Allergy/AdvReac Type Severity Reaction Status Date / Time naproxen Allergy Shortness Verified 04/20/23 13:50 of breath Penicillins Allergy Swelling Verified 04/20/23 13:50 ibuprofen AdvReac Other Verified 04/20/23 13:50 meloxicam [From Mobic] AdvReac HEADACHE Verified 04/20/23 13:50 Surgical History Gangrene Social History Smoking Status: Current every day smoker tobacco type: cigarettes Tobacco: How many years used: 30 second hand exposure: Yes alcohol intake: never substance use type: does not use caffeine: Yes (3/day) what type of physical activity do you participate in: none ROS ROS ED ROS Narrative Past medical history: Reviewed Medications: Reviewed Social history: Noncontributory Review of systems: General: No fever Eyes: No visual changes ENT: No upper airway congestion, normal voice Neck: No neck pain Cardiovascular: No chest pain Respiratory: No shortness of breath or cough Gastrointestinal: No abdominal pain, nausea vomiting or diarrhea Genitourinary: No dysuria Musculoskeletal: Back pain as in HPI Skin: No rash EXAM Physical Exam Narrative Exam Narrative: Vitals reviewed General: Patient appears in some discomfort. I saw him ambulate to the room without any difficulty. HEENT: Moist mucous membranes Neck: Nontender Cardiovascular normal heart rate Respiratory: No respiratory difficulty speaking in full sentences Abdomen: Soft and nontender, there is no suprapubic mass or pain Back: There is some tenderness over the lumbar region, pain is spinal and paraspinal both. Extremities: Moves all extremities without joint pain or signs of trauma Neurological: There is normal plantar flexion and dorsiflexion of both feet and great toes. Patellar and Achilles reflexes are normal. Normal strength and sensation. Negative straight leg test. Skin: No rash Psychiatric: Slightly anxious. Const Vital Signs: 04/20/23 13:48 Temperature 98 F Temperature Source Temporal Pulse Rate 88 Respiratory Rate 16 Blood Pressure 160/97 H Blood Pressure Mean 118 Pulse Ox 99 Oxygen Delivery Method Room Air MDM MDM MDM Narrative Medical decision making narrative: Patient has chronic recurrent back pain without any red flags. I am not worried about cauda equina, he has no fevers or chills therefore I am not worried about discitis or osteomyelitis. No recent weight loss and not worried about any kind of cancer or tumor. I do not believe an x-ray is needed. I do not believe an MRI is needed emergently. I will treat him with analgesia in the ED. He will be given muscle relaxants for home. Otherwise he is due to start pain management soon.I do not believe outpatient opiates are warranted at this time. Discharge Plan Triage Chief Complaint: Back ED Provider: Etienne Schneider Dx/Rx/DC Orders Clinical Impression: Back pain Instructions: ED Back Pain (Acute or Chronic) Prescriptions: New cyclobenzaprine 10 mg tablet 10 mg PO TID PRN (Reason: Muscle Spasm) Qty: 20 0RF No Action citalopram 40 MG tablet 40 mg PO DAILY Patient Comments: depression fluphenazine HCl 1 MG tablet 2 mg PO BID Patient Comments: mood oxcarbazepine [Trileptal] 600 mg tablet 1 tab PO BID Patient Comments: Take 1 tablet by mouth twice a day after meals albuterol sulfate [Ventolin HFA] 1 INHALER inhaler 1 puff inhalation Q4H PRN PRN (Reason: Sob &/Or Wheezing) Qty: 1 0RF quetiapine [Seroquel] 25 MG tablet 25 mg PO QHS hydroxyzine pamoate [Vistaril] 50 MG capsule 50 mg PO TID PRN PRN (Reason: Anxiety) oxycodone-acetaminophen 1 TABLET tablet 1 tab PO Q6H PRN PRN (Reason: Pain) 3 Days Qty: 6 0RF tizanidine 4 mg tablet 4 mg PO TID PRN PRN (Reason: Spasms) simvastatin 80 mg tablet 80 mg PO QHS mirtazapine 30 mg tablet 30 mg PO QHS insulin glargine [Lantus Solostar U-100 Insulin] 100 unit/mL (3 mL) insulin pen 36 unit SUBCUT DAILY sulfamethoxazole-trimethoprim [Bactrim DS] 800-160 mg tablet 1 tab PO BID Qty: 20 0RF metformin 1,000 mg tablet 2,000 mg PO DAILY Patient Comments: TAKE 1 TABLET BY MOUTH TWICE A DAY WITH MEALS prednisone 10 MG tablet 10 mg PO UD Qty: 33 0RF Rx Instructions: Take 4 tablets daily for 3 days, then 3 daily for 3 days, then 2 daily for 3 days, then 1 a day for 3 days then 1 QOD for 3 doses. doxycycline monohydrate 100 MG capsule 100 mg PO BID Qty: 20 0RF famotidine [famotidine] 20 MG tablet 20 mg PO BID Qty: 28 0RF sulfamethoxazole-trimethoprim [Bactrim DS] 800-160 mg tablet 1 tab PO BID 7 Days Qty: 14 0RF prednisone 50 mg tablet 50 mg PO QODAY 5 Days Qty: 3 0RF tizanidine 4 mg tablet 4 mg PO Q8H PRN (Reason: muscle spasticity) Qty: 14 0RF oxycodone-acetaminophen [Percocet] 5-325 mg tablet 1 tab PO TID PRN (Reason: pain) 3 Days Qty: 7 0RF Primary Care Provider: Kajal Knutson Referrals: Kjaal Knutson DO [Primary Care Provider] - 3-5 Days Disposition Disposition: Home, Self Care
[2023-04-20] MEDS: cycloBENZAPRine HCl 10 MG Tablet PO (14:11)
[2023-04-20] MEDS: Oxycodone/Apap 5/325 Tablet PO (14:11)
[2023-04-20 14:22] VITALS: BMI 56.6
== END 2023-04-20 14:27 | disposition home or self-care (01) ==
LOC: ED 14:13
PROVIDERS: Emergency Provider Emergency Medicine; PCP Family Medicine; Visit Provider Emergency Medicine
DX: M54.9 Dorsalgia, unspecified (principal); F20.9 Schizophrenia, unspecified; J44.9 Chronic obstructive pulmonary disease, unspecified; E11.9 Type 2 diabetes mellitus without complications; G89.29 Other chronic pain; I25.10 Atherosclerotic heart disease of native coronary artery without angina pectoris; F17.210 Nicotine dependence, cigarettes, uncomplicated
CPT/HCPCS: 99284

== ENCOUNTER 2023-05-10 15:39 | Emergency (ER) | payer MEDICARE, MEDICAID, SELFPAY ==
[2023-05-10 15:40] VITALS: BP 161/98; PULSE 94; RESP 14; TEMP 36.8; O2SAT 100; BMI 40.4
--- NOTE | 2023-05-10 20:34 | EKG12_ITS ---
Test Reason : DYSRHYTHMIA Blood Pressure : / mmHG Vent. Rate : 078 BPM Atrial Rate : 078 BPM P-R Int : 172 ms QRS Dur : 084 ms QT Int : 422 ms P-R-T Axes : 067 024 063 degrees QTc Int : 481 ms Normal sinus rhythm Low voltage QRS Cannot rule out Anterior infarct , age undetermined Abnormal ECG Confirmed by LEFTY RECINOS, NAHID ([id number]), assistant editor ROSALEE COHN ([id number]) on 05/13/2023 8:31:32 AM Referred By: LENNIE Confirmed By:AYDEN OLEA MD
[2023-05-10] MEDS: Orphenadrine 60 MG/2 ML Ampul IV (20:56)
[2023-05-10] MEDS: Ketorolac 15 MG/ML Vial IV (20:56)
[2023-05-10 20:59] LABS: Absolute Lymphocyte Count 5.01 X10^3/uL (0.83-4.51); Absolute Neutrophil Count 9.2 X10^3/uL (2.0-7.7); Basophil# 0.12 X10^3/uL; Basophil% 0.8 % (0-1); Eosinophil# 0.38 X10^3/uL; Eosinophils% 2.4 % (0-5); Hematocrit 46.8 % (40-54); Lymphocyte # 5.01 X10^3/ul (0.83-4.51); Lymphocyte % 32.1 % (19-41); Mean Corp Hgb Conc 34.2 g/dL (32-36); Mean Corpuscular Hgb 31.4 pg (27.0-32.0); Mean Corpuscular Volume 91.9 fL (80-94); Mean Platelet Vol. 9.2 fl (6.2-12.0); Monocyte# 0.87 X10^3/uL; Monocyte% 5.6 % (0-10); NRBC Flagged by Analyzer 0 % (0-5); Neutrophil # 9.15 X10^3/uL (2.7-7.7); Neutrophil % 58.5 % (47-70); POSITIVE DIFFERENTIAL YES; POSITIVE MORPHOLOGY YES; Platelet Count 252 K/mm3 (150-450); RBC Distribution Width CV 12.6 % (11.6-14.6); RBC Distribution Width SD 42.6 fl (35.1-43.9); Red Blood Count 5.09 M/mm3 (4.6-6.2); White Blood Count 15.6 K/mm3 (4.4-11.0)
[2023-05-10 21:00] VITALS: O2SAT 95
--- NOTE | 2023-05-10 21:00 | RAD_ITS ---
INDICATION: chest pain EXAMINATION/TECHNIQUE: X-RAY - XR Chest 2 Views COMPARISON: 03/11/2023 FINDINGS: LINES/DEVICES: None. LUNGS: Left basilar subsegmental atelectasis without consolidation, vascular congestion or pleural effusion. MEDIASTINUM AND CARDIOVASCULAR STRUCTURES: Cardiac silhouette stable within normal limits. BONES AND SOFT TISSUES: Unremarkable. RAD/Chest PA and Lateral IMPRESSION: No radiographic evidence of acute cardiopulmonary disease. Electronically Signed: Peng Dan MD at 21:20 EST ,
[2023-05-10 21:04] LABS: Differential Indicated SCAN CRITERIA MET
[2023-05-10 21:22] LABS: Differential Comment SCANNED
[2023-05-10 21:29] LABS: Anion Gap 4 (5-15); BUN 15 mg/dL (7-18); BUN/Creat Ratio 13.9 RATIO (10-20); Calcium,Total 9.6 mg/dL (8.5-10.1); Chloride 104 mmol/L (98-107); Creatinine, Serum 1.08 mg/dL (0.70-1.30); EST Glomerular Filtration Rate 78 mL/min (>60); Est Glom Filt Rate - Afr Amer 94 mL/min (>60); Estimated Creatinine Clearance 84.56 ml/min; Glucose 139 mg/dL (74-106); Potassium 3.7 mmol/L (3.5-5.1); Sodium Level 136 mmol/L (136-145); Troponin-I HS 25 pg/mL (3.0-78.0)
[2023-05-10 22:02] LABS: Mucous, Urine 0 SEEN /hpf (<or=2+); Red Blood Cells-Urine 0 SEEN /hpf (0-5); Squamous Epithelial Cells - UA 0 SEEN /hpf (0-5)
[2023-05-10 22:05] LABS: Color, Urine Yellow (Yellow); Glucose, Dipstick Normal (Normal); Ketone-Dipstick Negative (Negative); Leukocyte Esterase-Dipstick 100 /ul (Negative); Nitrite-Dipstick Positive (Negative); Occult Blood-Urine Negative /ul (Negative); Protein-Dipstick 15 mg/dl (Negative); Urine Bilirubin Dipstick Negative (Negative); Urine Clarity Sl. Cloudy (Clear); Urine Urobilinogen Normal (Normal)
[2023-05-10 22:13] LABS: Bacteria 2+ /hpf (None Seen); White Blood Cells 10-25 SEEN /hpf (0-5)
[2023-05-10 22:15] VITALS: BP 145/93; PULSE 95; RESP 16; O2SAT 95
[2023-05-10 22:17] LABS: AST(SGOT) 24 U/L (15-37); Alanine Aminotransfer ALT/SGPT 86 U/L (16-61); Albumin, Serum 3.9 g/dL (3.2-5.0); Alkaline Phosphatase 131 U/L (45-117); Bilirubin, Direct 0.13 mg/dL (0.00-0.30); Globulin 3.4 g/dL (2.2-4.2); Lipase 30 U/L (13-75); Protein, Total 7.3 g/dL (6.4-8.2)
--- NOTE | 2023-05-10 23:06 | EDS_ITS ---
HPI History of Present Illness Chief Complaint: Back Informant: patient Narrative Narrative: Patient is a 47-year-old male with history of biliary colic, COPD, asthma and schizophrenia as well as heart problems presenting with back and chest pain. Patient states he has chronic low back pain however he has had worsening pain in his upper back for the past 2 days. He states he was cleaning his house doing laundry and this exacerbated it. He is not sure if this feels like his prior cardiac pain. He also notes that he has had increased urinary frequency and odor to his urine. He states that he was treated for a UTI about 2 weeks ago at [facility] with a course of keflex. he states his symptoms had improved and he took his whole course of antibiotics. He notes he has has back pain in this area before. He denies any fever or chills. Denies any GI symptoms. Patient states that he is planning on going to pain management but has to get an ID first and has not been able to afford this yet. He states he was prescribed a course of oral Toradol about a week ago but he could not afford it because it even with insurance it was $20 for 18 pills. [facility] Medical History Asthma CAD (coronary artery disease) COPD (chronic obstructive pulmonary disease) Depression Diabetes Schizophrenia Home Medications citalopram 40 mg tablet 40 mg PO DAILY DEPRESSION 10/19/15 [History Last Taken 12/19/20] fluphenazine HCl 1 mg tablet 2 mg PO BID ANTIPSYHCOTIC 10/19/15 [History Last Taken 12/19/20] oxcarbazepine 600 mg tablet (Trileptal) 1 tab PO BID SEIZURE 03/06/17 [History Last Taken 12/19/20] albuterol sulfate 90 mcg/actuation aerosol inhaler (Ventolin HFA) 1 puff in halation Q4H PRN PRN Sob &/Or Wheezing ##1 03/08/17 [Rx Last Taken 12/18/20] quetiapine 25 mg tablet (Seroquel) 25 mg PO QHS MOOD 09/10/17 [History Last Taken 12/18/20] hydroxyzine pamoate 50 mg capsule (Vistaril) 50 mg PO TID PRN PRN Anxiety 12/19/17 [History Last Taken 12/19/20] oxycodone-acetaminophen 5 mg-325 mg tablet 1 tab PO Q6H PRN PRN Pain 3 days ##6 02/16/18 [Rx Last Taken 12/16/20] insulin glargine 100 unit/mL (3 mL) subcutaneous pen (Lantus Solostar U-100 Insulin) 36 unit subcut DAILY DM 12/19/20 [History Last Taken 03/11/23] mirtazapine 30 mg tablet 30 mg PO QHS INSOMNIA 12/19/20 [History Last Taken 12/15/20] simvastatin 80 mg tablet 80 mg PO QHS CHOLESTEROL 12/19/20 [History Last Taken 12/18/20] tizanidine 4 mg tablet 4 mg PO TID PRN PRN Spasms 12/19/20 [History Last Taken 12/18/20] sulfamethoxazole 800 mg-trimethoprim 160 mg tablet (Bactrim DS) 1 tab PO BID #20 tabs 03/02/22 [Rx Last Taken Unknown] doxycycline monohydrate 100 mg capsule 100 mg PO BID #20 CAPSULES 04/15/22 [Rx Last Taken Unknown] metformin 1,000 mg tablet 2,000 mg PO DAILY 04/15/22 [History Last Taken Unknown] prednisone 10 mg tablet 10 mg PO UD #33 tabs 04/15/22 [Rx Last Taken Unknown] famotidine 20 mg tablet 20 mg PO BID #28 TABLETS 05/26/22 [Rx Last Taken Unknown] sulfamethoxazole 800 mg-trimethoprim 160 mg tablet (Bactrim DS) 1 tab PO BID 7 days #14 tabs 06/17/22 [Rx Last Taken Unknown] prednisone 50 mg tablet 50 mg PO QODAY 5 days #3 tabs 10/08/22 [Rx Last Taken Unknown] oxycodone-acetaminophen 5 mg-325 mg tablet (Percocet) 1 tab PO TID PRN pain 3 days #7 tabs 01/17/23 [Rx Last Taken Unknown] tizanidine 4 mg tablet 4 mg PO Q8H PRN muscle spasticity #14 tabs 01/17/23 [Rx Last Taken Unknown] cyclobenzaprine 10 mg tablet 10 mg PO TID PRN Muscle Spasm #20 TABLETS 04/20/23 [Rx Last Taken Unknown] cyclobenzaprine 10 mg tablet 10 mg PO TID PRN Muscle Spasm #20 TABLETS 05/10/23 [Rx Last Taken Unknown] sulfamethoxazole 800 mg-trimethoprim 160 mg tablet (Bactrim DS) 1 tab PO BID #14 tabs 05/10/23 [Rx Last Taken Unknown] Allergy/AdvReac Type Severity Reaction Status Date / Time naproxen Allergy Shortness Verified 05/10/23 15:40 of breath Penicillins Allergy Swelling Verified 05/10/23 15:40 ibuprofen AdvReac Other Verified 05/10/23 15:40 meloxicam [From Mobic] AdvReac HEADACHE Verified 05/10/23 15:40 Surgical History Gangrene Social History Smoking Status: Current every day smoker tobacco type: cigarettes Tobacco: How many years used: 30 second hand exposure: Yes alcohol intake: never substance use type: does not use caffeine: Yes (3/day) what type of physical activity do you participate in: none ROS ROS ED Constitutional Constitutional ED: Denies chills or fever(s) Cardiovascular Cardiovascular: Reports chest pain Respiratory/Chest Respiratory/Chest: Reports cough; Denies dyspnea or sputum Gastrointestinal Gastrointestinal: Denies abdominal pain, nausea or vomiting Genitourinary Genitourinary ED: Reports urinary frequency; Denies dysuria Musculoskeletal Musculoskeletal: Reports back pain; Denies arthralgias or neck pain Integumentary Denies rash Neurologic Neurologic: Denies headache(s) EXAM Physical Exam Const Vital Signs: 05/10/23 15:40 05/10/23 21:00 05/10/23 22:15 Temperature 98.3 F Temperature Source Temporal Pulse Rate 94 95 Respiratory Rate 14 16 Blood Pressure 161/98 H 145/93 H Blood Pressure Mean 119 110 Pulse Ox 100 95 95 Oxygen Delivery Method Room Air Room Air Room Air 05/10/23 23:34 Temperature Temperature Source Pulse Rate 68 Respiratory Rate 16 Blood Pressure 145/93 H Blood Pressure Mean 110 Pulse Ox 98 Oxygen Delivery Method Positive well nourished, well developed and obese General Appearance ED: well developed and NAD Nutritional Appearance: obese HEENT Reports dry mucous membranes Mouth ED: Yes dry mucous membranes Mouth: dry mucous membranes Eyes PERRL and EOMs intact bilaterally Neck supple and no JVD Chest Wall inspection of chest normal and palpation of chest normal Resp normal respiratory effort Resp Narrative: Scattered and expiratory wheezing present Auscultation: Negative for diminished lung sounds Cardio regular rate, regular rhythm and no murmurs GI normal to inspection, nondistended, normoactive bowel sounds Back/Spine Cervical Spine: Negative for cervical spine tenderness Thoracic Spine / Upper Back: paraspinal muscle tenderness bilateral; Negative for thoracic spinal tenderness Lumbar Spine / Lower Back: Negative for lumbar spinal tenderness Extremity normal to inspection General Extremety ED: Negative for edema General Extremity: Negative for edema Neuro oriented x3 Sensorium / Orientation: alert Motor Exam: Negative for general weakness Psych mental status grossly normal Skin no rashes or lesions noted and no wounds MDM MDM MDM Narrative Medical decision making narrative: Patient is evaluated for back pain. States been present for the past 2 days. He also states he has chest pain. These pains do not seem to radiate. In addition he tells me he has had some urinary frequency and was recently treated for urinary tract infection. I suspect his pain is more muscle skeletal is so diffuse in his back. He is PE RC negative I have a low suspicion for pulmonary emboli. His affect is odd however he does have a history of schizophrenia and I suspect this is likely his baseline. Initially he is given IV Toradol and Flexeril for pain control. He does seem more comfortable on repeat evaluation. He is found to have a significant leukocytosis of 15.6. Chart review shows that he also has a history of biliary colic and I did add on a lipase as well as liver panel in case this is referred biliary pain however I have a low suspicion given how diffuse his thoracic pain is. Chest x-ray viewed by myself as well as radiology does not show any acute process. His hemoglobin, BMP in liver panel are at his baseline with no acute abnormalities. Urinalysis is consistent with UTI with 2+ bacteria and 10-25 white blood cells. He started on Bactrim as he states he previously had Keflex. Urine culture sent. He does not have any CVA tenderness and I do not suspect pyelonephritis. He does not have suprapubic tenderness. Patient is given 1 dose of oxycodone but counseled that he would not receive any prescription for opioids. Counseled the importance of completing the course of antibiotics and outpatient follow-up with his primary care doctor. He is given a prescription for Flexeril further for his back pain. Given return precautions and counseled that if his urinary tract infection is not improve/resolve or if he develops fever he might require admission for IV antibiotics. Lab Data Attestation: I reviewed the patient's lab results. Labs: Laboratory Results - last 24 hr 05/10/23 05/10/23 20:52 21:52 WBC 15.6 H RBC 5.09 Hgb 16.0 Hct 46.8 MCV 91.9 MCH 31.4 MCHC 34.2 RDW Std Deviation 42.6 RDW Coeff of Desiree 12.6 Plt Count 252 MPV 9.2 Immature Gran % (Auto) 0.600 Neut % (Auto) 58.5 Lymph % (Auto) 32.1 Mcpherson % (Auto) 5.6 Eos % (Auto) 2.4 Baso % (Auto) 0.8 Absolute Neuts (auto) 9.2 H Absolute Lymphs (auto) 5.01 H Nucleated RBC % 0 Differential Comment SCANNED Sodium 136 Potassium 3.7 Chloride 104 Carbon Dioxide 28.0 Anion Gap 4 L BUN 15 Creatinine 1.08 Estim Creat Clear Calc 84.56 Est GFR (MDRD) Af Amer 94 Est GFR (MDRD) Non-Af 78 BUN/Creatinine Ratio 13.9 Glucose 139 H Calcium 9.6 Total Bilirubin 0.40 Direct Bilirubin 0.13 AST 24 ALT 86 H Alkaline Phosphatase 131 H Troponin I High Sens 25 Total Protein 7.3 Albumin 3.9 Globulin 3.4 Lipase 30 Urine Color Yellow Urine Clarity Sl. Cloudy Urine pH 6.0 Ur Specific [place] 1.020 Urine Protein 15 H Urine Glucose (UA) Normal Urine Ketones Negative Urine Occult Blood Negative Urine Nitrite Positive H Urine Bilirubin Negative Urine Urobilinogen Normal Ur Leukocyte Esterase 100 H Urine RBC 0 SEEN Urine WBC 10-25 SEEN Ur Squamous Epith Cells 0 SEEN Urine Bacteria 2+ Urine Mucus 0 SEEN Radiography Chest X-Ray - ED: 2 View, Read by ED Physician, Read by Radiologist and No Acute Disease Diagnostic Testing: Clinical Impression(s) from Imaging Studies Chest X-Ray 05/10/23 21:00 IMPRESSION: No radiographic evidence of acute cardiopulmonary disease. Electronically Signed: Peng Dan MD at 21:20 EST , Rhythm Strip Rhythm Strip: Sinus Rhythm Rate: 78 Ectopy: None EKG Initial EKG: Attestation: I personally reviewed and interpreted this EKG as follows: Interpretation: Sinus Rhythm Comments: Normal sinus rhythm at a rate of 78 bpm Low voltage QRS Normal axis Normal intervals Normal ST segments Compared to prior EKG on 03/11/2023 patient is no longer bradycardic but no other acute changes Discharge Plan Triage Chief Complaint: Back ED Provider: Kaycee Garcia Dx/Rx/DC Orders Clinical Impression: Acute UTI, Chest pain Instructions: ED Chest Pain, Noncardiac, ED Bladder Infection, Male (Adult) Prescriptions: New sulfamethoxazole-trimethoprim [Bactrim DS] 800-160 mg tablet 1 tab PO BID Qty: 14 0RF cyclobenzaprine 10 mg tablet 10 mg PO TID PRN (Reason: Muscle Spasm) Qty: 20 0RF No Action citalopram 40 MG tablet 40 mg PO DAILY Patient Comments: depression fluphenazine HCl 1 MG tablet 2 mg PO BID Patient Comments: mood oxcarbazepine [Trileptal] 600 mg tablet 1 tab PO BID Patient Comments: Take 1 tablet by mouth twice a day after meals albuterol sulfate [Ventolin HFA] 1 INHALER inhaler 1 puff inhalation Q4H PRN PRN (Reason: Sob &/Or Wheezing) Qty: 1 0RF quetiapine [Seroquel] 25 MG tablet 25 mg PO QHS hydroxyzine pamoate [Vistaril] 50 MG capsule 50 mg PO TID PRN PRN (Reason: Anxiety) oxycodone-acetaminophen 1 TABLET tablet 1 tab PO Q6H PRN PRN (Reason: Pain) 3 Days Qty: 6 0RF tizanidine 4 mg tablet 4 mg PO TID PRN PRN (Reason: Spasms) simvastatin 80 mg tablet 80 mg PO QHS mirtazapine 30 mg tablet 30 mg PO QHS insulin glargine [Lantus Solostar U-100 Insulin] 100 unit/mL (3 mL) insulin pen 36 unit SUBCUT DAILY sulfamethoxazole-trimethoprim [Bactrim DS] 800-160 mg tablet 1 tab PO BID Qty: 20 0RF metformin 1,000 mg tablet 2,000 mg PO DAILY Patient Comments: TAKE 1 TABLET BY MOUTH TWICE A DAY WITH MEALS prednisone 10 MG tablet 10 mg PO UD Qty: 33 0RF Rx Instructions: Take 4 tablets daily for 3 days, then 3 daily for 3 days, then 2 daily for 3 days, then 1 a day for 3 days then 1 QOD for 3 doses. doxycycline monohydrate 100 MG capsule 100 mg PO BID Qty: 20 0RF famotidine [famotidine] 20 MG tablet 20 mg PO BID Qty: 28 0RF sulfamethoxazole-trimethoprim [Bactrim DS] 800-160 mg tablet 1 tab PO BID 7 Days Qty: 14 0RF prednisone 50 mg tablet 50 mg PO QODAY 5 Days Qty: 3 0RF tizanidine 4 mg tablet 4 mg PO Q8H PRN (Reason: muscle spasticity) Qty: 14 0RF oxycodone-acetaminophen [Percocet] 5-325 mg tablet 1 tab PO TID PRN (Reason: pain) 3 Days Qty: 7 0RF cyclobenzaprine 10 mg tablet 10 mg PO TID PRN (Reason: Muscle Spasm) Qty: 20 0RF Primary Care Provider: Kajal Knutson Referrals: Kajal Knutson DO [Primary Care Provider] - Activity Restrictions/Additional Instructions: No signs of pneumonia or heart problems. Take entire course of antibiotics as prescribed. Take over the counter tylenol as well for pain. Disposition Disposition: Home, Self Care Discharge Date/Time: 05/10/23 23:36
[2023-05-10] MEDS: Smz/Tmp Ds Tablet 1 TABLET PO (23:29)
[2023-05-10] MEDS: oxyCODONE 5 MG Tablet PO (23:29)
[2023-05-10 23:34] VITALS: BP 145/93; PULSE 68; RESP 16; O2SAT 98
== END 2023-05-10 23:36 | disposition home or self-care (01) ==
PROVIDERS: Emergency Provider Emergency Medicine; PCP Family Medicine; Visit Provider Emergency Medicine
DX: R07.9 Chest pain, unspecified (principal); F20.9 Schizophrenia, unspecified; J44.9 Chronic obstructive pulmonary disease, unspecified; E11.9 Type 2 diabetes mellitus without complications; Z79.4 Long term (current) use of insulin; N39.0 Urinary tract infection, site not specified; I25.10 Atherosclerotic heart disease of native coronary artery without angina pectoris; F17.210 Nicotine dependence, cigarettes, uncomplicated; F32.A Depression, unspecified; Z79.899 Other long term (current) drug therapy; Z79.84 Long term (current) use of oral hypoglycemic drugs
CPT/HCPCS: 71046; 80048; 80076; 81001; 83690; 84484; 85025; 87077; 87086; 87088; 87186; 93005; 96374; 96375; 99285; A4216

== ENCOUNTER 2023-05-13 14:33 | Emergency (ER) | payer MEDICARE, MEDICAID, SELFPAY ==
[2023-05-13 14:35] VITALS: BP 155/109; PULSE 96; RESP 20; TEMP 36.3; O2SAT 99; BMI 40.6
--- NOTE | 2023-05-13 15:46 | CT_ITS ---
STUDY: CT ABDOMEN AND PELVIS WITHOUT CONTRAST REASON FOR EXAM: Male, 47 years old. flank pain RADIATION DOSAGE (If Supplied By Facility): CTDIvol = ( 21.58 ) mGy, DLP = ( 1049.59 ) mGycm TECHNIQUE: Transaxial images were obtained from the dome of the diaphragm to the symphysis pubis without oral contrast, and without intravenous contrast. Sagittal and coronal images were reconstructed. Individualized dose optimization techniques were used for this CT. COMPARISON: 06/16/2022 FINDINGS: The visualized lung bases are unremarkable. The visualized portions of the heart are within normal limits. There is decreased attenuation of the liver consistent with steatosis. Normal gallbladder and extrahepatic biliary system. Normal spleen. Normal pancreas. Normal bilateral adrenal glands. Normal right kidney. Normal left kidney. Normal visualized stomach. Normal small intestine. Normal colon. The appendix is visualized and appears normal. Normal abdominal aorta. Normal inferior vena cava. Normal retroperitoneum. 5 mm stone in the dependent portion the bladder. There are prostatic calcifications. Normal abdominal wall. Normal osseous structures. CT/Abdomen/Pelvis without Cont IMPRESSION: 1. No renal or ureteral stone. 2. 5 mm bladder stone. 3. Fatty infiltration of liver. Electronically Signed: Franco Carranza MD at 17:57 EST ,
--- NOTE | 2023-05-13 15:47 | EX.ED.DYSGE1 ---
HPI History of Present Illness Chief Complaint: Flank Pain Detail of Chief Complaint: Back pain Informant: patient Narrative Narrative: Patient presents to the emergency department complaint of upper back pain that started this morning. Patient states he is starting the get his home together for when his girlfriend comes back home from the residential and has been doing some lifting around the house. Patient started having discomfort in the upper back which Tylenol and cyclobenzaprine has not helped. Patient also has history of chronic back pain. Patient currently being treated for UTI and is currently on Bactrim. He denies fevers or chills or sweats. He denies nausea or vomiting. Patient states starting last evening he started having dysuria again. [facility] Medical History Asthma CAD (coronary artery disease) COPD (chronic obstructive pulmonary disease) Depression Diabetes Schizophrenia Home Medications citalopram 40 mg tablet 40 mg PO DAILY DEPRESSION 10/19/15 [History Last Taken 05/13/23] fluphenazine HCl 1 mg tablet 2 mg PO BID ANTIPSYHCOTIC 10/19/15 [History Last Taken 05/13/23] oxcarbazepine 600 mg tablet (Trileptal) 1 tab PO BID SEIZURE 03/06/17 [History Last Taken 05/13/23] albuterol sulfate 90 mcg/actuation aerosol inhaler (Ventolin HFA) 1 puff inhalation Q4H PRN PRN Sob &/Or Wheezing ##1 03/08/17 [Rx Last Taken 12/18/20] quetiapine 25 mg tablet (Seroquel) 300 mg PO QHS MOOD 09/10/17 [History Last Taken 05/13/23] insulin glargine 100 unit/mL (3 mL) subcutaneous pen (Lantus Solostar U-100 Insulin) 36 unit subcut DAILY DM 12/19/20 [History Last Taken 05/13/23] mirtazapine 30 mg tablet 30 mg PO QHS INSOMNIA 12/19/20 [History Last Taken 05/13/23] simvastatin 80 mg tablet 80 mg PO QHS CHOLESTEROL 12/19/20 [History Last Taken 05/12/23] metformin 1,000 mg tablet 2,000 mg PO DAILY 04/15/22 [History Last Taken 05/13/23] cyclobenzaprine 10 mg tablet 10 mg PO TID PRN Muscle Spasm #20 TABLETS 04/20/23 [Rx Last Taken 05/13/23] sulfamethoxazole 800 mg-trimethoprim 160 mg tablet (Bactrim DS) 1 tab PO BID #14 tabs 05/10/23 [Rx Last Taken 05/13/23] aspirin 81 mg chewable tablet 1 tab PO DAILY 05/13/23 [History Last Taken 05/13/23] lorazepam 1 mg tablet 1 mg PO PRN PRN anxiety 05/13/23 [History Last Taken Unknown] orphenadrine citrate 100 mg tablet,extended release 100 mg PO BID #14 tabs 05/13/23 [Rx Last Taken Unknown] rivaroxaban 20 mg tablet (Xarelto) 20 mg PO DAILY 05/13/23 [History Last Taken 05/13/23] tramadol 50 mg tablet 50 mg PO TID PRN pain #14 tabs 05/13/23 [Rx Last Taken Unknown] Allergy/AdvReac Type Severity Reaction Status Date / Time naproxen Allergy Shortness Verified 05/13/23 14:35 of breath Penicillins Allergy Swelling Verified 05/13/23 14:35 ibuprofen AdvReac Other Verified 05/13/23 14:35 meloxicam [From Mobic] AdvReac HEADACHE Verified 05/13/23 14:35 Surgical History Gangrene Social History Smoking Status: Current every day smoker tobacco type: cigarettes Tobacco: How many years used: 30 second hand exposure: Yes alcohol intake: never substance use type: does not use caffeine: Yes (3/day) what type of physical activity do you participate in: none ROS ROS ED Review of Systems ROS Unobtainable: other Constitutional Constitutional ED: Reports lethargy; Denies chills, fever(s), sweats or weight loss Eyes Eyes: Denies blurry vision, change in vision or diplopia ENT ENT ED: Denies rhinorrhea or sore throat Cardiovascular Cardiovascular: Denies chest pain, orthopnea or racing heartbeat Respiratory/Chest Respiratory/Chest: Denies cough, dyspnea, dyspnea on exertion, orthopnea or sputum Gastrointestinal Gastrointestinal: Denies abdominal pain, diarrhea, nausea or vomiting Genitourinary Genitourinary ED: Reports dysuria; Denies hematuria or urinary frequency Musculoskeletal Musculoskeletal: Reports back pain; Denies arthralgias, myalgias or neck pain Integumentary Denies abscess, Abrasions or rash Neurologic Neurologic: Denies headache(s) or weakness Psychiatric Psychiatric: Denies anxiety, depression or suicidal thoughts Endocrine Endocrinology: Denies polydipsia, polyphagia or polyuria Hematologic/Lymphatic Hematologic/Lymphatic: Denies easy bleeding, easy bruising or lymphadenopathy Allergic/Immunologic Allergic/Immunologic ED: Denies mouth swelling, tongue swelling or urticaria EXAM Physical Exam Const Vital Signs: 05/13/23 14:35 05/13/23 16:34 Temperature 97.4 F L Temperature Source Temporal Pulse Rate 96 78 Respiratory Rate 20 H 18 Blood Pressure 155/109 H 144/98 H Blood Pressure Mean 124 113 Pulse Ox 99 96 Oxygen Delivery Method Room Air Room Air Positive well nourished and well developed General Appearance ED: well developed and NAD HEENT Reports TM's clear and moist mucous membranes normocephalic and atraumatic; Negative for trauma or tenderness Tympanic Membrane ED: Yes TM's clear Eyes PERRL and EOMs intact bilaterally General Eye ED: Negative for pale conjunctiva or scleral icterus Neck no lymphadenopathy, supple and no JVD General: Negative for tenderness Chest Wall inspection of chest normal and palpation of chest normal Chest: Negative for tenderness Resp normal respiratory effort and clear to auscultation bilaterally Effort and Inspection: Negative for respiratory distress or pain with movement Auscultation: Negative for rhonchi, wheezes or diminished lung sounds Cardio regular rate, regular rhythm, S1 normal heart sound, S2 normal heart sound and no murmurs Peripheral Pulses: pulses 2+ throughout GI normal to inspection, nondistended, normoactive bowel sounds, soft to palpation, non-tender, non-distended and no masses Back/Spine Back/Spine Narrative: With bilateral CVA tenderness on exam. Patient has diffuse tenderness over the thoracic and lumbar paraspinal musculature bilaterally. No erythema or warmth noted. Deep tendon reflexes plus 2 out of 4 bilaterally at the patella and Achilles. Patient has normal L5 extension bilaterally. Patient has normal sensation to light touch. Negative straight leg raise bilaterally. Extremity normal to inspection General Extremety ED: Negative for edema General Extremity: Negative for edema Neuro oriented x3, CN's II-XII intact bilaterally, no sensory deficits noted and gait normal Sensorium / Orientation: awake, alert, oriented to person, oriented to place and oriented to time Motor Exam: strength 5/5 throughout and strength abnormal Psych mental status grossly normal Skin no rashes or lesions noted and no wounds MDM MDM MDM Narrative Medical decision making narrative: Patient presents with upper and lower back pain some of which is chronic. No injury or other than lifting some objects at home. Patient also with dysuria and currently on an antibiotic. I did obtain CBC with differential that showed a white count 12.3 with hemoglobin of 15.9 and platelet count of 229. Chemistries were unremarkable. BUN 19 and creatinine 1.37. Urinalysis was unremarkable for infection. His last urine culture did grow out E. coli that was sensitive to Bactrim. I did obtain a CT scan of the abdomen pelvis without contrast to rule out kidney stone which was negative for kidney stone but did show a 5 mm bladder stone. No other significant findings noted. While in the department he was medicate with Toradol and given Norflex IM. Patient will be given a prescription for tramadol and Norflex. Patient advised to follow-up with his primary care physician within next 5 to 7 days. I suspect his back pain is musculoskeletal. No red flag symptoms of cauda equina. Lab Data Labs: Laboratory Results - last 24 hr 05/13/23 16:24 WBC 12.3 H RBC 5.13 Hgb 15.9 Hct 46.9 MCV 91.4 MCH 31.0 MCHC 33.9 RDW Std Deviation 42.7 RDW Coeff of Desiree 12.7 Plt Count 229 MPV 9.2 Immature Gran % (Auto) 0.700 Neut % (Auto) 61.8 Lymph % (Auto) 28.9 [place] % (Auto) 5.9 Eos % (Auto) 2.1 Baso % (Auto) 0.6 Absolute Neuts (auto) 7.6 Absolute Lymphs (auto) 3.56 Nucleated RBC % 0 Sodium 138 Potassium 4.2 Chloride 104 Carbon Dioxide 26.0 Anion Gap 8 BUN 19 H Creatinine 1.37 H Estim Creat Clear Calc 66.66 Est GFR (MDRD) Af Amer 71 Est GFR (MDRD) Non-Af 59 L BUN/Creatinine Ratio 13.9 Glucose 170 H Calcium 8.9 Urine Color Yellow Urine Clarity Clear Urine pH 5.0 Ur Specific [place] 1.025 Urine Protein Negative Urine Glucose (UA) Normal Urine Ketones Negative Urine Occult Blood 10 H Urine Nitrite Negative Urine Bilirubin Negative Urine Urobilinogen Normal Ur Leukocyte Esterase 100 H Urine RBC 0 SEEN Urine WBC 0-5 SEEN Ur Squamous Epith Cells 0-5 SEEN Urine Bacteria 0 SEEN Urine Mucus 0 SEEN Radiography Diagnostic Testing: Clinical Impression(s) from Imaging Studies Abdomen/Pelvis CT 05/13/23 15:46 IMPRESSION: 1. No renal or ureteral stone. 2. 5 mm bladder stone. 3. Fatty infiltration of liver. Electronically Signed: Franco Carranza MD at 17:57 EST , Discharge Plan Triage Chief Complaint: Flank Pain ED Provider: Billy Reese Dx/Rx/DC Orders Clinical Impression: Back pain Instructions: ED Back Pain (Acute or Chronic) Prescriptions: New orphenadrine citrate 100 mg tablet extended release 100 mg PO BID Qty: 14 0RF tramadol 50 mg tablet 50 mg PO TID PRN (Reason: pain) Qty: 14 0RF No Action citalopram 40 MG tablet 40 mg PO DAILY Patient Comments: depression fluphenazine HCl 1 MG tablet 2 mg PO BID Patient Comments: mood oxcarbazepine [Trileptal] 600 mg tablet 1 tab PO BID Patient Comments: Take 1 tablet by mouth twice a day after meals albuterol sulfate [Ventolin HFA] 1 INHALER inhaler 1 puff inhalation Q4H PRN PRN (Reason: Sob &/Or Wheezing) Qty: 1 0RF quetiapine [Seroquel] 25 MG tablet 300 mg PO QHS simvastatin 80 mg tablet 80 mg PO QHS mirtazapine 30 mg tablet 30 mg PO QHS insulin glargine [Lantus Solostar U-100 Insulin] 100 unit/mL (3 mL) insulin pen 36 unit SUBCUT DAILY metformin 1,000 mg tablet 2,000 mg PO DAILY Patient Comments: TAKE 1 TABLET BY MOUTH TWICE A DAY WITH MEALS lorazepam 1 mg tablet 1 mg PO PRN PRN (Reason: anxiety) aspirin 81 mg tablet,chewable 1 tab PO DAILY Xarelto 20 mg tablet 20 mg PO DAILY Patient Comments: TAKE 1 TABLET BY MOUTH EVERY DAY WITH DINNER cyclobenzaprine 10 mg tablet 10 mg PO TID PRN (Reason: Muscle Spasm) Qty: 20 0RF sulfamethoxazole-trimethoprim [Bactrim DS] 800-160 mg tablet 1 tab PO BID Qty: 14 0RF Primary Care Provider: Kajal Knutson Referrals: Kajal Knutson DO [Primary Care Provider] - 3-5 Days Activity Restrictions/Additional Instructions: Discontinue the cyclobenzaprine as we wrote your prescription for Norflex and tramadol. Disposition Disposition: Home, Self Care
[2023-05-13 16:34] VITALS: BP 144/98; PULSE 78; RESP 18; O2SAT 96
[2023-05-13 16:37] LABS: Bacteria 0 SEEN /hpf (None Seen); Mucous, Urine 0 SEEN /hpf (<or=2+); Red Blood Cells-Urine 0 SEEN /hpf (0-5)
[2023-05-13 16:43] LABS: Absolute Lymphocyte Count 3.56 X10^3/uL (0.83-4.51); Absolute Neutrophil Count 7.6 X10^3/uL (2.0-7.7); Basophil# 0.08 X10^3/uL; Basophil% 0.6 % (0-1); Eosinophil# 0.26 X10^3/uL; Eosinophils% 2.1 % (0-5); Hematocrit 46.9 % (40-54); Hemoglobin 15.9 g/dL (13.0-16.5); Lymphocyte # 3.56 X10^3/ul (0.83-4.51); Lymphocyte % 28.9 % (19-41); Mean Corp Hgb Conc 33.9 g/dL (32-36); Mean Corpuscular Volume 91.4 fL (80-94); Mean Platelet Vol. 9.2 fl (6.2-12.0); Monocyte# 0.73 X10^3/uL; Monocyte% 5.9 % (0-10); NRBC Flagged by Analyzer 0 % (0-5); Neutrophil # 7.61 X10^3/uL (2.7-7.7); Neutrophil % 61.8 % (47-70); Platelet Count 229 K/mm3 (150-450); RBC Distribution Width CV 12.7 % (11.6-14.6); RBC Distribution Width SD 42.7 fl (35.1-43.9); Red Blood Count 5.13 M/mm3 (4.6-6.2); White Blood Count 12.3 K/mm3 (4.4-11.0)
[2023-05-13 16:49] LABS: Color, Urine Yellow (Yellow); Glucose, Dipstick Normal (Normal); Ketone-Dipstick Negative (Negative); Leukocyte Esterase-Dipstick 100 /ul (Negative); Nitrite-Dipstick Negative (Negative); Occult Blood-Urine 10 /ul (Negative); Protein-Dipstick Negative (Negative); Specific Gravity, Urine 1.025 (1.002-1.030); Urine Bilirubin Dipstick Negative (Negative); Urine Clarity Clear (Clear); Urine Urobilinogen Normal (Normal)
[2023-05-13 16:59] LABS: Squamous Epithelial Cells - UA 0-5 SEEN /hpf (0-5); White Blood Cells 0-5 SEEN /hpf (0-5)
[2023-05-13 17:01] LABS: Anion Gap 8 (5-15); BUN 19 mg/dL (7-18); BUN/Creat Ratio 13.9 RATIO (10-20); Calcium,Total 8.9 mg/dL (8.5-10.1); Chloride 104 mmol/L (98-107); Creatinine, Serum 1.37 mg/dL (0.70-1.30); EST Glomerular Filtration Rate 59 mL/min (>60); Est Glom Filt Rate - Afr Amer 71 mL/min (>60); Estimated Creatinine Clearance 66.66 ml/min; Glucose 170 mg/dL (74-106); Potassium 4.2 mmol/L (3.5-5.1); Sodium Level 138 mmol/L (136-145)
[2023-05-13] MEDS: 0.9% Normal Saline (1000mL) 1,000 ML 150 ML IV (17:11)
[2023-05-13] MEDS: Ketorolac 30 MG/ML Syringe IV (17:12)
[2023-05-13 18:00] VITALS: BP 142/96; PULSE 74; RESP 16; O2SAT 98
[2023-05-13] MEDS: Orphenadrine 60 MG/2 ML Ampul IM (18:18)
[2023-05-13 18:26] VITALS: BP 140/89; PULSE 60; RESP 18; TEMP 36.7; O2SAT 95
== END 2023-05-13 18:28 | disposition home or self-care (01) ==
PROVIDERS: Emergency Provider Emergency Medicine; PCP Family Medicine; Visit Provider Emergency Medicine
DX: M54.9 Dorsalgia, unspecified (principal); F20.9 Schizophrenia, unspecified; J44.9 Chronic obstructive pulmonary disease, unspecified; E11.9 Type 2 diabetes mellitus without complications; Z79.4 Long term (current) use of insulin; I25.10 Atherosclerotic heart disease of native coronary artery without angina pectoris; F17.210 Nicotine dependence, cigarettes, uncomplicated; F32.A Depression, unspecified; Z79.899 Other long term (current) drug therapy; Z79.84 Long term (current) use of oral hypoglycemic drugs; Z79.82 Long term (current) use of aspirin
CPT/HCPCS: 74176; 80048; 81001; 85025; 96361; 96372; 96374; 99283; J7030; A4216

== ENCOUNTER 2023-05-19 12:15 | Emergency (ER) | payer MEDICARE, MEDICAID, SELFPAY ==
[2023-05-19 12:16] VITALS: BP 129/88; PULSE 115; RESP 16; TEMP 36.3; O2SAT 97; BMI 40.4
--- NOTE | 2023-05-19 12:56 | ED.VIS.BACK ---
HPI <EMORY Hernandez - Last Filed: 05/19/23 14:39> History of Present Illness Chief Complaint: Back Narrative Narrative: Patient presenting today due to an exacerbation of his chronic back pain. He reports that he was moving patio furniture around yesterday which aggravated his back. He denies any direct trauma to his back, bowel/bladder incontinence, saddle paresthesia, fever, chills. He does report that he recently had a UTI and was treated with Bactrim but he is still having some dysuria. PFSH <EMORY Hernandez - Last Filed: 05/19/23 14:39> [facility] Medical History Asthma CAD (coronary artery disease) COPD (chronic obstructive pulmonary disease) Depression Diabetes Schizophrenia Home Medications citalopram 40 mg tablet 40 mg PO DAILY DEPRESSION 10/19/15 [History Last Taken 05/13/23] fluphenazine HCl 1 mg tablet 2 mg PO BID ANTIPSYHCOTIC 10/19/15 [History Last Taken 05/13/23] oxcarbazepine 600 mg tablet (Trileptal) 1 tab PO BID SEIZURE 03/06/17 [History Last Taken 05/13/23] albuterol sulfate 90 mcg/actuation aerosol inhaler (Ventolin HFA) 1 puff inhalation Q4H PRN PRN Sob &/Or Wheezing ##1 03/08/17 [Rx Last Taken 12/18/20] quetiapine 25 mg tablet (Seroquel) 300 mg PO QHS MOOD 09/10/17 [History Last Taken 05/13/23] insulin glargine 100 unit/mL (3 mL) subcutaneous pen (Lantus Solostar U-100 Insulin) 36 unit subcut DAILY DM 12/19/20 [History Last Taken 05/13/23] mirtazapine 30 mg tablet 30 mg PO QHS INSOMNIA 12/19/20 [History Last Taken 05/13/23] simvastatin 80 mg tablet 80 mg PO QHS CHOLESTEROL 12/19/20 [History Last Taken 05/12/23] metformin 1,000 mg tablet 2,000 mg PO DAILY 04/15/22 [History Last Taken 05/13/23] cyclobenzaprine 10 mg tablet 10 mg PO TID PRN Muscle Spasm #20 TABLETS 04/20/23 [Rx Last Taken 05/13/23] sulfamethoxazole 800 mg-trimethoprim 160 mg tablet (Bactrim DS) 1 tab PO BID #14 tabs 05/10/23 [Rx Last Taken 05/13/23] aspirin 81 mg chewable tablet 1 tab PO DAILY 05/13/23 [History Last Taken 05/13/23] lorazepam 1 mg tablet 1 mg PO PRN PRN anxiety 05/13/23 [History Last Taken Unknown] orphenadrine citrate 100 mg tablet,extended release 100 mg PO BID #14 tabs 05/13/23 [Rx Last Taken Unknown] rivaroxaban 20 mg tablet (Xarelto) 20 mg PO DAILY 05/13/23 [History Last Taken 05/13/23] tramadol 50 mg tablet 50 mg PO TID PRN pain #14 tabs 05/13/23 [Rx Last Taken Unknown] Allergy/AdvReac Type Severity Reaction Status Date / Time naproxen Allergy Shortness Verified 05/19/23 12:45 of breath Penicillins Allergy Swelling Verified 05/19/23 12:45 ibuprofen AdvReac Other Verified 05/19/23 12:45 meloxicam [From Mobic] AdvReac HEADACHE Verified 05/19/23 12:45 Surgical History Gangrene Social History household members: none Smoking Status: Current every day smoker tobacco type: cigarettes Tobacco: How many years used: 30 second hand exposure: Yes alcohol intake: never substance use type: does not use caffeine: Yes (3/day) what type of physical activity do you participate in: none ROS <EMORY Hernandez - Last Filed: 05/19/23 14:39> ROS ED Constitutional Constitutional ED: Denies chills or fever(s) Cardiovascular Cardiovascular: Denies chest pain Respiratory/Chest Respiratory/Chest: Denies cough or dyspnea Gastrointestinal Gastrointestinal: Denies abdominal pain, nausea or vomiting Genitourinary Genitourinary ED: Reports dysuria; Denies hematuria or urinary urgency Musculoskeletal Musculoskeletal: Reports back pain Neurologic Neurologic: Denies paresthesias or weakness EXAM <MEORY Hernandez - Last Filed: 05/19/23 14:39> Physical Exam Const Vital Signs: 05/19/23 12:16 05/19/23 14:04 Temperature 97.3 F L Temperature Source Temporal Pulse Rate 115 H Respiratory Rate 16 16 Blood Pressure 129/88 H 99/76 Blood Pressure Mean 101 83 Pulse Ox 97 Oxygen Delivery Method Room Air Positive well nourished, well developed and no apparent distress General Appearance ED: well developed HEENT Reports normocephalic and head/scalp atraumatic Mouth ED: Yes moist mucous membranes normal Eyes PERRL and EOMs intact bilaterally Neck full ROM and supple Chest Wall inspection of chest normal Resp normal respiratory effort and clear to auscultation bilaterally Cardio regular rate and regular rhythm GI soft to palpation, non-tender, non-distended and no masses Back/Spine normal ROM Back/Spine Narrative: No significant midline thoracic, lumbar, or sacral tenderness. Tenderness to the right and left thoracic and lumbar paraspinal muscles. Extremity normal to inspection and full ROM Neuro oriented x3, CN's II-XII intact bilaterally, moves all extremities, no focal motor deficits and no sensory deficits noted Sensorium / Orientation: awake and alert Motor Exam: strength 5/5 throughout Psych mental status grossly normal and thought process normal Skin no rashes or lesions noted and no wounds <Dr. James Ramon MD - Last Filed: 05/19/23 14:01> Physical Exam Const Vital Signs: 05/19/23 12:16 05/19/23 14:04 Temperature 97.3 F L Temperature Source Temporal Pulse Rate 115 H Respiratory Rate 16 16 Blood Pressure 129/88 H 99/76 Blood Pressure Mean 101 83 Pulse Ox 97 Oxygen Delivery Method Room Air MDM <EMORY Hernandez - Last Filed: 05/19/23 14:39> [facility] Narrative Medical decision making narrative: Patient presenting today with chronic back pain. He has been seen here in the ED multiple times for similar symptoms. He reports, Toradol and muscle relaxers do not help me, I need something stronger. He has been given multiple referrals to pain management but reports that he has been unable to get an appointment with them because he needs an ID card before seeing them. He does not have any symptoms of cauda equina, no trauma to his back to indicate need for imaging. He is complaining of some dysuria with a recent UTI, UA will be obtained and is negative. He was given Skelaxin and Toradol here for pain. Patient has asked several times for stronger pain medication to go home with, however, I do not feel that narcotic pain medications are appropriate for his chronic back pain. I have encouraged him to follow-up with pain management and take Tylenol for pain as needed. He will be discharged in stable condition and is comfortable with plan. I have personally performed a face to face assessment of the patient and have reviewed the ERIK Note. I performed a substantive portion of the visit including all aspects of the following. My patiño findings include: History is 47-year-old male with acute on chronic back pain. After moving furniture. Prior history. Denies any fall or trauma. No fever. Exam is [well-appearing middle-age male. Vital signs stable afebrile. HEENT exam normal. Lungs clear. Heart regular rhythm. Abdomen soft nontender. Moving all 4 extremities. Normal strength. Normal range of motion. Back diffuse soft tissue tenderness consistent with myofascial strain. Neurologically is awake and alert with no focal motor deficits.] Medical Decision Making [[place] male with acute on chronic back pain from myofascial strain. He was offered muscle relaxants and anti-inflammatories which he did not want. 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 James Ramon MD - Last Filed: 05/19/23 14:01> [facility] Narrative Medical decision making narrative: Patient presenting today with chronic back pain. He has been seen here in the ED multiple times for similar symptoms. He reports, Toradol and muscle relaxers do not help me, I need something stronger. He has been given multiple referrals to pain management but reports that he has been unable to get an appointment with them because he needs an ID card before seeing them. He does not have any symptoms of cauda equina, no trauma to his back to indicate need for imaging. He is complaining of some dysuria with a recent UTI, UA will be obtained. I have personally performed a face to face assessment of the patient and have reviewed the ERIK Note. I performed a substantive portion of the visit including all aspects of the following. My patiño findings include: History is 47-year-old male with acute on chronic back pain. After moving furniture. Prior history. Denies any fall or trauma. No fever. Exam is [well-appearing middle-age male. Vital signs stable afebrile. HEENT exam normal. Lungs clear. Heart regular rhythm. Abdomen soft nontender. Moving all 4 extremities. Normal strength. Normal range of motion. Back diffuse soft tissue tenderness consistent with myofascial strain. Neurologically is awake and alert with no focal motor deficits.] Medical Decision Making [[place] male with acute on chronic back pain from myofascial strain. He was offered muscle relaxants and anti-inflammatories which he did not want. Patient was literally begging me for narcotic pain meds which I explained to him that is not the way to treat recurrent chronic back pain also he has a history of alcohol abuse about 5 years ago for which she has been sober since.] Other additions or changes: [None] History & Record Review Discussion w/independent historian: Patient Additional record(s) reviewed:: Prior inpatient record, Prior outpatient record, Prior ED visit, Prior labs and No prior records Lab Data Attestation: I reviewed the patient's lab results. Lab results narrative: Analysis is normal. No white or red cells no nitrates nor bacteria. Labs: Laboratory Results - last 24 hr 05/19/23 12:41 Urine Color Yellow Urine Clarity Clear Urine pH 5.0 Ur Specific [place] 1.020 Urine Protein 15 H Urine Glucose (UA) Normal Urine Ketones 5 H Urine Occult Blood 10 H Urine Nitrite Negative Urine Bilirubin Negative Urine Urobilinogen Normal Ur Leukocyte Esterase 25 H Urine RBC 0 SEEN Urine WBC 0 SEEN Ur Squamous Epith Cells 0-5 SEEN Urine Bacteria 0 SEEN Urine Mucus 0 SEEN Discharge Plan Triage Chief Complaint: Back ED Midlevel Provider: Sophia Martinez ED Provider: James Ramon Dx/Rx/DC Orders Clinical Impression: Musculoskeletal back pain Instructions: ED Back Care Tips Prescriptions: No Action citalopram 40 MG tablet 40 mg PO DAILY Patient Comments: depression fluphenazine HCl 1 MG tablet 2 mg PO BID Patient Comments: mood oxcarbazepine [Trileptal] 600 mg tablet 1 tab PO BID Patient Comments: Take 1 tablet by mouth twice a day after meals albuterol sulfate [Ventolin HFA] 1 INHALER inhaler 1 puff inhalation Q4H PRN PRN (Reason: Sob &/Or Wheezing) Qty: 1 0RF quetiapine [Seroquel] 25 MG tablet 300 mg PO QHS simvastatin 80 mg tablet 80 mg PO QHS mirtazapine 30 mg tablet 30 mg PO QHS insulin glargine [Lantus Solostar U-100 Insulin] 100 unit/mL (3 mL) insulin pen 36 unit SUBCUT DAILY metformin 1,000 mg tablet 2,000 mg PO DAILY Patient Comments: TAKE 1 TABLET BY MOUTH TWICE A DAY WITH MEALS lorazepam 1 mg tablet 1 mg PO PRN PRN (Reason: anxiety) aspirin 81 mg tablet,chewable 1 tab PO DAILY Xarelto 20 mg tablet 20 mg PO DAILY Patient Comments: TAKE 1 TABLET BY MOUTH EVERY DAY WITH DINNER orphenadrine citrate 100 mg tablet extended release 100 mg PO BID Qty: 14 0RF tramadol 50 mg tablet 50 mg PO TID PRN (Reason: pain) Qty: 14 0RF cyclobenzaprine 10 mg tablet 10 mg PO TID PRN (Reason: Muscle Spasm) Qty: 20 0RF sulfamethoxazole-trimethoprim [Bactrim DS] 800-160 mg tablet 1 tab PO BID Qty: 14 0RF Primary Care Provider: Kajal Knutson Referrals: Kajal Knutson DO [Primary Care Provider] - Activity Restrictions/Additional Instructions: Please follow-up with pain management you can take Tylenol and ibuprofen for your pain as needed. Disposition Disposition: Home, Self Care Discharge Date/Time: 05/19/23 14:06
[2023-05-19] MEDS: Ketorolac 15 MG/ML Vial IM (13:11)
[2023-05-19 13:16] LABS: Bacteria 0 SEEN /hpf (None Seen); Mucous, Urine 0 SEEN /hpf (<or=2+); Red Blood Cells-Urine 0 SEEN /hpf (0-5); White Blood Cells 0 SEEN /hpf (0-5)
[2023-05-19 13:24] LABS: Color, Urine Yellow (Yellow); Glucose, Dipstick Normal (Normal); Ketone-Dipstick 5 mg/dl (Negative); Leukocyte Esterase-Dipstick 25 /ul (Negative); Nitrite-Dipstick Negative (Negative); Occult Blood-Urine 10 /ul (Negative); Protein-Dipstick 15 mg/dl (Negative); Urine Bilirubin Dipstick Negative (Negative); Urine Clarity Clear (Clear); Urine Urobilinogen Normal (Normal)
[2023-05-19] MEDS: Metaxalone 800 MG Tablet PO (13:27)
[2023-05-19 13:36] LABS: Squamous Epithelial Cells - UA 0-5 SEEN /hpf (0-5)
[2023-05-19 14:04] VITALS: BP 99/76; RESP 16
== END 2023-05-19 14:06 | disposition home or self-care (01) ==
PROVIDERS: Physician Assistant; Emergency Provider Emergency Medicine; PCP Family Medicine; Visit Provider Emergency Medicine
DX: M54.89 Other dorsalgia (principal); F20.9 Schizophrenia, unspecified; J44.9 Chronic obstructive pulmonary disease, unspecified; E11.9 Type 2 diabetes mellitus without complications; Z79.4 Long term (current) use of insulin; I25.10 Atherosclerotic heart disease of native coronary artery without angina pectoris; F17.210 Nicotine dependence, cigarettes, uncomplicated; X50.9XXA Other and unspecified overexertion or strenuous movements or postures, initial encounter; Y93.89 Activity, other specified; F32.A Depression, unspecified; Z79.899 Other long term (current) drug therapy; Z79.84 Long term (current) use of oral hypoglycemic drugs; Z79.82 Long term (current) use of aspirin
CPT/HCPCS: 81001; 96372; 99282

== ENCOUNTER 2023-05-20 12:39 | Emergency (ER) | payer MEDICARE, MEDICAID, SELFPAY ==
[2023-05-20 12:40] VITALS: BP 114/85; PULSE 98; RESP 16; TEMP 35.7; O2SAT 98; BMI 76.3
--- NOTE | 2023-05-20 15:57 | ED.RN ---
PT AMBULATES IN AND OUT OF FACILITY WITHOUT DIFFICULTY. ATTEMPTED TO ROOM BUT PT NOT IN ED, GUS OBSERVED AMBULATING BACK INTO FACILITY
--- NOTE | 2023-05-20 17:32 | EX.ED.GENINJ ---
HPI <DIANNA Valdivia - Last Filed: 05/20/23 17:44> History of Present Illness Chief Complaint: Other, Pain/Inj Narrative Narrative: Patient is a 47-year-old male with history of chronic pain, COPD, depression who presents to the emergency department for acute on chronic pain. Patient was seen here yesterday, I did read the note, patient states he was moving some furniture couple days ago which caused him to have a flare of his lower back pain. Secondary to some personal issues such as not having ID, patient is unable to follow-up with pain management even though he is been referred several times. I did read the note last evening that showed the patient was showing some narcotic seeking behavior. Patient is here for evaluation. Patient denies any weakness to his lower extremities, bowel or bladder incontinence denies any infectious symptoms, denies any trauma PFSH <DIANNA Valdivia - Last Filed: 05/20/23 17:44> PFS Medical History Asthma CAD (coronary artery disease) COPD (chronic obstructive pulmonary disease) Depression Diabetes Schizophrenia Home Medications citalopram 40 mg tablet 40 mg PO DAILY DEPRESSION 10/19/15 [History Last Taken 05/13/23] fluphenazine HCl 1 mg tablet 2 mg PO BID ANTIPSYHCOTIC 10/19/15 [History Last Taken 05/13/23] oxcarbazepine 600 mg tablet (Trileptal) 1 tab PO BID SEIZURE 03/06/17 [History Last Taken 05/13/23] albuterol sulfate 90 mcg/actuation aerosol inhaler (Ventolin HFA) 1 puff inhalation Q4H PRN PRN Sob &/Or Wheezing ##1 03/08/17 [Rx Last Taken 12/18/20] quetiapine 25 mg tablet (Seroquel) 300 mg PO QHS MOOD 09/10/17 [History Last Taken 05/13/23] insulin glargine 100 unit/mL (3 mL) subcutaneous pen (Lantus Solostar U-100 Insulin) 36 unit subcut DAILY DM 12/19/20 [History Last Taken 05/13/23] mirtazapine 30 mg tablet 30 mg PO QHS INSOMNIA 12/19/20 [History Last Taken 05/13/23] simvastatin 80 mg tablet 80 mg PO QHS CHOLESTEROL 12/19/20 [History Last Taken 05/12/23] metformin 1,000 mg tablet 2,000 mg PO DAILY 04/15/22 [History Last Taken 05/13/23] cyclobenzaprine 10 mg tablet 10 mg PO TID PRN Muscle Spasm #20 TABLETS 04/20/23 [Rx Last Taken 05/13/23] sulfamethoxazole 800 mg-trimethoprim 160 mg tablet (Bactrim DS) 1 tab PO BID #14 tabs 05/10/23 [Rx Last Taken 05/13/23] aspirin 81 mg chewable tablet 1 tab PO DAILY 05/13/23 [History Last Taken 05/13/23] lorazepam 1 mg tablet 1 mg PO PRN PRN anxiety 05/13/23 [History Last Taken Unknown] orphenadrine citrate 100 mg tablet,extended release 100 mg PO BID #14 tabs 05/13/23 [Rx Last Taken Unknown] rivaroxaban 20 mg tablet (Xarelto) 20 mg PO DAILY 05/13/23 [History Last Taken 05/13/23] tramadol 50 mg tablet 50 mg PO TID PRN pain #14 tabs 05/13/23 [Rx Last Taken Unknown] tizanidine 4 mg capsule 4 mg PO BID PRN muscle spasticity #16 caps 05/20/23 [Rx Last Taken Unknown] Allergy/AdvReac Type Severity Reaction Status Date / Time naproxen Allergy Shortness Verified 05/20/23 12:40 of breath Penicillins Allergy Swelling Verified 05/20/23 12:40 ibuprofen AdvReac Other Verified 05/20/23 12:40 meloxicam [From Mobic] AdvReac HEADACHE Verified 05/20/23 12:40 Surgical History Gangrene Social History household members: none Smoking Status: Current every day smoker tobacco type: cigarettes Tobacco: How many years used: 30 second hand exposure: Yes alcohol intake: never substance use type: does not use caffeine: Yes (3/day) what type of physical activity do you participate in: none ROS <DIANNA Valdivia - Last Filed: 05/20/23 17:44> ROS ED ROS Narrative Constitutional: Negative for fever, chills, weight loss, weakness Eyes: Negative for vision loss, vision change, double vision ENT: Negative for any sore throat, ear pain, congestion Cardiovascular: Negative for any chest pain, tightness, palpitations Respiratory: Negative for any cough, sputum production, hemoptysis, dyspnea, dyspnea on exertion, orthopnea Gastrointestinal: Negative for any abdominal pain, nausea, vomiting, diarrhea, constipation, blood in stool, blood in vomit : Negative for any urinary frequency, dysuria, retention, blood in urine Muscle skeletal: Negative for any myalgias, arthralgias. Positive for neck and back pain that is chronic Neurological: Negative for any headache, syncope, numbness or tingling, dizziness Skin: Negative for any rashes, lumps, itching, abrasions, lacerations Psychiatric: Negative for any depression, anxiety, stress, suicidal ideation, homicidal ideation Hematologic: Negative for any easy bruising, excessive bruising, easy bleeding Allergies: Negative for any eczema, hives, rash EXAM <DIANNA Valdivia - Last Filed: 05/20/23 17:44> Physical Exam Narrative Exam Narrative: Vital signs reviewed. Patient is able to move all extremities. Patient has worsening pain with flexion extension. HEET: Head normocephalic atraumatic, TMs clear bilaterally. Posterior pharynx is clear, moist mucous membranes. Nares clear bilaterally. Neck: Supple with no lymphadenopathy or tenderness. No signs of meningismus. Cardiac: Regular rate and rhythm no murmurs gallops or rubs, equal peripheral pulses bilaterally. Respiratory: Lungs clear to auscultation bilaterally. No chest tenderness. Abdomen: Soft, nontender, nondistended. No abdominal bruit or pulsatile masses. No hepatosplenomegaly Extremities: No peripheral edema, no signs of gross trauma or deformity. Active full range of motion of all extremities. Neuro: Cranial nerves II through XII intact, no focal neurological deficits. Skin: Clean dry and intact with no rash, purpura, petechiae, vesicles or pustules. Backs/flank: No CVA tenderness, no midline spinal tenderness, no deformity. Negative for any weakness to his lower extremities, worsening pain with rotation, flexion extension. Negative for any pain midline spinal tenderness. Psych: Normal mood and affect. No SI, HI or acute psychosis. Const Vital Signs: 11/20/23 12:40 05/20/23 16:54 Temperature 96.2 F L Temperature Source Temporal Pulse Rate 98 Respiratory Rate 16 Respiratory Effort Normal Respiratory Pattern Normal Blood Pressure 114/85 H Blood Pressure Mean 94 Pulse Ox 98 Oxygen Delivery Method Room Air Positive well nourished and well developed General Appearance ED: well developed <Dr. Aníbal Michelle, - Last Filed: 05/20/23 19:47> Physical Exam Const Vital Signs: 05/20/23 12:40 05/20/23 16:54 Temperature 96.2 F L Temperature Source Temporal Pulse Rate 98 Respiratory Rate 16 Respiratory Effort Normal Respiratory Pattern Normal Blood Pressure 114/85 H Blood Pressure Mean 94 Pulse Ox 98 Oxygen Delivery Method Room Air MDM <DIANNA Valdivia - Last Filed: 05/20/23 17:44> [facility] Treatment and Re-Evaluation Narrative: Patient appears generally well, patient appears nontoxic, vital signs are stable. Patient presents to the emergency department for acute on chronic back pain. Differential diagnosis includes lumbar sprain, lumbar fracture, acute exacerbation of chronic pain. Physical examination, findings are consistent with acute exacerbation of chronic pain. Patient does show some narcotic seen behavior with pleading for pain medicine. I did speak with the patient at length, he does need to follow-up with pain management. Patient will receive another referral. Patient was given Toradol, Norflex here. I did speak with him, he states he is allergic to ibuprofen, naproxen, meloxicam. I did let him know that he will not be receiving any narcotic pain medicine, he will be given tizanidine 4 mg tablets with no refills, he will also continue to take Tylenol. He verbally understands, he understands he needs to follow-up outpatient. He does have a PCP can also follow-up with. At this time, patient stable for discharge. <Dr. Aníbal Michelle, - Last Filed: 05/20/23 19:47> [facility] Narrative Medical decision making narrative: I have personally performed a face to face assessment of the patient and have reviewed the ERIK Note. I performed a substantive portion of the visit including all aspects of the following. My patiño findings include: History: Patient presents with back pain that became worse today. Patient was seen here yesterday. Patient states that he felt like he should have received a muscle relaxer yesterday. Patient denies any new trauma or injury. Patient states his pain is mainly over his lower lumbar area. Patient denies any paresthesias or weakness. Patient denies any bowel or bladder changes. Patient denies any saddle anesthesia. Exam: All signs are stable. Patient is afebrile. Patient is in no acute distress. Musculoskeletal exam reveals tenderness over the lumbar paraspinal muscles bilaterally. There is no midline tenderness. There is no bony crepitance or step-off. Range of motion was slightly limited in all motions of the lumbar spine secondary to pain. Straight leg raises were negative bilaterally. Strength is 5/5 bilaterally in the lower extremities. There are no sensory deficits noted. Medical Decision Making: Patient was given injections of Toradol and Norflex here. Patient was given a prescription for tizanidine. Patient was instructed to use ice to the area. Patient was instructed to follow-up with his primary care physician in 5 to 7 days. Patient understood and was agreeable with the plan. All questions were answered. Discharge Plan Triage Chief Complaint: Other, Pain/Inj ED Midlevel Provider: Etienne Soto ED Provider: Aníbal Michelle Dx/Rx/DC Orders Clinical Impression: Chronic pain, Musculoskeletal back pain Instructions: ED Chronic Pain Prescriptions: New tizanidine 4 mg capsule 4 mg PO BID PRN (Reason: muscle spasticity) Qty: 16 0RF No Action citalopram 40 MG tablet 40 mg PO DAILY Patient Comments: depression fluphenazine HCl 1 MG tablet 2 mg PO BID Patient Comments: mood oxcarbazepine [Trileptal] 600 mg tablet 1 tab PO BID Patient Comments: Take 1 tablet by mouth twice a day after meals albuterol sulfate [Ventolin HFA] 1 INHALER inhaler 1 puff inhalation Q4H PRN PRN (Reason: Sob &/Or Wheezing) Qty: 1 0RF quetiapine [Seroquel] 25 MG tablet 300 mg PO QHS simvastatin 80 mg tablet 80 mg PO QHS mirtazapine 30 mg tablet 30 mg PO QHS insulin glargine [Lantus Solostar U-100 Insulin] 100 unit/mL (3 mL) insulin pen 36 unit SUBCUT DAILY metformin 1,000 mg tablet 2,000 mg PO DAILY Patient Comments: TAKE 1 TABLET BY MOUTH TWICE A DAY WITH MEALS lorazepam 1 mg tablet 1 mg PO PRN PRN (Reason: anxiety) aspirin 81 mg tablet,chewable 1 tab PO DAILY Xarelto 20 mg tablet 20 mg PO DAILY Patient Comments: TAKE 1 TABLET BY MOUTH EVERY DAY WITH DINNER orphenadrine citrate 100 mg tablet extended release 100 mg PO BID Qty: 14 0RF tramadol 50 mg tablet 50 mg PO TID PRN (Reason: pain) Qty: 14 0RF cyclobenzaprine 10 mg tablet 10 mg PO TID PRN (Reason: Muscle Spasm) Qty: 20 0RF sulfamethoxazole-trimethoprim [Bactrim DS] 800-160 mg tablet 1 tab PO BID Qty: 14 0RF Primary Care Provider: Kajal Knutson Referrals: Katey Powers MD [Med Staff - Active Staff] - Kajal Knutson DO [Primary Care Provider] - Activity Restrictions/Additional Instructions: Follow-up with pain management, work on getting your ID Disposition Disposition: Home, Self Care Discharge Date/Time: 05/20/23 17:51
[2023-05-20] MEDS: Orphenadrine 60 MG/2 ML Ampul IM (17:35)
[2023-05-20] MEDS: Ketorolac 30 MG/ML Syringe IM (17:35)
== END 2023-05-20 17:51 | disposition home or self-care (01) ==
PROVIDERS: Emergency Provider Emergency Medicine; PCP Family Medicine; Visit Provider Emergency Medicine
DX: M54.50 Low back pain, unspecified (principal); J44.9 Chronic obstructive pulmonary disease, unspecified; E11.9 Type 2 diabetes mellitus without complications; G89.29 Other chronic pain; F17.210 Nicotine dependence, cigarettes, uncomplicated; I25.10 Atherosclerotic heart disease of native coronary artery without angina pectoris; F32.A Depression, unspecified
CPT/HCPCS: 96372; 99282

== ENCOUNTER 2023-06-19 12:06 | Emergency (ER) | payer MEDICARE, MEDICAID, SELFPAY ==
[2023-06-19 12:07] VITALS: BP 143/95; PULSE 105; RESP 14; TEMP 36.8; O2SAT 98; BMI 38.3
--- NOTE | 2023-06-19 13:54 | EDS_ITS ---
HPI History of Present Illness Chief Complaint: Back Informant: patient Narrative Narrative: 48-year-old male presenting to the emergency department chief complaint of upper back pain. Patient states he has chronic low back pain. He states that for the past couple days he has been moving things around his house and for 2 days now he has had upper back discomfort. He states is worse with movement movement of the arms. No fevers or infectious symptoms bowel or bladder control issues. He is he has not talked about this with his doctors. He was in town today for a pain management appointment for chronic low back pain. He states that they were not able to give him any medications until he gets an MRI and they review his case. States he needs something for the pain now. So therefore he decided to come to the emergency department. Patient said prior ED visits for back pain which I did review. [facility] Medical History Asthma CAD (coronary artery disease) COPD (chronic obstructive pulmonary disease) Depression Diabetes Schizophrenia Home Medications citalopram 40 mg tablet 40 mg PO DAILY DEPRESSION 10/19/15 [History Last Taken 05/13/23] fluphenazine HCl 1 mg tablet 2 mg PO BID ANTIPSYHCOTIC 10/19/15 [History Last Taken 05/13/23] oxcarbazepine 600 mg tablet (Trileptal) 1 tab PO BID SEIZURE 03/06/17 [History Last Taken 05/13/23] albuterol sulfate 90 mcg/actuation aerosol inhaler (Ventolin HFA) 1 puff inhalation Q4H PRN PRN Sob &/Or Wheezing ##1 03/08/17 [Rx Last Taken 12/18/20] quetiapine 25 mg tablet (Seroquel) 300 mg PO QHS MOOD 09/10/17 [History Last Taken 05/13/23] insulin glargine 100 unit/mL (3 mL) subcutaneous pen (Lantus Solostar U-100 Insulin) 36 unit subcut DAILY DM 12/19/20 [History Last Taken 05/13/23] mirtazapine 30 mg tablet 30 mg PO QHS INSOMNIA 12/19/20 [History Last Taken 05/13/23] simvastatin 80 mg tablet 80 mg PO QHS CHOLESTEROL 12/19/20 [History Last Taken 05/12/23] metformin 1,000 mg tablet 2,000 mg PO DAILY 04/15/22 [History Last Taken 05/13/23] cyclobenzaprine 10 mg tablet 10 mg PO TID PRN Muscle Spasm #20 TABLETS 04/20/23 [Rx Last Taken 05/13/23] sulfamethoxazole 800 mg-trimethoprim 160 mg tablet (Bactrim DS) 1 tab PO BID #14 tabs 05/10/23 [Rx Last Taken 05/13/23] aspirin 81 mg chewable tablet 1 tab PO DAILY 05/13/23 [History Last Taken 05/13/23] lorazepam 1 mg tablet 1 mg PO PRN PRN anxiety 05/13/23 [History Last Taken Unknown] orphenadrine citrate 100 mg tablet,extended release 100 mg PO BID #14 tabs 05/13/23 [Rx Last Taken Unknown] rivaroxaban 20 mg tablet (Xarelto) 20 mg PO DAILY 05/13/23 [History Last Taken 05/13/23] tramadol 50 mg tablet 50 mg PO TID PRN pain #14 tabs 05/13/23 [Rx Last Taken Unknown] tizanidine 4 mg capsule 4 mg PO BID PRN muscle spasticity #16 caps 05/20/23 [Rx Last Taken Unknown] Allergy/AdvReac Type Severity Reaction Status Date / Time naproxen Allergy Shortness Verified 06/19/23 12:07 of breath Penicillins Allergy Swelling Verified 06/19/23 12:07 ibuprofen AdvReac Other Verified 06/19/23 12:07 meloxicam [From Mobic] AdvReac HEADACHE Verified 06/19/23 12:07 Surgical History Gangrene Social History household members: none Smoking Status: Current every day smoker tobacco type: cigarettes Tobacco: How many years used: 30 second hand exposure: Yes alcohol intake: never substance use type: does not use caffeine: Yes (3/day) what type of physical activity do you participate in: none ROS ROS ED Constitutional Constitutional ED: Denies chills, fever(s) or weight loss Eyes Eyes: Denies change in vision or diplopia ENT ENT ED: Denies ear pain, rhinorrhea or sore throat Cardiovascular Cardiovascular: Denies chest pain, orthopnea, palpitations or racing heartbeat Respiratory/Chest Respiratory/Chest: Denies cough, dyspnea or orthopnea Gastrointestinal Gastrointestinal: Denies abdominal pain, diarrhea, nausea or vomiting Genitourinary Genitourinary ED: Denies dysuria, hematuria or urinary frequency Musculoskeletal Musculoskeletal: Reports back pain; Denies arthralgias or myalgias Integumentary Denies abscess or rash Neurologic Neurologic: Denies headache(s) or weakness Psychiatric Psychiatric: Denies anxiety, depression, suicidal ideation or suicidal thoughts Endocrine Endocrinology: Denies polydipsia, polyphagia or polyuria Allergic/Immunologic Allergic/Immunologic ED: Denies mouth swelling, tongue swelling or urticaria EXAM Physical Exam Narrative Exam Narrative: Much older than stated age Const Vital Signs: 06/19/23 12:07 Temperature 98.2 F Temperature Source Temporal Pulse Rate 105 H Respiratory Rate 14 Blood Pressure 143/95 H Blood Pressure Mean 111 Pulse Ox 98 Oxygen Delivery Method Room Air Positive well nourished, well developed and obese General Appearance ED: well developed Nutritional Appearance: obese HEENT Reports normocephalic, head/scalp atraumatic and moist mucous membranes Eyes PERRL and EOMs intact bilaterally Neck no lymphadenopathy, supple and no JVD Resp normal respiratory effort and clear to auscultation bilaterally Cardio regular rate, regular rhythm and no murmurs GI normal to inspection, nondistended, normoactive bowel sounds and non-tender Palpation: soft Back/Spine no CVA tenderness and normal ROM Back/Spine Narrative: Patient has pain significantly out of proportion to examination. Simply asking him to lean forward as I reach for him he starts to moan telling me it hurts and I informed him that my hand has not yet even touched his skin. He is unfazed by this and continues to moan. I do not appreciate any tissue texture changes to suggest underlying infection is in. He has full range of motion but tells me it hurts no matter what he does. Extremity normal to inspection General Extremety ED: Negative for edema General Extremity: Negative for edema Neuro oriented x3 and CN's II-XII intact bilaterally Sensorium / Orientation: alert Motor Exam: strength 5/5 throughout Psych mental status grossly normal Mood & Affect: Negative for depressed or tearful Skin no rashes or lesions noted and no wounds MDM MDM MDM Narrative Medical decision making narrative: The patient's presentation and his prior ED visits certainly raises red flags. I informed him I would not be providing him a prescription for any narcotics. He tells me he is taking Tylenol Toradol and Flexeril at home which has not helped. He states that he specifically needs a narcotic and if not a narcotic tramadol would do. I informed him I would need to see a person here who is going to give him a ride home before I give him anything like that. He was able to find a ride I will give him 1 tramadol here. After that the patient should continue conservative treatment at home as I do not believe that this is something that would require more than rest and heat for. He tells me that he has been moving objects around his house and that it hurts for him to move which I think is most likely muscular in nature. Discharge Plan Triage Chief Complaint: Back ED Provider: Keith Campos Dx/Rx/DC Orders Clinical Impression: Acute thoracic back pain, Strain of thoracic back region Instructions: ED Thoracic Spine Strain Prescriptions: No Action citalopram 40 MG tablet 40 mg PO DAILY Patient Comments: depression fluphenazine HCl 1 MG tablet 2 mg PO BID Patient Comments: mood oxcarbazepine [Trileptal] 600 mg tablet 1 tab PO BID Patient Comments: Take 1 tablet by mouth twice a day after meals albuterol sulfate [Ventolin HFA] 1 INHALER inhaler 1 puff inhalation Q4H PRN PRN (Reason: Sob &/Or Wheezing) Qty: 1 0RF quetiapine [Seroquel] 25 MG tablet 300 mg PO QHS simvastatin 80 mg tablet 80 mg PO QHS mirtazapine 30 mg tablet 30 mg PO QHS insulin glargine [Lantus Solostar U-100 Insulin] 100 unit/mL (3 mL) insulin pen 36 unit SUBCUT DAILY metformin 1,000 mg tablet 2,000 mg PO DAILY Patient Comments: TAKE 1 TABLET BY MOUTH TWICE A DAY WITH MEALS lorazepam 1 mg tablet 1 mg PO PRN PRN (Reason: anxiety) aspirin 81 mg tablet,chewable 1 tab PO DAILY Xarelto 20 mg tablet 20 mg PO DAILY Patient Comments: TAKE 1 TABLET BY MOUTH EVERY DAY WITH DINNER orphenadrine citrate 100 mg tablet extended release 100 mg PO BID Qty: 14 0RF tramadol 50 mg tablet 50 mg PO TID PRN (Reason: pain) Qty: 14 0RF cyclobenzaprine 10 mg tablet 10 mg PO TID PRN (Reason: Muscle Spasm) Qty: 20 0RF sulfamethoxazole-trimethoprim [Bactrim DS] 800-160 mg tablet 1 tab PO BID Qty: 14 0RF tizanidine 4 mg capsule 4 mg PO BID PRN (Reason: muscle spasticity) Qty: 16 0RF Primary Care Provider: Kajal Knutson Referrals: Kajal Knutson DO [Primary Care Provider] - 1 Week if not improving Disposition Disposition: Home, Self Care
[2023-06-19] MEDS: traMADol 50 MG Tablet PO (13:57)
== END 2023-06-19 14:02 | disposition home or self-care (01) ==
PROVIDERS: Emergency Provider Emergency Medicine; PCP Family Medicine; Visit Provider Emergency Medicine
DX: S29.012A Strain of muscle and tendon of back wall of thorax, initial encounter (principal); F20.9 Schizophrenia, unspecified; J44.9 Chronic obstructive pulmonary disease, unspecified; E11.9 Type 2 diabetes mellitus without complications; Z79.4 Long term (current) use of insulin; I25.10 Atherosclerotic heart disease of native coronary artery without angina pectoris; F32.A Depression, unspecified; F17.210 Nicotine dependence, cigarettes, uncomplicated; Z79.899 Other long term (current) drug therapy; Z79.84 Long term (current) use of oral hypoglycemic drugs; Z79.82 Long term (current) use of aspirin; X50.0XXA Overexertion from strenuous movement or load, initial encounter; G89.29 Other chronic pain
CPT/HCPCS: 99282

== ENCOUNTER → 2023-07-15 | Outpatient (CLI) | payer MEDICARE, MEDICAID, SELFPAY ==
--- NOTE | 2023-07-15 15:00 | MRI_ITS ---
EXAM: MR CERVICAL SPINE WITHOUT INTRAVENOUS CONTRAST CLINICAL INDICATION: RADICULOPATHY CERVICAL REGION TECHNIQUE: Multiplanar and multisequence MR images of the cervical spine without intravenous contrast were performed. COMPARISON: CT cervical spine, 08/03/2014 FINDINGS: VERTEBRAE: No evidence of a fracture or subluxation. No suspicious marrow space signal abnormality. Normal cervical alignment. Normal craniocervical junction.. SPINAL CORD: There is intramedullary signal abnormality with deformity of the spinal cord at the level of T2. The spinal cord appears deflected and/or compressed anteriorly. This is only visualized on sagittal images and may be a associated with the disc disease partially visualized at T2-T3. SOFT TISSUES: No significant abnormality. No prevertebral soft tissue swelling. LYMPH NODES: No significant abnormality. There is no cervical adenopathy. DISCS/SPINAL CANAL/NEURAL FORAMINA: C2-C3: No significant abnormality. Normal disc height and morphology. Normal spinal canal. Normal neuroforamina. C3-C4: No significant abnormality. Normal disc height and morphology. Normal spinal canal. Normal neuroforamina. C4-C5: No significant abnormality. Normal disc height and morphology. Normal spinal canal. Normal neuroforamina. C5-C6: No significant abnormality. Normal disc height and morphology. Normal spinal canal. Normal neuroforamina. C6-C7: No significant abnormality. Normal disc height and morphology. Normal spinal canal. Normal neuroforamina. C7-T1: Right-sided endplate osteophytosis and disc herniation contributing to moderate to severe right-sided neural foraminal stenosis with impingement of the right C8 nerve root. Normal spinal canal. MRI/Spine Cervical (Routine) IMPRESSION: 1. Right-sided endplate osteophytosis and disc herniation contributing to moderate to severe right-sided neural foraminal stenosis with impingement of the right C8 nerve root. 2. There is intramedullary signal abnormality with deformity of the spinal cord at the level of T2. The spinal cord appears deflected and/or compressed anteriorly. This is only visualized on sagittal images and may be a associated with the disc disease partially visualized at T2-T3. Recommend MRI of the thoracic spine without and with contrast and if possible, high resolution thin section imaging through this level to potentially identify spinal cord herniation or other intradural lesion. 3. Mild degenerative changes in the cervical spine. Electronically Signed: Jagjit Chand DO at 19:17 EST ,
--- NOTE | 2023-07-15 15:15 | MRI_ITS ---
EXAM: MR LUMBAR SPINE WITHOUT INTRAVENOUS CONTRAST CLINICAL INDICATION: RADICULOPATHY LUMBAR REGION TECHNIQUE: Multiplanar and multisequence MR images of the lumbar spine without intravenous contrast. COMPARISON: CT lumbar spine, 03/17/2023. 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 The left L5 transverse process is hypertrophied and appears diffusely the sacrum. Vertebral body heights are preserved. Normal alignment. No spondylolisthesis. There is preservation of the normal lumbar lordosis. SPINAL CORD: No significant abnormality. Normal position and signal intensity of the conus medullaris. There is no evidence of nerve root impingement. SOFT TISSUES: No significant abnormality. DISCS/SPINAL CANAL/NEURAL FORAMINA: L1-L2: Mild bilateral facet arthrosis. No disc herniation, spinal canal stenosis, or neural foraminal narrowing. L2-L3: Mild disc bulge and mild bilateral facet arthrosis. Mild bilateral neural foraminal narrowing. No significant spinal canal stenosis. L3-L4: Disc height loss and disc desiccation. Disc bulge and mild bilateral facet arthrosis. Mild spinal canal stenosis and bilateral neural foraminal narrowing. L4-L5: Disc bulge and mild bilateral facet arthrosis. Mild spinal canal stenosis and bilateral neural foraminal narrowing. L5-S1: Central disc herniation and mild disc height loss and disc desiccation. Mild spinal canal stenosis and mild left neural foraminal narrowing. MRI/Spine Lumbar (Routine) IMPRESSION: 1. 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 The left L5 transverse process is hypertrophied and appears diffusely the sacrum. 2. Multilevel degenerative changes as detailed above. No discrete evidence of nerve root impingement. Mild multilevel spinal canal and neural foraminal stenosis. Electronically Signed: Jagjit Chand DO at 19:13 EST ,
== END | disposition home or self-care (01) ==
LOC: MRI 14:43
PROVIDERS: PCP Family Medicine; Referring Provider Anesthesiology Pain Medicine; Visit Provider Anesthesiology Pain Medicine
DX: M54.12 Radiculopathy, cervical region (principal); M54.16 Radiculopathy, lumbar region
CPT/HCPCS: 72141; 72148

== ENCOUNTER 2023-07-20 18:56 | Emergency (ER) | payer MEDICARE, MEDICAID, SELFPAY ==
[2023-07-20 18:57] VITALS: BP 133/78; PULSE 87; RESP 14; TEMP 36.8; O2SAT 97; BMI 37.0
--- NOTE | 2023-07-20 19:23 | EDS_ITS ---
<Statement entered by Tanisha Mallory MD - 07/21/23 00:52> I have personally performed a face to face assessment of the patient and have reviewed the [facility] Note. Patient presents secondary to back and abdominal pain. Patient has a history of chronic back pain. He states he was moving furniture and now has increased back pain. Ironically, on the patient's multiple previous visits for the same he states he is moving furniture on those visits as well. Patient is currently in pain management and is undergoing physical therapy. He just had MRIs performed recently. Patient also complains of some lower abdominal cramping. Patient sitting upright in bed no acute distress. Nontoxic-appearing. I did observe him ambulating in with EMS to be evaluated. Head and neck examination unremarkable. Heart is regular rate and rhythm. Lung sounds are clear. Abdomen is soft, obese, nontender. Back examination reveals mild diffuse tenderness throughout the spinal canal. No focal point tenderness. No erythema. No neurologic deficits. Workup was initiated by ERIK. Patient was unhappy that he was not getting narcotics and asked to see me. I went back and evaluated him. I see no acute red flags on his exam. Patient initially was refusing Toradol which she has received multiple times here. He states that he was told not to take NSAIDs as he is on a blood thinner. I advised him that IV or IM Toradol is much safer as it does not irritate the stomach lining like the oral ibuprofen would. He asked if he could have something stronger than Toradol and I declined his request he stated that he would take the Toradol. Workup here is unremarkable. Patient does have a slight elevation in his lipase, but has no epigastric tenderness. Patient states that he is having increased pain with physical therapy and I encouraged him to call his pain management doctors to see if they would cover him with something while he is in physical therapy, but I would not be writing him a prescription for narcotics from the emergency room. HPI History of Present Illness Chief Complaint: Back Narrative Narrative: Presenting today due to right-sided mid to lower back pain that he has had chronically. He reports that he has been lifting heavy items and moving furni ture around which has caused his back pain to worsen. He is in pain management for this and currently is in physical therapy which seems to be making his pain worse. He also ports having lower abdominal pain that is more severe in the suprapubic area over the past few days. He reports dysuria and is concerned that he could have a UTI. He reports having a recent MRI of his back which showed herniated discs in his neck. He denies any bowel/bladder incontinence, saddle paresthesia, fever, chills, nausea, diarrhea, and vomiting. [facility] Medical History Asthma CAD (coronary artery disease) COPD (chronic obstructive pulmonary disease) Depression Diabetes Schizophrenia Home Medications citalopram 40 mg tablet 40 mg PO DAILY DEPRESSION 10/19/15 [History Last Taken 05/13/23] fluphenazine HCl 1 mg tablet 2 mg PO BID ANTIPSYHCOTIC 10/19/15 [History Last Taken 05/13/23] oxcarbazepine 600 mg tablet (Trileptal) 1 tab PO BID SEIZURE 03/06/17 [History Last Taken 05/13/23] albuterol sulfate 90 mcg/actuation aerosol inhaler (Ventolin HFA) 1 puff inhalation Q4H PRN PRN Sob &/Or Wheezing ##1 03/08/17 [Rx Last Taken 12/18/20] quetiapine 25 mg tablet (Seroquel) 300 mg PO QHS MOOD 09/10/17 [History Last Taken 05/13/23] insulin glargine 100 unit/mL (3 mL) subcutaneous pen (Lantus Solostar U-100 Insulin) 36 unit subcut DAILY DM 12/19/20 [History Last Taken 05/13/23] mirtazapine 30 mg tablet 30 mg PO QHS INSOMNIA 12/19/20 [History Last Taken 05/13/23] simvastatin 80 mg tablet 80 mg PO QHS CHOLESTEROL 12/19/20 [History Last Taken 05/12/23] metformin 1,000 mg tablet 2,000 mg PO DAILY 04/15/22 [History Last Taken 05/13/23] cyclobenzaprine 10 mg tablet 10 mg PO TID PRN Muscle Spasm #20 TABLETS 04/20/23 [Rx Last Taken 05/13/23] sulfamethoxazole 800 mg-trimethoprim 160 mg tablet (Bactrim DS) 1 tab PO BID #14 tabs 05/10/23 [Rx Last Taken 05/13/23] aspirin 81 mg chewable tablet 1 tab PO DAILY 05/13/23 [History Last Taken 05/13/23] lorazepam 1 mg tablet 1 mg PO PRN PRN anxiety 05/13/23 [History Last Taken Unknown] orphenadrine citrate 100 mg tablet,extended release 100 mg PO BID #14 tabs 05/13/23 [Rx Last Taken Unknown] rivaroxaban 20 mg tablet (Xarelto) 20 mg PO DAILY 05/13/23 [History Last Taken 05/13/23] tramadol 50 mg tablet 50 mg PO TID PRN pain #14 tabs 05/13/23 [Rx Last Taken Unknown] tizanidine 4 mg capsule 4 mg PO BID PRN muscle spasticity #16 caps 05/20/23 [Rx Last Taken Unknown] Allergy/AdvReac Type Severity Reaction Status Date / Time naproxen Allergy Shortness Verified 07/20/23 18:57 of breath Penicillins Allergy Swelling Verified 07/20/23 18:57 ibuprofen AdvReac Other Verified 07/20/23 18:57 meloxicam [From Mobic] AdvReac HEADACHE Verified 07/20/23 18:57 Surgical History Gangrene Social History household members: none Smoking Status: Current every day smoker tobacco type: cigarettes Tobacco: How many years used: 30 second hand exposure: Yes alcohol intake: never substance use type: does not use caffeine: Yes (3/day) what type of physical activity do you participate in: none ROS ROS ED Constitutional Constitutional ED: Denies chills or fever(s) Cardiovascular Cardiovascular: Denies chest pain Respiratory/Chest Respiratory/Chest: Denies cough or dyspnea Gastrointestinal Gastrointestinal: Reports abdominal pain; Denies constipation, diarrhea, nausea or vomiting Genitourinary Genitourinary ED: Reports dysuria; Denies hematuria or urinary urgency Musculoskeletal Musculoskeletal: Reports back pain Integumentary Denies rash Neurologic Neurologic: Denies weakness EXAM Physical Exam Const Vital Signs: 07/20/23 18:57 Temperature 98.2 F Temperature Source Temporal Pulse Rate 87 Respiratory Rate 14 Blood Pressure 133/78 H Blood Pressure Mean 96 Pulse Ox 97 Oxygen Delivery Method Room Air Positive well nourished, well developed and no apparent distress General Appearance ED: well developed HEENT Reports normocephalic and head/scalp atraumatic Mouth ED: Yes moist mucous membranes normal Eyes PERRL and EOMs intact bilaterally Neck full ROM and supple Chest Wall inspection of chest normal Resp normal respiratory effort and clear to auscultation bilaterally Cardio regular rate and regular rhythm GI soft to palpation, non-distended and no masses GI Narrative: Minimal suprapubic tenderness to palpation. No rigidity, guarding, or peritoneal signs. Back/Spine normal ROM and normal to inspection Back/Spine Narrative: Right thoracic and lumbar paraspinal tenderness to palpation. Extremity normal to inspection and full ROM Neuro oriented x3, CN's II-XII intact bilaterally, moves all extremities, no focal motor deficits and no sensory deficits noted Sensorium / Orientation: awake and alert Psych mental status grossly normal and thought process normal Skin no rashes or lesions noted and no wounds MDM MDM MDM Narrative Medical decision making narrative: Patient presenting due to right-sided chronic back pain that was exacerbated after lifting furniture recently. Patient has been seen multiple times in the ED here for chronic back pain. Patient did ask me multiple times what pain medication I would be giving him for his back pain. He also complained of lower abdominal/ suprapubic pain. Labs obtained. He was given Toradol and Bentyl. CBC shows slightly elevated WBC, this has been elevated in the past. CMP shows a sodium of 135. Lipase 141. UA negative for UTI. I did encourage him to follow-up with pain management and his PCP. He will be discharged home in stable condition and is comfortable with plan. Lab Data Attestation: I reviewed the patient's lab results. Labs: Laboratory Results - last 24 hr 07/20/23 19:50 WBC 14.1 H RBC 5.11 Hgb 16.1 Hct 46.0 MCV 90.0 MCH 31.5 MCHC 35.0 RDW Std Deviation 42.5 RDW Coeff of Desiree 12.8 Plt Count 272 MPV 8.9 Immature Gran % (Auto) 0.400 Neut % (Auto) 56.9 Lymph % (Auto) 34.1 [place] % (Auto) 5.7 Eos % (Auto) 2.1 Baso % (Auto) 0.8 Absolute Neuts (auto) 8.0 H Absolute Lymphs (auto) 4.82 H Nucleated RBC % 0 Differential Comment SCANNED Sodium 135 L Potassium 4.7 Chloride 104 Carbon Dioxide 27.0 Anion Gap 4 L BUN 15 Creatinine 1.06 Estim Creat Clear Calc 115.82 Est GFR (MDRD) Af Amer 96 Est GFR (MDRD) Non-Af 79 BUN/Creatinine Ratio 14.2 Glucose 136 H Calcium 9.6 Total Bilirubin 0.50 AST 39 H ALT 38 Alkaline Phosphatase 101 Total Protein 7.4 Albumin 3.8 Globulin 3.6 Albumin/Globulin Ratio 1.1 Lipase 141 H Urine Color Yellow Urine Clarity Clear Urine pH 5.0 Ur Specific [place] 1.020 Urine Protein 15 H Urine Glucose (UA) Normal Urine Ketones 5 H Urine Occult Blood Negative Urine Nitrite Negative Urine Bilirubin Negative Urine Urobilinogen Normal Ur Leukocyte Esterase 25 H Urine RBC 0 SEEN Urine WBC 0-5 SEEN Ur Squamous Epith Cells 0-5 SEEN Urine Bacteria 0 SEEN Urine Mucus 0 SEEN Discharge Plan Triage Chief Complaint: Back ED Midlevel Provider: Sophia Martinez ED Provider: Tanisha Mallory Dx/Rx/DC Orders Clinical Impression: Chronic back pain, Abdominal pain Instructions: Abdominal Pain, ED Back Care Tips Prescriptions: No Action citalopram 40 MG tablet 40 mg PO DAILY Patient Comments: depression fluphenazine HCl 1 MG tablet 2 mg PO BID Patient Comments: mood oxcarbazepine [Trileptal] 600 mg tablet 1 tab PO BID Patient Comments: Take 1 tablet by mouth twice a day after meals albuterol sulfate [Ventolin HFA] 1 INHALER inhaler 1 puff inhalation Q4H PRN PRN (Reason: Sob &/Or Wheezing) Qty: 1 0RF quetiapine [Seroquel] 25 MG tablet 300 mg PO QHS simvastatin 80 mg tablet 80 mg PO QHS mirtazapine 30 mg tablet 30 mg PO QHS insulin glargine [Lantus Solostar U-100 Insulin] 100 unit/mL (3 mL) insulin pen 36 unit SUBCUT DAILY metformin 1,000 mg tablet 2,000 mg PO DAILY Patient Comments: TAKE 1 TABLET BY MOUTH TWICE A DAY WITH MEALS lorazepam 1 mg tablet 1 mg PO PRN PRN (Reason: anxiety) aspirin 81 mg tablet,chewable 1 tab PO DAILY Xarelto 20 mg tablet 20 mg PO DAILY Patient Comments: TAKE 1 TABLET BY MOUTH EVERY DAY WITH DINNER orphenadrine citrate 100 mg tablet extended release 100 mg PO BID Qty: 14 0RF tramadol 50 mg tablet 50 mg PO TID PRN (Reason: pain) Qty: 14 0RF cyclobenzaprine 10 mg tablet 10 mg PO TID PRN (Reason: Muscle Spasm) Qty: 20 0RF sulfamethoxazole-trimethoprim [Bactrim DS] 800-160 mg tablet 1 tab PO BID Qty: 14 0RF tizanidine 4 mg capsule 4 mg PO BID PRN (Reason: muscle spasticity) Qty: 16 0RF Primary Care Provider: Kajal Knutson Referrals: Kajal Knutson DO [Primary Care Provider] - Activity Restrictions/Additional Instructions: Please follow-up with your PCP and return for any worsening of your symptoms. Disposition Disposition: Home, Self Care
[2023-07-20] MEDS: Dicyclomine 20 MG/2 ML Vial IM (19:47)
[2023-07-20 20:02] LABS: Bacteria 0 SEEN /hpf (None Seen); Mucous, Urine 0 SEEN /hpf (<or=2+); Red Blood Cells-Urine 0 SEEN /hpf (0-5)
[2023-07-20 20:04] LABS: Absolute Lymphocyte Count 4.82 X10^3/uL (0.83-4.51); Basophil# 0.12 X10^3/uL; Basophil% 0.8 % (0-1); Color, Urine Yellow (Yellow); Eosinophils% 2.1 % (0-5); Glucose, Dipstick Normal (Normal); Hemoglobin 16.1 g/dL (13.0-16.5); Ketone-Dipstick 5 mg/dl (Negative); Leukocyte Esterase-Dipstick 25 /ul (Negative); Lymphocyte # 4.82 X10^3/ul (0.83-4.51); Lymphocyte % 34.1 % (19-41); Mean Corpuscular Hgb 31.5 pg (27.0-32.0); Mean Platelet Vol. 8.9 fl (6.2-12.0); Monocyte# 0.81 X10^3/uL; Monocyte% 5.7 % (0-10); NRBC Flagged by Analyzer 0 % (0-5); Neutrophil # 8.03 X10^3/uL (2.7-7.7); Neutrophil % 56.9 % (47-70); Nitrite-Dipstick Negative (Negative); Occult Blood-Urine Negative /ul (Negative); POSITIVE MORPHOLOGY YES; Platelet Count 272 K/mm3 (150-450); Protein-Dipstick 15 mg/dl (Negative); RBC Distribution Width CV 12.8 % (11.6-14.6); RBC Distribution Width SD 42.5 fl (35.1-43.9); Red Blood Count 5.11 M/mm3 (4.6-6.2); Urine Bilirubin Dipstick Negative (Negative); Urine Clarity Clear (Clear); Urine Urobilinogen Normal (Normal); White Blood Count 14.1 K/mm3 (4.4-11.0)
[2023-07-20 20:06] LABS: Differential Indicated SCAN CRITERIA MET
[2023-07-20 20:11] LABS: Squamous Epithelial Cells - UA 0-5 SEEN /hpf (0-5); White Blood Cells 0-5 SEEN /hpf (0-5)
[2023-07-20 20:22] LABS: Differential Comment SCANNED
[2023-07-20 20:37] LABS: ALB/GLOB Ratio 1.1 RATIO (0.9-2.4); AST(SGOT) 39 U/L (15-37); Alanine Aminotransfer ALT/SGPT 38 U/L (16-61); Albumin, Serum 3.8 g/dL (3.2-5.0); Alkaline Phosphatase 101 U/L (45-117); Anion Gap 4 (5-15); BUN 15 mg/dL (7-18); BUN/Creat Ratio 14.2 RATIO (10-20); Calcium,Total 9.6 mg/dL (8.5-10.1); Chloride 104 mmol/L (98-107); Creatinine, Serum 1.06 mg/dL (0.70-1.30); EST Glomerular Filtration Rate 79 mL/min (>60); Est Glom Filt Rate - Afr Amer 96 mL/min (>60); Estimated Creatinine Clearance 115.82 ml/min; Globulin 3.6 g/dL (2.2-4.2); Glucose 136 mg/dL (74-106); Lipase 141 U/L (13-75); Potassium 4.7 mmol/L (3.5-5.1); Protein, Total 7.4 g/dL (6.4-8.2); Sodium Level 135 mmol/L (136-145)
[2023-07-20] MEDS: Ketorolac 15 MG/ML Vial IV (20:58)
== END 2023-07-20 21:08 | disposition home or self-care (01) ==
PROVIDERS: Physician Assistant; Emergency Provider Emergency Medicine; PCP Family Medicine; Visit Provider Emergency Medicine
DX: G89.29 Other chronic pain (principal); F20.9 Schizophrenia, unspecified; J44.9 Chronic obstructive pulmonary disease, unspecified; E11.9 Type 2 diabetes mellitus without complications; Z79.4 Long term (current) use of insulin; M54.9 Dorsalgia, unspecified; F17.210 Nicotine dependence, cigarettes, uncomplicated; R10.9 Unspecified abdominal pain; X50.9XXA Other and unspecified overexertion or strenuous movements or postures, initial encounter; Y93.89 Activity, other specified; I25.10 Atherosclerotic heart disease of native coronary artery without angina pectoris; F32.A Depression, unspecified; Z79.899 Other long term (current) drug therapy; Z79.84 Long term (current) use of oral hypoglycemic drugs; Z79.82 Long term (current) use of aspirin; Z79.01 Long term (current) use of anticoagulants
CPT/HCPCS: 80053; 81001; 83690; 85025; 96372; 96374; 99283; A4216

== ENCOUNTER 2023-08-18 21:02 | Emergency (ER) | payer MEDICARE, MEDICAID, SELFPAY ==
[2023-08-18 21:03] VITALS: BP 108/74; PULSE 92; RESP 22; TEMP 35.9; O2SAT 98
--- NOTE | 2023-08-18 21:06 | ED.VIS.FALL ---
HPI HPI - Fall History of Present Illness Chief Complaint: Fall PFSH PFSH Medical History Asthma CAD (coronary artery disease) COPD (chronic obstructive pulmonary disease) Depression Diabetes Schizophrenia Home Medications citalopram 40 mg tablet 40 mg PO DAILY DEPRESSION 10/19/15 [History Last Taken 05/13/23] fluphenazine HCl 1 mg tablet 2 mg PO BID ANTIPSYHCOTIC 10/19/15 [History Last Taken 05/13/23] oxcarbazepine 600 mg tablet (Trileptal) 1 tab PO BID SEIZURE 03/06/17 [History Last Taken 05/13/23] albuterol sulfate 90 mcg/actuation aerosol inhaler (Ventolin HFA) 1 puff inhalation Q4H PRN PRN Sob &/Or Wheezing ##1 03/08/17 [Rx Last Taken 12/18/20] quetiapine 25 mg tablet (Seroquel) 300 mg PO QHS MOOD 09/10/17 [History Last Taken 05/13/23] insulin glargine 100 unit/mL (3 mL) subcutaneous pen (Lantus Solostar U-100 Insulin) 36 unit subcut DAILY DM 12/19/20 [History Last Taken 05/13/23] mirtazapine 30 mg tablet 30 mg PO QHS INSOMNIA 12/19/20 [History Last Taken 05/13/23] simvastatin 80 mg tablet 80 mg PO QHS CHOLESTEROL 12/19/20 [History Last Taken 05/12/23] metformin 1,000 mg tablet 2,000 mg PO DAILY 04/15/22 [History Last Taken 05/13/23] cyclobenzaprine 10 mg tablet 10 mg PO TID PRN Muscle Spasm #20 TABLETS 04/20/23 [Rx Last Taken 05/13/23] sulfamethoxazole 800 mg-trimethoprim 160 mg tablet (Bactrim DS) 1 tab PO BID #14 tabs 05/10/23 [Rx Last Taken 05/13/23] aspirin 81 mg chewable tablet 1 tab PO DAILY 05/13/23 [History Last Taken 05/13/23] lorazepam 1 mg tablet 1 mg PO PRN PRN anxiety 05/13/23 [History Last Taken Unknown] orphenadrine citrate 100 mg tablet,extended release 100 mg PO BID #14 tabs 05/13/23 [Rx Last Taken Unknown] rivaroxaban 20 mg tablet (Xarelto) 20 mg PO DAILY 05/13/23 [History Last Taken 05/13/23] tramadol 50 mg tablet 50 mg PO TID PRN pain #14 tabs 05/13/23 [Rx Last Taken Unknown] tizanidine 4 mg capsule 4 mg PO BID PRN muscle spasticity #16 caps 05/20/23 [Rx Last Taken Unknown] Allergy/AdvReac Type Severity Reaction Status Date / Time naproxen Allergy Shortness Verified 07/20/23 18:57 of breath Penicillins Allergy Swelling Verified 07/20/23 18:57 ibuprofen AdvReac Other Verified 07/20/23 18:57 meloxicam [From Mobic] AdvReac HEADACHE Verified 07/20/23 18:57 Surgical History Gangrene Social History household members: none Smoking Status: Current every day smoker tobacco type: cigarettes Tobacco: How many years used: 30 second hand exposure: Yes alcohol intake: never substance use type: does not use caffeine: Yes (3/day) what type of physical activity do you participate in: none EXAM Physical Exam Const Vital Signs: 08/18/23 21:03 08/18/23 21:07 Temperature 96.7 F L Temperature Source Temporal Pulse Rate 92 Respiratory Rate 22 H Respiratory Effort Normal Non-Labored Respiratory Depth Normal Respiratory Pattern Normal Blood Pressure 108/74 Blood Pressure Mean 85 Pulse Ox 98 Oxygen Delivery Method Room Air Room Air MDM MDM MDM Narrative Medical decision making narrative: HISTORY OF PRESENT ILLNESS: 48-year-old male here for fall. Notes a mechanical fall from standing today. Notes he stepped on icy stairs. Notes he fell down on his right lower back. Patient denies any saddle anesthesia, urinary retention, bowel or bladder incontinence, lower extremity weakness, fever or IV drug use, no recent spinal manipulation or surgery, no recent urinary catheterization. Denies any head trauma or loss of conscious. Denies any syncope REVIEW OF SYSTEMS: Pertinent positives: Back pain Pertinent negatives: Focal neurologic deficits, head trauma, loss of consciousness PHYSICAL EXAM: Nursing triage notes reviewed, Vital signs reviewed Primary Survey Airway: Intact Breathing: Bilateral breath sounds Circulation: Palpable bilateral femorals, Palpable bilateral radial, Palpable bilateral DP and Palpable bilateral PT Disability / Spine precautions GCS Score: Eye Openin Verbal Response: 5 Motor Response: 6 Secondary Survey Constitutional: Please see [facility] Head: Atraumatic, Midface stable, NO jaw malocclusion, No Cephalohematoma, and No Lacerations noted Eye: Pupils equal round and reactive to light, Extraocular muscles intact and No periorbital ecchymosis or stepoff, no evidence of entrapment ENT: Oropharynx clear, no lacerations, no hemotympanum, no raccoon eyes or felipe sign Cervical spine / Neck: No cervical spine bony tenderness, crepitance, or stepoff deformity Trachea midline Lungs: Clear to auscultation, No asymmetric rise and No crepitus, no flail chest Cardiac: Regular rate and rhythm and No murmurs Abdomen: Soft, Nontender and No rebound Pelvis: Pelvis stable to compression : No evidence of genital injury Back: No midline bony tenderness to thoracic/lumbar/sacral spines, no obvious hematoma, TTP over right paraspinal musculature Neuro: At baseline, intact strength and sensation in bilateral upper and lower extremities. 2+ patellar reflexes bilaterally. Extremities: NO gross Deformities Psych: Normal affect Nursing triage notes reviewed, Vital signs reviewed MEDICAL DECISION MAKING: Chief Complaint: Fall External records reviewed: Frequent ED utilizer Factors affecting care: Dysphagia, COPD, on Xarelto [facility] Narrative: Patient was hemodynamically stable, afebrile, nontoxic-appearing. Primary secondary trauma surveys concerning for I considered the following differential diagnosis: Lumbar fracture, lumbar strain, lumbar contusion Exam most consistent lumbar contusion. There is no midline step-offs or deformities. Patient no red flag symptoms to suggest acute spinal emergency. Medication for advanced imaging at this time. Patient was given a shot of IM Toradol. Risk and benefits of increased bleeding were discussed the patient however he stated Toradol has helped his pain in the past. He is also given instructions to take Tylenol at home. Lidocaine patches ice etc. Strict return precautions were discussed. The patient and/or family, caregivers express understanding. The patient and/or family, caregivers agrees with the plan. Shared decision making: I will have a discussion with the patient and or visitors regarding risk/benefits of further testing or admission. They will be made aware of of the risk/benefits inherent in this decision they will be given the opportunity to voice understanding. Total critical care time today provided was at least 0 minutes. This excludes separately billable procedures. Critical care time (if documented) is secondary to the patient having high probability of clinically significant/life threatening deterioration in the patient's condition which required my urgent intervention. Impression: 1. Back contusion Dispo: Discharge home This note was generated with [employer] dictation software. It may contain incorrect words, spelling, and punctuation that were not noted in review of the chart prior to signing. Discharge Plan Triage Chief Complaint: Fall ED Provider: Will Gonzalez Dx/Rx/DC Orders Clinical Impression: Back contusion Instructions: Bruises (Contusions), ED Back Contusion, ED Fall Prevention Prescriptions: No Action citalopram 40 MG tablet 40 mg PO DAILY Patient Comments: depression fluphenazine HCl 1 MG tablet 2 mg PO BID Patient Comments: mood oxcarbazepine [Trileptal] 600 mg tablet 1 tab PO BID Patient Comments: Take 1 tablet by mouth twice a day after meals albuterol sulfate [Ventolin HFA] 1 INHALER inhaler 1 puff inhalation Q4H PRN PRN (Reason: Sob &/Or Wheezing) Qty: 1 0RF quetiapine [Seroquel] 25 MG tablet 300 mg PO QHS simvastatin 80 mg tablet 80 mg PO QHS mirtazapine 30 mg tablet 30 mg PO QHS insulin glargine [Lantus Solostar U-100 Insulin] 100 unit/mL (3 mL) insulin pen 36 unit SUBCUT DAILY metformin 1,000 mg tablet 2,000 mg PO DAILY Patient Comments: TAKE 1 TABLET BY MOUTH TWICE A DAY WITH MEALS lorazepam 1 mg tablet 1 mg PO PRN PRN (Reason: anxiety) aspirin 81 mg tablet,chewable 1 tab PO DAILY Xarelto 20 mg tablet 20 mg PO DAILY Patient Comments: TAKE 1 TABLET BY MOUTH EVERY DAY WITH DINNER orphenadrine citrate 100 mg tablet extended release 100 mg PO BID Qty: 14 0RF tramadol 50 mg tablet 50 mg PO TID PRN (Reason: pain) Qty: 14 0RF cyclobenzaprine 10 mg tablet 10 mg PO TID PRN (Reason: Muscle Spasm) Qty: 20 0RF sulfamethoxazole-trimethoprim [Bactrim DS] 800-160 mg tablet 1 tab PO BID Qty: 14 0RF tizanidine 4 mg capsule 4 mg PO BID PRN (Reason: muscle spasticity) Qty: 16 0RF Primary Care Provider: Kajal Knutson Referrals: Kajal Knutson DO [Primary Care Provider] - Activity Restrictions/Additional Instructions: Thank you for trusting us with your care today! Please take Tylenol (2 pills, 650 mg) every 6 hours as needed for pain and fever control. Please return to the emergency department if your symptoms change or worsen. Please follow with your primary care physician for further outpatient evaluation and management. Disposition Disposition: Home, Self Care
[2023-08-18] MEDS: Ketorolac 15 MG/ML Vial IM (21:31)
[2023-08-18 21:53] VITALS: BP 112/74; PULSE 81; RESP 16; TEMP 36.6; O2SAT 99
== END 2023-08-18 21:54 | disposition home or self-care (01) ==
LOC: ED 21:24
PROVIDERS: Emergency Provider Emergency Medicine; PCP Family Medicine; Visit Provider Emergency Medicine
DX: S20.229A Contusion of unspecified back wall of thorax, initial encounter (principal); F20.9 Schizophrenia, unspecified; J44.9 Chronic obstructive pulmonary disease, unspecified; E11.9 Type 2 diabetes mellitus without complications; Z79.4 Long term (current) use of insulin; F17.210 Nicotine dependence, cigarettes, uncomplicated; I25.10 Atherosclerotic heart disease of native coronary artery without angina pectoris; F32.A Depression, unspecified; Z79.899 Other long term (current) drug therapy; Z79.84 Long term (current) use of oral hypoglycemic drugs; W00.1XXA Fall from stairs and steps due to ice and snow, initial encounter; Z79.01 Long term (current) use of anticoagulants
CPT/HCPCS: 96372; 99282

== ENCOUNTER 2024-11-27 15:39 | Emergency (ER) | payer MEDICARE, MEDICAID, SELFPAY ==
[2024-11-27 15:41] VITALS: BP 143/91; PULSE 99; RESP 18; TEMP 36.3; O2SAT 98; BMI 32.8
--- NOTE | 2024-11-27 16:14 | ED.VIS.CHEST ---
HPI History of Present Illness Chief Complaint: Chest Pain Informant: patient Onset/Context/Timing Onset: Days (3) Activity at onset: gradual Timing: Intermittent and Lasts (2 to 3 hours) Quality: Positive for Sharp Location: Substernal Worsened By: Nothing Relieved By: Nothing Associated Symptoms: Positive for Cough, Lightheadedness and Palpitations; Negative for Nausea, Vomiting, Diaphoresis, Dyspnea, Fever or Acid Reflux Narrative Narrative: Patient presents with chest pain that has been intermittent over the last 3 days. Patient states it came on with exertion. Patient states nothing makes it better nothing makes it worse. Patient describes his pain as sharp. Patient states it is over the lower substernal area. Patient admits to a cough but denies any shortness of breath or fevers. Patient denies any nausea or vomiting. Patient denies any diaphoresis. Patient mitts to some palpitations and lightheadedness. Patient also states that approximate 2 weeks ago he lost vision in his right eye. Patient states this has been constant for the past 2 weeks. Patient denies any headaches. CVD Risk Factors: Positive for Diabetes and Smoking; Negative for Hypertension, Hypercholesterolemia or Family History 1' </=55 PE Risk Factors: Negative for Recent Travel/Surgery, Recent Immobilization, Prior DVT or PE, Cancer or OCP + Smoking + >/=35 PFSH PFSH Medical History Diabetes CAD (coronary artery disease) Depression COPD (chronic obstructive pulmonary disease) Asthma Schizophrenia Home Medications ?Medication ?Instructions ?Recorded ?Last Taken ?Type fluphenazine HCl 1 mg tablet 2 mg PO TID ANTIPSYHCOTIC 10/19/15 11/27/24 History oxcarbazepine 600 mg tablet 1 tab PO BID SEIZURE 03/06/17 11/27/24 History (Trileptal) insulin glargine 100 unit/mL (3 36 unit subcut DAILY DM 12/19/20 11/27/24 History mL) subcutaneous pen (Lantus Solostar U-100 Insulin) simvastatin 80 mg tablet 80 mg PO QHS CHOLESTEROL 12/19/20 11/26/24 History metformin 1,000 mg tablet 1,000 mg PO BID 04/15/22 11/27/24 History cyclobenzaprine 10 mg tablet 10 mg PO TID PRN Muscle Spasm #20 04/20/23 05/13/23 Rx TABLETS aspirin 81 mg chewable tablet 1 tab PO DAILY 05/13/23 11/27/24 History rivaroxaban 20 mg tablet (Xarelto) 20 mg PO QPM 05/13/23 11/26/24 History albuterol sulfate 90 mcg/actuation 1 puff inhalation Q4H PRN Sob &/Or 11/27/24 Unknown History aerosol inhaler (Ventolin HFA) Wheezing clopidogrel 75 mg tablet 75 mg PO DAILY 11/27/24 11/27/24 History duloxetine 30 mg capsule,delayed 30 mg PO DAILY 11/27/24 11/27/24 History release duloxetine 60 mg capsule,delayed 60 mg PO QHS 11/27/24 11/26/24 History release fenofibrate micronized 134 mg 134 mg PO DAILY 11/27/24 11/27/24 History capsule lisinopril 5 mg tablet 5 mg PO DAILY 11/27/24 11/27/24 History lorazepam 2 mg tablet 4 mg PO BID PRN anxiety 11/27/24 Unknown History metoprolol succinate 50 mg 50 mg PO DAILY 11/27/24 11/27/24 History tablet,extended release 24 hr mirtazapine 45 mg tablet 45 mg PO QHS 11/27/24 11/26/24 History nicotine 21 mg/24 hr daily 1 patch topical DAILY 11/27/24 Unknown History transdermal patch oxycodone-acetaminophen 5 mg-325 1 tab PO Q6H 11/27/24 Unknown History mg tablet quetiapine 150 mg tablet,extended 150 mg PO QHS 11/27/24 11/26/24 History release 24 hr Allergy/AdvReac Type Severity Reaction Status Date / Time naproxen Allergy Shortness Verified 11/27/24 15:41 of breath Penicillins Allergy Swelling Verified 11/27/24 15:41 ibuprofen AdvReac Other Verified 11/27/24 15:41 meloxicam (From Mobic) AdvReac HEADACHE Verified 11/27/24 15:41 Surgical History Gangrene Social History household members: none Smoking Status: Current every day smoker tobacco type: cigarettes Tobacco: How many years used: 30 second hand exposure: Yes alcohol intake: never substance use type: does not use caffeine: Yes (3/day) what type of physical activity do you participate in: none ROS ROS ED Constitutional Constitutional ED: Denies chills or fever(s) Eyes Eyes: Reports change in vision ENT ENT ED: Reports rhinorrhea; Denies sore throat Cardiovascular Cardiovascular: Reports chest pain; Denies palpitations Respiratory/Chest Respiratory/Chest: Reports cough; Denies dyspnea Gastrointestinal Gastrointestinal: Denies nausea or vomiting Genitourinary Genitourinary ED: Denies dysuria or hematuria Musculoskeletal Musculoskeletal: Reports back pain; Denies neck pain Integumentary Denies abscess or rash Neurologic Neurologic: Denies headache(s) or weakness Allergic/Immunologic Allergic/Immunologic ED: Denies mouth swelling or urticaria EXAM Physical Exam Const Vital Signs: 11/27/24 15:41 11/27/24 15:59 11/27/24 16:20 Temperature 97.4 F L Temperature Source Temporal Pulse Rate 99 Respiratory Rate 18 Respiratory Effort Normal Non-Labored Blood Pressure 143/91 H Blood Pressure Mean 108 Pulse Ox 98 98 Oxygen Delivery Method Room Air Room Air 11/27/24 17:01 Temperature Temperature Source Pulse Rate 84 Respiratory Rate 18 Respiratory Effort Blood Pressure 122/75 H Blood Pressure Mean 90 Pulse Ox 100 Oxygen Delivery Method Room Air Positive well nourished and well developed Constitutional Narrative: BMI is 32.8 General Appearance ED: well developed and NAD HEENT Reports moist mucous membranes Eyes Eyes Narrative: There is no red reflex on the right. Extraocular muscles are intact. Funduscopic examination was benign on the left. Neck supple and no JVD Resp normal respiratory effort and clear to auscultation bilaterally Cardio regular rate and regular rhythm GI soft to palpation, non-tender and non-distended Neuro oriented x3, CN's II-XII intact bilaterally and no sensory deficits noted Sensorium / Orientation: awake and alert Motor Exam: strength 5/5 throughout Psych mental status grossly normal Skin no rashes or lesions noted Heart Score History: Slightly/Non-Suspicious ECG: Normal Age: >45 - <65 years Risk Factors: >/= 3 Risk Factors or History of CAD Troponin: </= Normal Limit Score: 3 MDM MDM MDM Narrative Medical decision making narrative: Differential diagnose includes cardiac dysrhythmia, cardiac ischemia, stroke, electrolyte abnormality, retinal detachment, pneumonia, bronchitis, and anxiety. CT scan of the brain will be obtained to assess for intracranial bleeding and stroke. EKG will be obtained to assess for cardiac dysrhythmia and cardiac ischemia. Chest x-ray will be obtained to assess for pneumonia and bronchitis. CBC will be obtained to assess for leukocytosis and anemia. Basic metabolic profile will be obtained to assess for electrolyte abnormality and renal function. High-sensitivity troponin will be obtained to assess for cardiac ischemia. 2-hour repeat high-sensitivity troponin will be obtained to assess for ongoing cardiac ischemia. History & Record Review Additional record(s) reviewed:: Prior outpatient record, Prior ED visit and Prior labs Lab Data Attestation: I reviewed the patient's lab results. Lab results narrative: CBC was reviewed and was within normal limits. Basic metabolic profile was reviewed. Creatinine was slightly elevated at 1.44. This is consistent with previous results. High-sensitivity troponin was reviewed and was normal at 18. Labs: Laboratory Results - last 24 hr 11/27/24 15:55 WBC 9.0 RBC 4.56 L Hgb 15.1 Hct 41.8 MCV 91.7 MCH 33.1 H MCHC 36.1 H RDW Std Deviation 41.1 RDW Coeff of Desiree 12.2 Plt Count 199 MPV 9.0 Immature Gran % (Auto) 0.200 Neut % (Auto) 55.7 Lymph % (Auto) 33.9 [place] % (Auto) 7.7 Eos % (Auto) 1.9 Baso % (Auto) 0.6 Absolute Neuts (auto) 5.0 Absolute Lymphs (auto) 3.05 Nucleated RBC % 0 Sodium 141 Potassium 3.9 Chloride 105 Carbon Dioxide 24.2 Anion Gap 11 BUN 18 Creatinine 1.44 H Estim Creat Clear Calc 70.40 Est GFR (MDRD) Non-Af 60 BUN/Creatinine Ratio 12.4 Glucose 121 H Calcium 8.9 Troponin T High Sens 18 Radiography Chest X-Ray - ED: 1 View, Read by ED Physician, Read by Radiologist and No Acute Disease Diagnostic Testing: Clinical Impression(s) from Imaging Studies Brain CT 11/27/24 16:20 IMPRESSION: NO ACUTE FINDINGS Reading Location: [facility] Chest X-Ray 11/27/24 16:40 IMPRESSION: NEGATIVE SINGLE VIEW OF THE CHEST. Reading Location: [place] [id number] CT scan of the brain was obtained. There is no acute intracranial abnormality. This was interpreted by the radiologist and was also independently reviewed by myself. Portable 1 view chest x-ray was obtained. On my independent interpretation, lung perry are clear. There is normal cardiac silhouette. Bony thorax is normal. There is no acute process noted. Radiologist also interpreted the x-ray and agrees. EKG Initial EKG: Attestation: I personally reviewed and interpreted this EKG as follows: Interpretation: Sinus Rhythm (83) and No Acute Injury Pattern Comments: EKG was obtained. On my independent interpretation, it showed a normal sinus rhythm with a rate of 83. ME interval, QRS interval, and QTc intervals were all normal. Jadwin was normal. There are no acute ST or T wave changes. Prior EKG tracings: available for review Prior: Unchanged (05/10/2023) Treatment and Re-Evaluation :: Patient was given aspirin. Patient was given a dose of [place]. Patient requested nicotine patch. This was ordered. Patient was advised of his findings. Patient has a HEART score of 3. Patient was advised that his vision loss could be due to a retinal detachment. Patient states he has an appoint with a retinal specialist on 12/01/2024. Patient did not want to see anybody else for this. Patient did not want me to contact his sports administrator. Patient would prefer to go home. Patient was instructed to follow-up with his sports administrator as scheduled. Patient understood and was agreeable with the plan. All questions were answered. Discharge Plan Triage Chief Complaint: Chest Pain Other Complaint: Eye Problem Vision Prob ED Provider: Aníbal Michelle Dx/Rx/DC Orders Clinical Impression: Chest pain, Vision loss of right eye, Diabetes mellitus Instructions: ED Chest Pain, Uncertain Cause Prescriptions: No Action fluphenazine HCl 1 MG tablet 2 mg PO TID Patient Comments: mood oxcarbazepine [Trileptal] 600 mg tablet 1 tab PO BID simvastatin 80 mg tablet 80 mg PO QHS insulin glargine [Lantus Solostar U-100 Insulin] 100 unit/mL (3 mL) insulin pen 36 unit SUBCUT DAILY metformin 1,000 mg tablet 1,000 mg PO BID aspirin 81 mg tablet,chewable 1 tab PO DAILY Xarelto 20 mg tablet 20 mg PO QPM cyclobenzaprine 10 mg tablet 10 mg PO TID PRN (Reason: Muscle Spasm) Qty: 20 0RF duloxetine 30 mg capsule,delayed release(DR/EC) 30 mg PO DAILY duloxetine 60 mg capsule,delayed release(DR/EC) 60 mg PO QHS lorazepam 2 mg tablet 4 mg PO BID PRN (Reason: anxiety) mirtazapine 45 mg tablet 45 mg PO QHS quetiapine 150 mg tablet extended release 24 hr 150 mg PO QHS metoprolol succinate 50 mg tablet extended release 24 hr 50 mg PO DAILY clopidogrel 75 mg tablet 75 mg PO DAILY fenofibrate micronized 134 mg capsule 134 mg PO DAILY oxycodone-acetaminophen 5-325 mg tablet 1 tab PO Q6H nicotine 21 mg/24 hr patch 24 hour 1 patch topical DAILY lisinopril 5 mg tablet 5 mg PO DAILY albuterol sulfate [Ventolin HFA] 1 INHALER inhaler 1 puff inhalation Q4H PRN (Reason: Sob &/Or Wheezing) Primary Care Provider: Kajal Knutson Referrals: Kajal Knutson DO [Primary Care Provider] - Print Language: Yemeni
[2024-11-27 16:20] VITALS: O2SAT 98
--- NOTE | 2024-11-27 16:20 | CT_ITS ---
PROCEDURE: BRAIN/HEAD WITHOUT CONTRAST 11/27/2024 REASON FOR EXAM: VISION LOSS TECHNIQUE: Head CT without intravenous contrast. Coronal and Sagittal reconstruction series were provided. One or more dose reduction techniques were used (e.g., Automated exposure control, adjustment of the mA and/or kV according to patient size, use of iterative reconstruction technique. RADIATION DOSE SUMMARY: CTDlvol: 47 mGy DLP: 996 mGycm COMPARISON: None FINDINGS: Brain: Within normal limits for age CSF Spaces: Normal Sinuses/Mastoids: Clear at visualized levels Bones: Unremarkable CT/Brain/Head without Contrast IMPRESSION: NO ACUTE FINDINGS Reading Location: [facility]
[2024-11-27] MEDS: Aspirin 81 MG TAB.CHEW 324 MG PO (16:27)
[2024-11-27 16:33] LABS: Absolute Lymphocyte Count 3.05 X10^3/uL (0.83-4.51); Basophil# 0.05 X10^3/uL; Basophil% 0.6 % (0-1); Eosinophil# 0.17 X10^3/uL; Eosinophils% 1.9 % (0-5); Hematocrit 41.8 % (40-54); Hemoglobin 15.1 g/dL (13.0-16.5); Lymphocyte # 3.05 X10^3/ul (0.83-4.51); Lymphocyte % 33.9 % (19-41); Mean Corp Hgb Conc 36.1 g/dL (32-36); Mean Corpuscular Hgb 33.1 pg (27.0-32.0); Mean Corpuscular Volume 91.7 fL (80-94); Monocyte# 0.69 X10^3/uL; Monocyte% 7.7 % (0-10); NRBC Flagged by Analyzer 0 % (0-5); Neutrophil # 5.02 X10^3/uL (2.7-7.7); Neutrophil % 55.7 % (47-70); Platelet Count 199 K/mm3 (150-450); RBC Distribution Width CV 12.2 % (11.6-14.6); RBC Distribution Width SD 41.1 fl (35.1-43.9); Red Blood Count 4.56 M/mm3 (4.6-6.2)
--- NOTE | 2024-11-27 16:40 | RAD_ITS ---
PROCEDURE: CHEST 1 VIEW (PORTABLE) 11/27/2024 REASON FOR EXAM: CHEST PAIN TECHNIQUE: Frontal view of the chest. COMPARISON: 05/10/2023. FINDINGS: The cardiac and mediastinal contours are normal. The lungs are clear. No acute osseous abnormalities. RAD/Chest 1 View (Portable) IMPRESSION: NEGATIVE SINGLE VIEW OF THE CHEST. Reading Location: [place] [id number]
[2024-11-27 17:01] VITALS: BP 122/75; PULSE 84; RESP 18; O2SAT 100
[2024-11-27] MEDS: HYDROcodone Bitartrate/Apap 5/325 Tablet PO (17:05)
[2024-11-27 17:11] LABS: Troponin T High Sensitivity 18 ng/L (<=22)
[2024-11-27 17:14] LABS: Anion Gap 11 (5-15); BUN 18 mg/dL (4-19); BUN/Creat Ratio 12.4 RATIO (10-20); Calcium,Total 8.9 mg/dL (7.6-11.0); Carbon Dioxide 24.2 mmol/L (21.0-32.0); Chloride 105 mmol/L (98-108); Creatinine, Serum 1.44 mg/dL (0.70-1.20); EST Glomerular Filtration Rate 60 (>60); Glucose 121 mg/dL (70-99); Potassium 3.9 mmol/L (3.3-5.1); Sodium Level 141 mmol/L (133-145)
[2024-11-27 18:00] VITALS: BP 131/80; RESP 18; O2SAT 96
[2024-11-27 18:36] VITALS: BP 131/80; PULSE 84; RESP 18; TEMP 36.3; O2SAT 96
== END 2024-11-27 18:40 | disposition home or self-care (01) ==
PROVIDERS: Emergency Provider Emergency Medicine; PCP Family Medicine; Visit Provider Emergency Medicine
DX: R07.9 Chest pain, unspecified (principal); F20.9 Schizophrenia, unspecified; J44.9 Chronic obstructive pulmonary disease, unspecified; E11.9 Type 2 diabetes mellitus without complications; Z79.4 Long term (current) use of insulin; I25.10 Atherosclerotic heart disease of native coronary artery without angina pectoris; Z83.3 Family history of diabetes mellitus; H54.7 Unspecified visual loss; F17.210 Nicotine dependence, cigarettes, uncomplicated; M54.9 Dorsalgia, unspecified; Z79.82 Long term (current) use of aspirin; F32.A Depression, unspecified
CPT/HCPCS: 70450; 71045; 80048; 84484; 85025; 93005; 99285; A4216

== ENCOUNTER 2025-01-30 20:22 | Emergency (ER) | payer MEDICARE, MEDICAID, SELFPAY ==
[2025-01-30 20:24] VITALS: BP 146/97; PULSE 93; RESP 16; TEMP 36.6; O2SAT 99; BMI 30.7
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
[2025-01-30 21:30] LABS: Hematocrit 41.9 % (40-54); Hemoglobin 15.0 g/dL (13.0-16.5); Immature Granulocytes Count 0.030 X10^3/uL (0.0-0.0); Mean Corp Hgb Conc 35.8 g/dL (32-36); Mean Corpuscular Volume 90.9 fL (80-94); Mean Platelet Vol. 8.9 fl (6.2-12.0); NRBC Flagged by Analyzer 0 % (0-5); Platelet Count 294 K/mm3 (150-450); RBC Distribution Width CV 12.8 % (11.6-14.6); RBC Distribution Width SD 42.0 fl (35.1-43.9); Red Blood Count 4.61 M/mm3 (4.6-6.2); White Blood Count 10.8 K/mm3 (4.4-11.0)
[2025-01-30 21:32] LABS: AST(SGOT) 23 U/L (<=37); Alanine Aminotransfer ALT/SGPT 15 U/L (<=46); Albumin, Serum 4.5 g/dL (3.5-5.0); Alkaline Phosphatase 121 U/L (40-129); Anion Gap 14 (5-15); BUN 14 mg/dL (4-19); BUN/Creat Ratio 9.8 RATIO (10-20); Calcium,Total 9.8 mg/dL (7.6-11.0); Carbon Dioxide 23.8 mmol/L (21.0-32.0); Chloride 105 mmol/L (98-108); Estimated Creatinine Clearance 67.67 ml/min (50-250); Globulin 2.2 g/dL (2.2-4.2); Glucose 109 mg/dL (70-99); Potassium 3.5 mmol/L (3.3-5.1)
[2025-01-30 21:38] LABS: Alcohol, Blood (Medical)-Serum < 10.1 mg/dL (<=10.0); Barbiturate Urine NEGATIVE (< 200 ng/mL); Benzodiazepine Urine NEGATIVE (< 200 ng/mL); PCP Urine NEGATIVE (< 25 ng/mL); THC Urine PRESUMPTIVE POSITIVE (< 50 ng/mL)
[2025-01-30] MEDS: Ziprasidone IM 20 MG/ML VIAL 10 MG IM (21:40)
[2025-01-30] MEDS: Lorazepam 2 MG/ML WCH Syringe 1 MG IM (21:40)
[2025-01-30 23:53] VITALS: BP 107/85; PULSE 81; RESP 16; TEMP 36.6; O2SAT 96
[2025-01-31 02:12] VITALS: BP 119/79; PULSE 77; RESP 16; TEMP 36.6; O2SAT 98
[2025-01-31 06:29] VITALS: BP 162/104; PULSE 78; RESP 16; O2SAT 95
[2025-01-31 07:12] VITALS: BP 107/97; PULSE 93; RESP 16; TEMP 36.6; O2SAT 99
== END 2025-01-31 07:16 | disposition short-term general hospital (02) ==
PROVIDERS: Emergency Provider Emergency Medicine; PCP Family Medicine; Visit Provider Emergency Medicine
DX: R45.850 Homicidal ideations (principal); F20.9 Schizophrenia, unspecified; J44.9 Chronic obstructive pulmonary disease, unspecified; E11.9 Type 2 diabetes mellitus without complications; I25.10 Atherosclerotic heart disease of native coronary artery without angina pectoris; F17.210 Nicotine dependence, cigarettes, uncomplicated; M79.672 Pain in left foot; M79.671 Pain in right foot; S90.821A Blister (nonthermal), right foot, initial encounter; S90.822A Blister (nonthermal), left foot, initial encounter; X58.XXXA Exposure to other specified factors, initial encounter; Y93.01 Activity, walking, marching and hiking; Z79.899 Other long term (current) drug therapy; Z76.0 Encounter for issue of repeat prescription
CPT/HCPCS: 80053; 80307; 82077; 85025; 96372; 99285; J3486